=== PATIENT | male | born 1945 | race Caucasian/White ===

== ENCOUNTER 2021-05-30 10:17 | Inpatient (IN) ==
[2021-05-30] MEDS ORDERED: 0.9 % SODIUM CHLORIDE 1,000 ML IV ONE (10:20)
[2021-05-30] MEDS ORDERED: DEXAMETHASONE 4 MG TABLET PO ONE (10:20)
--- NOTE | 2021-05-30 10:33 | Emergency Department Note ---
SOB HPI General Chief Complaint: Shortness of Breath/Dyspnea Stated Complaint: Covid, sob Time Seen by Provider: 05/30/21 10:20 Source: EMS Mode of arrival: EMS Limitations: no limitations History of Present Illness HPI Narrative: Patient is a 75-year-old gentleman who arrives the emergency department by ambulance complaining of shortness of breath. History is provided by the patient and paramedics. Patient started having a cough and shortness of breath 2 days ago. He and his had recently been exposed to COVID-19. He has not been vaccinated against COVID-19. He presented to our emergency department on May 27 and tested positive for COVID-19. He was mildly hypoxemic but otherwise reassuring vital signs and was discharged home with a home oxygen concentrator. Today, his neighbor came to contact him to tell him that his who is being treated in the ICU for Covid may need to be transferred to a higher level of care. Upon arriving the patient's home. The neighbor noticed that he was significantly short of breath so they called 911 and the patient was transported to the hospital. He denies any chest pain or fever associated with his symptoms. Related Data Home Medications Medication Instructions Recorded Confirmed omeprazole 20 mg tablet,delayed 20 mg PO QAM 10/08/16 05/30/21 release Adult One Daily Multivitamin 1 tab PO DAILY 05/30/21 05/30/21 Previous Rx's Medication Instructions Recorded right wrist cock-up splint #1 each 02/25/16 Allergies Allergy/AdvReac Type Severity Reaction Status Date / Time latex Allergy Unknown Unknown Verified 05/30/21 10:18 Amoxicillin AdvReac Intermediate rash/hives Verified 05/30/21 10:18 Review of Systems ROS ROS Narrative: Narrative: All systems ED: reviewed and negative except as stated. Gastrointestinal: Denies abdominal pain, nausea, vomiting or diarrhea PFSH Narrative Patient History Narrative: Narrative: Medical/Surgical/Family History All Active Problems (Updated 06/01/21 @ 07:14 by Marek Dominguez DO) Malleolar fracture (Acute) Pneumonia due to 2019 novel coronavirus (Acute) COVID-19 (Acute) Acute hypoxemic respiratory failure (Acute) Carpal tunnel syndrome on both sides (Chronic) GERD (gastroesophageal reflux disease) (Chronic) Biceps tendinitis of right shoulder (Acute) Carpal tunnel syndrome of right wrist (Chronic) History of foot surgery (Chronic) History of colonoscopy (Chronic) History of back surgery (Chronic) History of arthroscopy (Chronic) Seborrheic keratosis (Chronic) Lumbar disc disease (Chronic) Hyperlipidemia (Chronic) Erectile dysfunction (Chronic) Derangement of knee (Chronic) Degenerative disc disease (Chronic) Chronic back pain (Chronic) Arthralgia (Chronic) Actinic keratosis (Chronic) Medical History (Updated 06/01/21 @ 07:14 by Marek Dominguez DO) Actinic keratosis Arthralgia Chronic back pain letter to [facility] - see comments Degenerative disc disease Derangement of knee Meniscus Erectile dysfunction Hyperlipidemia Lumbar disc disease Seborrheic keratosis Surgical History History of arthroscopy 1979 L knee History of back surgery History of colonoscopy 1996 benign polyps History of foot surgery left Family History Mother Type 2 diabetes mellitus Cerebrovascular accident (CVA) Father Disorder of liver Disease of lung Unknown Hyperlipidemia Social History Smoking Status: Former smoker Alcohol Intake Frequency: does not drink Substance Use: does not use Exam Narrative Narrative: I reviewed the vital signs. Gen -patient is awake and alert and appears uncomfortable but in no acute distress. The patient is well groomed. HEENT -head is atraumatic. There is no conjunctival pallor or scleral icterus. Mucous membranes are dry CV -S1-S2 regular rate and rhythm. Peripheral pulses are palpable. There is no JVD. Resp -breathing is somewhat labored with tachypnea and accessory muscle use. The patient is able to speak in short sentences while on supplemental oxygen via nasal cannula but gets significantly increased work of breathing after prolonged conversation. Lungs have mild rhonchi bilaterally. There is no cyanosis. GI - Abdomen is soft and nontender to palpation. There is no guarding or rebound tenderness. Derm -skin is warm and dry. There is no visible rash. MSK -present extremities are atraumatic. Psych -patient has appropriate affect. The patient does not appear internally stimulated. Neuro -patient answers questions appropriately with fluent speech. Patient moves all present extremities equally. General Limitations: no limitations Course Vital Signs Vital signs: Vital Signs Temperature 98.1 F 05/30/21 10:18 Pulse Rate 89 12/02/21 10:18 Respiratory Rate 20 05/30/21 10:18 Blood Pressure 111/68 05/30/21 10:18 Pulse Oximetry (%) 93 05/30/21 10:18 Temperature 98.2 F 05/31/21 22:59 Pulse Rate 61 06/01/21 06:01 Respiratory Rate 22 06/01/21 06:01 Blood Pressure 113/72 06/01/21 06:01 Pulse Oximetry (%) 90 06/01/21 06:01 [facility] MDM Narrative Medical decision making narrative: Patient with previously diagnosed COVID-19 presents with worsening shortness of breath. Labs are remarkable for mild anemia and thrombocytopenia without significant electrolyte derangements. He was given IV fluids supplemental oxygen and dexamethasone without much change in his symptoms. Given his worsening hypoxemia I recommend he be admitted to the hospital and he was agreeable to this. I did consider the possibility of secondary bacterial pneumonia or pulmonary embolus but given the insidious onset of his symptoms I do not think these are the cause of his decompensation. I discussed the patient's history examination and diagnostic findings with Dr. Cosby, who agrees with the plan of care and accepts admission. Critical care time I provided 32 minutes of critical care time. This was in addition to any separately billable procedures. The patient was given supplemental oxygen to treat his hypoxemic respiratory failure. He was given steroids to treat the causative COVID-19 pneumonia. He was given IV fluids to treat dehydration. the patient was closely monitored for response to treatment and stability of vital signs throughout their emergency department stay. Lab Data Lab results reviewed: Yes I reviewed the patient's lab results. Result diagrams: 05/31/21 05:57 05/31/21 05:57 Labs: Lab Results 05/30/21 05/30/21 05/30/21 Range/Units 11:14 11:14 11:48 WBC 8.4 (4.5-11.0) K/mcL RBC 4.45 L (4.63-6.08) M/mcL Hgb 13.7 (13.7-17.5) g/dL Hct 38.8 L (40.1-51.0) % POC Hct 40 L (41-55) % MCV 87.2 (80.0-100.0) fL MCH 30.8 (26.0-34.0) pg MCHC 35.3 (31.0-36.0) g/dL RDW 11.9 (11.5-14.5) % Plt Count 123 L (140-440) K/mcL MPV 10.4 (7.4-10.4) fL Neut % (Auto) 84.5 H (38.0-78.0) % Lymph % (Auto) 11.1 L (15.5-49.0) % [place] % (Auto) 3.2 (1.0-12.0) % Eos % (Auto) 0.8 (0.0-7.0) % Baso % (Auto) 0.4 (0.0-2.0) % Lymph # (Auto) 0.93 L (1.50-4.80) K/mcL [place] # (Auto) 0.27 (0.10-0.90) K/mcL Eos # (Auto) 0.07 (0.00-0.70) K/mcL Baso # (Auto) 0.03 (0.00-0.30) K/mcL Absolute Neutrophils 7.09 (1.80-8.00) K/mcL POC Sodium 140 (133-145) mEq/L POC Potassium 3.5 (3.3-5.1) mEql/L POC Chloride 102 (96-108) mEq/L POC Total CO2 23 (22-30) mmol/L POC BUN 24 H (6-20) mg/dL POC Creatinine 0.9 (0.6-1.2) mg/dL POC Glucose 111 H (70-105) mg/dL POC WB Ioniz Calcium 1.13 L (1.16-1.32) mmEq/L Mycoplasma pneumon IgM Negative (Negative) EKG Data EKG #1: EKG attestation: Yes I reviewed and interpreted this EKG. EKG results narrative: EKG performed at 10:31 AM: Sinus rhythm, rate 79. Normal P wave and T wave morphology. Left ventricular hypertrophy. No ST segment deviation. Normal IA QRS and QTc duration. No old EKG immediately available for comparison. EKG was interpreted by me. Discharge Plan Patient/Caregiver Discharge Instructions Pt seen by [facility]/PA only: No Clinical Impression: COVID-19, Acute hypoxemic respiratory failure Patient Disposition: Xfer As Inpt ([facility]) Condition: Fair Discharge Date/Time: 05/30/21 15:46
--- NOTE | 2021-05-30 11:04 | XRay Report ---
INDICATION: dyspnea TECHNIQUE: AP portable upright chest x-ray COMPARISON: Previous chest x-ray dated 05/27/2021. Previous chest CT scan dated 10/28/2018 FINDINGS: Lungs:There is interstitial abnormality bilaterally. Appearance is slightly worse than on 05/27/2021. Previous CT scans consistent with interstitial fibrosis. This has progressed since 10/28/2018. There may be superimposed infection including covid. Clinical correlation is necessary. Heart, vascular:No significant cardiomegaly. Pulmonary vascularity is normal. No pulmonary edema or pulmonary congestion Mediastinum, arash:No mediastinal widening. No hilar mass Pleura:No pleural fluid. No pleural-based mass or calcification Skeletal:Negative. IMPRESSION: 1. Bilateral interstitial abnormality, slightly worse than on 05/27/2021 2. Findings may represent interstitial fibrosis with superimposed infection. Interpreted and Authenticated by: Jakub Caceres 05/30/21
[2021-05-30 11:27] LABS: POC Blood Urea Nitrogen 24 mg/dL (6-20); POC CO2 23 mmol/L (22-30); POC Calcium, Ionized 1.13 mmEq/L (1.16-1.32); POC Chloride 102 mEq/L (96-108); POC Creatinine 0.9 mg/dL (0.6-1.2); POC Glucose, Random 111 mg/dL (70-105); POC Hematocrit 40 % (41-55); POC Potassium 3.5 mEql/L (3.3-5.1); POC Sodium 140 mEq/L (133-145)
[2021-05-30 12:38] LABS: Basophils # (Auto) 0.03 K/mcL (0.00-0.30); Basophils % (Auto) 0.4 % (0.0-2.0); Eosinophils # (Auto) 0.07 K/mcL (0.00-0.70); Eosinophils % (Auto) 0.8 % (0.0-7.0); Hematocrit 38.8 % (40.1-51.0); Hemoglobin 13.7 g/dL (13.7-17.5); Lymphocytes # (Auto) 0.93 K/mcL (1.50-4.80); Mean Cell Volume 87.2 fL (80.0-100.0); Mean Corpuscular HGB Conc 35.3 g/dL (31.0-36.0); Mean Platelet Volume 10.4 fL (7.4-10.4); Monocytes # (Auto) 0.27 K/mcL (0.10-0.90); Monocytes % (Auto) 3.2 % (1.0-12.0); Neutrophils % (Auto) 84.5 % (38.0-78.0); Platelet Count 123 K/mcL (140-440); RBC 4.45 M/mcL (4.63-6.08); Red Cell Distribution Width 11.9 % (11.5-14.5); WBC 8.4 K/mcL (4.5-11.0)
[2021-05-30 12:40] LABS: Lymphocytes % (Auto) 11.1 % (15.5-49.0)
[2021-05-30] MEDS ORDERED: ACETAMINOPHEN 650 MG/65 ML BAG IV PRN (12:54)
[2021-05-30] MEDS ORDERED: BISACODYL 10 MG SUPP.RECT PR PRN (12:54)
[2021-05-30] MEDS ORDERED: POTASSIUM CHLORIDE 40 MEQ in DEXTROSE 5% IN WATER 500 ML IV PRN (12:54)
[2021-05-30] MEDS ORDERED: POLYETHYLENE GLYCOL 3350 17 GM PACKET PO PRN (12:54)
[2021-05-30] MEDS ORDERED: MAGNESIUM SULFATE 2 GM/50 ML BAG IV PRN (12:54)
[2021-05-30] MEDS ORDERED: ONDANSETRON 4 MG ODT TABLET SL PRN (12:54)
[2021-05-30] MEDS ORDERED: NEUTRA PHOS 1 PACKET PO PRN (12:54)
[2021-05-30] MEDS ORDERED: ONDANSETRON 4 MG/2 ML VIAL IV PRN (12:54)
--- NOTE | 2021-05-30 13:06 | Internal Med History&Physical ---
HPI History of Present Illness Patient information: Note initiated : 05/30/21 at 1:00 pm Service Date, if different from initiated Date: [] Patient: Abiel Rae a 75 y/o M admitted on for Covid, sob. Chief Complaint: [] History of present illness: Mr. Rae is a 75 year old M with no prior significant medical history who presents to the ER with worsening shortness of breath over the last few weeks. Patient was diagnosed with Covid on the and was discharged home on oxygen however he was discovered by his neighbor very short of breath and subsequently EMS was summoned. Patient was found to be desaturating in mid 80s. He was brought into the ER. Initial work-up was consistent with bilateral Covid pneumonia. Patient was found dexamethasone and subsequently hospitalist service was consulted. At the time of my evaluation patient is alert and able to answer most the questions. He was able to endorse history as above. He denies hemoptysis, diarrhea, abdominal pain, headache lightheadedness but endorses to weakness fa tigue loss of appetite along with malaise. Review of systems 10 point review system was performed and is negative except for ones discussed above PFSH PFSH All Active Problems Malleolar fracture (Acute) Pneumonia due to 2019 novel coronavirus (Acute) Carpal tunnel syndrome on both sides (Chronic) GERD (gastroesophageal reflux disease) (Chronic) Biceps tendinitis of right shoulder (Acute) Carpal tunnel syndrome of right wrist (Chronic) History of foot surgery (Chronic) History of colonoscopy (Chronic) History of back surgery (Chronic) History of arthroscopy (Chronic) Seborrheic keratosis (Chronic) Lumbar disc disease (Chronic) Hyperlipidemia (Chronic) Erectile dysfunction (Chronic) Derangement of knee (Chronic) Degenerative disc disease (Chronic) Chronic back pain (Chronic) Arthralgia (Chronic) Actinic keratosis (Chronic) Medical History Actinic keratosis Arthralgia Chronic back pain letter to [facility] - see comments Degenerative disc disease Derangement of knee Meniscus Erectile dysfunction Hyperlipidemia Lumbar disc disease Seborrheic keratosis Surgical History History of arthroscopy 1980 L knee History of back surgery History of colonoscopy 1996 benign polyps History of foot surgery left Family History Mother Type 2 diabetes mellitus Cerebrovascular accident (CVA) Father Disorder of liver Disease of lung Unknown Hyperlipidemia Social History (Updated 06/24/18 @ 10:34 by Polo Luz MD) marital status: frequency: other details: Exercises regularly alcohol intake frequency: does not drink substance use type: does not use MEDS/ALLERGIES Home Medications and Allergies Home Medications Medication Instructions Recorded Confirmed Type right wrist cock-up splint #1 each 02/25/16 06/24/18 Rx omeprazole 20 mg tablet,delayed 20 mg PO QAM 10/08/16 05/30/21 History release Allergies Allergy/AdvReac Type Severity Reaction Status Date / Time latex Allergy Unknown Unknown Verified 05/30/21 10:18 Amoxicillin AdvReac Intermediate rash/hives Verified 05/30/21 10:18 EXAM Constitutional Vitals: Temp Pulse Resp BP Pulse Ox 98.1 F 77 30 H 111/68 85 L 05/30/21 10:18 05/30/21 12:30 05/30/21 12:30 05/30/21 10:18 05/30/21 12:30 Alert oriented but minimally anxious Head normocephalic Oral cavity moist No ear or nose discharge Eye no subconjunctival pallor, movement symmetrical S1-S2 regular Nonlabored breathing on 4 L oxygen Nondistended nontender abdomen Lower extremity no cyanosis clubbing or joint swelling Skin no suspicious lesion Psych anxious but no hallucination Neuro normal higher function on limited neuro exam DATA Data Completed and Pending Labs: Labs from last 24 hours 05/30/21 05/30/21 11:14 11:14 WBC 8.4 RBC 4.45 L Hgb 13.7 Hct 38.8 L POC Hct 40 L MCV 87.2 MCH 30.8 MCHC 35.3 RDW 11.9 Plt Count 123 L MPV 10.4 Neut % (Auto) 84.5 H Lymph % (Auto) 11.1 L [place] % (Auto) 3.2 Eos % (Auto) 0.8 Baso % (Auto) 0.4 Lymph # (Auto) 0.93 L [place] # (Auto) 0.27 Eos # (Auto) 0.07 Baso # (Auto) 0.03 Absolute Neutrophils 7.09 POC Sodium 140 POC Potassium 3.5 POC Chloride 102 POC Total CO2 23 POC BUN 24 H POC Creatinine 0.9 POC Glucose 111 H POC WB Ioniz Calcium 1.13 L A/P Narrative A/P Narrative: * COVID-19 pneumonia-PCU admission/initiate remdesivir/dexamethasone, thrombosis prophylaxis/coag and inflammatory markers, maintain COVID-19 precautions, consent for IL 6 Inhibitor. * Acute hypoxic respiratory failure secondary to Covid pneumonia. Continue with low flow oxygen/pulmonary toilet/ Prone ventilation and transition to noninvasive mechanical ventilation if deteriorating status/worsening oxygenation on ABG/interval chest imaging * History of GERD continue PPI * Prophylaxis on twice daily Lovenox Plan * Inpatient PCU admission * Prone ventilation and NIV if indicated and worsening Covid pneumonia * Serial imaging/ABG/coag inflammatory markers/ IL6 * Remdesivir/dexamethasone/empiric antibiotics/thrombosis prophylaxis * Pre-existing medical condition management home meds * Directed therapies/nutrition support/early mobilization * Discharge planning Time Spent With Patient Time: Total time spent is greater than 50% in coordination of care (as documented) at patient's floor/unit and/or counseling patient:
[2021-05-30] MEDS: AZITHROMYCIN 500 MG in DEXTROSE 5% IN WATER 250 ML IV SCH (16:51)
[2021-05-30] MEDS ORDERED: REMDESIVIR 200 MG in 0.9 % SODIUM CHLORIDE 250 ML IV ONE (17:00)
[2021-05-30] MEDS ORDERED: TOCILIZUMAB 600 MG in 0.9 % SODIUM CHLORIDE 70 ML IV ONE (17:00)
--- NOTE | 2021-05-30 17:26 | EKG ---
[facility] Test Date: 2021-05-30 Pat Name: Abiel Rae Department: ED Room: Gender: Male Heat Treat Worker: laurie : 1945 Requested By: Marek Dominguez Order Number: [id number] Reading MD: Jakub Monet M.D. Measurements Intervals [place] Rate: 79 P: 42 MD: 154 QRS: -3 QRSD: 100 T: 33 QT: 380 QTc: 436 Interpretive Statements Sinus rhythm Probable left atrial enlargement Left ventricular hypertrophy Baseline wander in lead(s) I Electronically Signed On 05-30-2021 17:25:55 PST by Jakub Monet M.D. /store/M0/[id number]/[id number]
[2021-05-30] MEDS: FUROSEMIDE 20 MG/2 ML VIAL IV SCH (17:39)
[2021-05-30] MEDS: 0.9 % SODIUM CHLORIDE 10 ML SYRINGE IV SCH ×2 (17:54→20:00)
[2021-05-30] MEDS: DOCUSATE SODIUM 100 MG CAPSULE PO SCH (19:59)
[2021-05-30] MEDS: SENNOSIDES/DOCUSATE SODIUM 1 TAB TABLET PO SCH (19:59)
[2021-05-30] MEDS: ENOXAPARIN 30 MG/0.3 ML SYRINGE SQ SCH (19:59)
[2021-05-30] MEDS: guaiFENesin/CODEINE 10 ML UDC PO PRN (20:46)
[2021-05-31] MEDS: 0.9 % SODIUM CHLORIDE 10 ML SYRINGE IV SCH ×3 (04:40→20:42)
[2021-05-31 07:08] LABS: Basophils # (Auto) 0.02 K/mcL (0.00-0.30); Basophils % (Auto) 0.3 % (0.0-2.0); Eosinophils # (Auto) 0 K/mcL (0.00-0.70); Eosinophils % (Auto) 0 % (0.0-7.0); Hematocrit 35.6 % (40.1-51.0); Hemoglobin 12.9 g/dL (13.7-17.5); Lymphocytes # (Auto) 0.86 K/mcL (1.50-4.80); Lymphocytes % (Auto) 12.2 % (15.5-49.0); Mean Corpuscular HGB Conc 36.2 g/dL (31.0-36.0); Mean Platelet Volume 10.3 fL (7.4-10.4); Monocytes # (Auto) 0.23 K/mcL (0.10-0.90); Monocytes % (Auto) 3.3 % (1.0-12.0); Neutrophils % (Auto) 84.2 % (38.0-78.0); Platelet Count 124 K/mcL (140-440); RBC 4.14 M/mcL (4.63-6.08); Red Cell Distribution Width 11.9 % (11.5-14.5); WBC 7.1 K/mcL (4.5-11.0)
[2021-05-31 07:20] LABS: ALT/SGPT 31 U/L (<40); AST/SGOT 53 U/L (<40); Albumin 3.1 gm/dL (3.2-5.2); Albumin/Globulin Ratio 0.8 (1.0-2.3); Alkaline Phosphatase 96 U/L (39-117); Bilirubin,Direct 0.3 mg/dL (<0.3); Bilirubin,Total 0.7 mg/dL (0.1-1.0); Blood Urea Nitrogen 18 mg/dL (8-23); Calcium 8.1 mg/dL (8.6-10.4); Carbon Dioxide 22 mmol/L (22-30); Chloride 103 mmol/L (96-108); Globulin 3.7 gm/dL (2.2-3.7); Glomerular Filtration Rate 88; Glucose 133 mg/dL (70-105); Lactate Dehydrogenase 756 U/L (135-225); Triglycerides 95 mg/dL (<150); Uric Acid 6.1 mg/dL (2.5-8.0)
[2021-05-31] MEDS: MULTIVIT,THER IRON,CA,FA & MIN 1 TABLET PO SCH (08:18)
[2021-05-31] MEDS: OMEPRAZOLE 20 MG CAPSULE PO SCH (08:18)
[2021-05-31] MEDS: FUROSEMIDE 20 MG/2 ML VIAL IV SCH ×2 (08:19→16:55)
[2021-05-31] MEDS: AZITHROMYCIN 500 MG in DEXTROSE 5% IN WATER 250 ML IV SCH (08:20)
[2021-05-31] MEDS: DOCUSATE SODIUM 100 MG CAPSULE PO SCH ×2 (08:20→20:51)
[2021-05-31] MEDS: ENOXAPARIN 30 MG/0.3 ML SYRINGE SQ SCH ×2 (08:20→20:42)
[2021-05-31] MEDS: DEXAMETHASONE 4 MG TABLET PO SCH (08:20)
[2021-05-31] MEDS ORDERED: FLEETS ADULT ENEMA PR ONE (09:09)
[2021-05-31] MEDS: VITAMIN D3 125 MCG TABLET PO SCH (09:47)
--- NOTE | 2021-05-31 11:00 | Internal Med Progress Note ---
SUBJECTIVE Subjective Patient information: Note initiated : 05/31/21 at 10:57 am Service Date, if different from initiated Date: [] Patient: Abiel Rae a 75 y/o M admitted on 05/30/21 for Covid, sob. Chief Complaint: [] Interval history: Mr. Rae is a 75 year old M with no prior significant medical history who presents to the ER with worsening shortness of breath over the last few weeks. Patient was diagnosed with Covid on the and was discharged home on oxygen however he was discovered by his neighbor very short of breath and subsequently EMS was summoned. Patient was found to be desaturating in mid 80s. He was brought into the ER. Initial work-up was consistent with bilateral Covid pneumonia. Patient was found dexamethasone and subsequently hospitalist service was consulted. At the time of my evaluation patient is alert and able to answer most the questions. He was able to endorse history as above. He denies hemoptysis, diarrhea, abdominal pain, headache lightheadedness but endorses to weakness fatigue loss of appetite along with malaise. 05/31-patient clinically deteriorating. Now requiring 65% FiO2 at 35 L high flow oxygen. Worsening Covid pneumonia with possible element of ARDS. Status post Actemra. Continuing remdesivir/dexamethasone day two. Remains very high risk mortality. No overnight fever chills. Continue diurese/thrombosis prophylaxis. Maintain COVID-19 precaution. Check x-ray/ABGs Constitutional Vitals: Vital Signs Temp Pulse Resp BP Pulse Ox 97.6 F 62 26 H 149/80 96 05/31/21 08:01 05/31/21 08:01 05/31/21 08:01 05/31/21 08:01 05/31/21 08:30 Period Temp Pulse Resp BP Sys/Guan Pulse Ox Last 24 Hr 97.6 F-99.1 F 52-85 14-41 96-149/57-119 60-99 Intake and Output 05/30/21 05/31/21 05/31/21 21:59 05:59 13:59 Intake Total 600 Output Total 1525 700 Balance -925 -700 Weight 81.511 kg anxious Labored breathing on 35 L 65% FiO2 No lymphedema Nondistended abdomen Intake & Output: Intake & Output 05/30/21 05/31/21 05/31/21 21:59 05:59 13:59 Intake Total 600 Output Total 1525 700 Balance -925 -700 Weight 81.511 kg Intake: IV 600 Zithromax 500 mg In Dextrose 5% 250 in Water 250 ml @ 250 mls/hr IV Q24H [facility] Rx#:[id number] Veklury 200 mg In Sodium 250 Chloride 0.9% 250 ml @ 500 mls/ hr IV ONCE ONE Rx#:[id number] Actemra 600 mg In Sodium 100 Chloride 0.9% 70 ml @ 100 mls/ hr IV ONCE ONE Rx#:[id number] Output: Void Amount 1520 700 Other: Urine Appearance Clear Clear Urine Color Bright Yellow Bright Yellow Urine Odor Normal OBJ DATA Labs CBC & Chem 7: 05/31/21 05:57 05/31/21 05:57 Labs: Abnormal Lab Results 05/31/21 05/31/21 05/31/21 05:57 05:57 05:57 RBC 4.14 L Hgb 12.9 L Hct 35.6 L POC Hct MCHC 36.2 H Plt Count 124 L Neut % (Auto) 84.2 H Lymph % (Auto) 12.2 L Lymph # (Auto) 0.86 L D-Dimer > 20.0 H POC BUN Glucose 133 H POC Glucose Calcium 8.1 L POC WB Ioniz Calcium Direct Bilirubin 0.3 H AST 53 H Lactate Dehydrogenase 756 H Albumin 3.1 L Albumin/Globulin Ratio 0.8 L 05/30/21 05/30/21 11:14 11:14 RBC 4.45 L Hgb Hct 38.8 L POC Hct 40 L MCHC Plt Count 123 L Neut % (Auto) 84.5 H Lymph % (Auto) 11.1 L Lymph # (Auto) 0.93 L D-Dimer POC BUN 24 H Glucose POC Glucose 111 H Calcium POC WB Ioniz Calcium 1.13 L Direct Bilirubin AST Lactate Dehydrogenase Albumin Albumin/Globulin Ratio Meds: Medications Acetaminophen (Acetaminophen 325 Mg Tablet) 650 mg PO Q4-6HP PRN; Protocol PRN Reason: Per Pain Protocol/Fever > 101 Bisacodyl (Bisacodyl 10 Mg Supp.Rect) 10 mg PA Q2-3DAYS PRN PRN Reason: Constipation Dexamethasone (Dexamethasone 4 Mg Tablet) 6 mg PO DAILY [facility] Last Admin: 05/31/21 08:20 Dose: 6 mg Documented by: Docusate Sodium (Docusate Sodium 100 Mg Capsule) 100 mg PO BID [facility] Last Admin: 05/31/21 08:20 Dose: Not Given Documented by: Enoxaparin Sodium (Enoxaparin 30 Mg/0.3 Ml Syringe) 30 mg SQ BID [facility] Last Admin: 05/31/21 08:20 Dose: 30 mg Documented by: Furosemide (Furosemide 20 Mg/2 Ml Vial) 20 mg IV BIDD [facility] Last Admin: 05/31/21 08:19 Dose: 20 mg Documented by: Guaifenesin/Codeine Phosphate (Guaifenesin/Codeine 10 Ml Udc) 10 ml PO Q4HP PRN PRN Reason: Cough Last Admin: 05/30/21 20:46 Dose: 10 ml Documented by: Azithromycin 500 mg/ Dextrose 250 mls @ 250 mls/hr IV Q24H [facility]; Protocol Stop: 06/01/21 16:59 Last Admin: 05/31/21 08:20 Dose: 250 mls/hr Documented by: REMDESIVIR 100 mg/ Sodium (Chloride) 250 mls @ 500 mls/hr IV Q24H [facility] Stop: 06/03/21 13:29 Potassium Chloride 40 meq/ (Dextrose) 520 mls @ 130 mls/hr IV UD PRN PRN Reason: K+ = or < 3.5 Acetaminophen (Ofirmev) 650 mg in 65 mls @ 130 mls/hr IV Q6HP PRN; Protocol PRN Reason: Per Pain Protocol/Fever > 101 Magnesium Sulfate (Magnesium Sulfate) 2 gm in 50 mls @ 50 mls/hr IV UD PRN PRN Reason: MG = or < 1.7 Iron Carb/Multivit/[place]/Folic Acid (Multivit,Ther Iron,Ca,Fa & Min 1 Tablet) 1 tab PO DAILY [facility] Last Admin: 05/31/21 08:18 Dose: 1 tab Documented by: Melatonin (Melatonin 3 Mg Tablet) 3 mg PO HSP PRN PRN Reason: Insomnia Omeprazole (Omeprazole 20 Mg Capsule) 20 mg PO ACB [facility] Last Admin: 05/31/21 08:18 Dose: 20 mg Documented by: Ondansetron HCl (Ondansetron 4 Mg Odt Tablet) 4 mg SL Q4-6HP PRN; Protocol PRN Reason: Nausea And Vomiting Ondansetron HCl (Ondansetron 4 Mg/2 Ml Vial) 4 mg IV Q4-6HP PRN; Protocol PRN Reason: Nausea And Vomiting Polyethylene Glycol (Polyethylene Glycol 3350 17 Gm Packet) 17 gm PO DAILYP PRN PRN Reason: Constipation Potassium/Phosphorus/Sodium (Neutra Phos 1 Packet) 2 packet PO ONCE PRN PRN Reason: For phosphorus less than 2.5 Senna/Docusate Sodium (Sennosides/Docusate Sodium 1 Tab Tablet) 1 tab PO HS [facility] Last Admin: 05/30/21 19:59 Dose: 1 tab Documented by: Sodium Chloride (0.9 % Sodium Chloride 10 Ml Syringe) 10 ml IV Q8 [facility] Last Admin: 05/31/21 04:40 Dose: 10 ml Documented by: Vitamin D (Vitamin D3 5,000 Unit Tablet) 5,000 unit PO DAILY [facility] Last Admin: 05/31/21 09:47 Dose: 5,000 unit Documented by: A/P Narrative A/P Narrative: * COVID-19 pneumonia-rapid clinical deterioration noted. Continue day two remdesivir/dexamethasone, thrombosis prophylaxis, maintain COVID-19 precautions, status post Actemra 05/30 * Acute hypoxic respiratory failure secondary to Covid pneumonia. Now on high flow 65% oxygen. Interval imaging/ABG/NIV if indicated * History of GERD continue PPI * Prophylaxis on twice daily Lovenox Plan * Continue ICU care * Prone ventilation and NIV if indicated * Serial imaging/ABG * Remdesivir/dexamethasone/empiric antibiotics/thrombosis prophylaxis * Pre-existing medical condition management home meds * Directed therapies/nutrition support/early mobilization Time Spent With Patient Time: Critical care time in excess of 35 minutes on management of Covid pneumonia/hypoxic respiratory failure QUALITY Stroke Symptom Onset Unknown: No
[2021-05-31] MEDS: REMDESIVIR 100 MG in 0.9 % SODIUM CHLORIDE 250 ML IV SCH (13:39)
[2021-05-31] MEDS: guaiFENesin/CODEINE 10 ML UDC PO PRN (20:41)
[2021-05-31] MEDS: SENNOSIDES/DOCUSATE SODIUM 1 TAB TABLET PO SCH (20:51)
[2021-06-01] MEDS: guaiFENesin/CODEINE 10 ML UDC PO PRN ×2 (03:11→20:13)
[2021-06-01] MEDS: 0.9 % SODIUM CHLORIDE 10 ML SYRINGE IV SCH ×3 (06:02→20:04)
[2021-06-01 07:17] LABS: Basophils # (Auto) 0.02 K/mcL (0.00-0.30); Basophils % (Auto) 0.2 % (0.0-2.0); Eosinophils # (Auto) 0.08 K/mcL (0.00-0.70); Eosinophils % (Auto) 0.9 % (0.0-7.0); Hematocrit 36.8 % (40.1-51.0); Hemoglobin 13.1 g/dL (13.7-17.5); Lymphocytes # (Auto) 1.14 K/mcL (1.50-4.80); Lymphocytes % (Auto) 13.3 % (15.5-49.0); Mean Corpuscular HGB Conc 35.6 g/dL (31.0-36.0); Mean Platelet Volume 10.6 fL (7.4-10.4); Monocytes # (Auto) 0.35 K/mcL (0.10-0.90); Monocytes % (Auto) 4.1 % (1.0-12.0); Neutrophils % (Auto) 81.5 % (38.0-78.0); Platelet Count 133 K/mcL (140-440); RBC 4.23 M/mcL (4.63-6.08); Red Cell Distribution Width 11.9 % (11.5-14.5); WBC 8.6 K/mcL (4.5-11.0)
[2021-06-01] MEDS: OMEPRAZOLE 20 MG CAPSULE PO SCH (07:20)
[2021-06-01] MEDS: FUROSEMIDE 20 MG/2 ML VIAL IV SCH ×2 (07:20→16:08)
[2021-06-01 07:36] LABS: ALT/SGPT 42 U/L (<40); AST/SGOT 61 U/L (<40); Albumin 3.2 gm/dL (3.2-5.2); Albumin/Globulin Ratio 0.9 (1.0-2.3); Alkaline Phosphatase 97 U/L (39-117); Bilirubin,Direct 0.2 mg/dL (<0.3); Bilirubin,Total 0.8 mg/dL (0.1-1.0); Blood Urea Nitrogen 28 mg/dL (8-23); Calcium 8.4 mg/dL (8.6-10.4); Carbon Dioxide 25 mmol/L (22-30); Chloride 100 mmol/L (96-108); Globulin 3.4 gm/dL (2.2-3.7); Glomerular Filtration Rate 84; Glucose 120 mg/dL (70-105); Lactate Dehydrogenase 827 U/L (135-225); Phosphorous 3.1 mg/dL (2.5-4.5); Triglycerides 71 mg/dL (<150); Uric Acid 7.4 mg/dL (2.5-8.0)
--- NOTE | 2021-06-01 08:40 | XRay Report ---
INDICATION: Covid 19 TECHNIQUE: AP portable semiupright chest x-ray COMPARISON: Previous examination dated 05/30/2021 FINDINGS: Lungs:Bilateral interstitial pulmonary parenchymal infiltrates consistent with covid pneumonia. Appearance is essentially unchanged since 05/30/2021 Heart, vascular:No significant cardiomegaly. Pulmonary vascularity is normal. No pulmonary edema or pulmonary congestion Mediastinum, arash:No mediastinal widening. No hilar mass Pleura:No pleural fluid. No pleural-based mass or calcification Skeletal:Negative. IMPRESSION: 1. Bilateral pulmonary parenchymal infiltrates consistent with pneumonia 2. No significant interval change since 05/30/2021 Interpreted and Authenticated by: Jakub Caceres 06/01/21
[2021-06-01] MEDS: DOCUSATE SODIUM 100 MG CAPSULE PO SCH ×2 (08:56→20:03)
[2021-06-01] MEDS: DEXAMETHASONE 4 MG TABLET PO SCH (08:56)
[2021-06-01] MEDS: VITAMIN D3 125 MCG TABLET PO SCH (08:57)
[2021-06-01] MEDS: AZITHROMYCIN 500 MG in DEXTROSE 5% IN WATER 250 ML IV SCH (08:57)
[2021-06-01] MEDS: MULTIVIT,THER IRON,CA,FA & MIN 1 TABLET PO SCH (08:57)
[2021-06-01] MEDS: ENOXAPARIN 30 MG/0.3 ML SYRINGE SQ SCH ×2 (08:57→20:03)
--- NOTE | 2021-06-01 11:03 | Internal Med Progress Note ---
SUBJECTIVE Subjective Patient information: Note initiated : 06/01/21 at 10:59 am Service Date, if different from initiated Date: [] Patient: Abiel Rae a 75 y/o M admitted on 05/30/21 for Covid, sob. Chief Complaint: [] Interval history: Mr. Rae is a 75 year old M with no prior significant medical history who presents to the ER with worsening shortness of breath over the last few weeks. Patient was diagnosed with Covid on the and was discharged home on oxygen however he was discovered by his neighbor very short of breath and subsequently EMS was summoned. Patient was found to be desaturating in mid 80s. He was brought into the ER. Initial work-up was consistent with bilateral Covid pneumonia. Patient was found dexamethasone and subsequently hospitalist service was consulted. At the time of my evaluation patient is alert and able to answer most the questions. He was able to endorse history as above. He denies hemoptysis, diarrhea, abdominal pain, headache lightheadedness but endorses to weakness fatigue loss of appetite along with malaise. 05/31-patient clinically deteriorating. Now requiring 65% FiO2 at 35 L high flow oxygen. Worsening Covid pneumonia with possible element of ARDS. Status post Actemra. Continuing remdesivir/dexamethasone day two. Remains very high risk mortality. No overnight fever chills. Continue diurese/thrombosis prophylaxis. Maintain COVID-19 precaution. Check x-ray/ABGs 06/01 worsening interval chest imaging, however clinically feels better. On high flow oxygen 30 L. White count 8.6, platelets 133, continuing remdesivir/dexamethasone/azithromycin. No overnight events including fever chills. Alert and respond to commands, no anxiety or concerns per staff Constitutional Vitals: Vital Signs Temp Pulse Resp BP Pulse Ox 98.6 F 74 31 H 130/92 90 06/01/21 08:00 06/01/21 08:00 06/01/21 08:00 06/01/21 08:00 06/01/21 08:00 Period Temp Pulse Resp BP Sys/Guan Pulse Ox Last 24 Hr 97.8 F-98.6 F 53-89 14-31 99-137/64-94 85-98 Intake and Output 05/31/21 06/01/21 06/01/21 21:59 05:59 13:59 Intake Total 660 640 Output Total 700 250 550 Balance -40 390 -550 Weight 78.109 kg 79.016 kg Alert oriented Nonlabored breathing on high flow nasal cannula oxygen No telemetry events No lymphedema Intake & Output: Intake & Output 05/31/21 06/01/21 06/01/21 21:59 05:59 13:59 Intake Total 660 640 Output Total 700 250 550 Balance -40 390 -550 Weight 78.109 kg 79.016 kg Intake: Nourishment/Supplement quantity 240 (ml) IV 250 Veklury 100 mg In Sodium 250 Chloride 0.9% 250 ml @ 500 mls/ hr IV Q24H [facility] Rx#:[id number] Oral 170 640 Output: Void Amount 700 250 550 Other: Meal Dinner Percent of Meal Consumed 25% Feeding Ability Independent Nourishment/Supplement name ensure Urine Appearance Clear Clear Clear Urine Color Straw Bright Yellow Bright Yellow Urine Odor Normal Stool Size Moderate Stool Color Brown Stool Consistency Formed Loose # Voids 1 OBJ DATA Labs CBC & Chem 7: 06/01/21 05:57 06/01/21 05:57 Labs: Abnormal Lab Results 06/01/21 06/01/21 06/01/21 05:57 05:57 05:57 RBC 4.23 L Hgb 13.1 L Hct 36.8 L POC Hct MCHC Plt Count 133 L MPV 10.6 H Neut % (Auto) 81.5 H Lymph % (Auto) 13.3 L Lymph # (Auto) 1.14 L D-Dimer > 20.0 H POC BUN BUN 28 H Glucose 120 H POC Glucose Calcium 8.4 L POC WB Ioniz Calcium Direct Bilirubin AST 61 H ALT 42 H Lactate Dehydrogenase 827 H Albumin Albumin/Globulin Ratio 0.9 L 05/31/21 05/31/21 05/31/21 05:57 05:57 05:57 RBC 4.14 L Hgb 12.9 L Hct 35.6 L POC Hct MCHC 36.2 H Plt Count 124 L MPV Neut % (Auto) 84.2 H Lymph % (Auto) 12.2 L Lymph # (Auto) 0.86 L D-Dimer > 20.0 H POC BUN BUN Glucose 133 H POC Glucose Calcium 8.1 L POC WB Ioniz Calcium Direct Bilirubin 0.3 H AST 53 H ALT Lactate Dehydrogenase 756 H Albumin 3.1 L Albumin/Globulin Ratio 0.8 L 05/30/21 05/30/21 11:14 11:14 RBC 4.45 L Hgb Hct 38.8 L POC Hct 40 L MCHC Plt Count 123 L MPV Neut % (Auto) 84.5 H Lymph % (Auto) 11.1 L Lymph # (Auto) 0.93 L D-Dimer POC BUN 24 H BUN Glucose POC Glucose 111 H Calcium POC WB Ioniz Calcium 1.13 L Direct Bilirubin AST ALT Lactate Dehydrogenase Albumin Albumin/Globulin Ratio Meds: Medications Acetaminophen (Acetaminophen 325 Mg Tablet) 650 mg PO Q4-6HP PRN; Protocol PRN Reason: Per Pain Protocol/Fever > 101 Bisacodyl (Bisacodyl 10 Mg Supp.Rect) 10 mg DE Q2-3DAYS PRN PRN Reason: Constipation Dexamethasone (Dexamethasone 4 Mg Tablet) 6 mg PO DAILY [facility] Last Admin: 06/01/21 08:56 Dose: 6 mg Documented by: Docusate Sodium (Docusate Sodium 100 Mg Capsule) 100 mg PO BID [facility] Last Admin: 06/01/21 08:56 Dose: Not Given Documented by: Enoxaparin Sodium (Enoxaparin 30 Mg/0.3 Ml Syringe) 30 mg SQ BID [facility] Last Admin: 06/01/21 08:57 Dose: 30 mg Documented by: Furosemide (Furosemide 20 Mg/2 Ml Vial) 20 mg IV BIDD [facility] Last Admin: 06/01/21 07:20 Dose: 20 mg Documented by: Guaifenesin/Codeine Phosphate (Guaifenesin/Codeine 10 Ml Udc) 10 ml PO Q4HP PRN PRN Reason: Cough Last Admin: 06/01/21 03:11 Dose: 10 ml Documented by: Azithromycin 500 mg/ Dextrose 250 mls @ 250 mls/hr IV Q24H [facility]; Protocol Stop: 06/01/21 16:59 Last Admin: 06/01/21 08:57 Dose: 250 mls/hr Documented by: REMDESIVIR 100 mg/ Sodium (Chloride) 250 mls @ 500 mls/hr IV Q24H [facility] Stop: 06/03/21 13:29 Last Infusion: 05/31/21 14:48 Dose: Infused Documented by: Potassium Chloride 40 meq/ (Dextrose) 520 mls @ 130 mls/hr IV UD PRN PRN Reason: K+ = or < 3.5 Acetaminophen (Ofirmev) 650 mg in 65 mls @ 130 mls/hr IV Q6HP PRN; Protocol PRN Reason: Per Pain Protocol/Fever > 101 Magnesium Sulfate (Magnesium Sulfate) 2 gm in 50 mls @ 50 mls/hr IV UD PRN PRN Reason: MG = or < 1.7 Iron Carb/Multivit/Fire Alarm Technician/Folic Acid (Multivit,Ther Iron,Ca,Fa & Min 1 Tablet) 1 tab PO DAILY [facility] Last Admin: 06/01/21 08:57 Dose: 1 tab Documented by: Melatonin (Melatonin 3 Mg Tablet) 3 mg PO HSP PRN PRN Reason: Insomnia Omeprazole (Omeprazole 20 Mg Capsule) 20 mg PO ACB [facility] Last Admin: 06/01/21 07:20 Dose: 20 mg Documented by: Ondansetron HCl (Ondansetron 4 Mg Odt Tablet) 4 mg SL Q4-6HP PRN; Protocol PRN Reason: Nausea And Vomiting Ondansetron HCl (Ondansetron 4 Mg/2 Ml Vial) 4 mg IV Q4-6HP PRN; Protocol PRN Reason: Nausea And Vomiting Polyethylene Glycol (Polyethylene Glycol 3350 17 Gm Packet) 17 gm PO DAILYP PRN PRN Reason: Constipation Potassium/Phosphorus/Sodium (Neutra Phos 1 Packet) 2 packet PO ONCE PRN PRN Reason: For phosphorus less than 2.5 Senna/Docusate Sodium (Sennosides/Docusate Sodium 1 Tab Tablet) 1 tab PO HS [facility] Last Admin: 05/31/21 20:51 Dose: Not Given Documented by: Sodium Chloride (0.9 % Sodium Chloride 10 Ml Syringe) 10 ml IV Q8 [facility] Last Admin: 06/01/21 06:02 Dose: 10 ml Documented by: Vitamin D (Vitamin D3 5,000 Unit Tablet) 5,000 unit PO DAILY [facility] Last Admin: 06/01/21 08:57 Dose: 5,000 unit Documented by: A/P Narrative A/P Narrative: * COVID-19 pneumonia-rapid clinical deterioration noted. Continue day two remdesivir/dexamethasone, thrombosis prophylaxis, maintain COVID-19 precautions, status post Actemra 05/30 * Acute hypoxic respiratory failure secondary to Covid pneumonia. On high flow oxygen, * ARDS secondary to COVID-19 pneumonia. Persistent bilateral infiltrates/PFless than 150. Continue gentle diuresis * History of GERD continue PPI * Prophylaxis on twice daily Lovenox Plan * Continue ICU care * Prone ventilation and NIV if indicated * Remdesivir/dexamethasone/empiric antibiotics/thrombosis prophylaxis * Pre-existing medical condition management home meds * Directed therapies/nutrition support/early mobilization Time Spent With Patient Time: Critical care time Total time spent with greater than 50% in coordination of care (as documented) at patient's floor/unit and/or counseling patient:: Greater than 35 minutes QUALITY Stroke Symptom Onset Unknown: No
[2021-06-01] MEDS: REMDESIVIR 100 MG in 0.9 % SODIUM CHLORIDE 250 ML IV SCH (13:30)
[2021-06-01] MEDS ORDERED: FLEETS ADULT ENEMA PR ONE ×2 (16:46→16:54)
[2021-06-01] MEDS: SENNOSIDES/DOCUSATE SODIUM 1 TAB TABLET PO SCH (20:03)
[2021-06-02] MEDS: 0.9 % SODIUM CHLORIDE 10 ML SYRINGE IV SCH ×3 (04:20→21:44)
[2021-06-02] MEDS: FUROSEMIDE 20 MG/2 ML VIAL IV SCH (06:57)
[2021-06-02] MEDS: OMEPRAZOLE 20 MG CAPSULE PO SCH (06:57)
[2021-06-02 07:46] LABS: Basophils # (Auto) 0.01 K/mcL (0.00-0.30); Basophils % (Auto) 0.2 % (0.0-2.0); Eosinophils # (Auto) 0.17 K/mcL (0.00-0.70); Eosinophils % (Auto) 3.1 % (0.0-7.0); Hematocrit 38.7 % (40.1-51.0); Hemoglobin 13.6 g/dL (13.7-17.5); Lymphocytes # (Auto) 1.01 K/mcL (1.50-4.80); Lymphocytes % (Auto) 18.2 % (15.5-49.0); Mean Cell Volume 86.8 fL (80.0-100.0); Mean Corpuscular HGB Conc 35.1 g/dL (31.0-36.0); Mean Platelet Volume 10.6 fL (7.4-10.4); Monocytes # (Auto) 0.26 K/mcL (0.10-0.90); Monocytes % (Auto) 4.7 % (1.0-12.0); Neutrophils % (Auto) 73.8 % (38.0-78.0); Platelet Count 114 K/mcL (140-440); RBC 4.46 M/mcL (4.63-6.08); Red Cell Distribution Width 11.9 % (11.5-14.5); WBC 5.6 K/mcL (4.5-11.0)
[2021-06-02 07:47] LABS: ALT/SGPT 48 U/L (<40); AST/SGOT 60 U/L (<40); Albumin 3.3 gm/dL (3.2-5.2); Albumin/Globulin Ratio 0.9 (1.0-2.3); Alkaline Phosphatase 93 U/L (39-117); Bilirubin,Direct 0.3 mg/dL (<0.3); Bilirubin,Total 0.8 mg/dL (0.1-1.0); Blood Urea Nitrogen 27 mg/dL (8-23); Carbon Dioxide 28 mmol/L (22-30); Chloride 97 mmol/L (96-108); Globulin 3.5 gm/dL (2.2-3.7); Glomerular Filtration Rate 84; Glucose 106 mg/dL (70-105); Lactate Dehydrogenase 758 U/L (135-225); Phosphorous 3.4 mg/dL (2.5-4.5); Triglycerides 71 mg/dL (<150); Uric Acid 7.4 mg/dL (2.5-8.0)
[2021-06-02] MEDS ORDERED: POTASSIUM CHLORIDE 20 MEQ TABLET PO ONE (08:07)
[2021-06-02] MEDS: ENOXAPARIN 30 MG/0.3 ML SYRINGE SQ SCH ×2 (09:22→21:44)
[2021-06-02] MEDS: VITAMIN D3 125 MCG TABLET PO SCH (09:22)
[2021-06-02] MEDS: DEXAMETHASONE 4 MG TABLET PO SCH (09:22)
[2021-06-02] MEDS: MULTIVIT,THER IRON,CA,FA & MIN 1 TABLET PO SCH (09:22)
[2021-06-02] MEDS: DOCUSATE SODIUM 100 MG CAPSULE PO SCH ×2 (09:22→21:44)
--- NOTE | 2021-06-02 10:52 | Internal Med Progress Note ---
SUBJECTIVE Subjective Patient information: Note initiated : 06/02/21 at 10:49 am Service Date, if different from initiated Date: [] Patient: Abiel Rae a 75 y/o M admitted on 05/30/21 for Covid, sob. Chief Complaint: [] Interval history: Mr. Rae is a 75 year old M with no prior significant medical history who presents to the ER with worsening shortness of breath over the last few weeks. Patient was diagnosed with Covid on the and was discharged home on oxygen however he was discovered by his neighbor very short of breath and subsequently EMS was summoned. Patient was found to be desaturating in mid 80s. He was brought into the ER. Initial work-up was consistent with bilateral Covid pneumonia. Patient was found dexamethasone and subsequently hospitalist service was consulted. At the time of my evaluation patient is alert and able to answer most the questions. He was able to endorse history as above. He denies hemoptysis, diarrhea, abdominal pain, headache lightheadedness but endorses to weakness fatigue loss of appetite along with malaise. 05/31-patient clinically deteriorating. Now requiring 65% FiO2 at 35 L high flow oxygen. Worsening Covid pneumonia with possible element of ARDS. Status post Actemra. Continuing remdesivir/dexamethasone day two. Remains very high risk mortality. No overnight fever chills. Continue diurese/thrombosis prophylaxis. Maintain COVID-19 precaution. Check x-ray/ABGs 06/01 worsening interval chest imaging, however clinically feels better. On high flow oxygen 30 L. White count 8.6, platelets 133, continuing remdesivir/dexamethasone/azithromycin. No overnight events including fever chills. Alert and respond to commands, no anxiety or concerns per staff 06/02-patient this morning experienced syncopal episode while sitting in a chair. Was found in a near unresponsive state with blood pressure in the 80s. Placed on bed. Continue examination unremarkable. Patient returned to normal sensorium shortly. Denies chest pain, shortness of breath. [place] back at baseline within minutes. Was incontinent of stool on chair. White count 5.6, potassium 3.2 on replacement, creatinine 0.9. Lower diuretic dose to 20 mg daily, continue remdesivir/dexamethasone. On 30 L high flow 65% FiO2. Remains critically ill Constitutional Vitals: Vital Signs Temp Pulse Resp BP Pulse Ox 98.9 F 74 22 100/71 94 06/02/21 08:02 06/02/21 10:20 06/02/21 10:20 06/02/21 10:20 06/02/21 10:20 Period Temp Pulse Resp BP Sys/Guan Pulse Ox Last 24 Hr 97.3 F-98.9 F 51-83 13-30 86-139/58-89 84-100 Intake and Output 06/01/21 06/02/21 06/02/21 21:59 05:59 13:59 Intake Total 730 Output Total 950 426 Balance -220 -426 Weight 79.605 kg On 30 L high flow 65% Minimal anxiety Nonlabored breathing Intake & Output: Intake & Output 06/01/21 06/02/21 06/02/21 21:59 05:59 13:59 Intake Total 730 Output Total 950 426 Balance -220 -426 Weight 79.605 kg Intake: IV 250 Veklury 100 mg In Sodium 250 Chloride 0.9% 250 ml @ 500 mls/ hr IV Q24H [facility] Rx#:[id number] Oral 480 Output: Void Amount 950 425 # of times incontinent of urine 1 Other: Urine Appearance Clear Clear Urine Color Pale Light Andressa Urine Odor Normal Stool Size Small Stool Color Brown Stool Consistency Yesica # Voids 1 # Bowel Movements 1 OBJ DATA Labs CBC & Chem 7: 06/02/21 05:53 06/02/21 05:53 Labs: Abnormal Lab Results 06/02/21 06/02/21 06/01/21 05:53 05:53 05:57 RBC 4.46 L Hgb 13.6 L Hct 38.7 L POC Hct MCHC Plt Count 114 L MPV 10.6 H Neut % (Auto) Lymph % (Auto) Lymph # (Auto) 1.01 L D-Dimer Potassium 3.2 L POC BUN BUN 27 H 28 H Glucose 106 H 120 H POC Glucose Calcium 8.4 L POC WB Ioniz Calcium Direct Bilirubin 0.3 H AST 60 H 61 H ALT 48 H 42 H Lactate Dehydrogenase 758 H 827 H Albumin Albumin/Globulin Ratio 0.9 L 0.9 L 06/01/21 06/01/21 05/31/21 05:57 05:57 05:57 RBC 4.23 L Hgb 13.1 L Hct 36.8 L POC Hct MCHC Plt Count 133 L MPV 10.6 H Neut % (Auto) 81.5 H Lymph % (Auto) 13.3 L Lymph # (Auto) 1.14 L D-Dimer > 20.0 H Potassium POC BUN BUN Glucose 133 H POC Glucose Calcium 8.1 L POC WB Ioniz Calcium Direct Bilirubin 0.3 H AST 53 H ALT Lactate Dehydrogenase 756 H Albumin 3.1 L Albumin/Globulin Ratio 0.8 L 05/31/21 05/31/21 05/30/21 05:57 05:57 11:14 RBC 4.14 L Hgb 12.9 L Hct 35.6 L POC Hct 40 L MCHC 36.2 H Plt Count 124 L MPV Neut % (Auto) 84.2 H Lymph % (Auto) 12.2 L Lymph # (Auto) 0.86 L D-Dimer > 20.0 H Potassium POC BUN 24 H BUN Glucose POC Glucose 111 H Calcium POC WB Ioniz Calcium 1.13 L Direct Bilirubin AST ALT Lactate Dehydrogenase Albumin Albumin/Globulin Ratio 05/30/21 11:14 RBC 4.45 L Hgb Hct 38.8 L POC Hct MCHC Plt Count 123 L MPV Neut % (Auto) 84.5 H Lymph % (Auto) 11.1 L Lymph # (Auto) 0.93 L D-Dimer Potassium POC BUN BUN Glucose POC Glucose Calcium POC WB Ioniz Calcium Direct Bilirubin AST ALT Lactate Dehydrogenase Albumin Albumin/Globulin Ratio Meds: Medications Acetaminophen (Acetaminophen 325 Mg Tablet) 650 mg PO Q4-6HP PRN; Protocol PRN Reason: Per Pain Protocol/Fever > 101 Bisacodyl (Bisacodyl 10 Mg Supp.Rect) 10 mg [place] Q2-3DAYS PRN PRN Reason: Constipation Dexamethasone (Dexamethasone 4 Mg Tablet) 6 mg PO DAILY [facility] Last Admin: 06/02/21 09:22 Dose: 6 mg Documented by: Docusate Sodium (Docusate Sodium 100 Mg Capsule) 100 mg PO BID [facility] Last Admin: 06/02/21 09:22 Dose: 100 mg Documented by: Enoxaparin Sodium (Enoxaparin 30 Mg/0.3 Ml Syringe) 30 mg SQ BID [facility] Last Admin: 06/02/21 09:22 Dose: 30 mg Documented by: Furosemide (Furosemide 20 Mg/2 Ml Vial) 20 mg IV DAILY [facility] Guaifenesin/Codeine Phosphate (Guaifenesin/Codeine 10 Ml Udc) 10 ml PO Q4HP PRN PRN Reason: Cough Last Admin: 06/01/21 20:13 Dose: 10 ml Documented by: REMDESIVIR 100 mg/ Sodium (Chloride) 250 mls @ 500 mls/hr IV Q24H [facility] Stop: 06/03/21 13:29 Last Infusion: 06/01/21 14:10 Dose: Infused Documented by: Potassium Chloride 40 meq/ (Dextrose) 520 mls @ 130 mls/hr IV UD PRN PRN Reason: K+ = or < 3.5 Acetaminophen (Ofirmev) 650 mg in 65 mls @ 130 mls/hr IV Q6HP PRN; Protocol PRN Reason: Per Pain Protocol/Fever > 101 Magnesium Sulfate (Magnesium Sulfate) 2 gm in 50 mls @ 50 mls/hr IV UD PRN PRN Reason: MG = or < 1.7 Iron Carb/Multivit/[place]/Folic Acid (Multivit,Ther Iron,Ca,Fa & Min 1 Tablet) 1 tab PO DAILY [facility] Last Admin: 06/02/21 09:22 Dose: 1 tab Documented by: Melatonin (Melatonin 3 Mg Tablet) 3 mg PO HSP PRN PRN Reason: Insomnia Omeprazole (Omeprazole 20 Mg Capsule) 20 mg PO ACB [facility] Last Admin: 06/02/21 06:57 Dose: 20 mg Documented by: Ondansetron HCl (Ondansetron 4 Mg Odt Tablet) 4 mg SL Q4-6HP PRN; Protocol PRN Reason: Nausea And Vomiting Ondansetron HCl (Ondansetron 4 Mg/2 Ml Vial) 4 mg IV Q4-6HP PRN; Protocol PRN Reason: Nausea And Vomiting Polyethylene Glycol (Polyethylene Glycol 3350 17 Gm Packet) 17 gm PO DAILYP PRN PRN Reason: Constipation Potassium/Phosphorus/Sodium (Neutra Phos 1 Packet) 2 packet PO ONCE PRN PRN Reason: For phosphorus less than 2.5 Senna/Docusate Sodium (Sennosides/Docusate Sodium 1 Tab Tablet) 1 tab PO HS [facility] Last Admin: 06/01/21 20:03 Dose: 1 tab Documented by: Sodium Chloride (0.9 % Sodium Chloride 10 Ml Syringe) 10 ml IV Q8 [facility] Last Admin: 06/02/21 04:20 Dose: 10 ml Documented by: Vitamin D (Vitamin D3 5,000 Unit Tablet) 5,000 unit PO DAILY [facility] Last Admin: 06/02/21 09:22 Dose: 5,000 unit Documented by: A/P Narrative A/P Narrative: * COVID-19 pneumonia-rapid clinical deterioration noted. Continue re mdesivir/dexamethasone, thrombosis prophylaxis, maintain COVID-19 precautions, status post Actemra 05/30 * Acute hypoxic respiratory failure secondary to Covid pneumonia. On 65% FiO2 high flow * ARDS secondary to COVID-19 pneumonia. Persistent bilateral infiltrates/PFless than 150. * Hypokalemia start replacement * Brief syncopal episode, likely vasovagal. Resolved * History of GERD continue PPI * Prophylaxis on twice daily Lovenox Plan * Continue ICU care * Prone ventilation and NIV if indicated * No diuretic dose * Replace potassium * Remdesivir/dexamethasone * Pre-existing medical condition management home meds * Directed therapies/nutrition support/early mobilization Time Spent With Patient Time: Critical care time Total time spent with greater than 50% in coordination of care (as documented) at patient's floor/unit and/or counseling patient:: Greater than 35 minutes QUALITY Stroke Symptom Onset Unknown: No
[2021-06-02] MEDS: REMDESIVIR 100 MG in 0.9 % SODIUM CHLORIDE 250 ML IV SCH (12:55)
[2021-06-02] MEDS: SENNOSIDES/DOCUSATE SODIUM 1 TAB TABLET PO SCH (21:44)
[2021-06-02] MEDS: guaiFENesin/CODEINE 10 ML UDC PO PRN (22:38)
[2021-06-03] MEDS: 0.9 % SODIUM CHLORIDE 10 ML SYRINGE IV SCH ×3 (05:46→21:25)
[2021-06-03 06:43] LABS: Basophils # (Auto) 0.01 K/mcL (0.00-0.30); Basophils % (Auto) 0.2 % (0.0-2.0); Eosinophils # (Auto) 0.25 K/mcL (0.00-0.70); Eosinophils % (Auto) 5.1 % (0.0-7.0); Hematocrit 38.8 % (40.1-51.0); Hemoglobin 13.6 g/dL (13.7-17.5); Lymphocytes # (Auto) 1.02 K/mcL (1.50-4.80); Lymphocytes % (Auto) 20.6 % (15.5-49.0); Mean Cell Volume 89.6 fL (80.0-100.0); Mean Corpuscular HGB Conc 35.1 g/dL (31.0-36.0); Mean Platelet Volume 10.8 fL (7.4-10.4); Monocytes # (Auto) 0.15 K/mcL (0.10-0.90); Neutrophils % (Auto) 71.1 % (38.0-78.0); Platelet Count 101 K/mcL (140-440); RBC 4.33 M/mcL (4.63-6.08); Red Cell Distribution Width 11.9 % (11.5-14.5); WBC 4.9 K/mcL (4.5-11.0)
[2021-06-03 07:03] LABS: ALT/SGPT 86 U/L (<40); AST/SGOT 112 U/L (<40); Albumin 3.2 gm/dL (3.2-5.2); Alkaline Phosphatase 86 U/L (39-117); Bilirubin,Direct 0.2 mg/dL (<0.3); Bilirubin,Total 0.8 mg/dL (0.1-1.0); Blood Urea Nitrogen 28 mg/dL (8-23); Calcium 9.1 mg/dL (8.6-10.4); Carbon Dioxide 30 mmol/L (22-30); Chloride 101 mmol/L (96-108); Globulin 3.3 gm/dL (2.2-3.7); Glomerular Filtration Rate 66; Glucose 94 mg/dL (70-105); Lactate Dehydrogenase 788 U/L (135-225); Phosphorous 3.4 mg/dL (2.5-4.5); Triglycerides 77 mg/dL (<150)
[2021-06-03] MEDS: OMEPRAZOLE 20 MG CAPSULE PO SCH (07:44)
[2021-06-03] MEDS ORDERED: FUROSEMIDE 20 MG/2 ML VIAL IV SCH (09:00)
[2021-06-03] MEDS: DEXAMETHASONE 4 MG TABLET PO SCH (09:19)
[2021-06-03] MEDS: DOCUSATE SODIUM 100 MG CAPSULE PO SCH ×2 (09:19→21:25)
[2021-06-03] MEDS: MULTIVIT,THER IRON,CA,FA & MIN 1 TABLET PO SCH (09:20)
[2021-06-03] MEDS: ENOXAPARIN 30 MG/0.3 ML SYRINGE SQ SCH ×2 (09:20→21:25)
[2021-06-03] MEDS: VITAMIN D3 125 MCG TABLET PO SCH (09:20)
--- NOTE | 2021-06-03 12:20 | Internal Med Progress Note ---
SUBJECTIVE Subjective Patient information: Note initiated : 06/03/21 at 12:19 pm Service Date, if different from initiated Date: [] Patient: Abiel Rae a 75 y/o M admitted on 05/30/21 for Covid, sob. Chief Complaint: [] Interval history: Mr. Rae is a 75 year old M with no prior significant medical history who presents to the ER with worsening shortness of breath over the last few weeks. Patient was diagnosed with Covid on the and was discharged home on oxygen however he was discovered by his neighbor very short of breath and subsequently EMS was summoned. Patient was found to be desaturating in mid 80s. He was brought into the ER. Initial work-up was consistent with bilateral Covid pneumonia. Patient was found dexamethasone and subsequently hospitalist service was consulted. At the time of my evaluation patient is alert and able to answer most the questions. He was able to endorse history as above. He denies hemoptysis, diarrhea, abdominal pain, headache lightheadedness but endorses to weakness fatigue loss of appetite along with malaise. 05/31-patient clinically deteriorating. Now requiring 65% FiO2 at 35 L high flow oxygen. Worsening Covid pneumonia with possible element of ARDS. Status post Actemra. Continuing remdesivir/dexamethasone day two. Remains very high risk mortality. No overnight fever chills. Continue diurese/thrombosis prophylaxis. Maintain COVID-19 precaution. Check x-ray/ABGs 06/01 worsening interval chest imaging, however clinically feels better. On high flow oxygen 30 L. White count 8.6, platelets 133, continuing remdesivir/dexamethasone/azithromycin. No overnight events including fever chills. Alert and respond to commands, no anxiety or concerns per staff 06/02-patient this morning experienced syncopal episode while sitting in a chair. Was found in a near unresponsive state with blood pressure in the 80s. Placed on bed. Continue examination unremarkable. Patient returned to normal sensorium shortly. Denies chest pain, shortness of breath. [place] back at baseline within minutes. Was incontinent of stool on chair. White count 5.6, potassium 3.2 on replacement, creatinine 0.9. Lower diuretic dose to 20 mg daily, continue remdesivir/dexamethasone. On 30 L high flow 65% FiO2. Remains critically ill 06/03-patient critically ill. Worsening hypoxia now on 70 L oxygen high flow. Patient seen in room. Grieving from loss of his . No telemetry events. No fever chills. Systolics mid 80s. Diuretics discontinued. On remdesivir/dexamethasone day 5. Constitutional Vitals: Vital Signs Temp Pulse Resp BP Pulse Ox 97.8 F 81 21 86/71 90 06/03/21 08:00 06/03/21 12:01 06/03/21 12:01 06/03/21 12:01 06/03/21 12:01 Period Temp Pulse Resp BP Sys/Guan Pulse Ox Last 24 Hr 97.8 F-99.3 F 56-93 15-37 86-121/53-85 81-99 Intake and Output 06/02/21 06/03/21 06/03/21 21:59 05:59 13:59 Intake Total 480 125 880 Output Total 225 250 Balance 255 -125 880 Weight 78.88 kg Critically ill On 70% FiO2 high flow Anxious No telemetry events Intake & Output: Intake & Output 06/02/21 06/03/21 06/03/21 21:59 05:59 13:59 Intake Total 480 125 880 Output Total 225 250 Balance 255 -125 880 Weight 78.88 kg Intake: Nourishment/Supplement quantity 120 (ml) Oral 480 125 760 Output: Void Amount 225 250 Other: Meal Dinner Breakfast Percent of Meal Consumed 50% 75% Feeding Ability Assist with Tray Set Up Nourishment/Supplement name Ensure Urine Appearance Clear Urine Color Light Andressa # Voids 225 OBJ DATA Labs CBC & Chem 7: 06/03/21 05:27 06/03/21 05:27 Labs: Abnormal Lab Results 06/03/21 06/03/21 06/02/21 05:27 05:27 05:53 RBC 4.33 L Hgb 13.6 L Hct 38.8 L Plt Count 101 L MPV 10.8 H Neut % (Auto) Lymph % (Auto) Lymph # (Auto) 1.02 L D-Dimer Potassium 3.2 L BUN 28 H 27 H Glucose 106 H Calcium Direct Bilirubin 0.3 H AST 112 H 60 H ALT 86 H 48 H Lactate Dehydrogenase 788 H 758 H Albumin/Globulin Ratio 0.9 L 06/02/21 06/01/21 06/01/21 05:53 05:57 05:57 RBC 4.46 L Hgb 13.6 L Hct 38.7 L Plt Count 114 L MPV 10.6 H Neut % (Auto) Lymph % (Auto) Lymph # (Auto) 1.01 L D-Dimer > 20.0 H Potassium BUN 28 H Glucose 120 H Calcium 8.4 L Direct Bilirubin AST 61 H ALT 42 H Lactate Dehydrogenase 827 H Albumin/Globulin Ratio 0.9 L 06/01/21 05:57 RBC 4.23 L Hgb 13.1 L Hct 36.8 L Plt Count 133 L MPV 10.6 H Neut % (Auto) 81.5 H Lymph % (Auto) 13.3 L Lymph # (Auto) 1.14 L D-Dimer Potassium BUN Glucose Calcium Direct Bilirubin AST ALT Lactate Dehydrogenase Albumin/Globulin Ratio Meds: Medications Acetaminophen (Acetaminophen 325 Mg Tablet) 650 mg PO Q4-6HP PRN; Protocol PRN Reason: Per Pain Protocol/Fever > 101 Bisacodyl (Bisacodyl 10 Mg Supp.Rect) 10 mg [place] Q2-3DAYS PRN PRN Reason: Constipation Dexamethasone (Dexamethasone 4 Mg Tablet) 6 mg PO DAILY [facility] Last Admin: 06/03/21 09:19 Dose: 6 mg Documented by: Docusate Sodium (Docusate Sodium 100 Mg Capsule) 100 mg PO BID [facility] Last Admin: 06/03/21 09:19 Dose: 100 mg Documented by: Enoxaparin Sodium (Enoxaparin 30 Mg/0.3 Ml Syringe) 30 mg SQ BID [facility] Last Admin: 06/03/21 09:20 Dose: 30 mg Documented by: Guaifenesin/Codeine Phosphate (Guaifenesin/Codeine 10 Ml Udc) 10 ml PO Q4HP PRN PRN Reason: Cough Last Admin: 06/02/21 22:38 Dose: 10 ml Documented by: REMDESIVIR 100 mg/ Sodium (Chloride) 250 mls @ 500 mls/hr IV Q24H [facility] Stop: 06/03/21 13:29 Last Infusion: 06/02/21 13:37 Dose: Infused Documented by: Potassium Chloride 40 meq/ (Dextrose) 520 mls @ 130 mls/hr IV UD PRN PRN Reason: K+ = or < 3.5 Acetaminophen (Ofirmev) 650 mg in 65 mls @ 130 mls/hr IV Q6HP PRN; Protocol PRN Reason: Per Pain Protocol/Fever > 101 Magnesium Sulfate (Magnesium Sulfate) 2 gm in 50 mls @ 50 mls/hr IV UD PRN PRN Reason: MG = or < 1.7 Iron Carb/Multivit/[place]/Folic Acid (Multivit,Ther Iron,Ca,Fa & Min 1 Tablet) 1 tab PO DAILY [facility] Last Admin: 06/03/21 09:20 Dose: 1 tab Documented by: Melatonin (Melatonin 3 Mg Tablet) 3 mg PO HSP PRN PRN Reason: Insomnia Omeprazole (Omeprazole 20 Mg Capsule) 20 mg PO ACB [facility] Last Admin: 06/03/21 07:44 Dose: 20 mg Documented by: Ondansetron HCl (Ondansetron 4 Mg Odt Tablet) 4 mg SL Q4-6HP PRN; Protocol PRN Reason: Nausea And Vomiting Ondansetron HCl (Ondansetron 4 Mg/2 Ml Vial) 4 mg IV Q4-6HP PRN; Protocol PRN Reason: Nausea And Vomiting Polyethylene Glycol (Polyethylene Glycol 3350 17 Gm Packet) 17 gm PO DAILYP PRN PRN Reason: Constipation Potassium/Phosphorus/Sodium (Neutra Phos 1 Packet) 2 packet PO ONCE PRN PRN Reason: For phosphorus less than 2.5 Senna/Docusate Sodium (Sennosides/Docusate Sodium 1 Tab Tablet) 1 tab PO HS [facility] Last Admin: 06/02/21 21:44 Dose: 1 tab Documented by: Sodium Chloride (0.9 % Sodium Chloride 10 Ml Syringe) 10 ml IV Q8 [facility] Last Admin: 06/03/21 05:46 Dose: 10 ml Documented by: Vitamin D (Vitamin D3 5,000 Unit Tablet) 5,000 unit PO DAILY [facility] Last Admin: 06/03/21 09:20 Dose: 5,000 unit Documented by: A/P Narrative A/P Narrative: * COVID-19 pneumonia-continues to degenerate. Continue D5 remdesivir/dexamethasone, thrombosis prophylaxis, maintain COVID-19 precautions, status post Actemra 05/30 * Acute hypoxic respiratory failure secondary to Covid pneumonia. On 70 % FiO2 high flow oxygen * ARDS secondary to COVID-19 pneumonia. Persistent bilateral infiltrates/PFless than 150. Interval ABG/chest imaging in 24 hours * Hypokalemia resolved with replacement * Brief syncopal episode, likely vasovagal. Resolved * History of GERD continue PPI * Prophylaxis on twice daily Lovenox Plan * Continue ICU care * Titrate oxygen to sats 94% * DC diuretics * Remdesivir/dexamethasone * Interval chest imaging/ABGs * Pre-existing medical condition management home meds * Directed therapies/nutrition support/early mobilization Time Spent With Patient Time: Critical care time Total time spent with greater than 50% in coordination of care (as documented) at patient's floor/unit and/or counseling patient:: Greater than 35 minutes QUALITY Stroke Symptom Onset Unknown: No
[2021-06-03] MEDS: REMDESIVIR 100 MG in 0.9 % SODIUM CHLORIDE 250 ML IV SCH (13:49)
[2021-06-03] MEDS: guaiFENesin/CODEINE 10 ML UDC PO PRN (21:25)
[2021-06-03] MEDS: SENNOSIDES/DOCUSATE SODIUM 1 TAB TABLET PO SCH (21:25)
[2021-06-04] MEDS: 0.9 % SODIUM CHLORIDE 10 ML SYRINGE IV SCH ×3 (05:47→20:48)
[2021-06-04] MEDS: OMEPRAZOLE 20 MG CAPSULE PO SCH (07:15)
[2021-06-04 07:24] LABS: Basophils # (Auto) 0.02 K/mcL (0.00-0.30); Basophils % (Auto) 0.5 % (0.0-2.0); Eosinophils # (Auto) 0.19 K/mcL (0.00-0.70); Eosinophils % (Auto) 4.5 % (0.0-7.0); Hematocrit 38.6 % (40.1-51.0); Hemoglobin 12.9 g/dL (13.7-17.5); Lymphocytes # (Auto) 0.81 K/mcL (1.50-4.80); Mean Cell Volume 88.5 fL (80.0-100.0); Mean Corpuscular HGB Conc 33.4 g/dL (31.0-36.0); Mean Platelet Volume 10.8 fL (7.4-10.4); Monocytes # (Auto) 0.16 K/mcL (0.10-0.90); Monocytes % (Auto) 3.8 % (1.0-12.0); Neutrophils % (Auto) 72.2 % (38.0-78.0); Platelet Count 102 K/mcL (140-440); RBC 4.36 M/mcL (4.63-6.08); Red Cell Distribution Width 11.8 % (11.5-14.5); WBC 4.3 K/mcL (4.5-11.0)
[2021-06-04 07:52] LABS: ALT/SGPT 99 U/L (<40); AST/SGOT 98 U/L (<40); Albumin 3.1 gm/dL (3.2-5.2); Alkaline Phosphatase 84 U/L (39-117); Bilirubin,Direct 0.3 mg/dL (<0.3); Bilirubin,Total 0.8 mg/dL (0.1-1.0); Blood Urea Nitrogen 28 mg/dL (8-23); Calcium 8.9 mg/dL (8.6-10.4); Carbon Dioxide 28 mmol/L (22-30); Chloride 99 mmol/L (96-108); Globulin 3.2 gm/dL (2.2-3.7); Glomerular Filtration Rate 84; Glucose 87 mg/dL (70-105); Lactate Dehydrogenase 796 U/L (135-225); Phosphorous 3.5 mg/dL (2.5-4.5); Triglycerides 97 mg/dL (<150); Uric Acid 5.2 mg/dL (2.5-8.0)
--- NOTE | 2021-06-04 09:10 | XRay Report ---
INDICATION: f/u covid pna TECHNIQUE: AP portable upright chest x-ray COMPARISON: Previous examination dated 06/01/2021 FINDINGS: Lungs:Bilateral pulmonary parenchymal infiltrates are essentially unchanged since previous examination. Appearance remains consistent with covid pneumonia. No new abnormality Heart, vascular:No significant cardiomegaly. Pulmonary vascularity is normal. No pulmonary edema or pulmonary congestion Mediastinum, arash:No detectable pneumomediastinum Pleura:Definite pneumothorax is not identified but there is subcutaneous emphysema which is a new finding. Follow-up radiographs are recommended to rule out pneumothorax. Skeletal:Negative. Dr. Light was called with these results, 06/04/2021, 0900 IMPRESSION: 1. Stable infiltrates consistent with covid pneumonia 2. Subcutaneous emphysema. No pneumothorax identified Interpreted and Authenticated by: Jakub Caceres 06/04/21
[2021-06-04] MEDS: VITAMIN D3 125 MCG TABLET PO SCH (09:30)
[2021-06-04] MEDS: MULTIVIT,THER IRON,CA,FA & MIN 1 TABLET PO SCH (09:30)
[2021-06-04] MEDS: ENOXAPARIN 30 MG/0.3 ML SYRINGE SQ SCH ×2 (09:30→20:48)
[2021-06-04] MEDS: DOCUSATE SODIUM 100 MG CAPSULE PO SCH ×2 (09:30→20:48)
[2021-06-04] MEDS: DEXAMETHASONE 4 MG TABLET PO SCH (09:31)
--- NOTE | 2021-06-04 10:36 | Internal Med Progress Note ---
SUBJECTIVE Subjective Patient information: Note initiated : 06/04/21 at 10:32 am Service Date, if different from initiated Date: [] Patient: Abiel Rae a 75 y/o M admitted on 05/30/21 for Covid, sob. Chief Complaint: [] Interval history: Mr. aRe is a 75 year old M with no prior significant medical history who presents to the ER with worsening shortness of breath over the last few weeks. Patient was diagnosed with Covid on the and was discharged home on oxygen however he was discovered by his neighbor very short of breath and subsequently EMS was summoned. Patient was found to be desaturating in mid 80s. He was brought into the ER. Initial work-up was consistent with bilateral Covid pneumonia. Patient was found dexamethasone and subsequently hospitalist service was consulted. At the time of my evaluation patient is alert and able to answer most the questions. He was able to endorse history as above. He denies hemoptysis, diarrhea, abdominal pain, headache lightheadedness but endorses to weakness fatigue loss of appetite along with malaise. 05/31-patient clinically deteriorating. Now requiring 65% FiO2 at 35 L high flow oxygen. Worsening Covid pneumonia with possible element of ARDS. Status post Actemra. Continuing remdesivir/dexamethasone day two. Remains very high risk mortality. No overnight fever chills. Continue diurese/thrombosis prophylaxis. Maintain COVID-19 precaution. Check x-ray/ABGs 06/01 worsening interval chest imaging, however clinically feels better. On high flow oxygen 30 L. White count 8.6, platelets 133, continuing remdesivir/dexamethasone/azithromycin. No overnight events including fever chills. Alert and respond to commands, no anxiety or concerns per staff 06/02-patient this morning experienced syncopal episode while sitting in a chair. Was found in a near unresponsive state with blood pressure in the 80s. Placed on bed. Continue examination unremarkable. Patient returned to normal sensorium shortly. Denies chest pain, shortness of breath. [place] back at baseline within minutes. Was incontinent of stool on chair. White count 5.6, potassium 3.2 on replacement, creatinine 0.9. Lower diuretic dose to 20 mg daily, continue remdesivir/dexamethasone. On 30 L high flow 65% FiO2. Remains critically ill 06/03-patient critically ill. Worsening hypoxia now on 70 L oxygen high flow. Patient seen in room. Grieving from loss of his . No telemetry events. No fever chills. Systolics mid 80s. Diuretics discontinued. On remdesivir/dexamethasone day 5. 06/04-patient clinically deteriorating. Seen in room. Desats on minimal activity. Now on 80% FiO2. High risk mortality. On day 6 remdesivir/dexamethasone. Potassium 4.1, LFTs downtrending, interval chest imaging evidence of subcutaneous emphysema. Repeat interval chest imaging at 1 PM rule out spontaneous pneumothorax Continue close monitoring in ICU. Avoid noninvasive ventilation due to risk of pneumothorax Constitutional Vitals: Vital Signs Temp Pulse Resp BP Pulse Ox 98.4 F 63 19 120/82 99 06/04/21 04:00 06/04/21 10:03 06/04/21 10:03 06/04/21 10:01 06/04/21 10:03 Period Temp Pulse Resp BP Sys/Guan Pulse Ox Last 24 Hr 97.6 F-98.7 F 56-87 14-32 86-128/56-93 89-99 Intake and Output 06/03/21 06/04/21 06/04/21 21:59 05:59 13:59 Intake Total 490 880 Output Total 215 225 200 Balance 275 -225 680 Weight 80.484 kg alert oriented Anxious Labored breathing On 80% FiO2 high flow oxygen Intake & Output: Intake & Output 06/03/21 06/04/21 06/04/21 21:59 05:59 13:59 Intake Total 490 880 Output Total 215 225 200 Balance 275 -225 680 Weight 80.484 kg Intake: IV 250 [place] 100 mg In Sodium 250 Chloride 0.9% 250 ml @ 500 mls/ hr IV Q24H [facility] Rx#:[id number] Oral 240 880 Output: Void Amount 215 225 200 Other: Meal Breakfast Percent of Meal Consumed 75% Feeding Ability Independent Urine Appearance Clear Clear Clear Urine Color Dark Andressa Dark Andressa Dark Yellow OBJ DATA Labs CBC & Chem 7: 06/04/21 05:22 06/04/21 05:22 Labs: Abnormal Lab Results 06/04/21 06/04/21 12 05:22 05:22 05:27 WBC 4.3 L RBC 4.36 L Hgb 12.9 L Hct 38.6 L Plt Count 102 L MPV 10.8 H Lymph # (Auto) 0.81 L Potassium BUN 28 H 28 H Glucose Direct Bilirubin 0.3 H AST 98 H 112 H ALT 99 H 86 H Lactate Dehydrogenase 796 H 788 H Albumin 3.1 L Albumin/Globulin Ratio 06/03/21 06/02/21 06/02/21 05:27 05:53 05:53 WBC RBC 4.33 L 4.46 L Hgb 13.6 L 13.6 L Hct 38.8 L 38.7 L Plt Count 101 L 114 L MPV 10.8 H 10.6 H Lymph # (Auto) 1.02 L 1.01 L Potassium 3.2 L BUN 27 H Glucose 106 H Direct Bilirubin 0.3 H AST 60 H ALT 48 H Lactate Dehydrogenase 758 H Albumin Albumin/Globulin Ratio 0.9 L Meds: Medications Acetaminophen (Acetaminophen 325 Mg Tablet) 650 mg PO Q4-6HP PRN; Protocol PRN Reason: Per Pain Protocol/Fever > 101 Bisacodyl (Bisacodyl 10 Mg Supp.Rect) 10 mg [place] Q2-3DAYS PRN PRN Reason: Constipation Dexamethasone (Dexamethasone 4 Mg Tablet) 6 mg PO DAILY [facility] Last Admin: 06/04/21 09:31 Dose: 6 mg Documented by: Docusate Sodium (Docusate Sodium 100 Mg Capsule) 100 mg PO BID [facility] Last Admin: 06/04/21 09:30 Dose: 100 mg Documented by: Enoxaparin Sodium (Enoxaparin 30 Mg/0.3 Ml Syringe) 30 mg SQ BID [facility] Last Admin: 06/04/21 09:30 Dose: 30 mg Documented by: Guaifenesin/Codeine Phosphate (Guaifenesin/Codeine 10 Ml Udc) 10 ml PO Q4HP PRN PRN Reason: Cough Last Admin: 06/03/21 21:25 Dose: 10 ml Documented by: Potassium Chloride 40 meq/ (Dextrose) 520 mls @ 130 mls/hr IV UD PRN PRN Reason: K+ = or < 3.5 Acetaminophen (Ofirmev) 650 mg in 65 mls @ 130 mls/hr IV Q6HP PRN; Protocol PRN Reason: Per Pain Protocol/Fever > 101 Magnesium Sulfate (Magnesium Sulfate) 2 gm in 50 mls @ 50 mls/hr IV UD PRN PRN Reason: MG = or < 1.7 Iron Carb/Multivit/[place]/Folic Acid (Multivit,Ther Iron,Ca,Fa & Min 1 Tablet) 1 tab PO DAILY [facility] Last Admin: 06/04/21 09:30 Dose: 1 tab Documented by: Melatonin (Melatonin 3 Mg Tablet) 3 mg PO HSP PRN PRN Reason: Insomnia Omeprazole (Omeprazole 20 Mg Capsule) 20 mg PO ACB [facility] Last Admin: 06/04/21 07:15 Dose: 20 mg Documented by: Ondansetron HCl (Ondansetron 4 Mg Odt Tablet) 4 mg SL Q4-6HP PRN; Protocol PRN Reason: Nausea And Vomiting Ondansetron HCl (Ondansetron 4 Mg/2 Ml Vial) 4 mg IV Q4-6HP PRN; Protocol PRN Reason: Nausea And Vomiting Polyethylene Glycol (Polyethylene Glycol 3350 17 Gm Packet) 17 gm PO DAILYP PRN PRN Reason: Constipation Potassium/Phosphorus/Sodium (Neutra Phos 1 Packet) 2 packet PO ONCE PRN PRN Reason: For phosphorus less than 2.5 Senna/Docusate Sodium (Sennosides/Docusate Sodium 1 Tab Tablet) 1 tab PO HS [facility] Last Admin: 06/03/21 21:25 Dose: 1 tab Documented by: Sodium Chloride (0.9 % Sodium Chloride 10 Ml Syringe) 10 ml IV Q8 [facility] Last Admin: 06/04/21 05:47 Dose: 10 ml Documented by: Vitamin D (Vitamin D3 5,000 Unit Tablet) 5,000 unit PO DAILY [facility] Last Admin: 06/04/21 09:30 Dose: 5,000 unit Documented by: A/P Narrative A/P Narrative: * COVID-19 pneumonia-clinically deteriorating. Continue D6 remdesivir/dexamethasone, continue thrombosis prophylaxis, maintain COVID-19 precautions, status post Actemra 05/30 * Acute hypoxic respiratory failure secondary to Covid pneumonia. On 80 % FiO2 high flow oxygen. Clinical deterioration noted * ARDS secondary to COVID-19 pneumonia. Persistent bilateral infiltrates on interval chest imagingPF less than 100. * Subcutaneous emphysema high probability pneumothorax. Interval chest imaging * Hypokalemia resolved with replacement * Brief syncopal episode, likely vasovagal. Resolved * History of GERD continue PPI * Prophylaxis on twice daily Lovenox Plan * Continue ICU care * Repeat interval chest imaging at 1 PM * Titrate oxygen to sats 94% * Remdesivir/dexamethasone * Pre-existing medical condition management home meds * Mobilization/prone ventilation/therapies as tolerated Time Spent With Patient Time: Critical care time Total time spent with greater than 50% in coordination of care (as documented) at patient's floor/unit and/or counseling patient:: Greater than 35 minutes QUALITY Stroke Symptom Onset Unknown: No
[2021-06-04] MEDS: guaiFENesin/CODEINE 10 ML UDC PO PRN ×2 (12:33→20:48)
--- NOTE | 2021-06-04 13:19 | XRay Report ---
INDICATION: Subcutaneous emphysema on last image TECHNIQUE: AP portable semiupright chest x-ray COMPARISON: Previous chest x-ray dated 06/04/2021 FINDINGS: Persistent bilateral pulmonary parenchymal infiltrates consistent with covid pneumonia. Again demonstrated is a right-sided subcutaneous and edema upper chest lower neck. This is essentially unchanged. No pneumothorax identified. No definite pneumomediastinum. Continued follow-up recommended. IMPRESSION: 1. Bilateral pulmonary parenchymal infiltrates consistent with covid pneumonia 2. Subcutaneous emphysema. No pneumothorax identified Interpreted and Authenticated by: Jakub Caceres 06/04/21
[2021-06-04] MEDS: SENNOSIDES/DOCUSATE SODIUM 1 TAB TABLET PO SCH (20:48)
[2021-06-05] MEDS: 0.9 % SODIUM CHLORIDE 10 ML SYRINGE IV SCH ×3 (06:02→23:42)
--- NOTE | 2021-06-05 06:49 | XRay Report ---
INDICATION: Pneumothorax eval. TECHNIQUE: AP portable semiupright chest x-ray COMPARISON: Previous chest x-rays dated 06/04/2021 and 06/01/2021 FINDINGS: Lungs:Minor parenchymal infiltrates, right worse than left. Findings remain consistent covid pneumonia. Infiltrates are essentially stable since 1207.1. Heart, vascular:No significant cardiomegaly. Pulmonary vascularity is normal. No pulmonary edema or pulmonary congestion Mediastinum, arash:No mediastinal widening. No hilar mass Pleura:No pneumothorax or pneumomediastinum identified Skeletal:Right subcutaneous emphysema is improved since previous examination. IMPRESSION: 1. Decreased subcutaneous emphysema 2. Bilateral pulmonary parenchymal infiltrates consistent with covid pneumonia 3. No pneumothorax Interpreted and Authenticated by: Jakub Caceres 06/05/21
[2021-06-05] MEDS: OMEPRAZOLE 20 MG CAPSULE PO SCH (07:38)
[2021-06-05] MEDS: VITAMIN D3 125 MCG TABLET PO SCH (09:19)
[2021-06-05] MEDS: DOCUSATE SODIUM 100 MG CAPSULE PO SCH ×2 (09:19→20:19)
[2021-06-05] MEDS: MULTIVIT,THER IRON,CA,FA & MIN 1 TABLET PO SCH (09:19)
[2021-06-05] MEDS: DEXAMETHASONE 4 MG TABLET PO SCH (09:20)
[2021-06-05] MEDS: ENOXAPARIN 30 MG/0.3 ML SYRINGE SQ SCH ×2 (09:20→20:20)
--- NOTE | 2021-06-05 10:40 | Internal Med Progress Note ---
SUBJECTIVE Subjective Patient information: Note initiated : 06/05/21 at 10:35 am Service Date, if different from initiated Date: [] Patient: Abiel Rae a 75 y/o M admitted on 05/30/21 for Covid, sob. Chief Complaint: [] Interval history: Mr. Rae is a 75 year old M with no prior significant medical history who presents to the ER with worsening shortness of breath over the last few weeks. Patient was diagnosed with Covid on the and was discharged home on oxygen however he was discovered by his neighbor very short of breath and subsequently EMS was summoned. Patient was found to be desaturating in mid 80s. He was brought into the ER. Initial work-up was consistent with bilateral Covid pneumonia. Patient was found dexamethasone and subsequently hospitalist service was consulted. At the time of my evaluation patient is alert and able to answer most the questions. He was able to endorse history as above. He denies hemoptysis, diarrhea, abdominal pain, headache lightheadedness but endorses to weakness fatigue loss of appetite along with malaise. 05/31-patient clinically deteriorating. Now requiring 65% FiO2 at 35 L high flow oxygen. Worsening Covid pneumonia with possible element of ARDS. Status post Actemra. Continuing remdesivir/dexamethasone day two. Remains very high risk mortality. No overnight fever chills. Continue diurese/thrombosis prophylaxis. Maintain COVID-19 precaution. Check x-ray/ABGs 06/01 worsening interval chest imaging, however clinically feels better. On high flow oxygen 30 L. White count 8.6, platelets 133, continuing remdesivir/dexamethasone/azithromycin. No overnight events including fever chills. Alert and respond to commands, no anxiety or concerns per staff 06/02-patient this morning experienced syncopal episode while sitting in a chair. Was found in a near unresponsive state with blood pressure in the 80s. Placed on bed. Continue examination unremarkable. Patient returned to normal sensorium shortly. Denies chest pain, shortness of breath. [place] back at baseline within minutes. Was incontinent of stool on chair. White count 5.6, potassium 3.2 on replacement, creatinine 0.9. Lower diuretic dose to 20 mg daily, continue remdesivir/dexamethasone. On 30 L high flow 65% FiO2. Remains critically ill 06/03-patient critically ill. Worsening hypoxia now on 70 L oxygen high flow. Patient seen in room. Grieving from loss of his . No telemetry events. No fever chills. Systolics mid 80s. Diuretics discontinued. On remdesivir/dexamethasone day 5. 06/04-patient clinically deteriorating. Seen in room. Desats on minimal activity. Now on 80% FiO2. High risk mortality. On day 6 remdesivir/dexamethasone. Potassium 4.1, LFTs downtrending, interval chest imaging evidence of subcutaneous emphysema. Repeat interval chest imaging at 1 PM rule out spontaneous pneumothorax Continue close monitoring in ICU. Avoid noninvasive ventilation due to risk of pneumothorax 06/05-patient seen in room, clinically deteriorating. Remarkably short of breath now on 35% FiO2. Desats to mid 80s on minimal exertion. Continuing dexamethasone/remdesivir. No telemetry events. Stable labs and hemodynamics. No overnight fever chills or concerns per staff. Remains a high risk mortality based on [place] 2 score. Interval chest imaging worsening bilateral infiltrates, No evidence of pneumothorax, decreased subcutaneous emphysema Constitutional Vitals: Vital Signs Temp Pulse Resp BP Pulse Ox 98.2 F 70 21 100/74 92 06/05/21 04:01 06/05/21 09:55 06/05/21 09:55 06/05/21 06:01 06/05/21 09:55 Period Temp Pulse Resp BP Sys/Guan Pulse Ox Last 24 Hr 97.6 F-98.8 F 57-91 15-29 92-127/63-80 90-100 Intake and Output 06/04/21 06/05/21 06/05/21 21:59 05:59 13:59 Intake Total 0 Output Total 300 750 200 Balance -300 -750 -200 Weight 79.152 kg Alert but anxious Labored breathing on 75% high flow FiO2 No lymphedema No telemetry events Intake & Output: Intake & Output 06/04/21 06/05/21 06/05/21 21:59 05:59 13:59 Intake Total 0 Output Total 300 750 200 Balance -300 -750 -200 Weight 79.152 kg Intake: Oral 0 Output: Void Amount 300 750 200 Other: Urine Appearance Clear Clear Clear Urine Color Dark Yellow Dark Andressa Dark Yellow OBJ DATA Labs CBC & Chem 7: 06/04/21 05:22 06/04/21 05:22 Labs: Abnormal Lab Results 1206/04/21 06/03/21 05:22 05:22 05:27 WBC 4.3 L RBC 4.36 L Hgb 12.9 L Hct 38.6 L Plt Count 102 L MPV 10.8 H Lymph # (Auto) 0.81 L BUN 28 H 28 H Direct Bilirubin 0.3 H AST 98 H 112 H ALT 99 H 86 H Lactate Dehydrogenase 796 H 788 H Albumin 3.1 L 06/03/21 05:27 WBC RBC 4.33 L Hgb 13.6 L Hct 38.8 L Plt Count 101 L MPV 10.8 H Lymph # (Auto) 1.02 L BUN Direct Bilirubin AST ALT Lactate Dehydrogenase Albumin Meds: Medications Acetaminophen (Acetaminophen 325 Mg Tablet) 650 mg PO Q4-6HP PRN; Protocol PRN Reason: Per Pain Protocol/Fever > 101 Bisacodyl (Bisacodyl 10 Mg Supp.Rect) 10 mg CO Q2-3DAYS PRN PRN Reason: Constipation Dexamethasone (Dexamethasone 4 Mg Tablet) 6 mg PO DAILY [facility] Last Admin: 06/05/21 09:20 Dose: 6 mg Documented by: Docusate Sodium (Docusate Sodium 100 Mg Capsule) 100 mg PO BID [facility] Last Admin: 06/05/21 09:19 Dose: 100 mg Documented by: Enoxaparin Sodium (Enoxaparin 30 Mg/0.3 Ml Syringe) 30 mg SQ BID [facility] Last Admin: 06/05/21 09:20 Dose: 30 mg Documented by: Guaifenesin/Codeine Phosphate (Guaifenesin/Codeine 10 Ml Udc) 10 ml PO Q4HP PRN PRN Reason: Cough Last Admin: 06/04/21 20:48 Dose: 10 ml Documented by: Potassium Chloride 40 meq/ (Dextrose) 520 mls @ 130 mls/hr IV UD PRN PRN Reason: K+ = or < 3.5 Acetaminophen (Ofirmev) 650 mg in 65 mls @ 130 mls/hr IV Q6HP PRN; Protocol PRN Reason: Per Pain Protocol/Fever > 101 Magnesium Sulfate (Magnesium Sulfate) 2 gm in 50 mls @ 50 mls/hr IV UD PRN PRN Reason: MG = or < 1.7 Iron Carb/Multivit/Gen[employer]/Folic Acid (Multivit,Ther Iron,Ca,Fa & Min 1 Tablet) 1 tab PO DAILY [facility] Last Admin: 06/05/21 09:19 Dose: 1 tab Documented by: Melatonin (Melatonin 3 Mg Tablet) 3 mg PO HSP PRN PRN Reason: Insomnia Omeprazole (Omeprazole 20 Mg Capsule) 20 mg PO ACB [facility] Last Admin: 06/05/21 07:38 Dose: 20 mg Documented by: Ondansetron HCl (Ondansetron 4 Mg Odt Tablet) 4 mg SL Q4-6HP PRN; Protocol PRN Reason: Nausea And Vomiting Ondansetron HCl (Ondansetron 4 Mg/2 Ml Vial) 4 mg IV Q4-6HP PRN; Protocol PRN Reason: Nausea And Vomiting Polyethylene Glycol (Polyethylene Glycol 3350 17 Gm Packet) 17 gm PO DAILYP PRN PRN Reason: Constipation Potassium/Phosphorus/Sodium (Neutra Phos 1 Packet) 2 packet PO ONCE PRN PRN Reason: For phosphorus less than 2.5 Senna/Docusate Sodium (Sennosides/Docusate Sodium 1 Tab Tablet) 1 tab PO HS [facility] Last Admin: 06/04/21 20:48 Dose: 1 tab Documented by: Sodium Chloride (0.9 % Sodium Chloride 10 Ml Syringe) 10 ml IV Q8 [facility] Last Admin: 06/05/21 06:02 Dose: 10 ml Documented by: Vitamin D (Vitamin D3 5,000 Unit Tablet) 5,000 unit PO DAILY [facility] Last Admin: 06/05/21 09:19 Dose: 5,000 unit Documented by: A/P Narrative A/P Narrative: * COVID-19 pneumonia- clinical and radiological deterioration noted . Continue day 7 remdesivir/dexamethasone, thrombosis prophylaxis, maintain COVID-19 precautions, status post Actemra 05/30 * Acute hypoxic respiratory failure secondary to Covid pneumonia. Prone ventilation, high flow oxygen at 75% FiO2. * ARDS secondary to COVID-19 pneumonia. PF less than 100, high risk progression to fibroproliferative phase and in my opinion will likely demonstrate a protracted course if at all he improves with residual pulmonary fibrosis. * Subcutaneous emphysema -no evidence of pneumothorax on interval chest imaging * Hypokalemia resolved with replacement * Brief syncopal episode, likely vasovagal. Resolved * History of GERD continue PPI * Prophylaxis on twice daily Lovenox Plan * Continue ICU care, remains high risk mortality, [place] 2 score 16 * Continue titrate to sats 94% * Remdesivir/dexamethasone day 7 * Pre-existing medical condition management home meds * Mobilization/prone ventilation/therapies as tolerated Time Spent With Patient Time: critical care time Total time spent with greater than 50% in coordination of care (as documented) at patient's floor/unit and/or counseling patient:: Greater than 35 minutes QUALITY Stroke Symptom Onset Unknown: No
[2021-06-05 12:11] LABS: Basophils # (Auto) 0.03 K/mcL (0.00-0.30); Basophils % (Auto) 0.4 % (0.0-2.0); Eosinophils # (Auto) 0.17 K/mcL (0.00-0.70); Eosinophils % (Auto) 2.5 % (0.0-7.0); Hematocrit 38.5 % (40.1-51.0); Hemoglobin 13.4 g/dL (13.7-17.5); Lymphocytes # (Auto) 0.56 K/mcL (1.50-4.80); Lymphocytes % (Auto) 8.2 % (15.5-49.0); Mean Cell Volume 87.3 fL (80.0-100.0); Mean Corpuscular HGB Conc 34.8 g/dL (31.0-36.0); Mean Platelet Volume 10.6 fL (7.4-10.4); Monocytes # (Auto) 0.22 K/mcL (0.10-0.90); Monocytes % (Auto) 3.2 % (1.0-12.0); Neutrophils % (Auto) 85.7 % (38.0-78.0); Platelet Count 120 K/mcL (140-440); RBC 4.41 M/mcL (4.63-6.08); Red Cell Distribution Width 11.9 % (11.5-14.5); WBC 6.9 K/mcL (4.5-11.0)
[2021-06-05 12:29] LABS: ALT/SGPT 81 U/L (<40); AST/SGOT 67 U/L (<40); Albumin 3.3 gm/dL (3.2-5.2); Albumin/Globulin Ratio 1.1 (1.0-2.3); Alkaline Phosphatase 84 U/L (39-117); Bilirubin,Direct 0.2 mg/dL (<0.3); Bilirubin,Total 0.6 mg/dL (0.1-1.0); Blood Urea Nitrogen 29 mg/dL (8-23); Calcium 9.4 mg/dL (8.6-10.4); Carbon Dioxide 26 mmol/L (22-30); Chloride 98 mmol/L (96-108); Globulin 2.9 gm/dL (2.2-3.7); Glomerular Filtration Rate 84; Glucose 136 mg/dL (70-105); Lactate Dehydrogenase 781 U/L (135-225); Phosphorous 2.9 mg/dL (2.5-4.5); Triglycerides 98 mg/dL (<150); Uric Acid 5.2 mg/dL (2.5-8.0)
--- NOTE | 2021-06-05 13:26 | Internal Med Progress Note ---
SUBJECTIVE Subjective Patient information: Note initiated : 06/05/21 at 1:20 pm Service Date, if different from initiated Date: [] Patient: Abiel Rae a 75 y/o M admitted on 05/30/21 for Covid, sob. Chief Complaint: [] Interval history: Mr. Rae is a 75 year old M with no prior significant medical history who presents to the ER with worsening shortness of breath over the last few weeks. Patient was diagnosed with Covid on the and was discharged home on oxygen however he was discovered by his neighbor very short of breath and subsequently EMS was summoned. Patient was found to be desaturating in mid 80s. He was brought into the ER. Initial work-up was consistent with bilateral Covid pneumonia. Patient was found dexamethasone and subsequently hospitalist service was consulted. At the time of my evaluation patient is alert and able to answer most the questions. He was able to endorse history as above. He denies hemoptysis, diarrhea, abdominal pain, headache lightheadedness but endorses to weakness fatigue loss of appetite along with malaise. 05/31-patient clinically deteriorating. Now requiring 65% FiO2 at 35 L high flow oxygen. Worsening Covid pneumonia with possible element of ARDS. Status post Actemra. Continuing remdesivir/dexamethasone day two. Remains very high risk mortality. No overnight fever chills. Continue diurese/thrombosis prophylaxis. Maintain COVID-19 precaution. Check x-ray/ABGs 06/01 worsening interval chest imaging, however clinically feels better. On high flow oxygen 30 L. White count 8.6, platelets 133, continuing remdesivir/dexamethasone/azithromycin. No overnight events including fever chills. Alert and respond to commands, no anxiety or concerns per staff 06/02-patient this morning experienced syncopal episode while sitting in a chair. Was found in a near unresponsive state with blood pressure in the 80s. Placed on bed. Continue examination unremarkable. Patient returned to normal sensorium shortly. Denies chest pain, shortness of breath. [place] back at baseline within minutes. Was incontinent of stool on chair. White count 5.6, potassium 3.2 on replacement, creatinine 0.9. Lower diuretic dose to 20 mg daily, continue remdesivir/dexamethasone. On 30 L high flow 65% FiO2. Remains critically ill 06/03-patient critically ill. Worsening hypoxia now on 70 L oxygen high flow. Patient seen in room. Grieving from loss of his . No telemetry events. No fever chills. Systolics mid 80s. Diuretics discontinued. On remdesivir/dexamethasone day 5. 06/04-patient clinically deteriorating. Seen in room. Desats on minimal activity. Now on 80% FiO2. High risk mortality. On day 6 remdesivir/dexamethasone. Potassium 4.1, LFTs downtrending, interval chest imaging evidence of subcutaneous emphysema. Repeat interval chest imaging at 1 PM rule out spontaneous pneumothorax Continue close monitoring in ICU. Avoid noninvasive ventilation due to risk of pneumothorax 06/05-patient seen in room, clinically deteriorating. Remarkably short of breath now on 35% FiO2. Desats to mid 80s on minimal exertion. Continuing dexamethasone/remdesivir. No telemetry events. Stable labs and hemodynamics. No overnight fever chills or concerns per staff. Remains a high risk mortality based on [place] 2 score. Interval chest imaging worsening bilateral infiltrates, No evidence of pneumothorax, decreased subcutaneous emphysema Constitutional Vitals: Vital Signs Temp Pulse Resp BP Pulse Ox 98.1 F 69 24 H 97/70 98 06/05/21 08:01 06/05/21 12:01 06/05/21 12:01 06/05/21 12:01 06/05/21 12:01 Period Temp Pulse Resp BP Sys/Guan Pulse Ox Last 24 Hr 97.6 F-98.8 F 57-91 15-25 92-127/63-80 90-100 Intake and Output 06/04/21 06/05/21 06/05/21 21:59 05:59 13:59 Intake Total 0 480 Output Total 300 750 200 Balance -300 -750 280 Weight 79.152 kg Intake & Output: Intake & Output 06/04/21 06/05/21 06/05/21 21:59 05:59 13:59 Intake Total 0 480 Output Total 300 750 200 Balance -300 -750 280 Weight 79.152 kg Intake: Oral 0 480 Output: Void Amount 300 750 200 Other: Meal Breakfast Percent of Meal Consumed 75% Urine Appearance Clear Clear Clear Urine Color Dark Yellow Dark Andressa Dark Yellow Stool Size Moderate Stool Color Brown Stool Consistency Formed # Bowel Movements 1 Exam: General: Alert, Awake, No acute Distress Eyes/N/T: EOMI, Head/Neck: neck supple, CV: RRR, No murmurs, Pulm: Clear b/l, no wheezing/rhonchi/rales Abd: soft, nontender, +BS x4 Ext: no clubbing/cyanosis/edema Neuro: Alert, no focal deficits, moves all extremities, Skin: warm/dry OBJ DATA Labs CBC & Chem 7: 06/05/21 11:20 06/05/21 11:20 Labs: Abnormal Lab Results 06/05/21 06/05/21 06/04/21 11:20 11:20 05:22 WBC RBC 4.41 L Hgb 13.4 L Hct 38.5 L Plt Count 120 L MPV 10.6 H Neut % (Auto) 85.7 H Lymph % (Auto) 8.2 L Lymph # (Auto) 0.56 L BUN 29 H 28 H Glucose 136 H Direct Bilirubin 0.3 H AST 67 H 98 H ALT 81 H 99 H Lactate Dehydrogenase 781 H 796 H Albumin 3.1 L 06/04/21 06/03/21 06/03/21 05:22 05:27 05:27 WBC 4.3 L RBC 4.36 L 4.33 L Hgb 12.9 L 13.6 L Hct 38.6 L 38.8 L Plt Count 102 L 101 L MPV 10.8 H 10.8 H Neut % (Auto) Lymph % (Auto) Lymph # (Auto) 0.81 L 1.02 L BUN 28 H Glucose Direct Bilirubin AST 112 H ALT 86 H Lactate Dehydrogenase 788 H Albumin Meds: Medications Acetaminophen (Acetaminophen 325 Mg Tablet) 650 mg PO Q4-6HP PRN; Protocol PRN Reason: Per Pain Protocol/Fever > 101 Bisacodyl (Bisacodyl 10 Mg Supp.Rect) 10 mg PA Q2-3DAYS PRN PRN Reason: Constipation Dexamethasone (Dexamethasone 4 Mg Tablet) 6 mg PO DAILY [facility] Last Admin: 06/05/21 09:20 Dose: 6 mg Documented by: Docusate Sodium (Docusate Sodium 100 Mg Capsule) 100 mg PO BID [facility] Last Admin: 06/05/21 09:19 Dose: 100 mg Documented by: Enoxaparin Sodium (Enoxaparin 30 Mg/0.3 Ml Syringe) 30 mg SQ BID [facility] Last Admin: 06/05/21 09:20 Dose: 30 mg Documented by: Guaifenesin/Codeine Phosphate (Guaifenesin/Codeine 10 Ml Udc) 10 ml PO Q4HP PRN PRN Reason: Cough Last Admin: 06/04/21 20:48 Dose: 10 ml Documented by: Potassium Chloride 40 meq/ (Dextrose) 520 mls @ 130 mls/hr IV UD PRN PRN Reason: K+ = or < 3.5 Acetaminophen (Ofirmev) 650 mg in 65 mls @ 130 mls/hr IV Q6HP PRN; Protocol PRN Reason: Per Pain Protocol/Fever > 101 Magnesium Sulfate (Magnesium Sulfate) 2 gm in 50 mls @ 50 mls/hr IV UD PRN PRN Reason: MG = or < 1.7 Iron Carb/Multivit/[place]/Folic Acid (Multivit,Ther Iron,Ca,Fa & Min 1 Tablet) 1 tab PO DAILY [facility] Last Admin: 06/05/21 09:19 Dose: 1 tab Documented by: Melatonin (Melatonin 3 Mg Tablet) 3 mg PO HSP PRN PRN Reason: Insomnia Omeprazole (Omeprazole 20 Mg Capsule) 20 mg PO ACB [facility] Last Admin: 06/05/21 07:38 Dose: 20 mg Documented by: Ondansetron HCl (Ondansetron 4 Mg Odt Tablet) 4 mg SL Q4-6HP PRN; Protocol PRN Reason: Nausea And Vomiting Ondansetron HCl (Ondansetron 4 Mg/2 Ml Vial) 4 mg IV Q4-6HP PRN; Protocol PRN Reason: Nausea And Vomiting Polyethylene Glycol (Polyethylene Glycol 3350 17 Gm Packet) 17 gm PO DAILYP PRN PRN Reason: Constipation Potassium/Phosphorus/Sodium (Neutra Phos 1 Packet) 2 packet PO ONCE PRN PRN Reason: For phosphorus less than 2.5 Senna/Docusate Sodium (Sennosides/Docusate Sodium 1 Tab Tablet) 1 tab PO HS [facility] Last Admin: 06/04/21 20:48 Dose: 1 tab Documented by: Sodium Chloride (0.9 % Sodium Chloride 10 Ml Syringe) 10 ml IV Q8 [facility] Last Admin: 06/05/21 06:02 Dose: 10 ml Documented by: Vitamin D (Vitamin D3 5,000 Unit Tablet) 5,000 unit PO DAILY [facility] Last Admin: 06/05/21 09:19 Dose: 5,000 unit Documented by: A/P Narrative A/P Narrative: A: *COVID-19 pneumonia w/ARDS: *Acute hypoxic respiratory failure: -on 80% fio2 *Subcutaneous emphysema: -no evidence of pneumothorax on interval chest imaging *Hypokalemia: resolved *Brief syncopal episode: likely vasovagal. Resolved *GERD Plan: -remains high risk mortality, [place] 2 score 16 -Remdesivir/dexamethasone day 7, s/p Actemra -wean vapotherm as able, avoid bipap given SQ emphysema -Mobilization/proning/oob to chair -IS/Acapella/RT, prn nebs -ppx: Lovenox / home ppi Code status: Time Spent With Patient Time: Total time spent is greater than 50% in coordination of care (as documented) at patient's floor/unit and/or counseling patient: QUALITY Stroke Symptom Onset Unknown: No
[2021-06-05] MEDS: SENNOSIDES/DOCUSATE SODIUM 1 TAB TABLET PO SCH (20:19)
[2021-06-05] MEDS: guaiFENesin/CODEINE 10 ML UDC PO PRN (20:20)
[2021-06-06] MEDS: guaiFENesin/CODEINE 10 ML UDC PO PRN ×3 (04:25→20:28)
--- NOTE | 2021-06-06 07:42 | Internal Med Progress Note ---
SUBJECTIVE Subjective Patient information: Note initiated : 06/06/21 at 7:38 am Service Date, if different from initiated Date: [] Patient: Abiel Rae a 75 y/o M admitted on 05/30/21 for Covid, sob. Chief Complaint: [] Interval history: Mr. Rae is a 75 year old M with no prior significant medical history who presents to the ER with worsening shortness of breath over the last few weeks. Patient was diagnosed with Covid on the and was discharged home on oxygen however he was discovered by his neighbor very short of breath and subsequently EMS was summoned. Patient was found to be desaturating in mid 80s. He was brought into the ER. Initial work-up was consistent with bilateral Covid pneumonia. Patient was found dexamethasone and subsequently hospitalist service was consulted. At the time of my evaluation patient is alert and able to answer most the questions. He was able to endorse history as above. He denies hemoptysis, diarrhea, abdominal pain, headache lightheadedness but endorses to weakness fatigue loss of appetite along with malaise. 05/31-patient clinically deteriorating. Now requiring 65% FiO2 at 35 L high flow oxygen. Worsening Covid pneumonia with possible element of ARDS. Status post Actemra. Continuing remdesivir/dexamethasone day two. Remains very high risk mortality. No overnight fever chills. Continue diurese/thrombosis prophylaxis. Maintain COVID-19 precaution. Check x-ray/ABGs 06/01 worsening interval chest imaging, however clinically feels better. On high flow oxygen 30 L. White count 8.6, platelets 133, continuing remdesivir/dexamethasone/azithromycin. No overnight events including fever chills. Alert and respond to commands, no anxiety or concerns per staff 06/02-patient this morning experienced syncopal episode while sitting in a chair. Was found in a near unresponsive state with blood pressure in the 80s. Placed on bed. Continue examination unremarkable. Patient returned to normal sensorium shortly. Denies chest pain, shortness of breath. [place] back at baseline within minutes. Was incontinent of stool on chair. White count 5.6, potassium 3.2 on replacement, creatinine 0.9. Lower diuretic dose to 20 mg daily, continue remdesivir/dexamethasone. On 30 L high flow 65% FiO2. Remains critically ill 06/03-patient critically ill. Worsening hypoxia now on 70 L oxygen high flow. Patient seen in room. Grieving from loss of his . No telemetry events. No fever chills. Systolics mid 80s. Diuretics discontinued. On remdesivir/dexamethasone day 5. 06/04-patient clinically deteriorating. Seen in room. Desats on minimal activity. Now on 80% FiO2. High risk mortality. On day 6 remdesivir/dexamethasone. Potassium 4.1, LFTs downtrending, interval chest imaging evidence of subcutaneous emphysema. Repeat interval chest imaging at 1 PM rule out spontaneous pneumothorax Continue close monitoring in ICU. Avoid noninvasive ventilation due to risk of pneumothorax 06/05-patient seen in room, clinically deteriorating. Remarkably short of breath now on 35% FiO2. Desats to mid 80s on minimal exertion. Continuing dexamethasone/remdesivir. No telemetry events. Stable labs and hemodynamics. No overnight fever chills or concerns per staff. Remains a high risk mortality based on [place] 2 score. Interval chest imaging worsening bilateral infiltrates, No evidence of pneumothorax, decreased subcutaneous emphysema. 06/06 Patient not vaccinated. Patient states he feels like he is breathing better. Has a dry cough. Oxygen at 35 L/min 75% FiO2. Review of Systems: denies headache/fever/chills/nausea/vomiting/chest or abdominal pain/diarrhea. Otherwise see above. Constitutional Vitals: Vital Signs Temp Pulse Resp BP Pulse Ox 98.6 F 67 16 97/70 90 06/05/21 20:00 06/06/21 04:49 06/06/21 04:49 06/06/21 04:17 06/06/21 04:49 Period Temp Pulse Resp BP Sys/Guan Pulse Ox Last 24 Hr 98.1 F-98.6 F 58-79 16-25 89-118/57-80 85-98 Intake and Output 06/05/21 06/06/21 06/06/21 21:59 05:59 13:59 Intake Total 960 120 Output Total 450 200 Balance 510 -80 Weight 79.469 kg Intake & Output: Intake & Output 06/05/21 06/06/21 06/06/21 21:59 05:59 13:59 Intake Total 960 120 Output Total 450 200 Balance 510 -80 Weight 79.469 kg Intake: Oral 960 120 Output: Void Amount 450 200 Other: Meal Lunch Dinner Percent of Meal Consumed 50% 100% Urine Appearance Clear Clear Urine Color Bright Yellow Dark Yellow Exam: General: Alert, Awake, No acute Distress Eyes/N/T: EOMI, Head/Neck: neck supple, CV: RRR, No murmurs, Pulm:mild fine rale b/l, no wheezing Abd: soft, nontender, +BS x4 Ext: no clubbing/cyanosis/edema Neuro: Alert, no focal deficits, moves all extremities, Skin: warm/dry OBJ DATA Labs CBC & Chem 7: 06/05/21 11:20 06/06/21 05:49 Labs: Abnormal Lab Results 06/05/21 06/05/21 06/04/21 11:20 11:20 05:22 WBC RBC 4.41 L Hgb 13.4 L Hct 38.5 L Plt Count 120 L MPV 10.6 H Neut % (Auto) 85.7 H Lymph % (Auto) 8.2 L Lymph # (Auto) 0.56 L BUN 29 H 28 H Glucose 136 H Direct Bilirubin 0.3 H AST 67 H 98 H ALT 81 H 99 H Lactate Dehydrogenase 781 H 796 H Albumin 3.1 L 06/04/21 05:22 WBC 4.3 L RBC 4.36 L Hgb 12.9 L Hct 38.6 L Plt Count 102 L MPV 10.8 H Neut % (Auto) Lymph % (Auto) Lymph # (Auto) 0.81 L BUN Glucose Direct Bilirubin AST ALT Lactate Dehydrogenase Albumin Meds: Medications Acetaminophen (Acetaminophen 325 Mg Tablet) 650 mg PO Q4-6HP PRN; Protocol PRN Reason: Per Pain Protocol/Fever > 101 Bisacodyl (Bisacodyl 10 Mg Supp.Rect) 10 mg AR Q2-3DAYS PRN PRN Reason: Constipation Dexamethasone (Dexamethasone 4 Mg Tablet) 6 mg PO DAILY [facility] Last Admin: 06/05/21 09:20 Dose: 6 mg Documented by: Docusate Sodium (Docusate Sodium 100 Mg Capsule) 100 mg PO BID [facility] Last Admin: 06/05/21 20:19 Dose: 100 mg Documented by: Enoxaparin Sodium (Enoxaparin 30 Mg/0.3 Ml Syringe) 30 mg SQ BID [facility] Last Admin: 06/05/21 20:20 Dose: 30 mg Documented by: Guaifenesin/Codeine Phosphate (Guaifenesin/Codeine 10 Ml Udc) 10 ml PO Q4HP PRN PRN Reason: Cough Last Admin: 06/06/21 04:25 Dose: 10 ml Documented by: Potassium Chloride 40 meq/ (Dextrose) 520 mls @ 130 mls/hr IV UD PRN PRN Reason: K+ = or < 3.5 Acetaminophen (Ofirmev) 650 mg in 65 mls @ 130 mls/hr IV Q6HP PRN; Protocol PRN Reason: Per Pain Protocol/Fever > 101 Magnesium Sulfate (Magnesium Sulfate) 2 gm in 50 mls @ 50 mls/hr IV UD PRN PRN Reason: MG = or < 1.7 Iron Carb/Multivit/[place]/Folic Acid (Multivit,Ther Iron,Ca,Fa & Min 1 Tablet) 1 tab PO DAILY [facility] Last Admin: 06/05/21 09:19 Dose: 1 tab Documented by: Melatonin (Melatonin 3 Mg Tablet) 3 mg PO HSP PRN PRN Reason: Insomnia Omeprazole (Omeprazole 20 Mg Capsule) 20 mg PO ACB [facility] Last Admin: 06/05/21 07:38 Dose: 20 mg Documented by: Ondansetron HCl (Ondansetron 4 Mg Odt Tablet) 4 mg SL Q4-6HP PRN; Protocol PRN Reason: Nausea And Vomiting Ondansetron HCl (Ondansetron 4 Mg/2 Ml Vial) 4 mg IV Q4-6HP PRN; Protocol PRN Reason: Nausea And Vomiting Polyethylene Glycol (Polyethylene Glycol 3350 17 Gm Packet) 17 gm PO DAILYP PRN PRN Reason: Constipation Potassium/Phosphorus/Sodium (Neutra Phos 1 Packet) 2 packet PO ONCE PRN PRN Reason: For phosphorus less than 2.5 Senna/Docusate Sodium (Sennosides/Docusate Sodium 1 Tab Tablet) 1 tab PO HS [facility] Last Admin: 06/05/21 20:19 Dose: 1 tab Documented by: Sodium Chloride (0.9 % Sodium Chloride 10 Ml Syringe) 10 ml IV Q8 [facility] Last Admin: 06/05/21 23:42 Dose: 10 ml Documented by: Vitamin D (Vitamin D3 5,000 Unit Tablet) 5,000 unit PO DAILY [facility] Last Admin: 06/05/21 09:19 Dose: 5,000 unit Documented by: A/P Narrative A/P Narrative: A: *COVID-19 pneumonia w/ARDS: *Acute hypoxic respiratory failure: -on 35lpm/75% *Subcutaneous emphysema: -no evidence of pneumothorax on interval chest imaging *Hypokalemia: resolved *Brief syncopal episode: likely vasovagal. Resolved *GERD Plan: -high risk mortality, [place] 2 score 16 -Remdesivir/dexamethasone day 7, s/p Actemra -wean vapotherm as able, avoid bipap given SQ emphysema -Mobilization/proning/oob to chair -IS/Acapella/RT, prn nebs -f/u cxr -ppx: Lovenox / home ppi Code status: Time Spent With Patient Time: Total time spent is greater than 50% in coordination of care (as documented) at patient's floor/unit and/or counseling patient: QUALITY Stroke Symptom Onset Unknown: No
[2021-06-06] MEDS: OMEPRAZOLE 20 MG CAPSULE PO SCH (09:02)
[2021-06-06] MEDS: MULTIVIT,THER IRON,CA,FA & MIN 1 TABLET PO SCH (09:02)
[2021-06-06] MEDS: ENOXAPARIN 30 MG/0.3 ML SYRINGE SQ SCH ×2 (09:02→20:28)
[2021-06-06] MEDS: DEXAMETHASONE 4 MG TABLET PO SCH (09:02)
[2021-06-06] MEDS: DOCUSATE SODIUM 100 MG CAPSULE PO SCH ×2 (09:02→20:27)
[2021-06-06] MEDS: VITAMIN D3 125 MCG TABLET PO SCH (09:05)
[2021-06-06] MEDS: 0.9 % SODIUM CHLORIDE 10 ML SYRINGE IV SCH ×3 (09:05→20:28)
[2021-06-06 09:07] LABS: ALT/SGPT 67 U/L (<40); AST/SGOT 57 U/L (<40); Albumin 3.3 gm/dL (3.2-5.2); Albumin/Globulin Ratio 1.1 (1.0-2.3); Alkaline Phosphatase 88 U/L (39-117); Bilirubin,Direct 0.2 mg/dL (<0.3); Bilirubin,Total 0.8 mg/dL (0.1-1.0); Blood Urea Nitrogen 22 mg/dL (8-23); Calcium 9.4 mg/dL (8.6-10.4); Carbon Dioxide 27 mmol/L (22-30); Chloride 98 mmol/L (96-108); Globulin 2.9 gm/dL (2.2-3.7); Glomerular Filtration Rate 88; Glucose 85 mg/dL (70-105); Lactate Dehydrogenase 792 U/L (135-225); Triglycerides 100 mg/dL (<150); Uric Acid 4.7 mg/dL (2.5-8.0)
[2021-06-06] MEDS: REMDESIVIR 100 MG in 0.9 % SODIUM CHLORIDE 250 ML IV SCH (11:02)
[2021-06-06] MEDS: SENNOSIDES/DOCUSATE SODIUM 1 TAB TABLET PO SCH (20:28)
[2021-06-07] MEDS: guaiFENesin/CODEINE 10 ML UDC PO PRN (02:35)
[2021-06-07] MEDS: 0.9 % SODIUM CHLORIDE 10 ML SYRINGE IV SCH ×3 (05:37→20:22)
--- NOTE | 2021-06-07 06:53 | XRay Report ---
INDICATION: f/u sq emphysema, r/o pneumothorax TECHNIQUE: AP portable semiupright chest x-ray COMPARISON: Previous examination dated 06/05/2021 FINDINGS: Lungs:Bilateral pulmonary parenchymal infiltrates with peripheral distribution. Appearance is consistent with covid pneumonia. No definite interval change Heart, vascular:No significant cardiomegaly. Pulmonary vascularity is normal. No pulmonary edema or pulmonary congestion Mediastinum, arash:No mediastinal widening. No hilar mass Pleura:No pleural fluid. No pleural-based mass or calcification Skeletal:Negative. IMPRESSION: 1. Parenchymal infiltrates consistent with covid pneumonia 2. No definite interval change since 06/05/2021 Interpreted and Authenticated by: Jakub Caceres 06/07/21
--- NOTE | 2021-06-07 07:56 | Internal Med Progress Note ---
SUBJECTIVE Subjective Patient information: Note initiated : 06/07/21 at 7:54 am Service Date, if different from initiated Date: [] Patient: Abiel Rae a 75 y/o M admitted on 05/30/21 for Covid, sob. Chief Complaint: [] Interval history: Interval history: Mr. Rae is a 75 year old M with no prior significant medical history who presents to the ER with worsening shortness of breath over the last few weeks. Patient was diagnosed with Covid on the and was discharged home on oxygen however he was discovered by his neighbor very short of breath and subsequently EMS was summoned. Patient was found to be desaturating in mid 80s. He was brought into the ER. Initial work-up was consistent with bilateral Covid pneumonia. Patient was found dexamethasone and subsequently hospitalist service was consulted. At the time of my evaluation patient is alert and able to answer most the questions. He was able to endorse history as above. He denies hemoptysis, diarrhea, abdominal pain, headache lightheadedness but endorses to weakness fatigue loss of appetite along with malaise. 05/31-patient clinically deteriorating. Now requiring 65% FiO2 at 35 L high flow oxygen. Worsening Covid pneumonia with possible element of ARDS. Status post Actemra. Continuing remdesivir/dexamethasone day two. Remains very high risk mortality. No overnight fever chills. Continue diurese/thrombosis prophylaxis. Maintain COVID-19 precaution. Check x-ray/ABGs 06/01 worsening interval chest imaging, however clinically feels better. On hig h flow oxygen 30 L. White count 8.6, platelets 133, continuing remdesivir/dexamethasone/azithromycin. No overnight events including fever chills. Alert and respond to commands, no anxiety or concerns per staff 06/02-patient this morning experienced syncopal episode while sitting in a chair. Was found in a near unresponsive state with blood pressure in the 80s. Placed on bed. Continue examination unremarkable. Patient returned to normal sensorium shortly. Denies chest pain, shortness of breath. Jack back at baseline within minutes. Was incontinent of stool on chair. White count 5.6, potassium 3.2 on replacement, creatinine 0.9. Lower diuretic dose to 20 mg daily, continue remdesivir/dexamethasone. On 30 L high flow 65% FiO2. Remains critically ill 06/03-patient critically ill. Worsening hypoxia now on 70 L oxygen high flow. Patient seen in room. Grieving from loss of his . No telemetry events. No fever chills. Systolics mid 80s. Diuretics discontinued. On remde sivir/dexamethasone day 5. 06/04-patient clinically deteriorating. Seen in room. Desats on minimal activity. Now on 80% FiO2. High risk mortality. On day 6 remdesivir/dexamethasone. Potassium 4.1, LFTs downtrending, interval chest imaging evidence of subcutaneous emphysema. Repeat interval chest imaging at 1 PM rule out spontaneous pneumothorax Continue close monitoring in ICU. Avoid noninvasive ventilation due to risk of pneumothorax 06/05-patient seen in room, clinically deteriorating. Remarkably short of breath now on 35% FiO2. Desats to mid 80s on minimal exertion. Continuing d examethasone/remdesivir. No telemetry events. Stable labs and hemodynamics. No overnight fever chills or concerns per staff. Remains a high risk mortality based on [place] 2 score. Interval chest imaging worsening bilateral infiltrates, No evidence of pneumothorax, decreased subcutaneous emphysema. 06/06 Patient not vaccinated. Patient states he feels like he is breathing better. Has a dry cough. Oxygen at 35 L/min 75% FiO2. 06/07 Patient is cough is improving. Shortness of breath seems amenable to him. He was taken to CT on a nonrebreather and he feels like he can breathe much easier on the nonrebreather than the Vapotherm and his oxygen saturations are quite good on the nonrebreather. We will also try Ventimask. Review of Systems: denies headache/fever/chills/nausea/vomiting/chest or abdominal pain/diarrhea. Otherwise see above. Constitutional Vitals: Vital Signs Temp Pulse Resp BP Pulse Ox 98.2 F 58 L 17 115/74 97 06/07/21 04:01 06/07/21 07:09 06/07/21 07:09 06/07/21 06:00 06/07/21 07:09 Period Temp Pulse Resp BP Sys/Guan Pulse Ox Last 24 Hr 97.2 F-98.8 F 57-95 12-36 100-129/69-84 66-99 Intake and Output 06/06/21 06/07/21 06/07/21 21:59 05:59 13:59 Intake Total 680 150 Output Total 825 475 250 Balance -145 -325 -250 Weight 78.517 kg Intake & Output: Intake & Output 06/06/21 06/07/21 06/07/21 21:59 05:59 13:59 Intake Total 680 150 Output Total 825 475 250 Balance -145 -325 -250 Weight 78.517 kg Intake: Nourishment/Supplement quantity 240 (ml) Oral 440 150 Output: Void Amount 825 613 250 Other: Meal Dinner Percent of Meal Consumed 100% Nourishment/Supplement name Ensure Enlive Urine Appearance Clear Clear Clear Urine Color Dark Yellow Dark Yellow Bright Yellow Urine Odor Normal # Bowel Movements 0 Exam: General: Alert, Awake, No acute Distress Eyes/N/T: EOMI, Head/Neck: neck supple, CV: RRR, No murmurs, Pulm:mild fine rale b/l clearing, no wheezing Abd: soft, nontender, +BS x4 Ext: no clubbing/cyanosis/edema Neuro: Alert, no focal deficits, moves all extremities, Skin: warm/dry OBJ DATA Labs CBC & Chem 7: 06/05/21 11:20 06/06/21 05:49 Labs: Abnormal Lab Results 06/06/21 06/06/21 06/05/21 05:49 05:21 11:20 RBC Hgb Hct Plt Count MPV Neut % (Auto) Lymph % (Auto) Lymph # (Auto) D-Dimer 19.01 H BUN 29 H Glucose 136 H AST 57 H 67 H ALT 67 H 81 H Lactate Dehydrogenase 792 H 781 H 06/05/21 11:20 RBC 4.41 L Hgb 13.4 L Hct 38.5 L Plt Count 120 L MPV 10.6 H Neut % (Auto) 85.7 H Lymph % (Auto) 8.2 L Lymph # (Auto) 0.56 L D-Dimer BUN Glucose AST ALT Lactate Dehydrogenase Meds: Medications Acetaminophen (Acetaminophen 325 Mg Tablet) 650 mg PO Q4-6HP PRN; Protocol PRN Reason: Per Pain Protocol/Fever > 101 Bisacodyl (Bisacodyl 10 Mg Supp.Rect) 10 mg [place] Q2-3DAYS PRN PRN Reason: Constipation Dexamethasone (Dexamethasone 4 Mg Tablet) 6 mg PO DAILY [facility] Last Admin: 06/06/21 09:02 Dose: 6 mg Documented by: Docusate Sodium (Docusate Sodium 100 Mg Capsule) 100 mg PO BID [facility] Last Admin: 06/06/21 20:27 Dose: 100 mg Documented by: Enoxaparin Sodium (Enoxaparin 30 Mg/0.3 Ml Syringe) 30 mg SQ BID [facility] Last Admin: 06/06/21 20:28 Dose: 30 mg Documented by: Guaifenesin/Codeine Phosphate (Guaifenesin/Codeine 10 Ml Udc) 10 ml PO Q4HP PRN PRN Reason: Cough Last Admin: 06/07/21 02:35 Dose: 10 ml Documented by: Potassium Chloride 40 meq/ (Dextrose) 520 mls @ 130 mls/hr IV UD PRN PRN Reason: K+ = or < 3.5 Acetaminophen (Ofirmev) 650 mg in 65 mls @ 130 mls/hr IV Q6HP PRN; Protocol PRN Reason: Per Pain Protocol/Fever > 101 Magnesium Sulfate (Magnesium Sulfate) 2 gm in 50 mls @ 50 mls/hr IV UD PRN PRN Reason: MG = or < 1.7 REMDESIVIR 100 mg/ Sodium (Chloride) 250 mls @ 500 mls/hr IV Q24H [facility] Stop: 06/08/21 11:29 Last Infusion: 06/06/21 11:32 Dose: Infused Documented by: Iron Carb/Multivit/Anita/Folic Acid (Multivit,Ther Iron,Ca,Fa & Min 1 Tablet) 1 tab PO DAILY [facility] Last Admin: 06/06/21 09:02 Dose: 1 tab Documented by: Melatonin (Melatonin 3 Mg Tablet) 3 mg PO HSP PRN PRN Reason: Insomnia Omeprazole (Omeprazole 20 Mg Capsule) 20 mg PO ACB [facility] Last Admin: 06/06/21 09:02 Dose: 20 mg Documented by: Ondansetron HCl (Ondansetron 4 Mg Odt Tablet) 4 mg SL Q4-6HP PRN; Protocol PRN Reason: Nausea And Vomiting Ondansetron HCl (Ondansetron 4 Mg/2 Ml Vial) 4 mg IV Q4-6HP PRN; Protocol PRN Reason: Nausea And Vomiting Polyethylene Glycol (Polyethylene Glycol 3350 17 Gm Packet) 17 gm PO DAILYP PRN PRN Reason: Constipation Potassium/Phosphorus/Sodium (Neutra Phos 1 Packet) 2 packet PO ONCE PRN PRN Reason: For phosphorus less than 2.5 Senna/Docusate Sodium (Sennosides/Docusate Sodium 1 Tab Tablet) 1 tab PO HS [facility] Last Admin: 06/06/21 20:28 Dose: 1 tab Documented by: Sodium Chloride (0.9 % Sodium Chloride 10 Ml Syringe) 10 ml IV Q8 [facility] Last Admin: 06/07/21 05:37 Dose: 10 ml Documented by: Vitamin D (Vitamin D3 125 Mcg Tablet) 125 mcg PO DAILY [facility] A/P Narrative A/P Narrative: A: *COVID-19 pneumonia w/ARDS: *Acute hypoxic respiratory failure: -on nonrebreather *Subcutaneous emphysema: -no evidence of pneumothorax on interval chest imaging *Hypokalemia: resolved *Brief syncopal episode: likely vasovagal. Resolved *GERD Plan: -high risk mortality, [place] 2 score 16 -Remdesivir/dexamethasone day 7, s/p Actemra -wean vapotherm as able, avoid bipap given SQ emphysema -difficult o2 weaning, check CTA given high ddimer -Mobilization/proning/oob to chair -IS/Acapella/RT, prn nebs -ppx: Lovenox / home ppi Code status: Time Spent With Patient Time: Total time spent is greater than 50% in coordination of care (as documented) at patient's floor/unit and/or counseling patient: QUALITY Stroke Symptom Onset Unknown: No
[2021-06-07] MEDS: OMEPRAZOLE 20 MG CAPSULE PO SCH (07:57)
[2021-06-07] MEDS: MULTIVIT,THER IRON,CA,FA & MIN 1 TABLET PO SCH (07:57)
[2021-06-07] MEDS: VITAMIN D3 125 MCG TABLET PO SCH (07:57)
[2021-06-07] MEDS: DEXAMETHASONE 4 MG TABLET PO SCH (07:57)
[2021-06-07] MEDS: DOCUSATE SODIUM 100 MG CAPSULE PO SCH ×2 (07:57→20:22)
[2021-06-07] MEDS: ENOXAPARIN 30 MG/0.3 ML SYRINGE SQ SCH (07:58)
[2021-06-07] MEDS ORDERED: IOPAMIDOL 100 ML BOTTLE IV ONE (09:13)
[2021-06-07 09:26] LABS: ALT/SGPT 59 U/L (<40); AST/SGOT 50 U/L (<40); Alkaline Phosphatase 83 U/L (39-117)
--- NOTE | 2021-06-07 09:29 | Cat Scan Report ---
INDICATION: hypoxia, elevated ddimer COMPARISON: Chest x-ray dated 06/07/2021 TECHNIQUE: Axial images obtained through the chest. 50ml Isovue 370 injected intravenously, and scanning was performed during pulmonary arterial phase. Sagittally and coronally reformatted images were obtained. MIP reformatted images. FINDINGS: Lungs:Extensive groundglass infiltrate within both lungs. Distribution is peripheral and appearance is consistent with covid pneumonia. There is no discrete pulmonary parenchymal mass. Mediastinum, vascular: Main pulmonary artery, right pulmonary artery, left pulmonary artery are negative. No lobar emboli. Segmental and subsegmental branches are suboptimally evaluated due to patient motion. No definite abnormality. Thoracic aorta is negative. No aneurysmal dilatation. Main pulmonary artery is not enlarged No pathologic mediastinal or hilar adenopathy Heart:No cardiomegaly. No pericardial effusion. There is prominent coronary artery calcification. Pleura:No significant pleural effusion. No pleural mass or calcification Axilla, supraclavicular regions, chest wall:No pathologic axillary or supraclavicular adenopathy. Musculoskeletal:Negative thoracic spine. No compression fracture. No lytic lesion. There is artifact within the sternum due to patient motion. Upper Abdomen:Negative IMPRESSION: 1. Extensive groundglass infiltrate consistent with covid pneumonia 2. Negative pulmonary CTA The exam was performed using radiation dose optimization techniques including, but not limited to, automated exposure control, adjustment of the mA and/or kV according to patient size and use of iterative reconstruction technique. Interpreted and Authenticated by: Jakub Caceres 06/07/21
[2021-06-07] MEDS: REMDESIVIR 100 MG in 0.9 % SODIUM CHLORIDE 250 ML IV SCH (11:34)
[2021-06-07 14:04] LABS: POC Creatinine 0.9 mg/dL (0.6-1.2)
[2021-06-07] MEDS: SENNOSIDES/DOCUSATE SODIUM 1 TAB TABLET PO SCH (20:22)
[2021-06-07] MEDS: ENOXAPARIN 40 MG/0.4 ML SYRINGE SQ SCH (20:22)
[2021-06-08] MEDS: 0.9 % SODIUM CHLORIDE 10 ML SYRINGE IV SCH ×3 (05:31→20:26)
[2021-06-08] MEDS: OMEPRAZOLE 20 MG CAPSULE PO SCH (07:38)
--- NOTE | 2021-06-08 08:47 | Internal Med Progress Note ---
SUBJECTIVE Subjective Patient information: Note initiated : 06/08/21 at 8:43 am Service Date, if different from initiated Date: [] Patient: Abiel Rae a 75 y/o M admitted on 05/30/21 for Covid, sob. Chief Complaint: [] Interval history: Interval history: Mr. Rae is a 75 year old M with no prior significant medical history who presents to the ER with worsening shortness of breath over the last few weeks. Patient was diagnosed with Covid on the and was discharged home on oxygen however he was discovered by his neighbor very short of breath and subsequently EMS was summoned. Patient was found to be desaturating in mid 80s. He was brought into the ER. Initial work-up was consistent with bilateral Covid pneumonia. Patient was found dexamethasone and subsequently hospitalist service was consulted. At the time of my evaluation patient is alert and able to answer most the questions. He was able to endorse history as above. He denies hemoptysis, diarrhea, abdominal pain, headache lightheadedness but endorses to weakness fatigue loss of appetite along with malaise. 05/31-patient clinically deteriorating. Now requiring 65% FiO2 at 35 L high flow oxygen. Worsening Covid pneumonia with possible element of ARDS. Status post Actemra. Continuing remdesivir/dexamethasone day two. Remains very high risk mortality. No overnight fever chills. Continue diurese/thrombosis prophylaxis. Maintain COVID-19 precaution. Check x-ray/ABGs 06/01 worsening interval chest imaging, however clinically feels better. On hig h flow oxygen 30 L. White count 8.6, platelets 133, continuing remdesivir/dexamethasone/azithromycin. No overnight events including fever chills. Alert and respond to commands, no anxiety or concerns per staff 06/02-patient this morning experienced syncopal episode while sitting in a chair. Was found in a near unresponsive state with blood pressure in the 80s. Placed on bed. Continue examination unremarkable. Patient returned to normal sensorium shortly. Denies chest pain, shortness of breath. [place] back at baseline within minutes. Was incontinent of stool on chair. White count 5.6, potassium 3.2 on replacement, creatinine 0.9. Lower diuretic dose to 20 mg daily, continue remdesivir/dexamethasone. On 30 L high flow 65% FiO2. Remains critically ill 06/03-patient critically ill. Worsening hypoxia now on 70 L oxygen high flow. Patient seen in room. Grieving from loss of his . No telemetry events. No fever chills. Systolics mid 80s. Diuretics discontinued. On remde sivir/dexamethasone day 5. 06/04-patient clinically deteriorating. Seen in room. Desats on minimal activity. Now on 80% FiO2. High risk mortality. On day 6 remdesivir/dexamethasone. Potassium 4.1, LFTs downtrending, interval chest imaging evidence of subcutaneous emphysema. Repeat interval chest imaging at 1 PM rule out spontaneous pneumothorax Continue close monitoring in ICU. Avoid noninvasive ventilation due to risk of pneumothorax 06/05-patient seen in room, clinically deteriorating. Remarkably short of breath now on 35% FiO2. Desats to mid 80s on minimal exertion. Continuing d examethasone/remdesivir. No telemetry events. Stable labs and hemodynamics. No overnight fever chills or concerns per staff. Remains a high risk mortality based on [place] 2 score. Interval chest imaging worsening bilateral infiltrates, No evidence of pneumothorax, decreased subcutaneous emphysema. 06/06 Patient not vaccinated. Patient states he feels like he is breathing better. Has a dry cough. Oxygen at 35 L/min 75% FiO2. 06/07 Patient is cough is improving. Shortness of breath seems amenable to him. He was taken to CT on a nonrebreather and he feels like he can breathe much easier on the nonrebreather than the Vapotherm and his oxygen saturations are quite good on the nonrebreather. We will also try Ventimask. 06/08 Patient states he is feeling better and breathing better but still requiring a lot of oxygen. We are able to get him down to 6 L oxygen mask yesterday for ascencion rt period but is essentially been on 06-12 through the afternoon and evening. Currently on 12 L. And sats well at rest but with any movement desats quickly. Review of Systems: denies headache/fever/chills/nausea/vomiting/chest or abdominal pain/diarrhea. Otherwise see above. Constitutional Vitals: Vital Signs Temp Pulse Resp BP Pulse Ox 98.9 F 58 L 20 112/75 97 06/08/21 08:01 06/08/21 08:01 06/08/21 08:01 06/08/21 08:01 06/08/21 08:01 Period Temp Pulse Resp BP Sys/Guan Pulse Ox Last 24 Hr 97.2 F-98.9 F 56-101 8-27 95-128/57-87 90-100 Intake and Output 06/07/21 06/08/21 06/08/21 21:59 05:59 13:59 Intake Total 337 Output Total 325 250 225 Balance Weight 77.383 kg Intake & Output: Intake & Output 06/07/21 06/08/21 06/08/21 21:59 05:59 13:59 Intake Total 337 Output Total 325 250 225 Balance 250 Weight 77.383 kg Intake: Nourishment/Supplement quantity 237 (ml) Oral 100 Output: Void Amount 325 250 225 Other: Meal Dinner Percent of Meal Consumed 100% Feeding Ability Independent Nourishment/Supplement name enusre enlive Urine Appearance Clear Clear Clear Urine Color Dark Yellow Dark Yellow Bright Yellow Stool Size Moderate Stool Color Brown Stool Consistency Soft Formed # Bowel Movements 1 Exam: General: Alert, Awake, No acute Distress Eyes/N/T: EOMI, Head/Neck: neck supple, CV: RRR, No murmurs, Pulm: mild fine rale b/l improving, no wheezing Abd: soft, nontender, +BS x4 Ext: no clubbing/cyanosis/edema Neuro: Alert, no focal deficits, moves all extremities, Skin: warm/dry OBJ DATA Labs CBC & Chem 7: 06/05/21 11:20 06/08/21 05:17 Labs: Abnormal Lab Results 06/08/21 06/08/21 06/07/21 05:17 05:17 07:50 RBC Hgb Hct Plt Count MPV Neut % (Auto) Lymph % (Auto) Lymph # (Auto) D-Dimer 14.36 H Sodium 131 L BUN Glucose 139 H GGT 92 H AST 42 H 50 H ALT 59 H Lactate Dehydrogenase 530 H Albumin 3.0 L Triglycerides 252 H 06/06/21 06/06/21 06/05/21 05:49 05:21 11:20 RBC Hgb Hct Plt Count MPV Neut % (Auto) Lymph % (Auto) Lymph # (Auto) D-Dimer 19.01 H Sodium BUN 29 H Glucose 136 H GGT AST 57 H 67 H ALT 67 H 81 H Lactate Dehydrogenase 792 H 781 H Albumin Triglycerides 06/05/21 11:20 RBC 4.41 L Hgb 13.4 L Hct 38.5 L Plt Count 120 L MPV 10.6 H Neut % (Auto) 85.7 H Lymph % (Auto) 8.2 L Lymph # (Auto) 0.56 L D-Dimer Sodium BUN Glucose GGT AST ALT Lactate Dehydrogenase Albumin Triglycerides Meds: Medications Acetaminophen (Acetaminophen 325 Mg Tablet) 650 mg PO Q4-6HP PRN; Protocol PRN Reason: Per Pain Protocol/Fever > 101 Bisacodyl (Bisacodyl 10 Mg Supp.Rect) 10 mg [place] Q2-3DAYS PRN PRN Reason: Constipation Dexamethasone (Dexamethasone 4 Mg Tablet) 6 mg PO DAILY [facility] Last Admin: 06/07/21 07:57 Dose: 6 mg Documented by: Docusate Sodium (Docusate Sodium 100 Mg Capsule) 100 mg PO BID [facility] Last Admin: 06/07/21 20:22 Dose: 100 mg Documented by: Enoxaparin Sodium (Enoxaparin 40 Mg/0.4 Ml Syringe) 40 mg SQ BID [facility] Last Admin: 06/07/21 20:22 Dose: 40 mg Documented by: Guaifenesin/Codeine Phosphate (Guaifenesin/Codeine 10 Ml Udc) 10 ml PO Q4HP PRN PRN Reason: Cough Last Admin: 06/07/21 02:35 Dose: 10 ml Documented by: Potassium Chloride 40 meq/ (Dextrose) 520 mls @ 130 mls/hr IV UD PRN PRN Reason: K+ = or < 3.5 Acetaminophen (Ofirmev) 650 mg in 65 mls @ 130 mls/hr IV Q6HP PRN; Protocol PRN Reason: Per Pain Protocol/Fever > 101 Magnesium Sulfate (Magnesium Sulfate) 2 gm in 50 mls @ 50 mls/hr IV UD PRN PRN Reason: MG = or < 1.7 REMDESIVIR 100 mg/ Sodium (Chloride) 250 mls @ 500 mls/hr IV Q24H [facility] Stop: 06/08/21 11:29 Last Infusion: 06/07/21 12:04 Dose: Infused Documented by: Iron Carb/Multivit/[place]/Folic Acid (Multivit,Ther Iron,Ca,Fa & Min 1 Tablet) 1 tab PO DAILY [facility] Last Admin: 06/07/21 07:57 Dose: 1 tab Documented by: Melatonin (Melatonin 3 Mg Tablet) 3 mg PO HSP PRN PRN Reason: Insomnia Omeprazole (Omeprazole 20 Mg Capsule) 20 mg PO ACB [facility] Last Admin: 06/08/21 07:38 Dose: 20 mg Documented by: Ondansetron HCl (Ondansetron 4 Mg Odt Tablet) 4 mg SL Q4-6HP PRN; Protocol PRN Reason: Nausea And Vomiting Ondansetron HCl (Ondansetron 4 Mg/2 Ml Vial) 4 mg IV Q4-6HP PRN; Protocol PRN Reason: Nausea And Vomiting Polyethylene Glycol (Polyethylene Glycol 3350 17 Gm Packet) 17 gm PO DAILYP PRN PRN Reason: Constipation Potassium/Phosphorus/Sodium (Neutra Phos 1 Packet) 2 packet PO ONCE PRN PRN Reason: For phosphorus less than 2.5 Senna/Docusate Sodium (Sennosides/Docusate Sodium 1 Tab Tablet) 1 tab PO HS [facility] Last Admin: 06/07/21 20:22 Dose: 1 tab Documented by: Sodium Chloride (0.9 % Sodium Chloride 10 Ml Syringe) 10 ml IV Q8 [facility] Last Admin: 06/08/21 05:31 Dose: 10 ml Documented by: Vitamin D (Vitamin D3 125 Mcg Tablet) 125 mcg PO DAILY [facility] Last Admin: 06/07/21 07:57 Dose: 125 mcg Documented by: A/P Narrative A/P Narrative: A: *COVID-19 pneumonia w/ARDS: *Acute hypoxic respiratory failure: -on oxymask @12Lon down to 6 liters, but 12 o/n -no PE on CTA *Subcutaneous emphysema: -no evidence of pneumothorax on interval chest imaging *Hypokalemia: resolved *Brief syncopal episode: likely vasovagal. Resolved *GERD Plan: -high risk mortality -Remdesivir/dexamethasone day 7, s/p Actemra -wean O2 -Mobilization/proning/oob to chair -IS/Acapella/RT, prn nebs -ppx: Lovenox / home ppi Code status: Time Spent With Patient Time: Total time spent is greater than 50% in coordination of care (as documented) at patient's floor/unit and/or counseling patient: QUALITY Stroke Symptom Onset Unknown: No
[2021-06-08] MEDS: VITAMIN D3 125 MCG TABLET PO SCH (09:02)
[2021-06-08] MEDS: DEXAMETHASONE 4 MG TABLET PO SCH (09:03)
[2021-06-08] MEDS: DOCUSATE SODIUM 100 MG CAPSULE PO SCH ×2 (09:03→20:26)
[2021-06-08] MEDS: MULTIVIT,THER IRON,CA,FA & MIN 1 TABLET PO SCH (09:03)
[2021-06-08] MEDS: ENOXAPARIN 40 MG/0.4 ML SYRINGE SQ SCH ×2 (09:04→20:26)
[2021-06-08 11:04] LABS: ALT/SGPT 48 U/L (<40); AST/SGOT 39 U/L (<40); Albumin 3.3 gm/dL (3.2-5.2); Albumin/Globulin Ratio 1.1 (1.0-2.3); Alkaline Phosphatase 81 U/L (39-117); Bilirubin,Direct < 0.2 mg/dL (0-0.3); Bilirubin,Total 0.6 mg/dL (0.1-1.0); Blood Urea Nitrogen 21 mg/dL (8-23); Calcium 9.7 mg/dL (8.6-10.4); Carbon Dioxide 29 mmol/L (22-30); Chloride 98 mmol/L (96-108); Globulin 3.1 gm/dL (2.2-3.7); Glomerular Filtration Rate 88; Glucose 68 mg/dL (70-105); Lactate Dehydrogenase 643 U/L (135-225); Triglycerides 74 mg/dL (<150); Uric Acid 5.7 mg/dL (2.5-8.0)
[2021-06-08] MEDS: REMDESIVIR 100 MG in 0.9 % SODIUM CHLORIDE 250 ML IV SCH (11:53)
[2021-06-08] MEDS: SENNOSIDES/DOCUSATE SODIUM 1 TAB TABLET PO SCH (20:26)
[2021-06-09] MEDS: OMEPRAZOLE 20 MG CAPSULE PO SCH (07:16)
[2021-06-09] MEDS: 0.9 % SODIUM CHLORIDE 10 ML SYRINGE IV SCH ×3 (07:16→21:10)
[2021-06-09] MEDS: DEXAMETHASONE 4 MG TABLET PO SCH (08:15)
[2021-06-09] MEDS: DOCUSATE SODIUM 100 MG CAPSULE PO SCH ×2 (08:16→20:04)
[2021-06-09] MEDS: VITAMIN D3 125 MCG TABLET PO SCH (08:16)
[2021-06-09] MEDS: ENOXAPARIN 40 MG/0.4 ML SYRINGE SQ SCH ×2 (08:16→20:03)
[2021-06-09] MEDS: MULTIVIT,THER IRON,CA,FA & MIN 1 TABLET PO SCH (08:16)
--- NOTE | 2021-06-09 08:45 | Internal Med Progress Note ---
SUBJECTIVE Subjective Patient information: Note initiated : 06/09/21 at 8:43 am Service Date, if different from initiated Date: [] Patient: Abiel Rae a 75 y/o M admitted on 05/30/21 for Covid, sob. Chief Complaint: [] Interval history: Interval history: Mr. Rae is a 75 year old M with no prior significant medical history who presents to the ER with worsening shortness of breath over the last few weeks. Patient was diagnosed with Covid on the and was discharged home on oxygen however he was discovered by his neighbor very short of breath and subsequently EMS was summoned. Patient was found to be desaturating in mid 80s. He was brought into the ER. Initial work-up was consistent with bilateral Covid pneumonia. Patient was found dexamethasone and subsequently hospitalist service was consulted. At the time of my evaluation patient is alert and able to answer most the questions. He was able to endorse history as above. He denies hemoptysis, diarrhea, abdominal pain, headache lightheadedness but endorses to weakness fatigue loss of appetite along with malaise. 05/31-patient clinically deteriorating. Now requiring 65% FiO2 at 35 L high flow oxygen. Worsening Covid pneumonia with possible element of ARDS. Status post Actemra. Continuing remdesivir/dexamethasone day two. Remains very high risk mortality. No overnight fever chills. Continue diurese/thrombosis prophylaxis. Maintain COVID-19 precaution. Check x-ray/ABGs 06/01 worsening interval chest imaging, however clinically feels better. On hig h flow oxygen 30 L. White count 8.6, platelets 133, continuing remdesivir/dexamethasone/azithromycin. No overnight events including fever chills. Alert and respond to commands, no anxiety or concerns per staff 06/02-patient this morning experienced syncopal episode while sitting in a chair. Was found in a near unresponsive state with blood pressure in the 80s. Placed on bed. Continue examination unremarkable. Patient returned to normal sensorium shortly. Denies chest pain, shortness of breath. [place] back at baseline within minutes. Was incontinent of stool on chair. White count 5.6, potassium 3.2 on replacement, creatinine 0.9. Lower diuretic dose to 20 mg daily, continue remdesivir/dexamethasone. On 30 L high flow 65% FiO2. Remains critically ill 06/03-patient critically ill. Worsening hypoxia now on 70 L oxygen high flow. Patient seen in room. Grieving from loss of his . No telemetry events. No fever chills. Systolics mid 80s. Diuretics discontinued. On remde sivir/dexamethasone day 5. 06/04-patient clinically deteriorating. Seen in room. Desats on minimal activity. Now on 80% FiO2. High risk mortality. On day 6 remdesivir/dexamethasone. Potassium 4.1, LFTs downtrending, interval chest imaging evidence of subcutaneous emphysema. Repeat interval chest imaging at 1 PM rule out spontaneous pneumothorax Continue close monitoring in ICU. Avoid noninvasive ventilation due to risk of pneumothorax 06/05-patient seen in room, clinically deteriorating. Remarkably short of breath now on 35% FiO2. Desats to mid 80s on minimal exertion. Continuing d examethasone/remdesivir. No telemetry events. Stable labs and hemodynamics. No overnight fever chills or concerns per staff. Remains a high risk mortality based on [place] 2 score. Interval chest imaging worsening bilateral infiltrates, No evidence of pneumothorax, decreased subcutaneous emphysema. 06/06 Patient not vaccinated. Patient states he feels like he is breathing better. Has a dry cough. Oxygen at 35 L/min 75% FiO2. 06/07 Patient is cough is improving. Shortness of breath seems amenable to him. He was taken to CT on a nonrebreather and he feels like he can breathe much easier on the nonrebreather than the Vapotherm and his oxygen saturations are quite good on the nonrebreather. We will also try Ventimask. 06/08 Patient states he is feeling better and breathing better but still requiring a lot of oxygen. We are able to get him down to 6 L oxygen mask yesterday for ascencion rt period but is essentially been on 06-12 through the afternoon and evening. Currently on 12 L. And sats well at rest but with any movement desats quickly. 06/09 Patient on oxygen mask at 12 L and not on high flow tubing. Patient replaced on high flow tubing and liters nasal cannula. Sound little bit wheezy will have a breathing treatment ordered. Patient has a mild cough, he does have some shortness of breath with exertion feels about the same. Review of Systems: denies headache/fever/chills/nausea/vomiting/chest or abdominal pain/diarrhea. Otherwise see above. Constitutional Vitals: Vital Signs Temp Pulse Resp BP Pulse Ox 98 F 64 24 H 105/77 93 06/09/21 08:01 06/09/21 08:01 06/09/21 08:01 06/09/21 08:01 06/09/21 08:01 Period Temp Pulse Resp BP Sys/Guan Pulse Ox Last 24 Hr 97.4 F-98.9 F 60-109 16-35 96-140/66-96 75-98 Intake and Output 06/08/21 06/09/21 06/09/21 21:59 05:59 13:59 Intake Total 1380 Output Total 850 450 Balance 530 -450 Weight 77.111 kg Intake & Output: Intake & Output 06/08/21 06/09/21 06/09/21 21:59 05:59 13:59 Intake Total 1380 Output Total 850 450 Balance 530 -450 Weight 77.111 kg Intake: IV 250 [place] 100 mg In Sodium 250 Chloride 0.9% 250 ml @ 500 mls/ hr IV Q24H [facility] Rx#:[id number] Oral 1130 Output: Void Amount 850 450 Other: Meal Dinner Percent of Meal Consumed 75% Urine Appearance Clear Clear Urine Color Dark Yellow Dark Yellow Urine Odor Normal Stool Size Large Stool Color Brown Stool Consistency Formed # Bowel Movements 1 Exam: General: Alert, Awake, No acute Distress Eyes/N/T: EOMI, Head/Neck: neck supple, CV: RRR, No murmurs, Pulm: Mild wheezing b/l, no rhonchi Abd: soft, nontender, +BS x4 Ext: no clubbing/cyanosis/edema Neuro: Alert, no focal deficits, moves all extremities, Skin: warm/dry OBJ DATA Labs CBC & Chem 7: 06/05/21 11:20 06/08/21 05:17 Labs: Abnormal Lab Results 06/08/21 06/08/21 06/07/21 05:17 05:17 07:50 D-Dimer 14.36 H Glucose 68 L AST 50 H ALT 48 H 59 H Lactate Dehydrogenase 643 H 06/06/21 06/06/21 05:49 05:21 D-Dimer 19.01 H Glucose AST 57 H ALT 67 H Lactate Dehydrogenase 792 H Meds: Medications Acetaminophen (Acetaminophen 325 Mg Tablet) 650 mg PO Q4-6HP PRN; Protocol PRN Reason: Per Pain Protocol/Fever > 101 Bisacodyl (Bisacodyl 10 Mg Supp.Rect) 10 mg [place] Q2-3DAYS PRN PRN Reason: Constipation Dexamethasone (Dexamethasone 4 Mg Tablet) 6 mg PO DAILY [facility] Last Admin: 06/09/21 08:15 Dose: 6 mg Documented by: Docusate Sodium (Docusate Sodium 100 Mg Capsule) 100 mg PO BID [facility] Last Admin: 06/09/21 08:16 Dose: 100 mg Documented by: Enoxaparin Sodium (Enoxaparin 40 Mg/0.4 Ml Syringe) 40 mg SQ BID [facility] Last Admin: 06/09/21 08:16 Dose: 40 mg Documented by: Guaifenesin/Codeine Phosphate (Guaifenesin/Codeine 10 Ml Udc) 10 ml PO Q4HP PRN PRN Reason: Cough Last Admin: 06/07/21 02:35 Dose: 10 ml Documented by: Potassium Chloride 40 meq/ (Dextrose) 520 mls @ 130 mls/hr IV UD PRN PRN Reason: K+ = or < 3.5 Acetaminophen (Ofirmev) 650 mg in 65 mls @ 130 mls/hr IV Q6HP PRN; Protocol PRN Reason: Per Pain Protocol/Fever > 101 Magnesium Sulfate (Magnesium Sulfate) 2 gm in 50 mls @ 50 mls/hr IV UD PRN PRN Reason: MG = or < 1.7 Iron Carb/Multivit/[place]/Folic Acid (Multivit,Ther Iron,Ca,Fa & Min 1 Tablet) 1 tab PO DAILY [facility] Last Admin: 06/09/21 08:16 Dose: 1 tab Documented by: Melatonin (Melatonin 3 Mg Tablet) 3 mg PO HSP PRN PRN Reason: Insomnia Omeprazole (Omeprazole 20 Mg Capsule) 20 mg PO ACB [facility] Last Admin: 06/09/21 07:16 Dose: 20 mg Documented by: Ondansetron HCl (Ondansetron 4 Mg Odt Tablet) 4 mg SL Q4-6HP PRN; Protocol PRN Reason: Nausea And Vomiting Ondansetron HCl (Ondansetron 4 Mg/2 Ml Vial) 4 mg IV Q4-6HP PRN; Protocol PRN Reason: Nausea And Vomiting Polyethylene Glycol (Polyethylene Glycol 3350 17 Gm Packet) 17 gm PO DAILYP PRN PRN Reason: Constipation Potassium/Phosphorus/Sodium (Neutra Phos 1 Packet) 2 packet PO ONCE PRN PRN Reason: For phosphorus less than 2.5 Senna/Docusate Sodium (Sennosides/Docusate Sodium 1 Tab Tablet) 1 tab PO HS [facility] Last Admin: 06/08/21 20:26 Dose: 1 tab Documented by: Sodium Chloride (0.9 % Sodium Chloride 10 Ml Syringe) 10 ml IV Q8 [facility] Last Admin: 06/09/21 07:16 Dose: 10 ml Documented by: Vitamin D (Vitamin D3 125 Mcg Tablet) 125 mcg PO DAILY [facility] Last Admin: 06/09/21 08:16 Dose: 125 mcg Documented by: A/P Narrative A/P Narrative: A: *COVID-19 pneumonia w/ARDS: *Acute hypoxic respiratory failure: Slow recovery -on oxymask 6L overnight but 12L this morning, -no PE on CTA *Subcutaneous emphysema: -no evidence of pneumothorax on interval chest imaging *Hypokalemia: resolved *Brief syncopal episode: likely vasovagal. Resolved *GERD Plan: -Remdesivir(finished)/dexamethasone, s/p Actemra -wean O2, poor reserve - desats easily with activity -Mobilization/proning/oob to chair -IS/Acapella/RT, prn nebs -ppx: Lovenox / home ppi Code status: Time Spent With Patient Time: Total time spent is greater than 50% in coordination of care (as documented) at patient's floor/unit and/or counseling patient: QUALITY Stroke Symptom Onset Unknown: No
[2021-06-09] MEDS: IPRATROPIUM/ALBUTEROL 3 ML AMPUL.NEB NEB PRN (11:21)
[2021-06-09] MEDS: SENNOSIDES/DOCUSATE SODIUM 1 TAB TABLET PO SCH (20:04)
[2021-06-09] MEDS: guaiFENesin/CODEINE 10 ML UDC PO PRN (20:04)
[2021-06-10] MEDS: 0.9 % SODIUM CHLORIDE 10 ML SYRINGE IV SCH ×3 (05:54→22:00)
[2021-06-10] MEDS: guaiFENesin/CODEINE 10 ML UDC PO PRN ×3 (07:03→17:23)
[2021-06-10] MEDS: OMEPRAZOLE 20 MG CAPSULE PO SCH (07:03)
--- NOTE | 2021-06-10 07:41 | Internal Med Progress Note ---
SUBJECTIVE Subjective Patient information: Note initiated : 06/10/21 at 7:40 am Service Date, if different from initiated Date: [] Patient: Abiel Rae a 75 y/o M admitted on 05/30/21 for Covid, sob. Chief Complaint: [] Interval history: Interval history: Mr. Rae is a 75 year old M with no prior significant medical history who presents to the ER with worsening shortness of breath over the last few weeks. Patient was diagnosed with Covid on the and was discharged home on oxygen however he was discovered by his neighbor very short of breath and subsequently EMS was summoned. Patient was found to be desaturating in mid 80s. He was brought into the ER. Initial work-up was consistent with bilateral Covid pneumonia. Patient was found dexamethasone and subsequently hospitalist service was consulted. At the time of my evaluation patient is alert and able to answer most the questions. He was able to endorse history as above. He denies hemoptysis, diarrhea, abdominal pain, headache lightheadedness but endorses to weakness fatigue loss of appetite along with malaise. 05/31-patient clinically deteriorating. Now requiring 65% FiO2 at 35 L high flow oxygen. Worsening Covid pneumonia with possible element of ARDS. Status post Actemra. Continuing remdesivir/dexamethasone day two. Remains very high risk mortality. No overnight fever chills. Continue diurese/thrombosis prophylaxis. Maintain COVID-19 precaution. Check x-ray/ABGs 06/01 worsening interval chest imaging, however clinically feels better. On hig h flow oxygen 30 L. White count 8.6, platelets 133, continuing remdesivir/dexamethasone/azithromycin. No overnight events including fever chills. Alert and respond to commands, no anxiety or concerns per staff 06/02-patient this morning experienced syncopal episode while sitting in a chair. Was found in a near unresponsive state with blood pressure in the 80s. Placed on bed. Continue examination unremarkable. Patient returned to normal sensorium shortly. Denies chest pain, shortness of breath. [place] back at baseline within minutes. Was incontinent of stool on chair. White count 5.6, potassium 3.2 on replacement, creatinine 0.9. Lower diuretic dose to 20 mg daily, continue remdesivir/dexamethasone. On 30 L high flow 65% FiO2. Remains critically ill 06/03-patient critically ill. Worsening hypoxia now on 70 L oxygen high flow. Patient seen in room. Grieving from loss of his . No telemetry events. No fever chills. Systolics mid 80s. Diuretics discontinued. On remde sivir/dexamethasone day 5. 06/04-patient clinically deteriorating. Seen in room. Desats on minimal activity. Now on 80% FiO2. High risk mortality. On day 6 remdesivir/dexamethasone. Potassium 4.1, LFTs downtrending, interval chest imaging evidence of subcutaneous emphysema. Repeat interval chest imaging at 1 PM rule out spontaneous pneumothorax Continue close monitoring in ICU. Avoid noninvasive ventilation due to risk of pneumothorax 06/05-patient seen in room, clinically deteriorating. Remarkably short of breath now on 35% FiO2. Desats to mid 80s on minimal exertion. Continuing d examethasone/remdesivir. No telemetry events. Stable labs and hemodynamics. No overnight fever chills or concerns per staff. Remains a high risk mortality based on [place] 2 score. Interval chest imaging worsening bilateral infiltrates, No evidence of pneumothorax, decreased subcutaneous emphysema. 06/06 Patient not vaccinated. Patient states he feels like he is breathing better. Has a dry cough. Oxygen at 35 L/min 75% FiO2. 06/07 Patient is cough is improving. Shortness of breath seems amenable to him. He was taken to CT on a nonrebreather and he feels like he can breathe much easier on the nonrebreather than the Vapotherm and his oxygen saturations are quite good on the nonrebreather. We will also try Ventimask. 06/08 Patient states he is feeling better and breathing better but still requiring a lot of oxygen. We are able to get him down to 6 L oxygen mask yesterday for ascencion rt period but is essentially been on 1215 through the afternoon and evening. Currently on 12 L. And sats well at rest but with any movement desats quickly. 06/09 Patient on oxygen mask at 12 L and not on high flow tubing. Patient replaced on high flow tubing and liters nasal cannula. Sound little bit wheezy will have a breathing treatment ordered. Patient has a mild cough, he does have some shortness of breath with exertion feels about the same. 06/10 Continues to feel well. He is on 6 L oxygen mask at rest but desats with activity and is on 9L at that point. He is making progress but slowly. Review of Systems: denies headache/fever/chills/nausea/vomiting/chest or abdominal pain/diarrhea. Otherwise see above. Constitutional Vitals: Vital Signs Temp Pulse Resp BP Pulse Ox 99.1 F H 59 L 18 92/67 94 06/10/21 00:09 06/10/21 06:01 06/10/21 06:01 06/10/21 06:01 06/10/21 07:17 Period Temp Pulse Resp BP Sys/Guan Pulse Ox Last 24 Hr 97.4 F-99.1 F 59-90 18-28 91-120/67-87 81-100 Intake and Output 06/09/21 06/10/21 06/10/21 21:59 05:59 13:59 Intake Total 1100 400 Output Total 675 450 Balance 425 -50 Weight 76.294 kg Intake & Output: Intake & Output 06/09/21 06/10/21 06/10/21 21:59 05:59 13:59 Intake Total 1100 400 Output Total 675 450 Balance 425 -50 Weight 76.294 kg Intake: Nourishment/Supplement quantity 480 (ml) Oral 620 400 Output: Void Amount 675 450 Other: Meal Dinner Percent of Meal Consumed 100% Feeding Ability Assist with Tray Set Up Nourishment/Supplement name tez Urine Appearance Clear Urine Color Bright Yellow Urine Odor Normal Stool Size Moderate Stool Color Brown Stool Consistency Formed # Bowel Movements 1 Exam: General: Alert, Awake, No acute Distress Eyes/N/T: EOMI, Head/Neck: neck supple, CV: RRR, No murmurs, Pulm: Mild fine rales, occ wheez, no rhonchi Abd: soft, nontender, +BS x4 Ext: no clubbing/cyanosis/edema Neuro: Alert, no focal deficits, moves all extremities, Skin: warm/dry OBJ DATA Labs CBC & Chem 7: 06/05/21 11:20 06/08/21 05:17 Labs: Abnormal Lab Results 06/08/21 06/08/21 12 05:17 05:17 07:50 D-Dimer 14.36 H Glucose 68 L AST 50 H ALT 48 H 59 H Lactate Dehydrogenase 643 H Meds: Medications Acetaminophen (Acetaminophen 325 Mg Tablet) 650 mg PO Q4-6HP PRN; Protocol PRN Reason: Per Pain Protocol/Fever > 101 Albuterol/Ipratropium (Ipratropium/Albuterol 3 Ml Ampul.Neb) 3 ml NEB Q4HP PRN PRN Reason: Shortness Of Breath Last Admin: 06/09/21 11:21 Dose: 3 ml Documented by: Bisacodyl (Bisacodyl 10 Mg Supp.Rect) 10 mg NM Q2-3DAYS PRN PRN Reason: Constipation Dexamethasone (Dexamethasone 4 Mg Tablet) 6 mg PO DAILY [facility] Last Admin: 06/09/21 08:15 Dose: 6 mg Documented by: Docusate Sodium (Docusate Sodium 100 Mg Capsule) 100 mg PO BID [facility] Last Admin: 06/09/21 20:04 Dose: 100 mg Documented by: Enoxaparin Sodium (Enoxaparin 40 Mg/0.4 Ml Syringe) 40 mg SQ BID [facility] Last Admin: 06/09/21 20:03 Dose: 40 mg Documented by: Guaifenesin/Codeine Phosphate (Guaifenesin/Codeine 10 Ml Udc) 10 ml PO Q4HP PRN PRN Reason: Cough Last Admin: 06/10/21 07:03 Dose: 10 ml Documented by: Potassium Chloride 40 meq/ (Dextrose) 520 mls @ 130 mls/hr IV UD PRN PRN Reason: K+ = or < 3.5 Acetaminophen (Ofirmev) 650 mg in 65 mls @ 130 mls/hr IV Q6HP PRN; Protocol PRN Reason: Per Pain Protocol/Fever > 101 Magnesium Sulfate (Magnesium Sulfate) 2 gm in 50 mls @ 50 mls/hr IV UD PRN PRN Reason: MG = or < 1.7 Iron Carb/Multivit/[place]/Folic Acid (Multivit,Ther Iron,Ca,Fa & Min 1 Tablet) 1 tab PO DAILY [facility] Last Admin: 06/09/21 08:16 Dose: 1 tab Documented by: Melatonin (Melatonin 3 Mg Tablet) 3 mg PO HSP PRN PRN Reason: Insomnia Omeprazole (Omeprazole 20 Mg Capsule) 20 mg PO ACB [facility] Last Admin: 06/10/21 07:03 Dose: 20 mg Documented by: Ondansetron HCl (Ondansetron 4 Mg Odt Tablet) 4 mg SL Q4-6HP PRN; Protocol PRN Reason: Nausea And Vomiting Ondansetron HCl (Ondansetron 4 Mg/2 Ml Vial) 4 mg IV Q4-6HP PRN; Protocol PRN Reason: Nausea And Vomiting Polyethylene Glycol (Polyethylene Glycol 3350 17 Gm Packet) 17 gm PO DAILYP PRN PRN Reason: Constipation Potassium/Phosphorus/Sodium (Neutra Phos 1 Packet) 2 packet PO ONCE PRN PRN Reason: For phosphorus less than 2.5 Senna/Docusate Sodium (Sennosides/Docusate Sodium 1 Tab Tablet) 1 tab PO HS [facility] Last Admin: 06/09/21 20:04 Dose: Not Given Documented by: Sodium Chloride (0.9 % Sodium Chloride 10 Ml Syringe) 10 ml IV Q8 [facility] Last Admin: 06/10/21 05:54 Dose: 10 ml Documented by: Vitamin D (Vitamin D3 125 Mcg Tablet) 125 mcg PO DAILY [facility] Last Admin: 06/09/21 08:16 Dose: 125 mcg Documented by: A/P Narrative A/P Narrative: A: *COVID-19 pneumonia w/ARDS: *Acute hypoxic respiratory failure: Slow recovery -on 6L HFNC at rest and 9 with activity -no PE on CTA *Subcutaneous emphysema: -no evidence of pneumothorax on interval chest imaging *Hypokalemia: resolved *Brief syncopal episode: likely vasovagal. Resolved *GERD Plan: -Remdesivir(finished)/dexamethasone, s/p Actemra -wean O2, poor reserve - desats easily with activity -Mobilization/proning/oob to chair -IS/Acapella/RT, prn nebs -ppx: Lovenox / home ppi Code status: Time Spent With Patient Time: Total time spent is greater than 50% in coordination of care (as documented) at patient's floor/unit and/or counseling patient: QUALITY Stroke Symptom Onset Unknown: No
[2021-06-10] MEDS: DEXAMETHASONE 4 MG TABLET PO SCH (09:11)
[2021-06-10] MEDS: ENOXAPARIN 40 MG/0.4 ML SYRINGE SQ SCH ×2 (09:11→21:20)
[2021-06-10] MEDS: DOCUSATE SODIUM 100 MG CAPSULE PO SCH ×2 (09:12→21:18)
[2021-06-10] MEDS: VITAMIN D3 125 MCG TABLET PO SCH (09:12)
[2021-06-10] MEDS: MULTIVIT,THER IRON,CA,FA & MIN 1 TABLET PO SCH (09:12)
[2021-06-10] MEDS: IPRATROPIUM/ALBUTEROL 3 ML AMPUL.NEB NEB PRN (10:45)
[2021-06-10] MEDS: SENNOSIDES/DOCUSATE SODIUM 1 TAB TABLET PO SCH (21:18)
[2021-06-11] MEDS: guaiFENesin/CODEINE 10 ML UDC PO PRN ×3 (00:13→20:25)
[2021-06-11] MEDS: 0.9 % SODIUM CHLORIDE 10 ML SYRINGE IV SCH ×3 (05:54→20:25)
[2021-06-11] MEDS: DOCUSATE SODIUM 100 MG CAPSULE PO SCH ×3 (07:37→20:25)
[2021-06-11] MEDS: OMEPRAZOLE 20 MG CAPSULE PO SCH (07:37)
[2021-06-11] MEDS: IPRATROPIUM/ALBUTEROL 3 ML AMPUL.NEB NEB PRN (07:47)
--- NOTE | 2021-06-11 08:10 | XRay Report ---
CLINICAL INFORMATION: Covid pneumonia COMPARISON: 06/07/2021 TECHNIQUE: PA and Lateral views FINDINGS: The heart size, mediastinum and pulmonary vessels are unremarkable. Moderate infiltrates in the periphery of both lungs show improved aeration when compared to the x-ray four days ago. There are no effusions. The bones and soft tissues are within normal limits. IMPRESSION: Improving infiltrates in the periphery of both lungs Interpreted and Authenticated by: Jakub Roberson 06/11/21
[2021-06-11 09:27] LABS: Basophils # (Auto) 0.05 K/mcL (0.00-0.30); Basophils % (Auto) 0.5 % (0.0-2.0); Eosinophils # (Auto) 0.25 K/mcL (0.00-0.70); Eosinophils % (Auto) 2.3 % (0.0-7.0); Hematocrit 42.3 % (40.1-51.0); Hemoglobin 14.3 g/dL (13.7-17.5); Lymphocytes # (Auto) 2.22 K/mcL (1.50-4.80); Lymphocytes % (Auto) 20.8 % (15.5-49.0); Mean Cell Volume 92.6 fL (80.0-100.0); Mean Corpuscular HGB Conc 33.8 g/dL (31.0-36.0); Mean Platelet Volume 10.8 fL (7.4-10.4); Monocytes # (Auto) 0.97 K/mcL (0.10-0.90); Monocytes % (Auto) 9.1 % (1.0-12.0); Neutrophils % (Auto) 67.3 % (38.0-78.0); Platelet Count 183 K/mcL (140-440); RBC 4.57 M/mcL (4.63-6.08); WBC 10.7 K/mcL (4.5-11.0)
[2021-06-11] MEDS: MULTIVIT,THER IRON,CA,FA & MIN 1 TABLET PO SCH (09:29)
[2021-06-11] MEDS: ENOXAPARIN 40 MG/0.4 ML SYRINGE SQ SCH ×2 (09:30→20:25)
[2021-06-11] MEDS: DEXAMETHASONE 4 MG TABLET PO SCH (09:30)
[2021-06-11] MEDS: VITAMIN D3 125 MCG TABLET PO SCH (09:30)
[2021-06-11 09:37] LABS: ALT/SGPT 44 U/L (<40); AST/SGOT 35 U/L (<40); Albumin 3.5 gm/dL (3.2-5.2); Albumin/Globulin Ratio 1.1 (1.0-2.3); Alkaline Phosphatase 73 U/L (39-117); Bilirubin,Total 0.6 mg/dL (0.1-1.0); Blood Urea Nitrogen 30 mg/dL (8-23); Calcium 10.2 mg/dL (8.6-10.4); Carbon Dioxide 30 mmol/L (22-30); Chloride 100 mmol/L (96-108); Globulin 3.1 gm/dL (2.2-3.7); Glomerular Filtration Rate 74; Glucose 91 mg/dL (70-105)
--- NOTE | 2021-06-11 12:25 | Internal Med Progress Note ---
SUBJECTIVE Subjective Patient information: Note initiated : 06/11/21 at 12:18 pm Service Date, if different from initiated Date: [] Patient: Abiel Rae a 75 y/o M admitted on 05/30/21 for Covid, sob. Chief Complaint: [Shortness of breath] Principal diagnosis: CoVID pneumonia Interval history: Mr. Rae is a 75 year old M with no prior significant medical history who presents to the ER with worsening shortness of breath over the last few weeks. Patient was diagnosed with Covid on the and was discharged home on oxygen however he was discovered by his neighbor very short of breath and subsequently EMS was summoned. Patient was found to be desaturating in mid 80s. He was brought into the ER. Initial work-up was consistent with bilateral Covid pneumonia. Patient was found dexamethasone and subsequently hospitalist service was consulted. At the time of my evaluation patient is alert and able to answer most the questions. He was able to endorse history as above. He denies hemoptysis, diarrhea, abdominal pain, headache lightheadedness but endorses to weakness fatigue loss of appetite along with malaise. 05/31-patient clinically deteriorating. Now requiring 65% FiO2 at 35 L high flow oxygen. Worsening Covid pneumonia with possible element of ARDS. Status post Actemra. Continuing remdesivir/dexamethasone day two. Remains very high risk mortality. No overnight fever chills. Continue diurese/thrombosis prophylaxis. Maintain COVID-19 precaution. Check x-ray/ABGs 06/01 worsening interval chest imaging, however clinically feels better. On high flow oxygen 30 L. White count 8.6, platelets 133, continuing remdesivir/dexamethasone/azithromycin. No overnight events including fever chills. Alert and respond to commands, no anxiety or concerns per staff 06/02-patient this morning experienced syncopal episode while sitting in a chair. Was found in a near unresponsive state with blood pressure in the 80s. Placed on bed. Continue examination unremarkable. Patient returned to normal sensorium shortly. Denies chest pain, shortness of breath. [place] back at baseline within minutes. Was incontinent of stool on chair. White count 5.6, potassium 3.2 on replacement, creatinine 0.9. Lower diuretic dose to 20 mg daily, continue remdesivir/dexamethasone. On 30 L high flow 65% FiO2. Remains critically ill 06/03-patient critically ill. Worsening hypoxia now on 70 L oxygen high flow. Patient seen in room. Grieving from loss of his . No telemetry events. No fever chills. Systolics mid 80s. Diuretics discontinued. On remdesivir/dexamethasone day 5. 06/04-patient clinically deteriorating. Seen in room. Desats on minimal activity. Now on 80% FiO2. High risk mortality. On day 6 remdesivir/dexamethasone. Potassium 4.1, LFTs downtrending, interval chest imaging evidence of subcutaneous emphysema. Repeat interval chest imaging at 1 PM rule out spontaneous pneumothorax Continue close monitoring in ICU. Avoid noninvasive ventilation due to risk of pneumothorax 06/05-patient seen in room, clinically deteriorating. Remarkably short of breath now on 35% FiO2. Desats to mid 80s on minimal exertion. Continuing dexamethasone/remdesivir. No telemetry events. Stable labs and hemodynamics. No overnight fever chills or concerns per staff. Remains a high risk mortality based on [place] 2 score. Interval chest imaging worsening bilateral infiltrat es, No evidence of pneumothorax, decreased subcutaneous emphysema. 06/06 Patient not vaccinated. Patient states he feels like he is breathing better. Has a dry cough. Oxygen at 35 L/min 75% FiO2. 06/07 Patient is cough is improving. Shortness of breath seems amenable to him. He was taken to CT on a nonrebreather and he feels like he can breathe much easier on the nonrebreather than the Vapotherm and his oxygen saturations are quite good on the nonrebreather. We will also try Ventimask. 06/08 Patient states he is feeling better and breathing better but still requiring a lot of oxygen. We are able to get him down to 6 L oxygen mask yesterday for short period but is essentially been on 12-15 through the afternoon and evening. Currently on 12 L. And sats well at rest but with any movement desats quickly. 06/09 Patient on oxygen mask at 12 L and not on high flow tubing. Patient replaced on high flow tubing and liters nasal cannula. Sound little bit wheezy will have a breathing treatment ordered. Patient has a mild cough, he does have some shortness of breath with exertion feels about the same. 06/10 Continues to feel well. He is on 6 L oxygen mask at rest but desats with a ctivity and is on 9L at that point. He is making progress but slowly. 06/11: Afebrile overnight. Still on 6L/min oxygen at rest and up to 9L/min when ambulate. c/o improving degree of SOB. c/o nonproductive cough. Denies wheezing or chest pain. Denies fever, chills, or sweating. Good energy level, good appetite. Constitutional Vitals: Vital Signs Temp Pulse Resp BP Pulse Ox 36.2 C 77 32 H 105/78 92 06/11/21 08:01 06/11/21 10:01 06/11/21 10:01 06/11/21 10:01 06/11/21 10:01 Period Temp Pulse Resp BP Sys/Guan Pulse Ox Last 24 Hr 36.2 C-36.8 C 52-91 17-32 91-135/65-88 86-98 Intake and Output 06/10/21 06/11/21 06/11/21 21:59 05:59 13:59 Intake Total 1155 100 100 Output Total 250 150 Balance 905 -50 100 Weight 76.884 kg Intake & Output: Intake & Output 06/10/21 06/11/21 06/11/21 21:59 05:59 13:59 Intake Total 1155 100 100 Output Total 250 150 Balance 905 -50 100 Weight 76.884 kg Intake: Nourishment/Supplement quantity 355 (ml) Oral 800 100 100 Output: Void Amount 250 150 Other: Meal Dinner Breakfast Percent of Meal Consumed 100% 100% Nourishment/Supplement name ensure Urine Appearance Clear Clear Urine Color Dark Yellow Dark Yellow General appearance: cooperative and no acute distress Head Head exam: Present atraumatic and normal inspection Eye Eye exam: Present normal appearance ENT ENT exam: Present mucous membranes moist, normal exam and normal external ear exam Additional comments: Nasal cannula in place Neck Neck exam: Present normal inspection Respiratory Respiratory exam: Present normal respiratory exam and rhonchi; Absent wheezes Cardiovascular Cardiovascular exam: Present normal rate and rhythm GI/Abdominal GI/Abdominal exam: Present normal bowel sounds Back Exam Back exam: Present normal inspection Neurological Exam Neurological exam: Present alert and oriented X3 Skin Skin exam: Present intact and warm OBJ DATA Labs CBC & Chem 7: 06/11/21 05:30 06/11/21 05:30 Labs: Abnormal Lab Results 06/11/21 06/11/21 05:30 05:30 RBC 4.57 L MPV 10.8 H [place] # (Auto) 0.97 H Potassium 5.3 H BUN 30 H ALT 44 H Meds: Medications Acetaminophen (Acetaminophen 325 Mg Tablet) 650 mg PO Q4-6HP PRN; Protocol PRN Reason: Per Pain Protocol/Fever > 101 Albuterol/Ipratropium (Ipratropium/Albuterol 3 Ml Ampul.Neb) 3 ml NEB Q4HP PRN PRN Reason: Shortness Of Breath Last Admin: 06/11/21 07:47 Dose: 3 ml Documented by: Bisacodyl (Bisacodyl 10 Mg Supp.Rect) 10 mg SD Q2-3DAYS PRN PRN Reason: Constipation Dexamethasone (Dexamethasone 4 Mg Tablet) 6 mg PO DAILY [facility] Last Admin: 06/11/21 09:30 Dose: 6 mg Documented by: Docusate Sodium (Docusate Sodium 100 Mg Capsule) 100 mg PO BID [facility] Last Admin: 06/11/21 07:37 Dose: Not Given Documented by: Enoxaparin Sodium (Enoxaparin 40 Mg/0.4 Ml Syringe) 40 mg SQ BID [facility] Last Admin: 06/11/21 09:30 Dose: 40 mg Documented by: Guaifenesin/Codeine Phosphate (Guaifenesin/Codeine 10 Ml Udc) 10 ml PO Q4HP PRN PRN Reason: Cough Last Admin: 06/11/21 00:13 Dose: 10 ml Documented by: Potassium Chloride 40 meq/ (Dextrose) 520 mls @ 130 mls/hr IV UD PRN PRN Reason: K+ = or < 3.5 Acetaminophen (Ofirmev) 650 mg in 65 mls @ 130 mls/hr IV Q6HP PRN; Protocol PRN Reason: Per Pain Protocol/Fever > 101 Magnesium Sulfate (Magnesium Sulfate) 2 gm in 50 mls @ 50 mls/hr IV UD PRN PRN Reason: MG = or < 1.7 Iron Carb/Multivit/[place]/Folic Acid (Multivit,Ther Iron,Ca,Fa & Min 1 Tablet) 1 tab PO DAILY [facility] Last Admin: 06/11/21 09:29 Dose: 1 tab Documented by: Melatonin (Melatonin 3 Mg Tablet) 3 mg PO HSP PRN PRN Reason: Insomnia Omeprazole (Omeprazole 20 Mg Capsule) 20 mg PO ACB [facility] Last Admin: 06/11/21 07:37 Dose: 20 mg Documented by: Ondansetron HCl (Ondansetron 4 Mg Odt Tablet) 4 mg SL Q4-6HP PRN; Protocol PRN Reason: Nausea And Vomiting Ondansetron HCl (Ondansetron 4 Mg/2 Ml Vial) 4 mg IV Q4-6HP PRN; Protocol PRN Reason: Nausea And Vomiting Polyethylene Glycol (Polyethylene Glycol 3350 17 Gm Packet) 17 gm PO DAILYP PRN PRN Reason: Constipation Potassium/Phosphorus/Sodium (Neutra Phos 1 Packet) 2 packet PO ONCE PRN PRN Reason: For phosphorus less than 2.5 Senna/Docusate Sodium (Sennosides/Docusate Sodium 1 Tab Tablet) 1 tab PO HS [facility] Last Admin: 06/10/21 21:18 Dose: Not Given Documented by: Sodium Chloride (0.9 % Sodium Chloride 10 Ml Syringe) 10 ml IV Q8 [facility] Last Admin: 06/11/21 05:54 Dose: 10 ml Documented by: Vitamin D (Vitamin D3 125 Mcg Tablet) 125 mcg PO DAILY [facility] Last Admin: 06/11/21 09:30 Dose: 125 mcg Documented by: A/P Assessment and plan (1) COVID-19: Status: Acute (2) Acute hypoxemic respiratory failure: Status: Acute (3) Hyperkalemia: Status: Acute (4) GERD (gastroesophageal reflux disease): Status: Chronic Qualifiers: Esophagitis presence: with esophagitis Qualified Code(s): K21.0 - Gastro-esophageal reflux disease with esophagitis Narrative A/P Narrative: Assessment and Plans: 1. CoVID pneumonia: Isolation: airborne and contract Inpatient PCU Supplemental oxygen therapy titrate to achieve spo2>=92%, currently on 6L/min at rest and 9L/min when ambulate s/p Actemra Finished Remdesivir On Dexamethasone Lovenox No pulmonary embolism by CTA on 06/07 2. Hyperkalemia: Mild, serum potassium 5.3 Will repeat CMP in the morning to trend serum potassium level 3. GERD: Prilosec GI ppx: Prilosec DVT ppx: Lovenox Code status: Full Prognosis: guarded Disposition: inpatient PCU Time Spent With Patient Time: Total time spent is greater than 50% in coordination of care (as documented) at patient's floor/unit and/or counseling patient: Total time spent with greater than 50% in coordination of care (as documented) at patient's floor/unit and/or counseling patient:: Greater than 35 minutes QUALITY Stroke Symptom Onset Unknown: No
[2021-06-11] MEDS: SENNOSIDES/DOCUSATE SODIUM 1 TAB TABLET PO SCH (20:25)
[2021-06-12] MEDS: guaiFENesin/CODEINE 10 ML UDC PO PRN ×2 (04:50→19:58)
[2021-06-12] MEDS: 0.9 % SODIUM CHLORIDE 10 ML SYRINGE IV SCH ×3 (05:16→19:59)
[2021-06-12] MEDS: OMEPRAZOLE 20 MG CAPSULE PO SCH (07:25)
[2021-06-12 07:57] LABS: Basophils # (Auto) 0.05 K/mcL (0.00-0.30); Basophils % (Auto) 0.5 % (0.0-2.0); Eosinophils # (Auto) 0.26 K/mcL (0.00-0.70); Eosinophils % (Auto) 2.9 % (0.0-7.0); Hematocrit 40.8 % (40.1-51.0); Hemoglobin 13.8 g/dL (13.7-17.5); Lymphocytes # (Auto) 2.23 K/mcL (1.50-4.80); Lymphocytes % (Auto) 24.5 % (15.5-49.0); Mean Cell Volume 91.3 fL (80.0-100.0); Mean Corpuscular HGB Conc 33.8 g/dL (31.0-36.0); Mean Platelet Volume 10.3 fL (7.4-10.4); Monocytes # (Auto) 0.95 K/mcL (0.10-0.90); Monocytes % (Auto) 10.4 % (1.0-12.0); Neutrophils % (Auto) 61.7 % (38.0-78.0); Platelet Count 203 K/mcL (140-440); RBC 4.47 M/mcL (4.63-6.08); WBC 9.1 K/mcL (4.5-11.0)
[2021-06-12] MEDS: ENOXAPARIN 40 MG/0.4 ML SYRINGE SQ SCH ×2 (08:38→19:58)
[2021-06-12] MEDS: DEXAMETHASONE 4 MG TABLET PO SCH (08:38)
[2021-06-12] MEDS: DOCUSATE SODIUM 100 MG CAPSULE PO SCH ×2 (08:38→19:58)
[2021-06-12] MEDS: MULTIVIT,THER IRON,CA,FA & MIN 1 TABLET PO SCH (08:38)
[2021-06-12] MEDS: VITAMIN D3 125 MCG TABLET PO SCH (08:42)
--- NOTE | 2021-06-12 09:32 | Internal Med Progress Note ---
SUBJECTIVE Subjective Patient information: Note initiated : 06/12/21 at 9:29 am Service Date, if different from initiated Date: [] Patient: Abiel Rae a 75 y/o M admitted on 05/30/21 for Covid, sob. Chief Complaint: [CoVID pneumonia] Principal diagnosis: CoVID pneumonia Interval history: Mr. Rae is a 75 year old M with no prior significant medical history who presents to the ER with worsening shortness of breath over the last few weeks. Patient was diagnosed with Covid on the and was discharged home on oxygen however he was discovered by his neighbor very short of breath and subsequently EMS was summoned. Patient was found to be desaturating in mid 80s. He was brought into the ER. Initial work-up was consistent with bilateral Covid pneumonia. Patient was found dexamethasone and subsequently hospitalist service was consulted. At the time of my evaluation patient is alert and able to answer most the questions. He was able to endorse history as above. He denies hemoptysis, diarrhea, abdominal pain, headache lightheadedness but endorses to weakness fatigue loss of appetite along with malaise. 05/31-patient clinically deteriorating. Now requiring 65% FiO2 at 35 L high flow oxygen. Worsening Covid pneumonia with possible element of ARDS. Status post Actemra. Continuing remdesivir/dexamethasone day two. Remains very high risk mortality. No overnight fever chills. Continue diurese/thrombosis prophylaxis. Maintain COVID-19 precaution. Check x-ray/ABGs 06/01 worsening interval chest imaging, however clinically feels better. On high flow oxygen 30 L. White count 8.6, platelets 133, continuing remdesivir/dexamethasone/azithromycin. No overnight events including fever ch ills. Alert and respond to commands, no anxiety or concerns per staff 06/02-patient this morning experienced syncopal episode while sitting in a chair. Was found in a near unresponsive state with blood pressure in the 80s. Placed on bed. Continue examination unremarkable. Patient returned to normal sensorium shortly. Denies chest pain, shortness of breath. [place] back at baseline within minutes. Was incontinent of stool on chair. White count 5.6, potassium 3.2 on replacement, creatinine 0.9. Lower diuretic dose to 20 mg daily, continue remdesivir/dexamethasone. On 30 L high flow 65% FiO2. Remains critically ill 06/03-patient critically ill. Worsening hypoxia now on 70 L oxygen high flow. Patient seen in room. Grieving from loss of his . No telemetry events. No fever chills. Systolics mid 80s. Diuretics discontinued. On remdesivir/dexamethasone day 5. 06/04-patient clinically deteriorating. Seen in room. Desats on minimal activity. Now on 80% FiO2. High risk mortality. On day 6 remdesivir/dexamethasone. Potassium 4.1, LFTs downtrending, interval chest imaging evidence of subcutaneous emphysema. Repeat interval chest imaging at 1 PM rule out spontaneous pneumothorax Continue close monitoring in ICU. Avoid noninvasive ventilation due to risk of pneumothorax 06/05-patient seen in room, clinically deteriorating. Remarkably short of breath now on 35% FiO2. Desats to mid 80s on minimal exertion. Continuing dexamethasone/remdesivir. No telemetry events. Stable labs and hemodynamics. No overnight fever chills or concerns per staff. Remains a high risk mortality based on [place] 2 score. Interval chest imaging worsening bilateral infiltrates, No evidence of pneumothorax, decreased subcutaneous emphysema. 06/06 Patient not vaccinated. Patient states he feels like he is breathing better. Has a dry cough. Oxygen at 35 L/min 75% FiO2. 06/07 Patient is cough is improving. Shortness of breath seems amenable to him. He was taken to CT on a nonrebreather and he feels like he can breathe much easier on the nonrebreather than the Vapotherm and his oxygen saturations are quite good on the nonrebreather. We will also try Ventimask. 06/08 Patient states he is feeling better and breathing better but still requiring a lot of oxygen. We are able to get him down to 6 L oxygen mask yesterday for short period but is essentially been on 12-15 through the afternoon and evening. Currently on 12 L. And sats well at rest but with any movement desats quickly. 06/09 Patient on oxygen mask at 12 L and not on high flow tubing. Patient replaced on high flow tubing and liters nasal cannula. Sound little bit wheezy will have a breathing treatment ordered. Patient has a mild cough, he does have some shortness of breath with exertion feels about the same. 06/10 Continues to feel well. He is on 6 L oxygen mask at rest but desats with activi ty and is on 9L at that point. He is making progress but slowly. 06/11: Afebrile overnight. Still on 6L/min oxygen at rest and up to 9L/min when ambulate. c/o improving degree of SOB. c/o nonproductive cough. Denies wheezing or chest pain. Denies fever, chills, or sweating. Good energy level, good appetite. 06/12: Afebrile overnight. Still on 9L/min oxygen at the moment. c/o improving degree of SOB. c/o nonproductive cough. Denies wheezing or chest pain. Denies fever, chills, or sweating. Good energy level, good appetite. Constitutional Vitals: Vital Signs Temp Pulse Resp BP Pulse Ox 36.8 C 61 18 113/71 96 06/12/21 08:01 06/12/21 08:18 06/12/21 08:18 06/12/21 08:01 06/12/21 08:18 Period Temp Pulse Resp BP Sys/Guan Pulse Ox Last 24 Hr 36.6 C-36.8 C 54-82 15-32 105-140/64-107 75-97 Intake and Output 06/11/21 06/12/21 06/12/21 21:59 05:59 13:59 Intake Total 400 Output Total 350 250 0 Balance -350 150 0 Weight 78.154 kg Intake & Output: Intake & Output 06/11/21 06/12/21 06/12/21 21:59 05:59 13:59 Intake Total 400 Output Total 350 250 0 Balance -350 150 0 Weight 78.154 kg Intake: Oral 400 Output: Void Amount 350 250 0 Other: Urine Appearance Clear Clear Urine Color Dark Yellow Straw Stool Size Large Stool Color Brown Stool Consistency Formed # Bowel Movements 1 General appearance: average body habitus, cooperative and no acute distress Head Head exam: Present atraumatic and normal inspection Eye Eye exam: Present normal appearance ENT ENT exam: Present mucous membranes moist, normal exam and normal external ear exam Additional comments: Nasal cannula in place Neck Neck exam: Present normal inspection Respiratory Respiratory exam: Present normal respiratory exam and CTAB Cardiovascular Cardiovascular exam: Present normal rate and rhythm GI/Abdominal GI/Abdominal exam: Present normal bowel sounds Back Exam Back exam: Present normal inspection Neurological Exam Neurological exam: Present alert and oriented X3 Skin Skin exam: Present intact and warm OBJ DATA Labs CBC & Chem 7: 06/12/21 05:40 06/11/21 05:30 Labs: Abnormal Lab Results 06/12/21 06/11/21 06/11/21 05:40 05:30 05:30 RBC 4.47 L 4.57 L MPV 10.8 H [place] # (Auto) 0.95 H 0.97 H Potassium 5.3 H BUN 30 H ALT 44 H Meds: Medications Acetaminophen (Acetaminophen 325 Mg Tablet) 650 mg PO Q4-6HP PRN; Protocol PRN Reason: Per Pain Protocol/Fever > 101 Albuterol/Ipratropium (Ipratropium/Albuterol 3 Ml Ampul.Neb) 3 ml NEB Q4HP PRN PRN Reason: Shortness Of Breath Last Admin: 06/11/21 07:47 Dose: 3 ml Documented by: Bisacodyl (Bisacodyl 10 Mg Supp.Rect) 10 mg NV Q2-3DAYS PRN PRN Reason: Constipation Dexamethasone (Dexamethasone 4 Mg Tablet) 6 mg PO DAILY [facility] Last Admin: 06/12/21 08:38 Dose: 6 mg Documented by: Docusate Sodium (Docusate Sodium 100 Mg Capsule) 100 mg PO BID [facility] Last Admin: 06/12/21 08:38 Dose: 100 mg Documented by: Enoxaparin Sodium (Enoxaparin 40 Mg/0.4 Ml Syringe) 40 mg SQ BID [facility] Last Admin: 06/12/21 08:38 Dose: 40 mg Documented by: Guaifenesin/Codeine Phosphate (Guaifenesin/Codeine 10 Ml Udc) 10 ml PO Q4HP PRN PRN Reason: Cough Last Admin: 06/12/21 04:50 Dose: 10 ml Documented by: Potassium Chloride 40 meq/ (Dextrose) 520 mls @ 130 mls/hr IV UD PRN PRN Reason: K+ = or < 3.5 Acetaminophen (Ofirmev) 650 mg in 65 mls @ 130 mls/hr IV Q6HP PRN; Protocol PRN Reason: Per Pain Protocol/Fever > 101 Magnesium Sulfate (Magnesium Sulfate) 2 gm in 50 mls @ 50 mls/hr IV UD PRN PRN Reason: MG = or < 1.7 Iron Carb/Multivit/[place]/Folic Acid (Multivit,Ther Iron,Ca,Fa & Min 1 Tablet) 1 tab PO DAILY [facility] Last Admin: 06/12/21 08:38 Dose: 1 tab Documented by: Melatonin (Melatonin 3 Mg Tablet) 3 mg PO HSP PRN PRN Reason: Insomnia Omeprazole (Omeprazole 20 Mg Capsule) 20 mg PO ACB [facility] Last Admin: 06/12/21 07:25 Dose: 20 mg Documented by: Ondansetron HCl (Ondansetron 4 Mg Odt Tablet) 4 mg SL Q4-6HP PRN; Protocol PRN Reason: Nausea And Vomiting Ondansetron HCl (Ondansetron 4 Mg/2 Ml Vial) 4 mg IV Q4-6HP PRN; Protocol PRN Reason: Nausea And Vomiting Polyethylene Glycol (Polyethylene Glycol 3350 17 Gm Packet) 17 gm PO DAILYP PRN PRN Reason: Constipation Potassium/Phosphorus/Sodium (Neutra Phos 1 Packet) 2 packet PO ONCE PRN PRN Reason: For phosphorus less than 2.5 Senna/Docusate Sodium (Sennosides/Docusate Sodium 1 Tab Tablet) 1 tab PO HS [facility] Last Admin: 06/11/21 20:25 Dose: 1 tab Documented by: Sodium Chloride (0.9 % Sodium Chloride 10 Ml Syringe) 10 ml IV Q8 [facility] Last Admin: 06/12/21 05:16 Dose: 10 ml Documented by: Vitamin D (Vitamin D3 125 Mcg Tablet) 125 mcg PO DAILY [facility] Last Admin: 06/12/21 08:42 Dose: 125 mcg Documented by: A/P Assessment and plan (1) COVID-19: Status: Acute (2) Acute hypoxemic respiratory failure: Status: Acute (3) Hyperkalemia: Status: Acute (4) GERD (gastroesophageal reflux disease): Status: Chronic Qualifiers: Esophagitis presence: with esophagitis Qualified Code(s): K21.0 - Gastro-esophageal reflux disease with esophagitis Narrative A/P Narrative: Assessment and Plans: 1. CoVID pneumonia: Isolation: airborne and contract Inpatient PCU Supplemental oxygen therapy titrate to achieve spo2>=92%, currently on 9L/min at rest s/p Actemra Finished Remdesivir On Dexamethasone Lovenox DuoNEB NEB q4hr PRN wheezing or SOB No pulmonary embolism by CTA on 06/07 2. Hyperkalemia: Mild, serum potassium 5.3 on 06/11; today value pending Will repeat CMP in the morning to trend serum potassium level 3. GERD: Prilosec GI ppx: Prilosec DVT ppx: Lovenox Code status: Full Prognosis: guarded Disposition: inpatient PCU Time Spent With Patient Time: Total time spent is greater than 50% in coordination of care (as documented) at patient's floor/unit and/or counseling patient: Total time spent with greater than 50% in coordination of care (as documented) at patient's floor/unit and/or counseling patient:: Greater than 35 minutes QUALITY Stroke Symptom Onset Unknown: No
[2021-06-12 09:34] LABS: ALT/SGPT 37 U/L (<40); AST/SGOT 30 U/L (<40); Albumin 3.6 gm/dL (3.2-5.2); Albumin/Globulin Ratio 1.3 (1.0-2.3); Alkaline Phosphatase 71 U/L (39-117); Bilirubin,Total 0.7 mg/dL (0.1-1.0); Blood Urea Nitrogen 26 mg/dL (8-23); Calcium 9.6 mg/dL (8.6-10.4); Carbon Dioxide 27 mmol/L (22-30); Chloride 97 mmol/L (96-108); Globulin 2.8 gm/dL (2.2-3.7); Glomerular Filtration Rate 74; Glucose 98 mg/dL (70-105)
[2021-06-12] MEDS: SENNOSIDES/DOCUSATE SODIUM 1 TAB TABLET PO SCH (19:58)
[2021-06-13] MEDS: guaiFENesin/CODEINE 10 ML UDC PO PRN ×3 (04:29→21:25)
[2021-06-13] MEDS: 0.9 % SODIUM CHLORIDE 10 ML SYRINGE IV SCH ×3 (05:32→21:25)
[2021-06-13 08:17] LABS: Basophils # (Auto) 0.05 K/mcL (0.00-0.30); Basophils % (Auto) 0.6 % (0.0-2.0); Eosinophils # (Auto) 0.29 K/mcL (0.00-0.70); Eosinophils % (Auto) 3.5 % (0.0-7.0); Hematocrit 41.7 % (40.1-51.0); Hemoglobin 13.8 g/dL (13.7-17.5); Lymphocytes # (Auto) 2.37 K/mcL (1.50-4.80); Lymphocytes % (Auto) 28.4 % (15.5-49.0); Mean Corpuscular HGB Conc 33.1 g/dL (31.0-36.0); Mean Platelet Volume 10.4 fL (7.4-10.4); Monocytes # (Auto) 0.79 K/mcL (0.10-0.90); Monocytes % (Auto) 9.5 % (1.0-12.0); Platelet Count 190 K/mcL (140-440); RBC 4.58 M/mcL (4.63-6.08); Red Cell Distribution Width 12.9 % (11.5-14.5); WBC 8.4 K/mcL (4.5-11.0)
[2021-06-13 08:43] LABS: ALT/SGPT 31 U/L (<40); AST/SGOT 27 U/L (<40); Albumin 3.6 gm/dL (3.2-5.2); Albumin/Globulin Ratio 1.3 (1.0-2.3); Alkaline Phosphatase 67 U/L (39-117); Bilirubin,Total 0.7 mg/dL (0.1-1.0); Blood Urea Nitrogen 30 mg/dL (8-23); Calcium 9.6 mg/dL (8.6-10.4); Carbon Dioxide 33 mmol/L (22-30); Chloride 100 mmol/L (96-108); Globulin 2.8 gm/dL (2.2-3.7); Glomerular Filtration Rate 74; Glucose 88 mg/dL (70-105)
[2021-06-13] MEDS: ENOXAPARIN 40 MG/0.4 ML SYRINGE SQ SCH ×2 (08:47→21:25)
[2021-06-13] MEDS: VITAMIN D3 125 MCG TABLET PO SCH (08:47)
[2021-06-13] MEDS: MULTIVIT,THER IRON,CA,FA & MIN 1 TABLET PO SCH (08:47)
[2021-06-13] MEDS: OMEPRAZOLE 20 MG CAPSULE PO SCH (08:47)
[2021-06-13] MEDS: DOCUSATE SODIUM 100 MG CAPSULE PO SCH ×2 (08:47→21:25)
[2021-06-13] MEDS: IPRATROPIUM/ALBUTEROL 3 ML AMPUL.NEB NEB PRN ×2 (10:10→14:49)
--- NOTE | 2021-06-13 11:27 | Internal Med Progress Note ---
SUBJECTIVE Subjective Patient information: Note initiated : 06/13/21 at 11:24 am Service Date, if different from initiated Date: [] Patient: Abiel Rae a 75 y/o M admitted on 05/30/21 for Covid, sob. Chief Complaint: [CoVID pneumonia] Principal diagnosis: CoVID pneumonia Interval history: Mr. Rae is a 75 year old M with no prior significant medical history who presents to the ER with worsening shortness of breath over the last few weeks. Patient was diagnosed with Covid on the and was discharged home on oxygen however he was discovered by his neighbor very short of breath and subsequently EMS was summoned. Patient was found to be desaturating in mid 80s. He was brought into the ER. Initial work-up was consistent with bilateral Covid pneumonia. Patient was found dexamethasone and subsequently hospitalist service was consulted. At the time of my evaluation patient is alert and able to answer most the questions. He was able to endorse history as above. He denies hemoptysis, diarrhea, abdominal pain, headache lightheadedness but endorses to weakness fatigue loss of appetite along with malaise. 05/31-patient clinically deteriorating. Now requiring 65% FiO2 at 35 L high flow oxygen. Worsening Covid pneumonia with possible element of ARDS. Status post Actemra. Continuing remdesivir/dexamethasone day two. Remains very high risk mortality. No overnight fever chills. Continue diurese/thrombosis prophylaxis. Maintain COVID-19 precaution. Check x-ray/ABGs 06/01 worsening interval chest imaging, however clinically feels better. On high flow oxygen 30 L. White count 8.6, platelets 133, continuing remdesivir/dexamethasone/azithromycin. No overnight events including fever [place]. Alert and respond to commands, no anxiety or concerns per staff 06/02-patient this morning experienced syncopal episode while sitting in a chair. Was found in a near unresponsive state with blood pressure in the 80s. Placed on bed. Continue examination unremarkable. Patient returned to normal sensorium shortly. Denies chest pain, shortness of breath. [place] back at baseline within minutes. Was incontinent of stool on chair. White count 5.6, potassium 3.2 on replacement, creatinine 0.9. Lower diuretic dose to 20 mg daily, continue remdesivir/dexamethasone. On 30 L high flow 65% FiO2. Remains critically ill 06/03-patient critically ill. Worsening hypoxia now on 70 L oxygen high flow. Patient seen in room. Grieving from loss of his . No telemetry events. No fever chills. Systolics mid 80s. Diuretics discontinued. On remdesivir/dexamethasone day 5. 06/04-patient clinically deteriorating. Seen in room. Desats on minimal activity. Now on 80% FiO2. High risk mortality. On day 6 remdesivir/dexamethasone. Potassium 4.1, LFTs downtrending, interval chest imag ing evidence of subcutaneous emphysema. Repeat interval chest imaging at 1 PM rule out spontaneous pneumothorax Continue close monitoring in ICU. Avoid noninvasive ventilation due to risk of pneumothorax 06/05-patient seen in room, clinically deteriorating. Remarkably short of breath now on 35% FiO2. Desats to mid 80s on minimal exertion. Continuing dexamethasone/remdesivir. No telemetry events. Stable labs and hemodynamics. No overnight fever chills or concerns per staff. Remains a high risk mortality based on [place] 2 score. Interval chest imaging worsening bilateral infiltrates, No evidence of pneumothorax, decreased subcutaneous emphysema. 06/06 Patient not vaccinated. Patient states he feels like he is breathing better. Has a dry cough. Oxygen at 35 L/min 75% FiO2. 06/07 Patient is cough is improving. Shortness of breath seems amenable to him. He was taken to CT on a nonrebreather and he feels like he can breathe much easier on the nonrebreather than the Vapotherm and his oxygen saturations are quite good on the nonrebreather. We will also try Ventimask. 06/08 Patient states he is feeling better and breathing better but still requiring a lot of oxygen. We are able to get him down to 6 L oxygen mask yesterday for short period but is essentially been on 12-15 through the afternoon and evening. Currently on 12 L. And sats well at rest but with any movement desats quickly. 06/09 Patient on oxygen mask at 12 L and not on high flow tubing. Patient replaced on high flow tubing and liters nasal cannula. Sound little bit wheezy will have a breathing treatment ordered. Patient has a mild cough, he does have some shortness of breath with exertion feels about the same. 06/10 Continues to feel well. He is on 6 L oxygen mask at rest but desats with activ ity and is on 9L at that point. He is making progress but slowly. 06/11: Afebrile overnight. Still on 6L/min oxygen at rest and up to 9L/min when ambulate. c/o improving degree of SOB. c/o nonproductive cough. Denies wheezing or chest pain. Denies fever, chills, or sweating. Good energy level, good appetite. 06/12: Afebrile overnight. Still on 9L/min oxygen at the moment. c/o improving degree of SOB. c/o nonproductive cough. Denies wheezing or chest pain. Denies fever, chills, or sweating. Good energy level, good appetite. 06/13: Afebrile overnight. Still on 9L/min oxygen at the moment. c/o improving degree of SOB. c/o nonproductive cough. Denies wheezing or chest pain. Denies fever, chills, or sweating. Good energy level, good appetite. Constitutional Vitals: Vital Signs Temp Pulse Resp BP Pulse Ox 36.4 C 63 22 99/63 96 06/13/21 08:09 06/13/21 10:10 06/13/21 10:10 06/13/21 10:01 06/13/21 10:10 Period Temp Pulse Resp BP Sys/Guan Pulse Ox Last 24 Hr 36.2 C-36.8 C 55-98 17-31 99-150/63-111 84-99 Intake and Output 06/12/21 06/13/21 06/13/21 21:59 05:59 13:59 Intake Total 300 480 Output Total 525 1000 250 Balance -225 -1000 230 Weight 78.834 kg Intake & Output: Intake & Output 06/12/21 06/13/21 06/13/21 21:59 05:59 13:59 Intake Total 300 480 Output Total 525 1000 250 Balance -225 -1000 230 Weight 78.834 kg Intake: Oral 300 480 Output: Void Amount 525 1000 250 Other: Urine Appearance Clear Clear Clear Urine Color Pale Dark Yellow Bright Yellow Stool Size Moderate Stool Color Brown Stool Consistency Normal for Patient # Bowel Movements 1 General appearance: average body habitus, cooperative and no acute distress Head Head exam: Present atraumatic and normal inspection Eye Eye exam: Present normal appearance ENT ENT exam: Present mucous membranes moist, normal exam and normal external ear exam Additional comments: High flow oxygen in place Neck Neck exam: Present normal inspection Respiratory Respiratory exam: Present normal respiratory exam and rhonchi; Absent wheezes Cardiovascular Cardiovascular exam: Present normal rate and rhythm GI/Abdominal GI/Abdominal exam: Present normal bowel sounds Back Exam Back exam: Present normal inspection Neurological Exam Neurological exam: Present alert and oriented X3 Skin Skin exam: Present intact and warm OBJ DATA Labs CBC & Chem 7: 06/13/21 06:06 06/13/21 06:06 Labs: Abnormal Lab Results 06/13/21 06/13/21 06/12/21 06:06 06:06 05:40 RBC 4.58 L MPV [place] # (Auto) Potassium Carbon Dioxide 33 H Anion Gap 6.0 L BUN 30 H 26 H ALT 06/12/21 06/11/21 06/11/21 05:40 05:30 05:30 RBC 4.47 L 4.57 L MPV 10.8 H [place] # (Auto) 0.95 H 0.97 H Potassium 5.3 H [place] Anion Gap BUN 30 H ALT 44 H Meds: Medications Acetaminophen (Acetaminophen 325 Mg Tablet) 650 mg PO Q4-6HP PRN; Protocol PRN Reason: Per Pain Protocol/Fever > 101 Albuterol/Ipratropium (Ipratropium/Albuterol 3 Ml Ampul.Neb) 3 ml NEB Q4HP PRN PRN Reason: Shortness Of Breath Last Admin: 06/13/21 10:10 Dose: 3 ml Documented by: Bisacodyl (Bisacodyl 10 Mg Supp.Rect) 10 mg [place] Q2-3DAYS PRN PRN Reason: Constipation Docusate Sodium (Docusate Sodium 100 Mg Capsule) 100 mg PO BID [facility] Last Admin: 06/13/21 08:47 Dose: 100 mg Documented by: Enoxaparin Sodium (Enoxaparin 40 Mg/0.4 Ml Syringe) 40 mg SQ BID [facility] Last Admin: 06/13/21 08:47 Dose: 40 mg Documented by: Guaifenesin/Codeine Phosphate (Guaifenesin/Codeine 10 Ml Udc) 10 ml PO Q4HP PRN PRN Reason: Cough Last Admin: 06/13/21 04:29 Dose: 10 ml Documented by: Potassium Chloride 40 meq/ (Dextrose) 520 mls @ 130 mls/hr IV UD PRN PRN Reason: K+ = or < 3.5 Acetaminophen (Ofirmev) 650 mg in 65 mls @ 130 mls/hr IV Q6HP PRN; Protocol PRN Reason: Per Pain Protocol/Fever > 101 Magnesium Sulfate (Magnesium Sulfate) 2 gm in 50 mls @ 50 mls/hr IV UD PRN PRN Reason: MG = or < 1.7 Iron Carb/Multivit/[place]/Folic Acid (Multivit,Ther Iron,Ca,Fa & Min 1 Tablet) 1 tab PO DAILY [facility] Last Admin: 06/13/21 08:47 Dose: 1 tab Documented by: Melatonin (Melatonin 3 Mg Tablet) 3 mg PO HSP PRN PRN Reason: Insomnia Omeprazole (Omeprazole 20 Mg Capsule) 20 mg PO ACB [facility] Last Admin: 06/13/21 08:47 Dose: 20 mg Documented by: Ondansetron HCl (Ondansetron 4 Mg Odt Tablet) 4 mg SL Q4-6HP PRN; Protocol PRN Reason: Nausea And Vomiting Ondansetron HCl (Ondansetron 4 Mg/2 Ml Vial) 4 mg IV Q4-6HP PRN; Protocol PRN Reason: Nausea And Vomiting Polyethylene Glycol (Polyethylene Glycol 3350 17 Gm Packet) 17 gm PO DAILYP PRN PRN Reason: Constipation Potassium/Phosphorus/Sodium (Neutra Phos 1 Packet) 2 packet PO ONCE PRN PRN Reason: For phosphorus less than 2.5 Senna/Docusate Sodium (Sennosides/Docusate Sodium 1 Tab Tablet) 1 tab PO HS [facility] Last Admin: 06/12/21 19:58 Dose: 1 tab Documented by: Sodium Chloride (0.9 % Sodium Chloride 10 Ml Syringe) 10 ml IV Q8 [facility] Last Admin: 06/13/21 05:32 Dose: 10 ml Documented by: Vitamin D (Vitamin D3 125 Mcg Tablet) 125 mcg PO DAILY [facility] Last Admin: 06/13/21 08:47 Dose: 125 mcg Documented by: A/P Assessment and plan (1) COVID-19: Status: Acute (2) Acute hypoxemic respiratory failure: Status: Acute (3) Hyperkalemia: Status: Acute (4) GERD (gastroesophageal reflux disease): Status: Chronic Qualifiers: Esophagitis presence: with esophagitis Qualified Code(s): K21.0 - Gastro-esophageal reflux disease with esophagitis Narrative A/P Narrative: Assessment and Plans: 1. CoVID pneumonia: Isolation: airborne and contract Inpatient PCU Supplemental oxygen therapy titrate to achieve spo2>=92%, currently on 96L/min at rest s/p Actemra Finished Remdesivir Finished Dexamethasone Lovenox DuoNEB NEB q4hr PRN wheezing or SOB No pulmonary embolism by CTA on 06/07 2. Hyperkalemia: RESOLVED Serum potassium level 4.5 on 06/13 Will repeat CMP in the morning to trend serum potassium level 3. GERD: Prilosec GI ppx: Prilosec DVT ppx: Lovenox Code status: Full Prognosis: guarded Disposition: inpatient PCU Time Spent With Patient Time: Total time spent is greater than 50% in coordination of care (as documented) at patient's floor/unit and/or counseling patient: Total time spent with greater than 50% in coordination of care (as documented) at patient's floor/unit and/or counseling patient:: Greater than 35 minutes QUALITY Stroke Symptom Onset Unknown: No
[2021-06-13] MEDS: SENNOSIDES/DOCUSATE SODIUM 1 TAB TABLET PO SCH (21:25)
[2021-06-14] MEDS: guaiFENesin/CODEINE 10 ML UDC PO PRN ×3 (04:28→20:12)
[2021-06-14] MEDS: 0.9 % SODIUM CHLORIDE 10 ML SYRINGE IV SCH ×3 (05:54→22:00)
[2021-06-14 07:16] LABS: Basophils # (Auto) 0.06 K/mcL (0.00-0.30); Eosinophils # (Auto) 0.24 K/mcL (0.00-0.70); Eosinophils % (Auto) 4.1 % (0.0-7.0); Hematocrit 41.5 % (40.1-51.0); Lymphocytes # (Auto) 1.75 K/mcL (1.50-4.80); Lymphocytes % (Auto) 29.8 % (15.5-49.0); Mean Cell Volume 91.6 fL (80.0-100.0); Mean Corpuscular HGB Conc 33.7 g/dL (31.0-36.0); Mean Platelet Volume 10.8 fL (7.4-10.4); Monocytes % (Auto) 10.2 % (1.0-12.0); Neutrophils % (Auto) 54.9 % (38.0-78.0); Platelet Count 161 K/mcL (140-440); RBC 4.53 M/mcL (4.63-6.08); Red Cell Distribution Width 13.2 % (11.5-14.5); WBC 5.9 K/mcL (4.5-11.0)
[2021-06-14] MEDS: DOCUSATE SODIUM 100 MG CAPSULE PO SCH ×2 (07:58→20:12)
[2021-06-14] MEDS: ENOXAPARIN 40 MG/0.4 ML SYRINGE SQ SCH ×2 (07:58→20:12)
[2021-06-14] MEDS: MULTIVIT,THER IRON,CA,FA & MIN 1 TABLET PO SCH (07:58)
[2021-06-14] MEDS: OMEPRAZOLE 20 MG CAPSULE PO SCH (07:58)
[2021-06-14] MEDS: VITAMIN D3 125 MCG TABLET PO SCH (07:58)
[2021-06-14 08:14] LABS: ALT/SGPT 26 U/L (<40); AST/SGOT 27 U/L (<40); Albumin 3.5 gm/dL (3.2-5.2); Albumin/Globulin Ratio 1.3 (1.0-2.3); Alkaline Phosphatase 67 U/L (39-117); Bilirubin,Total 0.5 mg/dL (0.1-1.0); Blood Urea Nitrogen 26 mg/dL (8-23); Calcium 9.2 mg/dL (8.6-10.4); Carbon Dioxide 26 mmol/L (22-30); Chloride 101 mmol/L (96-108); Globulin 2.7 gm/dL (2.2-3.7); Glomerular Filtration Rate 84; Glucose 93 mg/dL (70-105)
[2021-06-14] MEDS: IPRATROPIUM/ALBUTEROL 3 ML AMPUL.NEB NEB PRN (08:30)
--- NOTE | 2021-06-14 08:57 | Internal Med Progress Note ---
SUBJECTIVE Subjective Patient information: Note initiated : 06/14/21 at 8:55 am Service Date, if different from initiated Date: [] Patient: Abiel Rae a 75 y/o M admitted on 05/30/21 for Covid, sob. Chief Complaint: [] Principal diagnosis: CoVID pneumonia Interval history: Mr. Rae is a 75 year old M with no prior significant medical history who presents to the ER with worsening shortness of breath over the last few weeks. Patient was diagnosed with Covid on the and was discharged home on oxygen however he was discovered by his neighbor very short of breath and subsequently EMS was summoned. Patient was found to be desaturating in mid 80s. He was brought into the ER. Initial work-up was consistent with bilateral Covid pneumonia. Patient was found dexamethasone and subsequently hospitalist service was consulted. At the time of my evaluation patient is alert and able to answer most the ques tions. He was able to endorse history as above. He denies hemoptysis, diarrhea, abdominal pain, headache lightheadedness but endorses to weakness fatigue loss of appetite along with malaise. 05/31-patient clinically deteriorating. Now requiring 65% FiO2 at 35 L high flow oxygen. Worsening Covid pneumonia with possible element of ARDS. Status post Actemra. Continuing remdesivir/dexamethasone day two. Remains very high risk mortality. No overnight fever chills. Continue diurese/thrombosis prophylaxis. Maintain COVID-19 precaution. Check x-ray/ABGs 06/01 worsening interval chest imaging, however clinically feels better. On high flow oxygen 30 L. White count 8.6, platelets 133, continuing remdesivir/dexamethasone/azithromycin. No overnight events including fever chills. Alert and respond to commands, no anxiety or concerns per staff 06/02-patient this morning experienced syncopal episode while sitting in a chair. Was found in a near unresponsive state with blood pressure in the 80s. Placed on bed. Continue examination unremarkable. Patient returned to normal sensorium shortly. Denies chest pain, shortness of breath. [place] back at baseline within minutes. Was incontinent of stool on chair. White count 5.6, potassium 3.2 on replacement, creatinine 0.9. Lower diuretic dose to 20 mg daily, continue remdesivir/dexamethasone. On 30 L high flow 65% FiO2. Remains critically ill 06/03-patient critically ill. Worsening hypoxia now on 70 L oxygen high flow. Patient seen in room. Grieving from loss of his . No telemetry events. No fever chills. Systolics mid 80s. Diuretics discontinued. On remdesivir/dexamethasone day 5. 06/04-patient clinically deteriorating. Seen in room. Desats on minimal activity. Now on 80% FiO2. High risk mortality. On day 6 remdesivir/dexamethasone. Potassium 4.1, LFTs downtrending, interval chest imaging evidence of subcutaneous emphysema. Repeat interval chest imaging at 1 PM rule out spontaneous pneumothorax Continue close monitoring in ICU. Avoid noninvasive ventilation due to risk of pneumothorax 06/05-patient seen in room, clinically deteriorating. Remarkably short of breath now on 35% FiO2. Desats to mid 80s on minimal exertion. Continuing dexamethasone/remdesivir. No telemetry events. Stable labs and hemodynamics. No overnight fever chills or concerns per staff. Remains a high risk mortality based on Kenaitze 2 score. Interval chest imaging worsening bilateral infiltrates, No evidence of pneumothorax, decreased subcutaneous emphysema. 06/06 Patient not vaccinated. Patient states he feels like he is breathing better. Has a dry cough. Oxygen at 35 L/min 75% FiO2. 06/07 Patient is cough is improving. Shortness of breath seems amenable to him. He was taken to CT on a nonrebreather and he feels like he can breathe much easier on the nonrebreather than the Vapotherm and his oxygen saturations are quite good on the nonrebreather. We will also try Ventimask. 06/08 Patient states he is feeling better and breathing better but still requiring a lot of oxygen. We are able to get him down to 6 L oxygen mask yesterday for short period but is essentially been on 12-15 through the afternoon and evening. Currently on 12 L. And sats well at rest but with any movement desats quickly. 06/09 Patient on oxygen mask at 12 L and not on high flow tubing. Patient replaced on high flow tubing and liters nasal cannula. Sound little bit wheezy will have a breathing treatment ordered. Patient has a mild cough, he does have some shortness of breath with exertion feels about the same. 06/10 Continues to feel well. He is on 6 L oxygen mask at rest but desats with activity and is on 9L at that point. He is making progress but slowly. 06/11: Afebrile overnight. Still on 6L/min oxygen at rest and up to 9L/min when ambulate. c/o improving degree of SOB. c/o nonproductive cough. Denies wheezing or chest pain. Denies fever, chills, or sweating. Good energy level, good appetite. 06/12: Afebrile overnight. Still on 9L/min oxygen at the moment. c/o improving degree of SOB. c/o nonproductive cough. Denies wheezing or chest pain. Denies fever, chills, or sweating. Good energy level, good appetite. 06/13: Afebrile overnight. Still on 9L/min oxygen at the moment. c/o improving degree of SOB. c/o nonproductive cough. Denies wheezing or chest pain. Denies fever, chills, or sweating. Good energy level, good appetite. 06/14: Afebrile overnight. Was on 6L/min oxygen overnight, now on 10L/min. c/o improving degree of SOB. c/o nonproductive cough. Denies wheezing or chest pain. Denies fever, chills, or sweating. Good energy level, good appetite. Constitutional Vitals: Vital Signs Temp Pulse Resp BP Pulse Ox 36.9 C 57 L 33 H 108/85 92 06/14/21 04:01 06/14/21 07:08 06/14/21 08:10 06/14/21 07:08 06/14/21 08:10 Period Temp Pulse Resp BP Sys/Guan Pulse Ox Last 24 Hr 36.4 C-36.9 C 57-87 16-43 99-132/63-109 90-99 Intake and Output 06/13/21 06/14/21 06/14/21 21:59 05:59 13:59 Intake Total 1460 120 480 Output Total 250 975 Balance 1210 -855 480 Weight 78.562 kg Intake & Output: Intake & Output 06/13/21 06/14/21 06/14/21 21:59 05:59 13:59 Intake Total 1460 120 480 Output Total 250 975 Balance 1210 -855 480 Weight 78.562 kg Intake: Nourishment/Supplement quantity 240 (ml) Oral 1220 120 480 Output: Void Amount 250 975 Other: Meal Dinner Percent of Meal Consumed 100% Feeding Ability Independent Urine Appearance Clear Clear Urine Color Dark Yellow Light Andressa General appearance: cooperative, no acute distress and thin Head Head exam: Present atraumatic and normal inspection Eye Eye exam: Present normal appearance ENT ENT exam: Present mucous membranes moist, normal exam and normal external ear exam Additional comments: High flow oxygen in place Neck Neck exam: Present normal inspection Respiratory Respiratory exam: Present rhonchi and wheezes Cardiovascular Cardiovascular exam: Present normal rate and rhythm GI/Abdominal GI/Abdominal exam: Present normal bowel sounds Back Exam Back exam: Present normal inspection Neurological Exam Neurological exam: Present alert and oriented X3 Skin Skin exam: Present intact and warm OBJ DATA Labs CBC & Chem 7: 06/14/21 06:04 06/14/21 06:04 Labs: Abnormal Lab Results 06/14/21 06/14/21 06/13/21 06:04 06:04 06:06 RBC 4.53 L MPV 10.8 H [place] # (Auto) Potassium Carbon Dioxide 33 H Anion Gap 6.0 L BUN 26 H 30 H ALT 06/13/21 06/12/21 06/12/21 06:06 05:40 05:40 RBC 4.58 L 4.47 L MPV [place] # (Auto) 0.95 H Potassium Carbon Dioxide Anion Gap BUN 26 H ALT 06/11/21 06/11/21 05:30 05:30 RBC 4.57 L MPV 10.8 H [place] # (Auto) 0.97 H Potassium 5.3 H Carbon Dioxide Anion Gap BUN 30 H ALT 44 H Meds: Medications Acetaminophen (Acetaminophen 325 Mg Tablet) 650 mg PO Q4-6HP PRN; Protocol PRN Reason: Per Pain Protocol/Fever > 101 Albuterol/Ipratropium (Ipratropium/Albuterol 3 Ml Ampul.Neb) 3 ml NEB Q4HP PRN PRN Reason: Shortness Of Breath Last Admin: 06/13/21 14:49 Dose: 3 ml Documented by: Benzonatate (Benzonatate 100 Mg Capsule) 100 mg PO TIDP PRN PRN Reason: Cough Bisacodyl (Bisacodyl 10 Mg Supp.Rect) 10 mg TX Q2-3DAYS PRN PRN Reason: Constipation Docusate Sodium (Docusate Sodium 100 Mg Capsule) 100 mg PO BID CARL Last Admin: 06/14/21 07:58 Dose: 100 mg Documented by: Enoxaparin Sodium (Enoxaparin 40 Mg/0.4 Ml Syringe) 40 mg SQ BID [facility] Last Admin: 06/14/21 07:58 Dose: 40 mg Documented by: Guaifenesin/Codeine Phosphate (Guaifenesin/Codeine 10 Ml Udc) 10 ml PO Q4HP PRN PRN Reason: Cough Last Admin: 06/14/21 04:28 Dose: 10 ml Documented by: Potassium Chloride 40 meq/ (Dextrose) 520 mls @ 130 mls/hr IV UD PRN PRN Reason: K+ = or < 3.5 Acetaminophen (Ofirmev) 650 mg in 65 mls @ 130 mls/hr IV Q6HP PRN; Protocol PRN Reason: Per Pain Protocol/Fever > 101 Magnesium Sulfate (Magnesium Sulfate) 2 gm in 50 mls @ 50 mls/hr IV UD PRN PRN Reason: MG = or < 1.7 Iron Carb/Multivit/Mcculloch/Folic Acid (Multivit,Ther Iron,Ca,Fa & Min 1 Tablet) 1 tab PO DAILY [facility] Last Admin: 06/14/21 07:58 Dose: 1 tab Documented by: Melatonin (Melatonin 3 Mg Tablet) 3 mg PO HSP PRN PRN Reason: Insomnia Omeprazole (Omeprazole 20 Mg Capsule) 20 mg PO ACB [facility] Last Admin: 06/14/21 07:58 Dose: 20 mg Documented by: Ondansetron HCl (Ondansetron 4 Mg Odt Tablet) 4 mg SL Q4-6HP PRN; Protocol PRN Reason: Nausea And Vomiting Ondansetron HCl (Ondansetron 4 Mg/2 Ml Vial) 4 mg IV Q4-6HP PRN; Protocol PRN Reason: Nausea And Vomiting Polyethylene Glycol (Polyethylene Glycol 3350 17 Gm Packet) 17 gm PO DAILYP PRN PRN Reason: Constipation Potassium/Phosphorus/Sodium (Neutra Phos 1 Packet) 2 packet PO ONCE PRN PRN Reason: For phosphorus less than 2.5 Senna/Docusate Sodium (Sennosides/Docusate Sodium 1 Tab Tablet) 1 tab PO HS [facility] Last Admin: 06/13/21 21:25 Dose: 1 tab Documented by: Sodium Chloride (0.9 % Sodium Chloride 10 Ml Syringe) 10 ml IV Q8 [facility] Last Admin: 06/14/21 05:54 Dose: 10 ml Documented by: Vitamin D (Vitamin D3 125 Mcg Tablet) 125 mcg PO DAILY [facility] Last Admin: 06/14/21 07:58 Dose: 125 mcg Documented by: A/P Assessment and plan (1) COVID-19: Status: Acute (2) Acute hypoxemic respiratory failure: Status: Acute (3) Hyperkalemia: Status: Acute (4) GERD (gastroesophageal reflux disease): Status: Chronic Qualifiers: Esophagitis presence: with esophagitis Qualified Code(s): K21.0 - Gastro-esophageal reflux disease with esophagitis Narrative A/P Narrative: Assessment and Plans: 1. CoVID pneumonia: Isolation: airborne and contract Inpatient PCU Supplemental oxygen therapy titrate to achieve spo2>=92%, currently on 96L/min at rest s/p Actemra Finished Remdesivir Finished Dexamethasone Lovenox DuoNEB NEB q4hr PRN wheezing or SOB No pulmonary embolism by CTA on 06/07 Tessalon Perles PRN cough Robitussin AC PRN cough 2. Hyperkalemia: RESOLVED Serum potassium level 4.5 on 06/13 Will repeat CMP in the morning to trend serum potassium level 3. GERD: Prilosec GI ppx: Prilosec DVT ppx: Lovenox Code status: Full Prognosis: guarded Disposition: inpatient PCU Time Spent With Patient Time: Total time spent is greater than 50% in coordination of care (as documented) at patient's floor/unit and/or counseling patient: Total time spent with greater than 50% in coordination of care (as documented) at patient's floor/unit and/or counseling patient:: Greater than 35 minutes QUALITY Stroke Symptom Onset Unknown: No
[2021-06-14] MEDS ORDERED: NITROGLYCERIN 0.4 MG TAB.SUBL SL PRN (09:22)
[2021-06-14] MEDS ORDERED: ASPIRIN 81 MG TAB.CHEW CHEWED ONE (09:22)
[2021-06-14] MEDS ORDERED: 0.9 % SODIUM CHLORIDE 1,000 ML IV SCH (09:30)
[2021-06-14] MEDS: ACETAMINOPHEN 325 MG TABLET PO PRN ×2 (10:05→12:45)
[2021-06-14] MEDS: BENZONATATE 100 MG CAPSULE PO PRN (10:05)
[2021-06-14] MEDS ORDERED: IOPAMIDOL 100 ML BOTTLE IV ONE (10:46)
[2021-06-14 11:08] LABS: Creatine Kinase MB 1.3 ng/mL (<6.7)
[2021-06-14] MEDS ORDERED: LIDOCAINE 1% 20 ML VIAL SQ ONE (11:53)
--- NOTE | 2021-06-14 14:04 | XRay Report ---
CLINICAL INFORMATION: PNEUMOTHORAX TECHNIQUE: The procedure and risks including possibility of bleeding, and infection were explained to the patient. He understood and wished to proceed. With the patient supine on the fluoroscopy table, the left anterior third intercostal space at mid clavicular line was fluoroscopically marked, prepped and anesthetized and the pleural level with 1% lidocaine and a 25-gauge needle. A small bore chest tube, mounted over trocar, was then placed with fluoroscopic guidance into the pleural space. Approximately 2 L of air was aspirated manually. The tube was left to standard Heimlich valve and sutured to the skin. Fluoroscopic imaging following the procedure shows near complete reexpansion of lung with only a small (less than 10%) pneumothorax. IMPRESSION: Successful placement of small bore chest tube in the left pleural space with 2 L of air evacuation and left lung reexpansion. Tube was left to standard Heimlich valve. Suggest maintaining the tube with open valve for 48 hours. At that point, the valve should the test closed for one hour and a chest x-ray repeated. If the left lung remains reexpanded, the tube can be removed. Interpreted and Authenticated by: Jakub Roberson 06/14/21
--- NOTE | 2021-06-14 14:30 | EKG ---
[facility] Test Date: 2021-06-14 Pat Name: Abiel Rae Department: ICU Room: 119 Gender: Male [employer]agman: : 1945 Requested By: Pino Bagley Order Number: [id number] Reading MD: Jakub Monet M.D. Measurements Intervals Smoot Rate: 110 P: 67 TX: 152 QRS: 55 QRSD: 81 T: 32 QT: 302 QTc: 409 Interpretive Statements Sinus tachycardia Probable left atrial enlargement Borderline ST depression, diffuse leads Electronically Signed On 06-14-2021 14:30:01 PST by Jakub Monet M.D. /store/[email or web address]/[id number]/[id number]
--- NOTE | 2021-06-14 14:55 | Cat Scan Report ---
INDICATION: rule out PE COMPARISON: Chest x-ray 06/11/2021 FINDINGS: Intravenous contrast was administered and helical images were obtained through the chest with pulmonary embolism protocol with multiplanar reformatting including MIPS imaging. There is a very large left-sided tension pneumothorax noted. The lungs are markedly opacified with groundglass disease and pulmonary fibroses. There is shift of the mediastinum. Small mediastinal lymph nodes are noted. I do not see any evidence of pulmonary embolism. There is significant reflux into the IVC and hepatic veins indicating high right heart pressures. IMPRESSION: No pulmonary embolism. There is severe pulmonary fibrosis with a left-sided tension pneumothorax. Interpreted and Authenticated by: Matias Fritz M.D. 06/14/21
[2021-06-14] MEDS: SENNOSIDES/DOCUSATE SODIUM 1 TAB TABLET PO SCH (20:12)
[2021-06-15] MEDS: 0.9 % SODIUM CHLORIDE 10 ML SYRINGE IV SCH ×3 (05:46→21:40)
[2021-06-15 06:36] LABS: Basophils # (Auto) 0.06 K/mcL (0.00-0.30); Basophils % (Auto) 0.8 % (0.0-2.0); Eosinophils # (Auto) 0.31 K/mcL (0.00-0.70); Eosinophils % (Auto) 4.1 % (0.0-7.0); Hematocrit 46.9 % (40.1-51.0); Hemoglobin 14.6 g/dL (13.7-17.5); Lymphocytes # (Auto) 1.43 K/mcL (1.50-4.80); Lymphocytes % (Auto) 19.1 % (15.5-49.0); Mean Cell Volume 97.5 fL (80.0-100.0); Mean Corpuscular HGB Conc 31.1 g/dL (31.0-36.0); Mean Platelet Volume 10.5 fL (7.4-10.4); Monocytes % (Auto) 9.4 % (1.0-12.0); Neutrophils % (Auto) 66.6 % (38.0-78.0); Platelet Count 163 K/mcL (140-440); RBC 4.81 M/mcL (4.63-6.08); Red Cell Distribution Width 13.5 % (11.5-14.5); WBC 7.5 K/mcL (4.5-11.0)
[2021-06-15 06:59] LABS: ALT/SGPT 25 U/L (<40); AST/SGOT 31 U/L (<40); Albumin 3.3 gm/dL (3.2-5.2); Alkaline Phosphatase 74 U/L (39-117); Bilirubin,Total 0.6 mg/dL (0.1-1.0); Blood Urea Nitrogen 21 mg/dL (8-23); Carbon Dioxide 26 mmol/L (22-30); Chloride 102 mmol/L (96-108); Globulin 3.2 gm/dL (2.2-3.7); Glomerular Filtration Rate 88; Glucose 102 mg/dL (70-105)
[2021-06-15] MEDS: OMEPRAZOLE 20 MG CAPSULE PO SCH (07:42)
--- NOTE | 2021-06-15 08:11 | Internal Med Progress Note ---
SUBJECTIVE Subjective Patient information: Note initiated : 06/15/21 at 8:07 am Service Date, if different from initiated Date: [] Patient: Abiel Rae a 75 y/o M admitted on 05/30/21 for Covid, sob. Chief Complaint: [] Principal diagnosis: CoVID pneumonia Interval history: Mr. Rae is a 75 year old M with no prior significant medical history who presents to the ER with worsening shortness of breath over the last few weeks. Patient was diagnosed with Covid on the and was discharged home on oxygen however he was discovered by his neighbor very short of breath and subsequently EMS was summoned. Patient was found to be desaturating in mid 80s. He was brought into the ER. Initial work-up was consistent with bilateral Covid pneumonia. Patient was found dexamethasone and subsequently hospitalist service was consulted. At the time of my evaluation patient is alert and able to answer most the ques tions. He was able to endorse history as above. He denies hemoptysis, diarrhea, abdominal pain, headache lightheadedness but endorses to weakness fatigue loss of appetite along with malaise. 05/31-patient clinically deteriorating. Now requiring 65% FiO2 at 35 L high flow oxygen. Worsening Covid pneumonia with possible element of ARDS. Status post Actemra. Continuing remdesivir/dexamethasone day two. Remains very high risk mortality. No overnight fever chills. Continue diurese/thrombosis prophylaxis. Maintain COVID-19 precaution. Check x-ray/ABGs 06/01 worsening interval chest imaging, however clinically feels better. On high flow oxygen 30 L. White count 8.6, platelets 133, continuing remdesivir/dexamethasone/azithromycin. No overnight events including fever chills. Alert and respond to commands, no anxiety or concerns per staff 06/02-patient this morning experienced syncopal episode while sitting in a chair. Was found in a near unresponsive state with blood pressure in the 80s. Placed on bed. Continue examination unremarkable. Patient returned to normal sensorium shortly. Denies chest pain, shortness of breath. [place] back at baseline within minutes. Was incontinent of stool on chair. White count 5.6, potassium 3.2 on replacement, creatinine 0.9. Lower diuretic dose to 20 mg daily, continue remdesivir/dexamethasone. On 30 L high flow 65% FiO2. Remains critically ill 06/03-patient critically ill. Worsening hypoxia now on 70 L oxygen high flow. Patient seen in room. Grieving from loss of his . No telemetry events. No fever chills. Systolics mid 80s. Diuretics discontinued. On remdesivir/dexamethasone day 5. 06/04-patient clinically deteriorating. Seen in room. Desats on minimal activity. Now on 80% FiO2. High risk mortality. On day 6 remdesivir/dexamethasone. Potassium 4.1, LFTs downtrending, interval chest imaging evidence of subcutaneous emphysema. Repeat interval chest imaging at 1 PM rule out spontaneous pneumothorax Continue close monitoring in ICU. Avoid noninvasive ventilation due to risk of pneumothorax 06/05-patient seen in room, clinically deteriorating. Remarkably short of breath now on 35% FiO2. Desats to mid 80s on minimal exertion. Continuing dexamethasone/remdesivir. No telemetry events. Stable labs and hemodynamics. No overnight fever chills or concerns per staff. Remains a high risk mortality based on [place] 2 score. Interval chest imaging worsening bilateral infiltrates, No evidence of pneumothorax, decreased subcutaneous emphysema. 06/06 Patient not vaccinated. Patient states he feels like he is breathing better. Has a dry cough. Oxygen at 35 L/min 75% FiO2. 06/07 Patient is cough is improving. Shortness of breath seems amenable to him. He was taken to CT on a nonrebreather and he feels like he can breathe much easier on the nonrebreather than the Vapotherm and his oxygen saturations are quite good on the nonrebreather. We will also try Ventimask. 06/08 Patient states he is feeling better and breathing better but still requiring a lot of oxygen. We are able to get him down to 6 L oxygen mask yesterday for short period but is essentially been on 12-15 through the afternoon and evening. Currently on 12 L. And sats well at rest but with any movement desats quickly. 06/09 Patient on oxygen mask at 12 L and not on high flow tubing. Patient replaced on high flow tubing and liters nasal cannula. Sound little bit wheezy will have a breathing treatment ordered. Patient has a mild cough, he does have some shortness of breath with exertion feels about the same. 06/10 Continues to feel well. He is on 6 L oxygen mask at rest but desats with activity and is on 9L at that point. He is making progress but slowly. 06/11: Afebrile overnight. Still on 6L/min oxygen at rest and up to 9L/min when ambulate. c/o improving degree of SOB. c/o nonproductive cough. Denies wheezing or chest pain. Denies fever, chills, or sweating. Good energy level, good appetite. 06/12: Afebrile overnight. Still on 9L/min oxygen at the moment. c/o improving degree of SOB. c/o nonproductive cough. Denies wheezing or chest pain. Denies fever, chills, or sweating. Good energy level, good appetite. 06/13: Afebrile overnight. Still on 9L/min oxygen at the moment. c/o improving degree of SOB. c/o nonproductive cough. Denies wheezing or chest pain. Denies fever, chills, or sweating. Good energy level, good appetite. 06/14: Afebrile overnight. Was on 6L/min oxygen overnight, now on 10L/min. c/o improving degree of SOB. c/o nonproductive cough. Denies wheezing or chest pain. Denies fever, chills, or sweating. Good energy level, good appetite. 06/15: Developed left sided tension pneumothorax yesterday afternoon, s/p left sided chest tube placement by radiologist. On 4L/min overnight and currently. Have 5cc blood output from the chest tube overnight. Denies any SOB. Denies any cough or wheezing. Denies any chest pain. Denies any anxiety. Denies any fever, chills, or sweating. Constitutional Vitals: Vital Signs Temp Pulse Resp BP Pulse Ox 36.4 C 78 11 L 103/80 97 06/15/21 00:00 06/15/21 05:00 06/15/21 05:00 06/15/21 05:00 06/15/21 05:00 Period Temp Pulse Resp BP Sys/Guan Pulse Ox Last 24 Hr 36.4 C-36.7 C 70-119 11-39 95-139/72-112 87-100 Intake and Output 06/14/21 06/15/21 06/15/21 21:59 05:59 13:59 Intake Total 200 Output Total 435 175 Balance -435 25 Weight 77.649 kg Intake & Output: Intake & Output 06/14/21 06/15/21 06/15/21 21:59 05:59 13:59 Intake Total 200 Output Total 435 175 Balance -435 25 Weight 77.649 kg Intake: Oral 200 Output: Void Amount 435 175 Other: Meal Dinner Percent of Meal Consumed 100% Feeding Ability Independent Urine Appearance Clear Clear Urine Color Dark Yellow Dark Yellow General appearance: average body habitus, cooperative and no acute distress Head Head exam: Present atraumatic and normal inspection Eye Eye exam: Present normal appearance ENT ENT exam: Present mucous membranes moist, normal exam and normal external ear exam Additional comments: Nasal cannula in place Neck Neck exam: Present normal inspection Respiratory Respiratory exam: Present rhonchi Additional comments: Left sided chest tube in place Cardiovascular Cardiovascular exam: Present normal rate and rhythm GI/Abdominal GI/Abdominal exam: Present normal bowel sounds Back Exam Back exam: Present normal inspection Neurological Exam Neurological exam: Present alert and oriented X3 Skin Skin exam: Present intact and warm OBJ DATA Labs CBC & Chem 7: 06/15/21 05:32 06/15/21 05:32 Labs: Abnormal Lab Results 06/15/21 06/14/21 06/14/21 05:32 06:04 06:04 RBC 4.53 L MPV 10.5 H 10.8 H Lymph # (Auto) 1.43 L Carbon Dioxide Anion Gap BUN 26 H 06/13/21 06/13/21 06/12/21 06:06 06:06 05:40 RBC 4.58 L MPV Lymph # (Auto) Carbon Dioxide 33 H Anion Gap 6.0 L BUN 30 H 26 H Meds: Medications Acetaminophen (Acetaminophen 325 Mg Tablet) 650 mg PO Q4-6HP PRN; Protocol PRN Reason: Per Pain Protocol/Fever > 101 Last Admin: 06/14/21 12:45 Dose: 650 mg Documented by: Albuterol/Ipratropium (Ipratropium/Albuterol 3 Ml Ampul.Neb) 3 ml NEB Q4HP PRN PRN Reason: Shortness Of Breath Last Admin: 06/14/21 08:30 Dose: 3 ml Documented by: Benzonatate (Benzonatate 100 Mg Capsule) 100 mg PO TIDP PRN PRN Reason: Cough Bisacodyl (Bisacodyl 10 Mg Supp.Rect) 10 mg RI Q2-3DAYS PRN PRN Reason: Constipation Docusate Sodium (Docusate Sodium 100 Mg Capsule) 100 mg PO BID [facility] Last Admin: 06/14/21 20:12 Dose: 100 mg Documented by: Enoxaparin Sodium (Enoxaparin 40 Mg/0.4 Ml Syringe) 40 mg SQ BID [facility] Last Admin: 06/14/21 20:12 Dose: 40 mg Documented by: Guaifenesin/Codeine Phosphate (Guaifenesin/Codeine 10 Ml Udc) 10 ml PO Q4HP PRN PRN Reason: Cough Last Admin: 06/14/21 20:12 Dose: 10 ml Documented by: Potassium Chloride 40 meq/ (Dextrose) 520 mls @ 130 mls/hr IV UD PRN PRN Reason: K+ = or < 3.5 Acetaminophen (Ofirmev) 650 mg in 65 mls @ 130 mls/hr IV Q6HP PRN; Protocol PRN Reason: Per Pain Protocol/Fever > 101 Magnesium Sulfate (Magnesium Sulfate) 2 gm in 50 mls @ 50 mls/hr IV UD PRN PRN Reason: MG = or < 1.7 Sodium Chloride (Sodium Chloride 0.9%) 1,000 mls @ 0 mls/hr IV .Q0M [facility] Ibuprofen (Ibuprofen 600 Mg Tablet) 600 mg PO QIDP PRN; Protocol PRN Reason: PAIN/FEVER > 101 Iron Carb/Multivit/Smoking Pipe Repairer/Folic Acid (Multivit,Ther Iron,Ca,Fa & Min 1 Tablet) 1 tab PO DAILY [facility] Last Admin: 06/14/21 07:58 Dose: 1 tab Documented by: Melatonin (Melatonin 3 Mg Tablet) 3 mg PO HSP PRN PRN Reason: Insomnia Morphine Sulfate (Morphine 4 Mg/Ml Vial) 4 mg IV Q4HP PRN; Protocol PRN Reason: Per Pain Protocol Nitroglycerin (Nitroglycerin 0.4 Mg Tab.Subl) 0.4 mg SL Q5M PRN PRN Reason: Chest Pain Last Admin: 06/14/21 10:02 Dose: 0.4 mg Documented by: Omeprazole (Omeprazole 20 Mg Capsule) 20 mg PO ACB [facility] Last Admin: 06/15/21 07:42 Dose: 20 mg Documented by: Ondansetron HCl (Ondansetron 4 Mg Odt Tablet) 4 mg SL Q4-6HP PRN; Protocol PRN Reason: Nausea And Vomiting Ondansetron HCl (Ondansetron 4 Mg/2 Ml Vial) 4 mg IV Q4-6HP PRN; Protocol PRN Reason: Nausea And Vomiting Oxycodone/Acetaminophen (Oxycodone/Apap 5/325mg Tablet) 1 tab PO Q6HP PRN; Protocol PRN Reason: Per Pain Protocol Polyethylene Glycol (Polyethylene Glycol 3350 17 Gm Packet) 17 gm PO DAILYP PRN PRN Reason: Constipation Potassium/Phosphorus/Sodium (Neutra Phos 1 Packet) 2 packet PO ONCE PRN PRN Reason: For phosphorus less than 2.5 Senna/Docusate Sodium (Sennosides/Docusate Sodium 1 Tab Tablet) 1 tab PO HS [facility] Last Admin: 06/14/21 20:12 Dose: 1 tab Documented by: Sodium Chloride (0.9 % Sodium Chloride 10 Ml Syringe) 10 ml IV Q8 [facility] Last Admin: 06/15/21 05:46 Dose: 10 ml Documented by: Vitamin D (Vitamin D3 125 Mcg Tablet) 125 mcg PO DAILY [facility] Last Admin: 06/14/21 07:58 Dose: 125 mcg Documented by: A/P Assessment and plan (1) COVID-19: Status: Acute (2) Acute hypoxemic respiratory failure: Status: Acute (3) Hyperkalemia: Status: Acute (4) GERD (gastroesophageal reflux disease): Status: Chronic Qualifiers: Esophagitis presence: with esophagitis Qualified Code(s): K21.0 - Gastro-esophageal reflux disease with esophagitis (5) Spontaneous tension pneumothorax: Status: Acute Narrative A/P Narrative: Assessment and Plans: 1. CoVID pneumonia: Isolation: airborne and contract Inpatient PCU Supplemental oxygen therapy titrate to achieve spo2>=92%, currently on 4L/min at rest s/p Actemra Finished Remdesivir Finished Dexamethasone Lovenox DuoNEB NEB q4hr PRN wheezing or SOB No pulmonary embolism by CTA on 06/07 Tessalon Perles PRN cough Robitussin AC PRN cough 2. Hyperkalemia: RESOLVED Serum potassium level 4.5 on 06/15 Will repeat CMP in the morning to trend serum potassium level 3. GERD: Prilosec 4. Left sided tension pneumothorax: Developed left sided tension pneumothorax yesterday afternoon, s/p left sided chest tube placement by radiologist. On 4L/min overnight and currently. Have 5cc blood output from the chest tube overnight. Will keep titrating oxygen need over the weekend GI ppx: Prilosec DVT ppx: Lovenox Code status: Full Prognosis: guarded Disposition: inpatient PCU Time Spent With Patient Time: Total time spent is greater than 50% in coordination of care (as documented) at patient's floor/unit and/or counseling patient: Total time spent with greater than 50% in coordination of care (as documented) at patient's floor/unit and/or counseling patient:: Greater than 35 minutes QUALITY Stroke Symptom Onset Unknown: No
[2021-06-15] MEDS: DOCUSATE SODIUM 100 MG CAPSULE PO SCH ×2 (09:25→21:14)
[2021-06-15] MEDS: VITAMIN D3 125 MCG TABLET PO SCH (09:25)
[2021-06-15] MEDS: MULTIVIT,THER IRON,CA,FA & MIN 1 TABLET PO SCH (09:25)
--- NOTE | 2021-06-15 13:36 | Internal Med Progress Note ---
SUBJECTIVE Subjective Patient information: Note initiated : 06/15/21 at 1:30 pm Service Date, if different from initiated Date: [] Patient: Abiel Rae a 75 y/o M admitted on 05/30/21 for Covid, sob. Chief Complaint: [] Principal diagnosis: CoVID pneumonia Interval history: Interval history: Mr. Rea is a 75 year old M with no prior significant medical history who presents to the ER with worsening shortness of breath over the last few weeks. Patient was diagnosed with Covid on the and was discharged home on oxygen however he was discovered by his neighbor very short of breath and subsequently EMS was summoned. Patient was found to be desaturating in mid 80s. He was brought into the ER. Initial work-up was consistent with bilateral Covid pneumonia. Patient was found dexamethasone and subsequently hospitalist service was consulted. At the time of my evaluation patient is alert and able to answer most the questions. He was able to endorse history as above. He denies hemoptysis, diarrhea, abdominal pain, headache lightheadedness but endorses to weakness fatigue loss of appetite along with malaise. 05/31-patient clinically deteriorating. Now requiring 65% FiO2 at 35 L high flow oxygen. Worsening Covid pneumonia with possible element of ARDS. Status post Actemra. Continuing remdesivir/dexamethasone day two. Remains very high risk mortality. No overnight fever chills. Continue diurese/thrombosis prophylaxis. Maintain COVID-19 precaution. Check x-ray/ABGs 06/01 worsening interval chest imaging, however clinically feels better. On high flow oxygen 30 L. White count 8.6, platelets 133, continuing remdesivir/dexamethasone/azithromycin. No overnight events including fever chills. Alert and respond to commands, no anxiety or concerns per staff 06/02-patient this morning experienced syncopal episode while sitting in a chair. Was found in a near unresponsive state with blood pressure in the 80s. Placed on bed. Continue examination unremarkable. Patient returned to normal sensorium shortly. Denies chest pain, shortness of breath. Whitmer back at baseline within minutes. Was incontinent of stool on chair. White count 5.6, potassium 3.2 on replacement, creatinine 0.9. Lower diuretic dose to 20 mg daily, continue remdesivir/dexamethasone. On 30 L high flow 65% FiO2. Remains critically ill 06/03-patient critically ill. Worsening hypoxia now on 70 L oxygen high flow. Patient seen in room. Grieving from loss of his . No telemetry events. No fever chills. Systolics mid 80s. Diuretics discontinued. On remdesivir/dexamethasone day 5. 06/04-patient clinically deteriorating. Seen in room. Desats on minimal activity. Now on 80% FiO2. High risk mortality. On day 6 remdesivir/dexamethasone. Potassium 4.1, LFTs downtrending, interval chest im aging evidence of subcutaneous emphysema. Repeat interval chest imaging at 1 PM rule out spontaneous pneumothorax Continue close monitoring in ICU. Avoid noninvasive ventilation due to risk of pneumothorax 06/05-patient seen in room, clinically deteriorating. Remarkably short of breath now on 35% FiO2. Desats to mid 80s on minimal exertion. Continuing dexamethasone/remdesivir. No telemetry events. Stable labs and hemodynamics. No overnight fever chills or concerns per staff. Remains a high risk mortality based on Eldridge 2 score. Interval chest imaging worsening bilateral infiltrates , No evidence of pneumothorax, decreased subcutaneous emphysema. 06/06 Patient not vaccinated. Patient states he feels like he is breathing better. Has a dry cough. Oxygen at 35 L/min 75% FiO2. 06/07 Patient is cough is improving. Shortness of breath seems amenable to him. He was taken to CT on a nonrebreather and he feels like he can breathe much easier on the nonrebreather than the Vapotherm and his oxygen saturations are quite good on the nonrebreather. We will also try Ventimask. 06/08 Patient states he is feeling better and breathing better but still requiring a lot of oxygen. We are able to get him down to 6 L oxygen mask yesterday for short period but is essentially been on 12-15 through the afternoon and evening. Currently on 12 L. And sats well at rest but with any movement desats quickly. 06/09 Patient on oxygen mask at 12 L and not on high flow tubing. Patient replaced on high flow tubing and liters nasal cannula. Sound little bit wheezy will have a breathing treatment ordered. Patient has a mild cough, he does have some shortness of breath with exertion feels about the same. 06/10 Continues to feel well. He is on 6 L oxygen mask at rest but desats with act ivity and is on 9L at that point. He is making progress but slowly. 06/11: Afebrile overnight. Still on 6L/min oxygen at rest and up to 9L/min when ambulate. c/o improving degree of SOB. c/o nonproductive cough. Denies wheezing or chest pain. Denies fever, chills, or sweating. Good energy level, good appetite. 06/12: Afebrile overnight. Still on 9L/min oxygen at the moment. c/o improving degree of SOB. c/o nonproductive cough. Denies wheezing or chest pain. Denies fever, chills, or sweating. Good energy level, good appetite. 06/13: Afebrile overnight. Still on 9L/min oxygen at the moment. c/o improving degree of SOB. c/o nonproductive cough. Denies wheezing or chest pain. Denies fever, c hills, or sweating. Good energy level, good appetite. 06/14: Afebrile overnight. Was on 6L/min oxygen overnight, now on 10L/min. c/o improving degree of SOB. c/o nonproductive cough. Denies wheezing or chest pain. Denies fever, chills, or sweating. Good energy level, good appetite. 06/15: Developed left sided tension pneumothorax yesterday afternoon, s/p left sided chest tube placement by radiologist. On 4L/min overnight and currently. Have 5cc blood output from the chest tube overnight. Denies any SOB. Denies any cough or wheezing. Denies any chest pain. Denies any anxiety. Denies any fever, chills, or sweating. 06/16 Review of Systems: denies headache/fever/chills/nausea/vomiting/chest or abdominal pain/diarrhea. Otherwise see above. Constitutional Vitals: Vital Signs Temp Pulse Resp BP Pulse Ox 98.5 F 92 H 29 H 109/78 96 06/15/21 12:06/15/21 12:06/15/21 12:06/15/21 12:06/15/21 12:01 Period Temp Pulse Resp BP Sys/Guan Pulse Ox Last 24 Hr 97.5 F-98.5 F 70-94 11-34 95-138/74-106 91-99 Intake and Output 06/14/21 06/15/21 06/15/21 21:59 05:59 13:59 Intake Total 200 Output Total 435 175 160 Balance -435 25 -160 Weight 77.649 kg 77.649 kg Patient Weight 06/16/21 05:59 Weight 77.649 kg Intake & Output: Intake & Output 06/14/21 06/15/21 06/15/21 21:59 05:59 13:59 Intake Total 200 Output Total 435 175 160 Balance -435 25 -160 Weight 77.649 kg 77.649 kg Intake: Oral 200 Output: Chest Tube Drainage 10 Left Upper 10 Urine Catheter Amount 150 Void Amount 435 175 Other: Meal Dinner Lunch Percent of Meal Consumed 100% 100% Feeding Ability Independent Independent Urine Appearance Clear Clear Clear Urine Color Dark Yellow Dark Yellow Bright Yellow Urine Odor Normal Exam: General: Alert, Awake, No acute Distress Eyes/N/T: EOMI, Head/Neck: neck supple, CV: RRR, No murmurs. Left side chest tube Pulm: Mild fine rales, occ wheez, no rhonchi Abd: soft, nontender, +BS x4 Ext: no clubbing/cyanosis/edema Neuro: Alert, no focal deficits, moves all extremities, Skin: warm/dry OBJ DATA Labs CBC & Chem 7: 06/15/21 05:32 06/15/21 05:32 Labs: Abnormal Lab Results 06/15/21 06/14/21 06/14/21 05:32 06:04 06:04 RBC 4.53 L MPV 10.5 H 10.8 H Lymph # (Auto) 1.43 L Carbon Dioxide Anion Gap BUN 26 H 06/13/21 06/13/21 06:06 06:06 RBC 4.58 L MPV Lymph # (Auto) Carbon Dioxide 33 H Anion Gap 6.0 L BUN 30 H Meds: Medications Acetaminophen (Acetaminophen 325 Mg Tablet) 650 mg PO Q4-6HP PRN; Protocol PRN Reason: Per Pain Protocol/Fever > 101 Last Admin: 06/14/21 12:45 Dose: 650 mg Documented by: Albuterol/Ipratropium (Ipratropium/Albuterol 3 Ml Ampul.Neb) 3 ml NEB Q4HP PRN PRN Reason: Shortness Of Breath Last Admin: 06/14/21 08:30 Dose: 3 ml Documented by: Benzonatate (Benzonatate 100 Mg Capsule) 100 mg PO TIDP PRN PRN Reason: Cough Bisacodyl (Bisacodyl 10 Mg Supp.Rect) 10 mg TN Q2-3DAYS PRN PRN Reason: Constipation Docusate Sodium (Docusate Sodium 100 Mg Capsule) 100 mg PO BID [facility] Last Admin: 06/15/21 09:25 Dose: 100 mg Documented by: Guaifenesin/Codeine Phosphate (Guaifenesin/Codeine 10 Ml Udc) 10 ml PO Q4HP PRN PRN Reason: Cough Last Admin: 06/14/21 20:12 Dose: 10 ml Documented by: Potassium Chloride 40 meq/ (Dextrose) 520 mls @ 130 mls/hr IV UD PRN PRN Reason: K+ = or < 3.5 Acetaminophen (Ofirmev) 650 mg in 65 mls @ 130 mls/hr IV Q6HP PRN; Protocol PRN Reason: Per Pain Protocol/Fever > 101 Magnesium Sulfate (Magnesium Sulfate) 2 gm in 50 mls @ 50 mls/hr IV UD PRN PRN Reason: MG = or < 1.7 Sodium Chloride (Sodium Chloride 0.9%) 1,000 mls @ 0 mls/hr IV .Q0M [facility] Ibuprofen (Ibuprofen 600 Mg Tablet) 600 mg PO QIDP PRN; Protocol PRN Reason: PAIN/FEVER > 101 Iron Carb/Multivit/[place]/Folic Acid (Multivit,Ther Iron,Ca,Fa & Min 1 Tablet) 1 tab PO DAILY [facility] Last Admin: 06/15/21 09:25 Dose: 1 tab Documented by: Melatonin (Melatonin 3 Mg Tablet) 3 mg PO HSP PRN PRN Reason: Insomnia Morphine Sulfate (Morphine 4 Mg/Ml Vial) 4 mg IV Q4HP PRN; Protocol PRN Reason: Per Pain Protocol Nitroglycerin (Nitroglycerin 0.4 Mg Tab.Subl) 0.4 mg SL Q5M PRN PRN Reason: Chest Pain Last Admin: 06/14/21 10:02 Dose: 0.4 mg Documented by: Omeprazole (Omeprazole 20 Mg Capsule) 20 mg PO ACB [facility] Last Admin: 06/15/21 07:42 Dose: 20 mg Documented by: Ondansetron HCl (Ondansetron 4 Mg Odt Tablet) 4 mg SL Q4-6HP PRN; Protocol PRN Reason: Nausea And Vomiting Ondansetron HCl (Ondansetron 4 Mg/2 Ml Vial) 4 mg IV Q4-6HP PRN; Protocol PRN Reason: Nausea And Vomiting Oxycodone/Acetaminophen (Oxycodone/Apap 5/325mg Tablet) 1 tab PO Q6HP PRN; Protocol PRN Reason: Per Pain Protocol Polyethylene Glycol (Polyethylene Glycol 3350 17 Gm Packet) 17 gm PO DAILYP PRN PRN Reason: Constipation Potassium/Phosphorus/Sodium (Neutra Phos 1 Packet) 2 packet PO ONCE PRN PRN Reason: For phosphorus less than 2.5 Senna/Docusate Sodium (Sennosides/Docusate Sodium 1 Tab Tablet) 1 tab PO HS [facility] Last Admin: 06/14/21 20:12 Dose: 1 tab Documented by: Sodium Chloride (0.9 % Sodium Chloride 10 Ml Syringe) 10 ml IV Q8 [facility] Last Admin: 06/15/21 05:46 Dose: 10 ml Documented by: Vitamin D (Vitamin D3 125 Mcg Tablet) 125 mcg PO DAILY [facility] Last Admin: 06/15/21 09:25 Dose: 125 mcg Documented by: A/P Narrative A/P Narrative: A: *COVID-19 pneumonia w/ARDS: *Acute hypoxic respiratory failure: Slow recovery -down to 4L at rest -no PE on CTA *Left sided tension pneumothorax: s/p left sided chest tube placement by radiologist (06/14) -Have 5cc blood output from the chest tube overnight. *?Pulmonary Fibrosis: *Hypokalemia: resolved *Brief syncopal episode: likely vasovagal. Resolved *GERD: Plan: -Remdesivir(finished)/dexamethasone(finished), s/p Actemra -Chest tube, serial cxr -Discussed with surgeon who recommended leaving heimlich valve for 2 days then clamp for 1 hour and check CXR, if no ptx then remove. -wean O2, poor reserve -Mobilization/proning/oob to chair -IS/Acapella/RT, prn nebs -CM for placement -ppx: Lovenox switched to SCD, switch back if no bleeding / home ppi Code status: Time Spent With Patient Time: Total time spent is greater than 50% in coordination of care (as documented) at patient's floor/unit and/or counseling patient: QUALITY Stroke Symptom Onset Unknown: No
[2021-06-15] MEDS: FLEETS ADULT ENEMA PR ONE ×4 (16:38→20:00)
--- NOTE | 2021-06-15 16:38 | XRay Report ---
CLINICAL INFORMATION: Follow-up covid pneumonia. Also left pneumothorax COMPARISON: 06/11/[address] plain film and chest CT 06/14/2021. TECHNIQUE: PA and Lateral views FINDINGS: The heart size, mediastinum and pulmonary vessels are unremarkable. Moderate patchy alveolar infiltrates in the periphery of both lungs, slightly more prominent on the right, show improvement from the CT yesterday. Left chest tube remains in stable satisfactory position in the left lateral pleural space. The left lung is almost totally reexpanded with a 10% residual left apical pneumothorax. Minimal subcutaneous emphysema is seen in the deep left chest wall. There are no effusions. IMPRESSION: Moderate infiltrates in periphery of both lungs-slightly more prominent on the right. Improvement since the CT yesterday. Left lung is almost totally reexpanded following chest tube placement-10% residual left pneumothorax. Chest tube remains in stable satisfactory position Interpreted and Authenticated by: Jakub Roberson 06/15/21
[2021-06-15] MEDS: guaiFENesin/CODEINE 10 ML UDC PO PRN (21:14)
[2021-06-15] MEDS: SENNOSIDES/DOCUSATE SODIUM 1 TAB TABLET PO SCH (21:14)
[2021-06-15] MEDS: ACETAMINOPHEN 325 MG TABLET PO PRN (21:14)
[2021-06-16] MEDS: 0.9 % SODIUM CHLORIDE 10 ML SYRINGE IV SCH ×3 (05:14→21:22)
[2021-06-16] MEDS: BENZONATATE 100 MG CAPSULE PO PRN (07:34)
[2021-06-16] MEDS: OMEPRAZOLE 20 MG CAPSULE PO SCH (07:34)
--- NOTE | 2021-06-16 08:13 | Internal Med Progress Note ---
SUBJECTIVE Subjective Patient information: Note initiated : 06/16/21 at 8:09 am Service Date, if different from initiated Date: [] Patient: Abiel Rae a 75 y/o M admitted on 05/30/21 for Covid, sob. Chief Complaint: [] Principal diagnosis: CoVID pneumonia Interval history: Interval history: Mr. Rae is a 75 year old M with no prior significant medical history who presents to the ER with worsening shortness of breath over the last few weeks. Patient was diagnosed with Covid on the and was discharged home on oxygen however he was discovered by his neighbor very short of breath and subsequently EMS was summoned. Patient was found to be desaturating in mid 80s. He was brought into the ER. Initial work-up was consistent with bilateral Covid pneumonia. Patient was found dexamethasone and subsequently hospitalist service was consulted. At the time of my evaluation patient is alert and able to answer most the questions. He was able to endorse history as above. He denies hemoptysis, diarrhea, abdominal pain, headache lightheadedness but endorses to weakness fatigue loss of appetite along with malaise. 05/31-patient clinically deteriorating. Now requiring 65% FiO2 at 35 L high flow oxygen. Worsening Covid pneumonia with possible element of ARDS. Status post Actemra. Continuing remdesivir/dexamethasone day two. Remains very high risk mortality. No overnight fever chills. Continue diurese/thrombosis prophylaxis. Maintain COVID-19 precaution. Check x-ray/ABGs 06/01 worsening interval chest imaging, however clinically feels better. On high flow oxygen 30 L. White count 8.6, platelets 133, continuing remdesivir/dexamethasone/azithromycin. No overnight events including fever chills. Alert and respond to commands, no anxiety or concerns per staff 06/02-patient this morning experienced syncopal episode while sitting in a chair. Was found in a near unresponsive state with blood pressure in the 80s. Placed on bed. Continue examination unremarkable. Patient returned to normal sensorium shortly. Denies chest pain, shortness of breath. [place] back at baseline within minutes. Was incontinent of stool on chair. White count 5.6, potassium 3.2 on replacement, creatinine 0.9. Lower diuretic dose to 20 mg daily, continue remdesivir/dexamethasone. On 30 L high flow 65% FiO2. Remains critically ill 06/03-patient critically ill. Worsening hypoxia now on 70 L oxygen high flow. Patient seen in room. Grieving from loss of his . No telemetry events. No fever chills. Systolics mid 80s. Diuretics discontinued. On remdesivir/dexamethasone day 5. 06/04-patient clinically deteriorating. Seen in room. Desats on minimal activity. Now on 80% FiO2. High risk mortality. On day 6 remdesivir/dexamethasone. Potassium 4.1, LFTs downtrending, interval chest im aging evidence of subcutaneous emphysema. Repeat interval chest imaging at 1 PM rule out spontaneous pneumothorax Continue close monitoring in ICU. Avoid noninvasive ventilation due to risk of pneumothorax 06/05-patient seen in room, clinically deteriorating. Remarkably short of breath now on 35% FiO2. Desats to mid 80s on minimal exertion. Continuing dexamethasone/remdesivir. No telemetry events. Stable labs and hemodynamics. No overnight fever chills or concerns per staff. Remains a high risk mortality based on [place] 2 score. Interval chest imaging worsening bilateral infiltrates , No evidence of pneumothorax, decreased subcutaneous emphysema. 06/06 Patient not vaccinated. Patient states he feels like he is breathing better. Has a dry cough. Oxygen at 35 L/min 75% FiO2. 06/07 Patient is cough is improving. Shortness of breath seems amenable to him. He was taken to CT on a nonrebreather and he feels like he can breathe much easier on the nonrebreather than the Vapotherm and his oxygen saturations are quite good on the nonrebreather. We will also try Ventimask. 06/08 Patient states he is feeling better and breathing better but still requiring a lot of oxygen. We are able to get him down to 6 L oxygen mask yesterday for short period but is essentially been on 12-15 through the afternoon and evening. Currently on 12 L. And sats well at rest but with any movement desats quickly. 06/09 Patient on oxygen mask at 12 L and not on high flow tubing. Patient replaced on high flow tubing and liters nasal cannula. Sound little bit wheezy will have a breathing treatment ordered. Patient has a mild cough, he does have some shortness of breath with exertion feels about the same. 06/10 Continues to feel well. He is on 6 L oxygen mask at rest but desats with act ivity and is on 9L at that point. He is making progress but slowly. 06/11: Afebrile overnight. Still on 6L/min oxygen at rest and up to 9L/min when ambulate. c/o improving degree of SOB. c/o nonproductive cough. Denies wheezing or chest pain. Denies fever, chills, or sweating. Good energy level, good appetite. 06/12: Afebrile overnight. Still on 9L/min oxygen at the moment. c/o improving degree of SOB. c/o nonproductive cough. Denies wheezing or chest pain. Denies fever, chills, or sweating. Good energy level, good appetite. 06/13: Afebrile overnight. Still on 9L/min oxygen at the moment. c/o improving degree of SOB. c/o nonproductive cough. Denies wheezing or chest pain. Denies fever, c hills, or sweating. Good energy level, good appetite. 06/14: Afebrile overnight. Was on 6L/min oxygen overnight, now on 10L/min. c/o improving degree of SOB. c/o nonproductive cough. Denies wheezing or chest pain. Denies fever, chills, or sweating. Good energy level, good appetite. 06/15: Developed left sided tension pneumothorax yesterday afternoon, s/p left sided chest tube placement by radiologist. On 4L/min overnight and currently. Have 5cc blood output from the chest tube overnight. Denies any SOB. Denies any cough or wheezing. Denies any chest pain. Denies any anxiety. Denies any fever, chills, or sweating. 06/16 Patient states he is feeling better today. Mild cough and improving shortness of breath. Chest x-ray with moderate recurrent pneumothorax, will consult surgery, patient placed on Pleur-evac. About 10 cc of blood about the chest tube overnight. Review of Systems: denies headache/fever/chills/nausea/vomiting/chest or abdominal pain/diarrhea. Otherwise see above. Constitutional Vitals: Vital Signs Temp Pulse Resp BP Pulse Ox 97.4 F 67 20 117/77 100 06/16/21 08:00 06/16/21 08:00 06/16/21 08:00 06/16/21 08:00 06/16/21 08:00 Period Temp Pulse Resp BP Sys/Guan Pulse Ox Last 24 Hr 96.9 F-98.5 F 66-108 17-34 99-143/73-106 92-100 Intake and Output 06/15/21 06/16/21 06/16/21 21:59 05:59 13:59 Intake Total 200 Output Total 40 170 Balance 160 -170 Weight 78.562 kg Intake & Output: Intake & Output 06/15/21 06/16/21 06/16/21 21:59 05:59 13:59 Intake Total 200 Output Total 40 170 Balance 160 -170 Weight 78.562 kg Intake: Oral 200 Output: Chest Tube Drainage 40 20 Left Upper 40 20 Void Amount 150 Other: Urine Color Dark Yellow Stool Size Large Stool Color Brown Stool Consistency Normal for Patient # Bowel Movements 1 Exam: General: Alert, Awake, No acute Distress Eyes/N/T: EOMI, Head/Neck: neck supple, CV: RRR, No murmurs. Left side chest tube Pulm: Mild fine rales, no wheeze, no rhonchi Abd: soft, nontender, +BS x4 Ext: no clubbing/cyanosis/edema Neuro: Alert, no focal deficits, moves all extremities, Skin: warm/dry OBJ DATA Labs CBC & Chem 7: 06/15/21 05:32 06/15/21 05:32 Labs: Abnormal Lab Results 06/15/21 06/14/21 06/14/21 05:32 06:04 06:04 RBC 4.53 L MPV 10.5 H 10.8 H Lymph # (Auto) 1.43 L Carbon Dioxide Anion Gap BUN 26 H 06/13/21 06/13/21 06:06 06:06 RBC 4.58 L MPV Lymph # (Auto) Carbon Dioxide 33 H Anion Gap 6.0 L BUN 30 H Meds: Medications Acetaminophen (Acetaminophen 325 Mg Tablet) 650 mg PO Q4-6HP PRN; Protocol PRN Reason: Per Pain Protocol/Fever > 101 Last Admin: 06/15/21 21:14 Dose: 650 mg Documented by: Albuterol/Ipratropium (Ipratropium/Albuterol 3 Ml Ampul.Neb) 3 ml NEB Q4HP PRN PRN Reason: Shortness Of Breath Last Admin: 06/14/21 08:30 Dose: 3 ml Documented by: Benzonatate (Benzonatate 100 Mg Capsule) 100 mg PO TIDP PRN PRN Reason: Cough Last Admin: 06/16/21 07:34 Dose: 100 mg Documented by: Bisacodyl (Bisacodyl 10 Mg Supp.Rect) 10 mg NE Q2-3DAYS PRN PRN Reason: Constipation Docusate Sodium (Docusate Sodium 100 Mg Capsule) 100 mg PO BID [facility] Last Admin: 06/15/21 21:14 Dose: Not Given Documented by: Guaifenesin/Codeine Phosphate (Guaifenesin/Codeine 10 Ml Udc) 10 ml PO Q4HP PRN PRN Reason: Cough Last Admin: 06/15/21 21:14 Dose: 10 ml Documented by: Potassium Chloride 40 meq/ (Dextrose) 520 mls @ 130 mls/hr IV UD PRN PRN Reason: K+ = or < 3.5 Acetaminophen (Ofirmev) 650 mg in 65 mls @ 130 mls/hr IV Q6HP PRN; Protocol PRN Reason: Per Pain Protocol/Fever > 101 Magnesium Sulfate (Magnesium Sulfate) 2 gm in 50 mls @ 50 mls/hr IV UD PRN PRN Reason: MG = or < 1.7 Sodium Chloride (Sodium Chloride 0.9%) 1,000 mls @ 0 mls/hr IV .Q0M [facility] Ibuprofen (Ibuprofen 600 Mg Tablet) 600 mg PO QIDP PRN; Protocol PRN Reason: PAIN/FEVER > 101 Iron Carb/Multivit/[place]/Folic Acid (Multivit,Ther Iron,Ca,Fa & Min 1 Tablet) 1 tab PO DAILY [facility] Last Admin: 06/15/21 09:25 Dose: 1 tab Documented by: Melatonin (Melatonin 3 Mg Tablet) 3 mg PO HSP PRN PRN Reason: Insomnia Morphine Sulfate (Morphine 4 Mg/Ml Vial) 4 mg IV Q4HP PRN; Protocol PRN Reason: Per Pain Protocol Nitroglycerin (Nitroglycerin 0.4 Mg Tab.Subl) 0.4 mg SL Q5M PRN PRN Reason: Chest Pain Last Admin: 06/14/21 10:02 Dose: 0.4 mg Documented by: Omeprazole (Omeprazole 20 Mg Capsule) 20 mg PO ACB [facility] Last Admin: 06/16/21 07:34 Dose: 20 mg Documented by: Ondansetron HCl (Ondansetron 4 Mg Odt Tablet) 4 mg SL Q4-6HP PRN; Protocol PRN Reason: Nausea And Vomiting Ondansetron HCl (Ondansetron 4 Mg/2 Ml Vial) 4 mg IV Q4-6HP PRN; Protocol PRN Reason: Nausea And Vomiting Oxycodone/Acetaminophen (Oxycodone/Apap 5/325mg Tablet) 1 tab PO Q6HP PRN; Protocol PRN Reason: Per Pain Protocol Polyethylene Glycol (Polyethylene Glycol 3350 17 Gm Packet) 17 gm PO DAILYP PRN PRN Reason: Constipation Last Admin: 06/15/21 16:49 Dose: 17 gm Documented by: Polyethylene Glycol (Polyethylene Glycol 3350 17 Gm Packet) 17 gm PO DAILY [facility] Potassium/Phosphorus/Sodium (Neutra Phos 1 Packet) 2 packet PO ONCE PRN PRN Reason: For phosphorus less than 2.5 Senna/Docusate Sodium (Sennosides/Docusate Sodium 1 Tab Tablet) 1 tab PO HS [facility] Last Admin: 06/15/21 21:14 Dose: Not Given Documented by: Sodium Chloride (0.9 % Sodium Chloride 10 Ml Syringe) 10 ml IV Q8 [facility] Last Admin: 06/16/21 05:14 Dose: 10 ml Documented by: Vitamin D (Vitamin D3 125 Mcg Tablet) 125 mcg PO DAILY [facility] Last Admin: 06/15/21 09:25 Dose: 125 mcg Documented by: A/P Narrative A/P Narrative: A: *COVID-19 pneumonia w/ARDS: *Acute hypoxic respiratory failure: Slow recovery -down to 4L at rest -no PE on CTA *Left sided tension pneumothorax: s/p left sided chest tube placement by r adiologist (06/14) -small amount of blood output from the chest tube overnight *?Pulmonary Fibrosis: *Hypokalemia: resolved *Brief syncopal episode: likely vasovagal. Resolved *GERD: Plan: -Remdesivir(finished)/dexamethasone(finished), s/p Actemra -Chest tube, serial cxr, -Surgery Consult -wean O2, poor reserve but improved -Mobilization/proning/oob to chair -IS/Acapella/RT, prn nebs -CM for placement -ppx: Lovenox switched to SCD d/t small amount of blood from chest tube, switch back if/when no bleeding / home ppi Code status: Time Spent With Patient Time: Total time spent is greater than 50% in coordination of care (as documented) at patient's floor/unit and/or counseling patient: QUALITY Stroke Symptom Onset Unknown: No
[2021-06-16] MEDS: POLYETHYLENE GLYCOL 3350 17 GM PACKET PO SCH (10:00)
[2021-06-16] MEDS: MULTIVIT,THER IRON,CA,FA & MIN 1 TABLET PO SCH (10:00)
[2021-06-16] MEDS: VITAMIN D3 125 MCG TABLET PO SCH (10:00)
[2021-06-16] MEDS: DOCUSATE SODIUM 100 MG CAPSULE PO SCH ×2 (10:00→20:14)
--- NOTE | 2021-06-16 10:17 | General Surgery Consult Note ---
HPI Data of Consult Patient: new to practice Consult date: 06/16/21 Requesting physician: Eddie Zamora Primary Care Provider: Polo Luz Consult Narrative Patient Information: Note initiated : 06/16/21 at 10:11 am Service Date, if different from initiated Date: [] Patient: Abiel Rae 75 y/o M admitted on 05/30/21 for Covid, sob. Chief Complaint: [] This is a pleasant 75-year-old gentleman who presented approximately 2 to 3 week s ago with Covid type symptoms, he was initially sent home on oxygen and represented with extremely low saturations. Patient was admitted to the hospital and placed on Covid therapy including oxygen and monoclonal antibodies. Patient had some days of extreme respiratory difficulty, he was gradually getting better and about ready to go to rehab where 2 days ago he had an acute onset of increased shortness of breath, chest CT was significant for a left- sided tension pneumothorax. Pigtail tube was placed by radiology with good expansion of the chest. He was placed on a Heimlich valve and initially had full reexpansion of the lung, however on today's x-ray patient shows a recurrent pneumothorax. I was asked to see the patient to help with the chest tube management. Reason for consult: Pneumothorax. cc:: CC: Aravind Light Review of Systems Review of systems: All systems are reviewed, negative other than above PFSH PFSH All Active Problems Spontaneous tension pneumothorax (Acute) Hyperkalemia (Acute) Malleolar fracture (Acute) Pneumonia due to 2019 novel coronavirus (Acute) COVID-19 (Acute) Acute hypoxemic respiratory failure (Acute) Carpal tunnel syndrome on both sides (Chronic) GERD (gastroesophageal reflux disease) (Chronic) Biceps tendinitis of right shoulder (Acute) Carpal tunnel syndrome of right wrist (Chronic) History of foot surgery (Chronic) History of colonoscopy (Chronic) History of back surgery (Chronic) History of arthroscopy (Chronic) Seborrheic keratosis (Chronic) Lumbar disc disease (Chronic) Hyperlipidemia (Chronic) Erectile dysfunction (Chronic) Derangement of knee (Chronic) Degenerative disc disease (Chronic) Chronic back pain (Chronic) Arthralgia (Chronic) Actinic keratosis (Chronic) Medical History Actinic keratosis Arthralgia Chronic back pain letter to [facility] - see comments Degenerative disc disease Derangement of knee Meniscus Erectile dysfunction Hyperlipidemia Lumbar disc disease Seborrheic keratosis Surgical History History of arthroscopy 1979 L knee History of back surgery History of colonoscopy 1996 benign polyps History of foot surgery left Family History Mother Type 2 diabetes mellitus Cerebrovascular accident (CVA) Father Disorder of liver Disease of lung Unknown Hyperlipidemia Social History marital status: frequency: other details: Exercises regularly alcohol intake frequency: does not drink substance use type: does not use MEDS/ALLERGIES Home Medications and Allergies Home Medications Medication Instructions Recorded Confirmed Type right wrist cock-up splint #1 each 02/25/16 05/31/21 Rx omeprazole 20 mg tablet,delayed 20 mg PO QAM 10/08/16 05/30/21 History release Adult One Daily Multivitamin 1 tab PO DAILY 05/30/21 05/30/21 History Allergies Allergy/AdvReac Type Severity Reaction Status Date / Time latex Allergy Unknown Unknown Verified 05/30/21 10:18 Amoxicillin AdvReac Intermediate rash/hives Verified 05/30/21 10:18 Physical Examination Vital Signs Vital signs: Temp Pulse Resp BP Pulse Ox 97.4 F 73 32 H 131/104 90 06/16/21 08:00 06/16/21 09:00 06/16/21 10:00 06/16/21 10:00 06/16/21 10:00 General physical appearance General physical exam: well developed, well nourished and no distress Eyes Eye exam: PERRL and normal ocular movement ENT ENT exam: normal pinna, normal nares, normal mucosa, no hearing loss and no congestion Head Head exam IM: Present atraumatic and normocephalic Neck Neck exam: no masses, no bruits, trachea midline, no lymphadenopathy and no venous distension Cardiovascular Cardiovascular exam IM: Present normal rate and rhythm Respiratory Respiratory exam: normal expansion, normal respiratory effort and other (Left- sided pigtail catheter to Heimlich valve) Respiratory exam: dullness: right and wheezing: right Abdomen Abdomen: Present soft, non tender and bowel sounds Hernia: Present none Genitourinary Genitourinary (Male): Present normal penis with no external lesions Rectum Rectum: Present normal sphincter tone, no hemorrhoids, no tenderness, no masses and no bleeding Integumentary Integumentary: Present no rash, no growths and no abnormal pigmentation Neurologic Neurologic: Present normal coordination and normal sensation Musculoskeletal Musculoskeletal: Present normal gait and normal posture Psychiatric Psychiatric: Present oriented to time, oriented to person, oriented to place, speech is normal and memory intact Results Labs Result diagrams: 06/15/21 05:32 06/15/21 05:32 Labs: All other labs normal. Imaging Chest x-ray: image reviewed (Recurrent pneumothorax) CT scan - abdomen: image reviewed (CTA of the chest with tension pneumothorax) A/P Assessment and plan (1) Spontaneous tension pneumothorax: Assessment and plan: This is a pleasant 75-year-old gentleman with severe Covid pneumonia who developed a pneumothorax on the left side status post pigtail catheter by radiology and placed on Heimlich valve. Repeat x-ray this morning shows reaccumulation of a small pneumothorax. Recommendations: Pigtail catheter to pneumo vac, 20 mm of water suction. Recommend leaving for 48 hours and if no reaccumulation of pneumothorax on chest x-ray can try waterseal. Thank you very much for this consultation. Please call with any further questions. Dr. Frank to take over care of patient tomorrow. Status: Acute (2) Pneumonia due to 2019 novel coronavirus: Status: Acute (3) Acute hypoxemic respiratory failure: Status: Acute Time Spent With Patient Time: Total time spent is greater than 50% in coordination of care (as documented) at patient's floor/unit and/or counseling patient:
--- NOTE | 2021-06-16 13:53 | XRay Report ---
CLINICAL INFORMATION: Follow up Covid pneumonia COMPARISON: 06/15/2021. TECHNIQUE: PA and Lateral views FINDINGS: The heart size, mediastinum and pulmonary vessels are unremarkable. Moderate infiltrates in the periphery of both lungs are unchanged from yesterday. Left pneumothorax has increased in size now approximately 20%. Left chest tube remains in satisfactory position in the lateral left pleural space. No effusions. IMPRESSION: Moderate infiltrates in periphery of both lungs unchanged. Worsening left pneumothorax estimated to be 20%. Suggest the chest tube be taken off the Heimlich valve and placed to low suction. Interpreted and Authenticated by: Jakub Roberson 06/16/21
[2021-06-16] MEDS: guaiFENesin/CODEINE 10 ML UDC PO PRN (20:14)
[2021-06-16] MEDS: SENNOSIDES/DOCUSATE SODIUM 1 TAB TABLET PO SCH (20:14)
[2021-06-16] MEDS: ACETAMINOPHEN 325 MG TABLET PO PRN (20:14)
[2021-06-17] MEDS: OMEPRAZOLE 20 MG CAPSULE PO SCH (07:09)
[2021-06-17] MEDS: 0.9 % SODIUM CHLORIDE 10 ML SYRINGE IV SCH ×3 (07:10→20:47)
--- NOTE | 2021-06-17 07:46 | Internal Med Progress Note ---
SUBJECTIVE Subjective Patient information: Note initiated : 06/17/21 at 7:41 am Service Date, if different from initiated Date: [] Patient: Abiel Rae a 75 y/o M admitted on 05/30/21 for Covid, sob. Chief Complaint: [] Principal diagnosis: CoVID pneumonia Interval history: Interval history: Mr. Rae is a 75 year old M with no prior significant medical history who presents to the ER with worsening shortness of breath over the last few weeks. Patient was diagnosed with Covid on the and was discharged home on oxygen however he was discovered by his neighbor very short of breath and subsequently EMS was summoned. Patient was found to be desaturating in mid 80s. He was brought into the ER. Initial work-up was consistent with bilateral Covid pneumonia. Patient was found dexamethasone and subsequently hospitalist service was consulted. At the time of my evaluation patient is alert and able to answer most the questions. He was able to endorse history as above. He denies hemoptysis, diarrhea, abdominal pain, headache lightheadedness but endorses to weakness fatigue loss of appetite along with malaise. 05/31-patient clinically deteriorating. Now requiring 65% FiO2 at 35 L high flow oxygen. Worsening Covid pneumonia with possible element of ARDS. Status post Actemra. Continuing remdesivir/dexamethasone day two. Remains very high risk mortality. No overnight fever chills. Continue diurese/thrombosis prophylaxis. Maintain COVID-19 precaution. Check x-ray/ABGs 06/01 worsening interval chest imaging, however clinically feels better. On high flow oxygen 30 L. White count 8.6, platelets 133, continuing remdesivir/dexamethasone/azithromycin. No overnight events including fever chills. Alert and respond to commands, no anxiety or concerns per staff 06/02-patient this morning experienced syncopal episode while sitting in a chair. Was found in a near unresponsive state with blood pressure in the 80s. Placed on bed. Continue examination unremarkable. Patient returned to normal sensorium shortly. Denies chest pain, shortness of breath. [place] back at baseline within minutes. Was incontinent of stool on chair. White count 5.6, potassium 3.2 on replacement, creatinine 0.9. Lower diuretic dose to 20 mg daily, continue remdesivir/dexamethasone. On 30 L high flow 65% FiO2. Remains critically ill 06/03-patient critically ill. Worsening hypoxia now on 70 L oxygen high flow. Patient seen in room. Grieving from loss of his . No telemetry events. No fever chills. Systolics mid 80s. Diuretics discontinued. On remdesivir/dexamethasone day 5. 06/04-patient clinically deteriorating. Seen in room. Desats on minimal activity. Now on 80% FiO2. High risk mortality. On day 6 remdesivir/dexamethasone. Potassium 4.1, LFTs downtrending, interval chest im aging evidence of subcutaneous emphysema. Repeat interval chest imaging at 1 PM rule out spontaneous pneumothorax Continue close monitoring in ICU. Avoid noninvasive ventilation due to risk of pneumothorax 06/05-patient seen in room, clinically deteriorating. Remarkably short of breath now on 35% FiO2. Desats to mid 80s on minimal exertion. Continuing dexamethasone/remdesivir. No telemetry events. Stable labs and hemodynamics. No overnight fever chills or concerns per staff. Remains a high risk mortality based on [place] 2 score. Interval chest imaging worsening bilateral infiltrates , No evidence of pneumothorax, decreased subcutaneous emphysema. 06/06 Patient not vaccinated. Patient states he feels like he is breathing better. Has a dry cough. Oxygen at 35 L/min 75% FiO2. 06/07 Patient is cough is improving. Shortness of breath seems amenable to him. He was taken to CT on a nonrebreather and he feels like he can breathe much easier on the nonrebreather than the Vapotherm and his oxygen saturations are quite good on the nonrebreather. We will also try Ventimask. 06/08 Patient states he is feeling better and breathing better but still requiring a lot of oxygen. We are able to get him down to 6 L oxygen mask yesterday for short period but is essentially been on 12-15 through the afternoon and evening. Currently on 12 L. And sats well at rest but with any movement desats quickly. 06/09 Patient on oxygen mask at 12 L and not on high flow tubing. Patient replaced on high flow tubing and liters nasal cannula. Sound little bit wheezy will have a breathing treatment ordered. Patient has a mild cough, he does have some shortness of breath with exertion feels about the same. 06/10 Continues to feel well. He is on 6 L oxygen mask at rest but desats with act ivity and is on 9L at that point. He is making progress but slowly. 06/11: Afebrile overnight. Still on 6L/min oxygen at rest and up to 9L/min when ambulate. c/o improving degree of SOB. c/o nonproductive cough. Denies wheezing or chest pain. Denies fever, chills, or sweating. Good energy level, good appetite. 06/12: Afebrile overnight. Still on 9L/min oxygen at the moment. c/o improving degree of SOB. c/o nonproductive cough. Denies wheezing or chest pain. Denies fever, chills, or sweating. Good energy level, good appetite. 06/13: Afebrile overnight. Still on 9L/min oxygen at the moment. c/o improving degree of SOB. c/o nonproductive cough. Denies wheezing or chest pain. Denies fever, c hills, or sweating. Good energy level, good appetite. 06/14: Afebrile overnight. Was on 6L/min oxygen overnight, now on 10L/min. c/o improving degree of SOB. c/o nonproductive cough. Denies wheezing or chest pain. Denies fever, chills, or sweating. Good energy level, good appetite. 06/15: Developed left sided tension pneumothorax yesterday afternoon, s/p left sided chest tube placement by radiologist. On 4L/min overnight and currently. Have 5cc blood output from the chest tube overnight. Denies any SOB. Denies any cough or wheezing. Denies any chest pain. Denies any anxiety. Denies any fever, chills, or sweating. 06/16 Patient states he is feeling better today. Mild cough and improving shortness of breath. Chest x-ray with moderate recurrent pneumothorax, will consult surgery, patient placed on Pleur-evac. About 10 cc of blood about the chest tube overnight. 06/17 No change per patient today feeling same. Pneumothorax has not improved today in fact slightly worse, suspect blockage of the chest tube. Will defer further recommendations to surgery. Otherwise oxygen requirement still remains low 4-5L. Review of Systems: denies headache/fever/chills/nausea/vomiting/chest or abdominal pain/diarrhea. Otherwise see above. Constitutional Vitals: Vital Signs Temp Pulse Resp BP Pulse Ox 97.8 F 77 26 H 111/79 94 06/17/21 04:00 06/17/21 06:00 06/17/21 06:00 06/17/21 06:00 06/17/21 07:34 Period Temp Pulse Resp BP Sys/Guan Pulse Ox Last 24 Hr 97.3 F-97.8 F 67-99 19-41 98-131/66-104 90-100 Intake and Output 06/16/21 06/17/21 06/17/21 21:59 05:59 13:59 Intake Total 420 Output Total 30 Balance 420 -30 Weight 79.197 kg Intake & Output: Intake & Output 06/16/21 06/17/21 06/17/21 21:59 05:59 13:59 Intake Total 420 Output Total 30 Balance 420 -30 Weight 79.197 kg Intake: Oral 420 Output: Chest Tube Drainage 30 Left Upper 30 Other: Meal Dinner Percent of Meal Consumed 100% Feeding Ability Assist with Tray Set Up Exam: General: Alert, Awake, No acute Distress Eyes/N/T: EOMI, Head/Neck: neck supple, CV: RRR, No murmurs. Left side chest tube Pulm: Mild fine rales, no wheeze, no rhonchi Abd: soft, nontender, +BS x4 Ext: no clubbing/cyanosis/edema Neuro: Alert, no focal deficits, moves all extremities, Skin: warm/dry OBJ DATA Labs CBC & Chem 7: 06/15/21 05:32 06/15/21 05:32 Labs: Abnormal Lab Results 06/15/21 06/14/21 05:32 06:04 MPV 10.5 H Lymph # (Auto) 1.43 L BUN 26 H Meds: Medications Acetaminophen (Acetaminophen 325 Mg Tablet) 650 mg PO Q4-6HP PRN; Protocol PRN Reason: Per Pain Protocol/Fever > 101 Last Admin: 06/16/21 20:14 Dose: 650 mg Documented by: Albuterol/Ipratropium (Ipratropium/Albuterol 3 Ml Ampul.Neb) 3 ml NEB Q4HP PRN PRN Reason: Shortness Of Breath Last Admin: 06/14/21 08:30 Dose: 3 ml Documented by: Benzonatate (Benzonatate 100 Mg Capsule) 100 mg PO TIDP PRN PRN Reason: Cough Last Admin: 06/16/21 07:34 Dose: 100 mg Documented by: Bisacodyl (Bisacodyl 10 Mg Supp.Rect) 10 mg MT Q2-3DAYS PRN PRN Reason: Constipation Docusate Sodium (Docusate Sodium 100 Mg Capsule) 100 mg PO BID [facility] Last Admin: 06/16/21 20:14 Dose: 100 mg Documented by: Guaifenesin/Codeine Phosphate (Guaifenesin/Codeine 10 Ml Udc) 10 ml PO Q4HP PRN PRN Reason: Cough Last Admin: 06/16/21 20:14 Dose: 10 ml Documented by: Potassium Chloride 40 meq/ (Dextrose) 520 mls @ 130 mls/hr IV UD PRN PRN Reason: K+ = or < 3.5 Acetaminophen (Ofirmev) 650 mg in 65 mls @ 130 mls/hr IV Q6HP PRN; Protocol PRN Reason: Per Pain Protocol/Fever > 101 Magnesium Sulfate (Magnesium Sulfate) 2 gm in 50 mls @ 50 mls/hr IV UD PRN PRN Reason: MG = or < 1.7 Sodium Chloride (Sodium Chloride 0.9%) 1,000 mls @ 0 mls/hr IV .Q0M [facility] Ibuprofen (Ibuprofen 600 Mg Tablet) 600 mg PO QIDP PRN; Protocol PRN Reason: PAIN/FEVER > 101 Iron Carb/Multivit/Informix Developer/Folic Acid (Multivit,Ther Iron,Ca,Fa & Min 1 Tablet) 1 tab PO DAILY [facility] Last Admin: 06/16/21 10:00 Dose: 1 tab Documented by: Melatonin (Melatonin 3 Mg Tablet) 3 mg PO HSP PRN PRN Reason: Insomnia Morphine Sulfate (Morphine 4 Mg/Ml Vial) 4 mg IV Q4HP PRN; Protocol PRN Reason: Per Pain Protocol Nitroglycerin (Nitroglycerin 0.4 Mg Tab.Subl) 0.4 mg SL Q5M PRN PRN Reason: Chest Pain Last Admin: 06/14/21 10:02 Dose: 0.4 mg Documented by: Omeprazole (Omeprazole 20 Mg Capsule) 20 mg PO ACB [facility] Last Admin: 06/17/21 07:09 Dose: 20 mg Documented by: Ondansetron HCl (Ondansetron 4 Mg Odt Tablet) 4 mg SL Q4-6HP PRN; Protocol PRN Reason: Nausea And Vomiting Ondansetron HCl (Ondansetron 4 Mg/2 Ml Vial) 4 mg IV Q4-6HP PRN; Protocol PRN Reason: Nausea And Vomiting Oxycodone/Acetaminophen (Oxycodone/Apap 5/325mg Tablet) 1 tab PO Q6HP PRN; Protocol PRN Reason: Per Pain Protocol Polyethylene Glycol (Polyethylene Glycol 3350 17 Gm Packet) 17 gm PO DAILYP PRN PRN Reason: Constipation Last Admin: 06/15/21 16:49 Dose: 17 gm Documented by: Polyethylene Glycol (Polyethylene Glycol 3350 17 Gm Packet) 17 gm PO DAILY [facility] Last Admin: 06/16/21 10:00 Dose: 17 gm Documented by: Potassium/Phosphorus/Sodium (Neutra Phos 1 Packet) 2 packet PO ONCE PRN PRN Reason: For phosphorus less than 2.5 Senna/Docusate Sodium (Sennosides/Docusate Sodium 1 Tab Tablet) 1 tab PO HS [facility] Last Admin: 06/16/21 20:14 Dose: 1 tab Documented by: Sodium Chloride (0.9 % Sodium Chloride 10 Ml Syringe) 10 ml IV Q8 [facility] Last Admin: 06/17/21 07:10 Dose: 10 ml Documented by: Vitamin D (Vitamin D3 125 Mcg Tablet) 125 mcg PO DAILY [facility] Last Admin: 06/16/21 10:00 Dose: 125 mcg Documented by: A/P Narrative A/P Narrative: A: *COVID-19 pneumonia w/ARDS: *Acute hypoxic respiratory failure: Slow recovery -down to 4-5L -no PE on CTA *Left sided tension pneumothorax: s/p left sided chest tube placement by radiologist (06/14) -bloody chest tube outpt about 75cc per 24hr period *Pulmonary Fibrosis: *GERD: Plan: -Remdesivir(finished)/dexamethasone(finished), s/p Actemra -Chest tube, per surgery -Surgery following -wean O2, poor reserve but improved -Mobilization/proning/oob to chair -IS/Acapella/RT, prn nebs -CM for placement to [facility] when PTX improved -ppx: Lovenox switched to SCD d/t small amount of blood from chest tube, switch back if/when no bleeding. home ppi Code status: Time Spent With Patient Time: Total time spent is greater than 50% in coordination of care (as documented) at patient's floor/unit and/or counseling patient: QUALITY Stroke Symptom Onset Unknown: No
--- NOTE | 2021-06-17 08:21 | XRay Report ---
HISTORY: COVID pneumonia, follow-up left-sided pneumothorax FINDINGS: There is a moderate size left-sided pneumothorax. There is a Heimlich chest tube located laterally in the left upper thorax. The pneumothorax continues to increase in volume compared with the prior studies done on 06/16 and 06/15/2021. It is smaller than was seen on 06/14/21, before the chest tube insertion. There is no mediastinal shift. Patient has underlying severe infiltrates in both lungs. Heart size is normal. No pleural effusion is present. IMPRESSION: Slowly enlarging left-sided pneumothorax and stable pneumonia Interpreted and Authenticated by: Surinder Monet 06/17/21
[2021-06-17] MEDS: VITAMIN D3 125 MCG TABLET PO SCH (09:00)
[2021-06-17] MEDS: DOCUSATE SODIUM 100 MG CAPSULE PO SCH ×2 (09:00→20:47)
[2021-06-17] MEDS: MULTIVIT,THER IRON,CA,FA & MIN 1 TABLET PO SCH (09:00)
[2021-06-17] MEDS: POLYETHYLENE GLYCOL 3350 17 GM PACKET PO SCH (09:00)
[2021-06-17] MEDS: BENZONATATE 100 MG CAPSULE PO PRN ×3 (09:03→22:31)
--- NOTE | 2021-06-17 09:26 | Discharge Summary ---
Discharge Provider Provider Patient information: Note initiated : 06/17/21 at 9:24 am Service Date, if different from initiated Date: [] Patient: Abiel Rae a 75 y/o M admitted on 05/30/21 for Covid, sob. Chief Complaint: [] Date of admission: 05/30/21 15:46 Primary care physician: Polo Luz Consults: 05/30/21 Consult to Physician [CONS] Stat Comment: Consulting Provider: Aravind Light Reason For Exam: Physician to Consult 06/16/21 10:16 Consult to Physician [CONS] Routine Comment: recurrent PTX Consulting Provider: Malik Aguilar Reason For Exam: Physician to Consult Discharge Meds Discharge Medications Home Medications right wrist cock-up splint #1 each 02/25/16 [Rx Confirmed 05/31/21 Last Taken Unknown] omeprazole 20 mg tablet,delayed release 20 mg PO QAM 10/08/16 [History Confirmed 05/30/21 Last Taken 02/22/18] Adult One Daily Multivitamin 1 tab PO DAILY 05/30/21 [History Confirmed 05/30/21 Last Taken Unknown] COURSE Hospital Course Hospital course: Mr. Rae is a 75 year old M with no prior significant medical history who presents to the ER with worsening shortness of breath over the last few weeks. Patient was diagnosed with Covid on the and was discharged home on oxygen however he was discovered by his neighbor very short of breath and subsequently EMS was summoned. Patient was found to be desaturating in mid 80s. He was brought into the ER. Initial work-up was consistent with bilateral Covid pneumonia. Patient was found dexamethasone and subsequently hospitalist service was consulted. At the time of my evaluation patient is alert and able to answer most the questions. He was able to endorse history as above. He denies hemoptysis, diarrhea, abdominal pain, headache lightheadedness but endorses to weakness fatigue loss of appetite along with malaise. 05/31-patient clinically deteriorating. Now requiring 65% FiO2 at 35 L high flow oxygen. Worsening Covid pneumonia with possible element of ARDS. Status post Actemra. Continuing remdesivir/dexamethasone day two. Remains very high risk mortality. No overnight fever chills. Continue diurese/thrombosis prophylaxis. Maintain COVID-19 precaution. Check x-ray/ABGs 12/4 worsening interval chest imaging, however clinically feels better. On high flow oxygen 30 L. White count 8.6, platelets 133, continuing remdesivi r/dexamethasone/azithromycin. No overnight events including fever chills. Alert and respond to commands, no anxiety or concerns per staff 06/02-patient this morning experienced syncopal episode while sitting in a chair. Was found in a near unresponsive state with blood pressure in the 80s. Placed on bed. Continue examination unremarkable. Patient returned to normal sensorium shortly. Denies chest pain, shortness of breath. [place] back at baseline within minutes. Was incontinent of stool on chair. White count 5.6, potassium 3.2 on replacement, creatinine 0.9. Lower diuretic dose to 20 mg daily, continue remdesivir/dexamethasone. On 30 L high flow 65% FiO2. Remains critically ill 06/03-patient critically ill. Worsening hypoxia now on 70 L oxygen high flow. Patient seen in room. Grieving from loss of his . No telemetry events. No fever chills. Systolics mid 80s. Diuretics discontinued. On remdesivir/dexamethasone day 5. 06/04-patient clinically deteriorating. Seen in room. Desats on minimal activity. Now on 80% FiO2. High risk mortality. On day 6 remdesivir/dexamethasone. Potassium 4.1, LFTs downtrending, interval chest imaging evidence of subcutaneous emphysema. Repeat interval chest imaging at 1 PM rule out spontaneous pneumothorax Continue close monitoring in ICU. Avoid noninvasive ventilation due to risk of pneumothorax 06/05-patient seen in room, clinically deteriorating. Remarkably short of breath now on 35% FiO2. Desats to mid 80s on minimal exertion. Continuing dexamethasone/remdesivir. No telemetry events. Stable labs and hemodynamics. No overnight fever chills or concerns per staff. Remains a high risk mortality based on [place] 2 score. Interval chest imaging worsening bilateral infiltrates, No evidence of pneumothorax, decreased subcutaneous emphysema. 06/06 Patient not vaccinated. Patient states he feels like he is breathing better. Has a dry cough. Oxygen at 35 L/min 75% FiO2. 06/07 Patient is cough is improving. Shortness of breath seems amenable to him. He was taken to CT on a nonrebreather and he feels like he can breathe much easier on the nonrebreather than the Vapotherm and his oxygen saturations are quite good on the nonrebreather. We will also try Ventimask. 06/08 Patient states he is feeling better and breathing better but still requiring a lot of oxygen. We are able to get him down to 6 L oxygen mask yesterday for short period but is essentially been on -15 through the afternoon and evening. Currently on 12 L. And sats well at rest but with any movement desats quickly. 06/09 Patient on oxygen mask at 12 L and not on high flow tubing. Patient replaced on high flow tubing and liters nasal cannula. Sound little bit wheezy will have a breathing treatment ordered. Patient has a mild cough, he does have some shortness of breath with exertion feels about the same. 06/10 Continues to feel well. He is on 6 L oxygen mask at rest but desats with activity and is on 9L at that point. He is making progress but slowly. 06/11: Afebrile overnight. Still on 6L/min oxygen at rest and up to 9L/min when ambulate. c/o improving degree of SOB. c/o nonproductive cough. Denies wheezing or chest pain. Denies fever, chills, or sweating. Good energy level, good appetite. 06/12: Afebrile overnight. Still on 9L/min oxygen at the moment. c/o improving degree of SOB. c/o nonproductive cough. Denies wheezing or chest pain. Denies fever, chills, or sweating. Good energy level, good appetite. 06/13: Afebrile overnight. Still on 9L/min oxygen at the moment. c/o improving degree of SOB. c/o nonproductive cough. Denies wheezing or chest pain. Denies fever, chills, or sweating. Good energy level, good appetite. 06/14: Afebrile overnight. Was on 6L/min oxygen overnight, now on 10L/min. c/o improving degree of SOB. c/o nonproductive cough. Denies wheezing or chest pain. Denies fever, chills, or sweating. Good energy level, good appetite. 06/15: Developed left sided tension pneumothorax yesterday afternoon, s/p left sided chest tube placement by radiologist. On 4L/min overnight and currently. Have 5cc blood output from the chest tube overnight. Denies any SOB. Denies any cough or wheezing. Denies any chest pain. Denies any anxiety. Denies any fever, chills, or sweating. 06/16 Patient states he is feeling better today. Mild cough and improving shortness of breath. Chest x-ray with moderate recurrent pneumothorax, will consult surgery, patient placed on suction. About 10 cc of blood about the chest tube overnight. A: *COVID-19 pneumonia w/ARDS: *Acute hypoxic respiratory failure: Slow recovery -down to 4L NC @rest -no PE on CTA *Left sided tension pneumothorax: s/p left sided chest tube placement by radiologist (06/14) -small amount of blood output from the chest tube overnight first 48hrs -placed to suction on 06/16 by surgeon *Pulmonary Fibrosis: *GERD: Discharge diagnosis: Covid pneumonia ARDS acute hypoxic respite failure tension pneumothorax Secondary discharge diagnosis: GERD Time Spent with Patient Time attestation: Total time spent providing and/or coordinating discharge services: Time spent: Greater than 30 minutes EXAM Constitutional Vitals: Temp Pulse Resp BP Pulse Ox 97.2 F 84 30 H 109/82 95 06/17/21 08:00 06/17/21 08:00 06/17/21 08:00 06/17/21 08:00 06/17/21 08:00 Discharge Plan Patient/Caregiver Discharge Instructions Activity: increase activity as tolerated Diet: Regular Diet Prescriptions: Continued (DME) right wrist cock-up splint Qty: 1 0RF Rx Instructions: wear splint during any activities. omeprazole 20 MG tablet,delayed release (DR/EC) 20 mg PO QAM 0RF Adult One Daily Multivitamin 1 tab PO DAILY 0RF Follow Up Plan Follow up with: Polo Luz MD [Primary Care Provider] - Patient Disposition: [facility] Prognosis: Fair
[2021-06-17] MEDS: ACETAMINOPHEN 325 MG TABLET PO PRN ×2 (17:12→22:30)
--- NOTE | 2021-06-17 18:48 | General Surgery Progress Note ---
SUBJECTIVE Subjective Patient information: Note initiated : 06/17/21 at 6:43 pm Service Date, if different from initiated Date: [] Patient: Abiel Rae 75 y/o M admitted on 05/30/21 for Covid, sob. Chief Complaint: [Spontaneous Pneumothorax] Feels well today, denies substantial SOB. Resting sats are 96-97% on 2-3L/min Principal diagnosis: CoVID pneumonia Constitutional Vitals: Vital Signs Temp Pulse Resp BP Pulse Ox 98.2 F 94 H 31 H 109/79 90 06/17/21 16:04 06/17/21 18:03 06/17/21 18:03 06/17/21 18:03 06/17/21 18:03 Period Temp Pulse Resp BP Sys/Guan Pulse Ox Last 24 Hr 97.2 F-98.2 F 75-99 19-41 99-127/66-103 90-100 Intake and Output 06/17/21 06/17/21 06/17/21 05:59 13:59 21:59 Intake Total 730 720 Output Total 30 250 300 Balance -30 480 420 Intake & Output: Intake & Output 06/17/21 06/17/21 06/17/21 05:59 13:59 21:59 Intake Total 730 720 Output Total 30 250 300 Balance -30 480 420 Intake: Oral 730 720 Output: Chest Tube Drainage 30 75 Left Upper 30 75 Void Amount 250 225 Other: Meal Breakfast Percent of Meal Consumed 75% Feeding Ability Independent General appearance: cooperative and no acute distress Exam: awake and fully conversant Respiratory Additional comments: CT to suction with intermittent air leak and to provocative maneuvering. No evidence of respiratory distress A/P Narrative A/P Narrative: Spontaneous Pneumothorax CXR today showed a more substantial moderate Left Sided Pneumo. Re check CXR again in am - if substantial improvement, then will leave to suction for a lengthier period of time but if lung down further, then will likely need revision of his current Anterior Thoracostomy Tube Time Spent With Patient Time: Total time spent is greater than 50% in coordination of care (as documented) at patient's floor/unit and/or counseling patient:
[2021-06-17] MEDS: SENNOSIDES/DOCUSATE SODIUM 1 TAB TABLET PO SCH (20:47)
[2021-06-17] MEDS: guaiFENesin/CODEINE 10 ML UDC PO PRN (20:47)
[2021-06-18] MEDS: 0.9 % SODIUM CHLORIDE 10 ML SYRINGE IV SCH ×3 (05:05→21:53)
--- NOTE | 2021-06-18 07:50 | Internal Med Progress Note ---
SUBJECTIVE Subjective Patient information: Note initiated : 06/18/21 at 7:47 am Service Date, if different from initiated Date: [] Patient: Abiel Rae a 75 y/o M admitted on 05/30/21 for Covid, sob. Chief Complaint: [] Principal diagnosis: CoVID pneumonia Interval history: Interval history: Mr. Rae is a 75 year old M with no prior significant medical history who presents to the ER with worsening shortness of breath over the last few weeks. Patient was diagnosed with Covid on the and was discharged home on oxygen however he was discovered by his neighbor very short of breath and subsequently EMS was summoned. Patient was found to be desaturating in mid 80s. He was brought into the ER. Initial work-up was consistent with bilateral Covid pneumonia. Patient was found dexamethasone and subsequently hospitalist service was consulted. At the time of my evaluation patient is alert and able to answer most the questions. He was able to endorse history as above. He denies hemoptysis, diarrhea, abdominal pain, headache lightheadedness but endorses to weakness fatigue loss of appetite along with malaise. 05/31-patient clinically deteriorating. Now requiring 65% FiO2 at 35 L high flow oxygen. Worsening Covid pneumonia with possible element of ARDS. Status post Actemra. Continuing remdesivir/dexamethasone day two. Remains very high risk mortality. No overnight fever chills. Continue diurese/thrombosis prophylaxis. Maintain COVID-19 precaution. Check x-ray/ABGs 06/01 worsening interval chest imaging, however clinically feels better. On high flow oxygen 30 L. White count 8.6, platelets 133, continuing remdesivir/dexamethasone/azithromycin. No overnight events including fever chills. Alert and respond to commands, no anxiety or concerns per staff 06/02-patient this morning experienced syncopal episode while sitting in a chair. Was found in a near unresponsive state with blood pressure in the 80s. Placed on bed. Continue examination unremarkable. Patient returned to normal sensorium shortly. Denies chest pain, shortness of breath. Kendrick back at baseline within minutes. Was incontinent of stool on chair. White count 5.6, potassium 3.2 on replacement, creatinine 0.9. Lower diuretic dose to 20 mg daily, continue remdesivir/dexamethasone. On 30 L high flow 65% FiO2. Remains critically ill 06/03-patient critically ill. Worsening hypoxia now on 70 L oxygen high flow. Patient seen in room. Grieving from loss of his . No telemetry events. No fever chills. Systolics mid 80s. Diuretics discontinued. On remdesivir/dexamethasone day 5. 06/04-patient clinically deteriorating. Seen in room. Desats on minimal activity. Now on 80% FiO2. High risk mortality. On day 6 remdesivir/dexamethasone. Potassium 4.1, LFTs downtrending, interval chest im aging evidence of subcutaneous emphysema. Repeat interval chest imaging at 1 PM rule out spontaneous pneumothorax Continue close monitoring in ICU. Avoid noninvasive ventilation due to risk of pneumothorax 06/05-patient seen in room, clinically deteriorating. Remarkably short of breath now on 35% FiO2. Desats to mid 80s on minimal exertion. Continuing dexamethasone/remdesivir. No telemetry events. Stable labs and hemodynamics. No overnight fever chills or concerns per staff. Remains a high risk mortality based on [place] 2 score. Interval chest imaging worsening bilateral infiltrates , No evidence of pneumothorax, decreased subcutaneous emphysema. 06/06 Patient not vaccinated. Patient states he feels like he is breathing better. Has a dry cough. Oxygen at 35 L/min 75% FiO2. 06/07 Patient is cough is improving. Shortness of breath seems amenable to him. He was taken to CT on a nonrebreather and he feels like he can breathe much easier on the nonrebreather than the Vapotherm and his oxygen saturations are quite good on the nonrebreather. We will also try Ventimask. 06/08 Patient states he is feeling better and breathing better but still requiring a lot of oxygen. We are able to get him down to 6 L oxygen mask yesterday for short period but is essentially been on 12-15 through the afternoon and evening. Currently on 12 L. And sats well at rest but with any movement desats quickly. 06/09 Patient on oxygen mask at 12 L and not on high flow tubing. Patient replaced on high flow tubing and liters nasal cannula. Sound little bit wheezy will have a breathing treatment ordered. Patient has a mild cough, he does have some shortness of breath with exertion feels about the same. 06/10 Continues to feel well. He is on 6 L oxygen mask at rest but desats with act ivity and is on 9L at that point. He is making progress but slowly. 06/11: Afebrile overnight. Still on 6L/min oxygen at rest and up to 9L/min when ambulate. c/o improving degree of SOB. c/o nonproductive cough. Denies wheezing or chest pain. Denies fever, chills, or sweating. Good energy level, good appetite. 06/12: Afebrile overnight. Still on 9L/min oxygen at the moment. c/o improving degree of SOB. c/o nonproductive cough. Denies wheezing or chest pain. Denies fever, chills, or sweating. Good energy level, good appetite. 06/13: Afebrile overnight. Still on 9L/min oxygen at the moment. c/o improving degree of SOB. c/o nonproductive cough. Denies wheezing or chest pain. Denies fever, c hills, or sweating. Good energy level, good appetite. 06/14: Afebrile overnight. Was on 6L/min oxygen overnight, now on 10L/min. c/o improving degree of SOB. c/o nonproductive cough. Denies wheezing or chest pain. Denies fever, chills, or sweating. Good energy level, good appetite. 06/15: Developed left sided tension pneumothorax yesterday afternoon, s/p left sided chest tube placement by radiologist. On 4L/min overnight and currently. Have 5cc blood output from the chest tube overnight. Denies any SOB. Denies any cough or wheezing. Denies any chest pain. Denies any anxiety. Denies any fever, chills, or sweating. 06/16 Patient states he is feeling better today. Mild cough and improving shortness of breath. Chest x-ray with moderate recurrent pneumothorax, will consult surgery, patient placed on Pleur-evac. About 10 cc of blood about the chest tube overnight. 06/17 No change per patient today feeling same. Pneumothorax has not improved today in fact slightly worse, suspect blockage of the chest tube. Will defer further recommendations to surgery. Otherwise oxygen requirement still remains low 4-5L. 06/18 No changes. Pneumothorax continues to enlarge, defer to surgery for likely chest tube replacement. Once the pneumothorax is resolved patient will go to [facility]. Review of Systems: denies headache/fever/chills/nausea/vomiting/chest or abdominal pain/diarrhea. Otherwise see above. Constitutional Vitals: Vital Signs Temp Pulse Resp BP Pulse Ox 97.7 F 81 30 H 114/56 100 06/18/21 04:02 06/18/21 06:01 06/18/21 06:01 06/18/21 06:01 06/18/21 06:01 Period Temp Pulse Resp BP Sys/Guan Pulse Ox Last 24 Hr 97.1 F-98.2 F 44-94 19-43 91-127/56-103 87-100 Intake and Output 06/17/21 06/18/21 06/18/21 21:59 05:59 13:59 Intake Total 720 Output Total 800 180 Balance -80 -180 Weight 78.88 kg Intake & Output: Intake & Output 06/17/21 06/18/21 06/18/21 21:59 05:59 13:59 Intake Total 720 Output Total 800 180 Balance -80 -180 Weight 78.88 kg Intake: Oral 720 Output: Chest Tube Drainage 75 30 Left Upper 75 30 Void Amount 725 150 Other: Meal Breakfast Percent of Meal Consumed 75% Feeding Ability Independent Urine Appearance Clear Urine Color Dark Yellow Dark Yellow Exam: General: Alert, Awake, No acute Distress Eyes/N/T: EOMI, Head/Neck: neck supple, CV: RRR, No murmurs. Left side chest tube Pulm: Mild fine rales, no wheeze, no rhonchi Abd: soft, nontender, +BS x4 Ext: no clubbing/cyanosis/edema Neuro: Alert, no focal deficits, moves all extremities, Skin: warm/dry OBJ DATA Labs CBC & Chem 7: 06/15/21 05:32 06/15/21 05:32 Meds: Medications Acetaminophen (Acetaminophen 325 Mg Tablet) 650 mg PO Q4-6HP PRN; Protocol PRN Reason: Per Pain Protocol/Fever > 101 Last Admin: 06/17/21 22:30 Dose: 650 mg Documented by: Albuterol/Ipratropium (Ipratropium/Albuterol 3 Ml Ampul.Neb) 3 ml NEB Q4HP PRN PRN Reason: Shortness Of Breath Last Admin: 06/14/21 08:30 Dose: 3 ml Documented by: Benzonatate (Benzonatate 100 Mg Capsule) 100 mg PO TIDP PRN PRN Reason: Cough Last Admin: 06/17/21 22:31 Dose: 100 mg Documented by: Bisacodyl (Bisacodyl 10 Mg Supp.Rect) 10 mg DC Q2-3DAYS PRN PRN Reason: Constipation Docusate Sodium (Docusate Sodium 100 Mg Capsule) 100 mg PO BID [facility] Last Admin: 06/17/21 20:47 Dose: 100 mg Documented by: Guaifenesin/Codeine Phosphate (Guaifenesin/Codeine 10 Ml Udc) 10 ml PO Q4HP PRN PRN Reason: Cough Last Admin: 06/17/21 20:47 Dose: 10 ml Documented by: Potassium Chloride 40 meq/ (Dextrose) 520 mls @ 130 mls/hr IV UD PRN PRN Reason: K+ = or < 3.5 Acetaminophen (Ofirmev) 650 mg in 65 mls @ 130 mls/hr IV Q6HP PRN; Protocol PRN Reason: Per Pain Protocol/Fever > 101 Magnesium Sulfate (Magnesium Sulfate) 2 gm in 50 mls @ 50 mls/hr IV UD PRN PRN Reason: MG = or < 1.7 Sodium Chloride (Sodium Chloride 0.9%) 1,000 mls @ 0 mls/hr IV .Q0M [facility] Ibuprofen (Ibuprofen 600 Mg Tablet) 600 mg PO QIDP PRN; Protocol PRN Reason: PAIN/FEVER > 101 Iron Carb/Multivit/Fashion Merchandiser/Folic Acid (Multivit,Ther Iron,Ca,Fa & Min 1 Tablet) 1 tab PO DAILY [facility] Last Admin: 06/17/21 09:00 Dose: 1 tab Documented by: Melatonin (Melatonin 3 Mg Tablet) 3 mg PO HSP PRN PRN Reason: Insomnia Morphine Sulfate (Morphine 4 Mg/Ml Vial) 4 mg IV Q4HP PRN; Protocol PRN Reason: Per Pain Protocol Nitroglycerin (Nitroglycerin 0.4 Mg Tab.Subl) 0.4 mg SL Q5M PRN PRN Reason: Chest Pain Last Admin: 06/14/21 10:02 Dose: 0.4 mg Documented by: Omeprazole (Omeprazole 20 Mg Capsule) 20 mg PO ACB [facility] Last Admin: 06/17/21 07:09 Dose: 20 mg Documented by: Ondansetron HCl (Ondansetron 4 Mg Odt Tablet) 4 mg SL Q4-6HP PRN; Protocol PRN Reason: Nausea And Vomiting Ondansetron HCl (Ondansetron 4 Mg/2 Ml Vial) 4 mg IV Q4-6HP PRN; Protocol PRN Reason: Nausea And Vomiting Oxycodone/Acetaminophen (Oxycodone/Apap 5/325mg Tablet) 1 tab PO Q6HP PRN; Protocol PRN Reason: Per Pain Protocol Polyethylene Glycol (Polyethylene Glycol 3350 17 Gm Packet) 17 gm PO DAILYP PRN PRN Reason: Constipation Last Admin: 06/15/21 16:49 Dose: 17 gm Documented by: Polyethylene Glycol (Polyethylene Glycol 3350 17 Gm Packet) 17 gm PO DAILY [facility] Last Admin: 06/17/21 09:00 Dose: 17 gm Documented by: Potassium/Phosphorus/Sodium (Neutra Phos 1 Packet) 2 packet PO ONCE PRN PRN Reason: For phosphorus less than 2.5 Senna/Docusate Sodium (Sennosides/Docusate Sodium 1 Tab Tablet) 1 tab PO HS [facility] Last Admin: 06/17/21 20:47 Dose: Not Given Documented by: Sodium Chloride (0.9 % Sodium Chloride 10 Ml Syringe) 10 ml IV Q8 [facility] Last Admin: 06/18/21 05:05 Dose: 10 ml Documented by: Vitamin D (Vitamin D3 125 Mcg Tablet) 125 mcg PO DAILY [facility] Last Admin: 06/17/21 09:00 Dose: 125 mcg Documented by: A/P Narrative A/P Narrative: A: *Left sided tension pneumothorax: s/p left sided chest tube placement by radiologist (06/14) -bloody chest tube outpt about 75cc per 24hr period -growing, likely needs replacement of chest tube *Pulmonary Fibrosis: *COVID-19 pneumonia w/ARDS: improved *Acute hypoxic respiratory failure: Slow recovery but overall much improved -down to 2.5-4L -no PE on CTA *GERD: Plan: -Chest tube, per surgery -Surgery following -Remdesivir(finished)/dexamethasone(finished), s/p Actemra -wean O2, poor reserve but improved -Mobilization/proning/oob to chair -IS/Acapella/RT, prn nebs -CM for placement to [facility] when PTX improved -ppx: Lovenox switched to SCD d/t small amount of blood from chest tube, switch back if/when no bleeding. home ppi Code status: Time Spent With Patient Time: Total time spent is greater than 50% in coordination of care (as documented) at patient's floor/unit and/or counseling patient: QUALITY Stroke Symptom Onset Unknown: No
[2021-06-18] MEDS: OMEPRAZOLE 20 MG CAPSULE PO SCH (08:03)
--- NOTE | 2021-06-18 08:34 | XRay Report ---
HISTORY: Follow-up left side pneumothorax FINDINGS: There is a moderately large left-sided pneumothorax. There is approximately 50% collapse. Moderate to severe alveolar infiltrates are present in both lungs with greatest consolidation in the left lower lobe. Some of the consolidation of the left lung may be atelectasis superimposed upon the underlying pneumonia. There is no mediastinal shift or pleural effusion. The heart size is normal. The Heimlich chest tube remains positioned laterally in the left upper thorax. Small amount of subcutaneous emphysema is seen along the left lateral chest wall. IMPRESSION: Slowly enlarging left-sided pneumothorax with approximately 50% collapse. Stable widespread bilateral pneumonia Interpreted and Authenticated by: Surinder Monet 06/18/21
[2021-06-18] MEDS: POLYETHYLENE GLYCOL 3350 17 GM PACKET PO SCH (10:02)
[2021-06-18] MEDS: VITAMIN D3 125 MCG TABLET PO SCH (10:02)
[2021-06-18] MEDS: DOCUSATE SODIUM 100 MG CAPSULE PO SCH ×2 (10:02→21:41)
[2021-06-18] MEDS: ACETAMINOPHEN 325 MG TABLET PO PRN ×2 (10:02→15:57)
[2021-06-18] MEDS: MULTIVIT,THER IRON,CA,FA & MIN 1 TABLET PO SCH (10:02)
[2021-06-18] MEDS: BENZONATATE 100 MG CAPSULE PO PRN ×2 (10:03→15:57)
--- NOTE | 2021-06-18 12:47 | XRay Report ---
HISTORY: Follow-up left-sided pneumothorax following flushing the Heimlich chest tube with sterile saline FINDINGS: The left-sided pneumothorax has diminished in volume compared with the earlier study done at 6:00 AM on the same date. It is now approximately 30-40% in volume. No pleural effusion is present. The severe widespread alveolar infiltrates remain stable. The heart size is normal. The Heimlich chest tube remains positioned laterally in the left upper thorax. Subcutaneous emphysema is unchanged. IMPRESSION: Improving left-sided pneumothorax following flushing the chest tube Interpreted and Authenticated by: Surinder Monet 06/18/21
--- NOTE | 2021-06-18 18:19 | XRay Report ---
HISTORY: Follow-up left-sided pneumothorax FINDINGS: There is a stable left-sided pneumothorax which is roughly 30-40% in volume. The Heimlich chest tube remains positioned laterally in the left upper thorax. No mediastinal shift or pleural effusion are present. The alveolar infiltrates are unchanged. The heart size is normal. Comparison with the prior exam done at 12:20 PM shows mild improvement of the pneumothorax over the lung apex.. IMPRESSION: Slowly improving left-sided pneumothorax Interpreted and Authenticated by: Surinder Monet 06/18/21
[2021-06-18] MEDS ORDERED: IOPAMIDOL 100 ML BOTTLE IV ONE (19:09)
--- NOTE | 2021-06-18 19:21 | Cat Scan Report ---
History: Worsening shortness of breath, pneumothorax, Covid Pneumonia TECHNIQUE: Following injection of intravenous nonionic contrast pulmonary arterial phase images were acquired. Sagittal, coronal and axial MIPS images were created. The radiation exposure was limited using dose reduction technology. FINDINGS: The pulmonary arteries are normal without evidence of emboli. There is a large left-sided pneumothorax with approximately 60% collapse of the lung. The Heimlich chest tube remains well-positioned in the pleural space laterally in the left upper thorax. Small amount of subcutaneous emphysema is present in the left anterolateral chest wall. Anterior mediastinum and heart are mildly deviated to the right. This represents a change from the prior exams. Severe peripheral infiltrates are present in both lungs. This has a honeycomb distribution. This may be a combination of Covid pneumonia with underlying pulmonary fibrosis. The heart size is normal. Small hiatus hernia is noted. IMPRESSION: Enlarging left-sided pneumothorax with mild deviation of the anterior mediastinum to the right. No evidence pulmonary emboli Severe pneumonia which may be a evolving into pulmonary fibrosis or there may be underlying pulmonary fibrosis. Dr. Zamora was called with the report Interpreted and Authenticated by: Surinder Monet 06/18/21
[2021-06-18] MEDS ORDERED: HYDROmorphone 0.5 MG/0.5 ML SYRINGE IV ONE ×2 (19:26→19:55)
[2021-06-18] MEDS ORDERED: HYDROmorphone 0.5 MG/0.5 ML SYRINGE ONE ×2 (19:35→20:02)
--- NOTE | 2021-06-18 20:30 | Procedure Note ---
PROC Chest Tube Chest Tube 1: Chest tube location: Mid-Axillary Chest Date of Procedure: 06/18/21 Size of tube: 20 Chest tube procedure: betadine prep (chloraprep ), sterile drapes applied and other Tube sutured to skin: Yes Sterile dressing applied: Yes Anesthesia: 1% Lidocaine Volume anesthetic (mLs): 12 Incision made with: other (#15) Post procedure: sutured to skin and sterile dressing applied Dickinson of air heard: Yes Tube Drainage: fluid (scant serosang fluid ) Amount of initial drainage (cc's): 20 Post procedure CXR?: Yes Patient tolerated procedure: Yes Progress: Immediate post procedure AP chest confirms good positioning Left Pleural Space with decreasing pneumothorax - air leak present in pleuravac
--- NOTE | 2021-06-18 20:38 | General Surgery Progress Note ---
SUBJECTIVE Subjective Patient information: Note initiated : 06/18/21 at 1900 Service Date, if different from initiated Date: [] Patient: Abiel Rae 75 y/o M admitted on 05/30/21 for Covid, sob. Chief Complaint: [Spontaneous Pneumothorax] Deterioration in breathing status and follow up CXR throughout the day today have demonstrated what appears to be a non resolving and perhaps worsening Left Sided PTX despite the current tube in place. We were asked to see him to place Chest Tube acutely this evening. Issues discussed with him and risks, benefits, potential complications and alternative treatment options were all discussed and reviewed at length. Principal diagnosis: CoVID pneumonia Constitutional Vitals: Vital Signs Temp Pulse Resp BP Pulse Ox 98.1 F 96 H 33 H 128/84 94 06/18/21 15:01 06/18/21 19:19 06/18/21 19:19 06/18/21 19:19 06/18/21 19:19 Period Temp Pulse Resp BP Sys/Guan Pulse Ox Last 24 Hr 97.0 F-98.1 F 44-108 19-47 91-130/56-100 85-100 Intake and Output 06/18/21 06/18/21 06/18/21 05:59 13:59 21:59 Intake Total 480 Output Total 180 250 150 Balance -180 230 -150 Intake & Output: Intake & Output 06/18/21 06/18/21 06/18/21 05:59 13:59 21:59 Intake Total 480 Output Total 180 250 150 Balance -180 230 -150 Intake: Nourishment/Supplement quantity 240 (ml) Oral 240 Output: Chest Tube Drainage 30 Left Upper 30 Void Amount 150 250 150 Other: Meal Breakfast Percent of Meal Consumed 5% Feeding Ability Independent Nourishment/Supplement name Ensure Urine Appearance Clear Urine Color Dark Yellow Dark Yellow Dark Yellow General appearance: cooperative and mild distress Respiratory Additional comments: able to converse but does seem winded and appears to be in some mild respiratory distress Cardiovascular Cardiovascular exam: Present RRR A/P Narrative A/P Narrative: Ongoing issues with incomplete re expansion of Left Lung despite previously placed anterior thoracostomy tube Agree with proceeding with formal bedside Tube Thoracostomy placement Issues reviewed with patient at length and he would like to proceed Time Spent With Patient Time: Total time spent is greater than 50% in coordination of care (as documented) at patient's floor/unit and/or counseling patient:
[2021-06-18] MEDS: SENNOSIDES/DOCUSATE SODIUM 1 TAB TABLET PO SCH (21:41)
[2021-06-18] MEDS: morphine 4 MG/ML VIAL IV PRN (22:32)
[2021-06-19] MEDS: BENZONATATE 100 MG CAPSULE PO PRN (04:54)
[2021-06-19] MEDS: oxyCODONE/APAP 5/325MG TABLET PO PRN (04:54)
[2021-06-19] MEDS: 0.9 % SODIUM CHLORIDE 10 ML SYRINGE IV SCH ×3 (05:33→22:29)
[2021-06-19] MEDS: ACETAMINOPHEN 325 MG TABLET PO PRN ×4 (06:46→19:15)
[2021-06-19] MEDS: OMEPRAZOLE 20 MG CAPSULE PO SCH (06:46)
[2021-06-19] MEDS: IBUPROFEN 600 MG TABLET PO PRN ×2 (06:50→12:10)
--- NOTE | 2021-06-19 07:16 | Internal Med Progress Note ---
SUBJECTIVE Subjective Patient information: Note initiated : 06/19/21 at 7:13 am Service Date, if different from initiated Date: [] Patient: Abiel Rae a 75 y/o M admitted on 05/30/21 for Covid, sob. Chief Complaint: [] Principal diagnosis: CoVID pneumonia Interval history: Interval history: Mr. Rae is a 75 year old M with no prior significant medical history who presents to the ER with worsening shortness of breath over the last few weeks. Patient was diagnosed with Covid on the and was discharged home on oxygen however he was discovered by his neighbor very short of breath and subsequently EMS was summoned. Patient was found to be desaturating in mid 80s. He was brought into the ER. Initial work-up was consistent with bilateral Covid pneumonia. Patient was found dexamethasone and subsequently hospitalist service was consulted. At the time of my evaluation patient is alert and able to answer most the questions. He was able to endorse history as above. He denies hemoptysis, diarrhea, abdominal pain, headache lightheadedness but endorses to weakness fatigue loss of appetite along with malaise. 05/31-patient clinically deteriorating. Now requiring 65% FiO2 at 35 L high flow oxygen. Worsening Covid pneumonia with possible element of ARDS. Status post Actemra. Continuing remdesivir/dexamethasone day two. Remains very high risk mortality. No overnight fever chills. Continue diurese/thrombosis prophylaxis. Maintain COVID-19 precaution. Check x-ray/ABGs 06/01 worsening interval chest imaging, however clinically feels better. On high flow oxygen 30 L. White count 8.6, platelets 133, continuing remdesivir/dexamethasone/azithromycin. No overnight events including fever chills. Alert and respond to commands, no anxiety or concerns per staff 06/02-patient this morning experienced syncopal episode while sitting in a chair. Was found in a near unresponsive state with blood pressure in the 80s. Placed on bed. Continue examination unremarkable. Patient returned to normal sensorium shortly. Denies chest pain, shortness of breath. [place] back at baseline within minutes. Was incontinent of stool on chair. White count 5.6, potassium 3.2 on replacement, creatinine 0.9. Lower diuretic dose to 20 mg daily, continue remdesivir/dexamethasone. On 30 L high flow 65% FiO2. Remains critically ill 06/03-patient critically ill. Worsening hypoxia now on 70 L oxygen high flow. Patient seen in room. Grieving from loss of his . No telemetry events. No fever chills. Systolics mid 80s. Diuretics discontinued. On remdesivir/dexamethasone day 5. 06/04-patient clinically deteriorating. Seen in room. Desats on minimal activity. Now on 80% FiO2. High risk mortality. On day 6 remdesivir/dexamethasone. Potassium 4.1, LFTs downtrending, interval chest im aging evidence of subcutaneous emphysema. Repeat interval chest imaging at 1 PM rule out spontaneous pneumothorax Continue close monitoring in ICU. Avoid noninvasive ventilation due to risk of pneumothorax 06/05-patient seen in room, clinically deteriorating. Remarkably short of breath now on 35% FiO2. Desats to mid 80s on minimal exertion. Continuing dexamethasone/remdesivir. No telemetry events. Stable labs and hemodynamics. No overnight fever chills or concerns per staff. Remains a high risk mortality based on [place] 2 score. Interval chest imaging worsening bilateral infiltrates , No evidence of pneumothorax, decreased subcutaneous emphysema. 06/06 Patient not vaccinated. Patient states he feels like he is breathing better. Has a dry cough. Oxygen at 35 L/min 75% FiO2. 06/07 Patient is cough is improving. Shortness of breath seems amenable to him. He was taken to CT on a nonrebreather and he feels like he can breathe much easier on the nonrebreather than the Vapotherm and his oxygen saturations are quite good on the nonrebreather. We will also try Ventimask. 06/08 Patient states he is feeling better and breathing better but still requiring a lot of oxygen. We are able to get him down to 6 L oxygen mask yesterday for short period but is essentially been on 12-15 through the afternoon and evening. Currently on 12 L. And sats well at rest but with any movement desats quickly. 06/09 Patient on oxygen mask at 12 L and not on high flow tubing. Patient replaced on high flow tubing and liters nasal cannula. Sound little bit wheezy will have a breathing treatment ordered. Patient has a mild cough, he does have some shortness of breath with exertion feels about the same. 06/10 Continues to feel well. He is on 6 L oxygen mask at rest but desats with act ivity and is on 9L at that point. He is making progress but slowly. 06/11: Afebrile overnight. Still on 6L/min oxygen at rest and up to 9L/min when ambulate. c/o improving degree of SOB. c/o nonproductive cough. Denies wheezing or chest pain. Denies fever, chills, or sweating. Good energy level, good appetite. 06/12: Afebrile overnight. Still on 9L/min oxygen at the moment. c/o improving degree of SOB. c/o nonproductive cough. Denies wheezing or chest pain. Denies fever, chills, or sweating. Good energy level, good appetite. 06/13: Afebrile overnight. Still on 9L/min oxygen at the moment. c/o improving degree of SOB. c/o nonproductive cough. Denies wheezing or chest pain. Denies fever, c hills, or sweating. Good energy level, good appetite. 06/14: Afebrile overnight. Was on 6L/min oxygen overnight, now on 10L/min. c/o improving degree of SOB. c/o nonproductive cough. Denies wheezing or chest pain. Denies fever, chills, or sweating. Good energy level, good appetite. 06/15: Developed left sided tension pneumothorax yesterday afternoon, s/p left sided chest tube placement by radiologist. On 4L/min overnight and currently. Have 5cc blood output from the chest tube overnight. Denies any SOB. Denies any cough or wheezing. Denies any chest pain. Denies any anxiety. Denies any fever, chills, or sweating. 06/16 Patient states he is feeling better today. Mild cough and improving shortness of breath. Chest x-ray with moderate recurrent pneumothorax, will consult surgery, patient placed on Pleur-evac. About 10 cc of blood about the chest tube overnight. 06/17 No change per patient today feeling same. Pneumothorax has not improved today in fact slightly worse, suspect blockage of the chest tube. Will defer further recommendations to surgery. Otherwise oxygen requirement still remains low 4-5L. 06/18 No changes. Pneumothorax continues to enlarge, defer to surgery for likely chest tube replacement. Once the pneumothorax is resolved patient will go to [facility]. 06/19 Large bore chest tube placed yesterday for enlarging pneumothorax, bloody drainage about 180 overnight. Patient feels like he is breathing better since the chest tube was placed however he is on a nonrebreather although of note his sats are 100%. No new complaints. Review of Systems: denies headache/fever/chills/nausea/vomiting/chest or abdominal pain/diarrhea. Otherwise see above. Constitutional Vitals: Vital Signs Temp Pulse Resp BP Pulse Ox 97.3 F 96 H 22 111/82 100 06/19/21 07:01 06/19/21 07:01 06/19/21 07:01 06/19/21 07:01 06/19/21 07:01 Period Temp Pulse Resp BP Sys/Guan Pulse Ox Last 24 Hr 97.0 F-99.3 F 82-108 19-47 95-128/71-101 85-100 Intake and Output 06/18/21 06/19/21 06/19/21 21:59 05:59 13:59 Intake Total 410 Output Total 320 335 Balance -320 75 Weight 79.197 kg Intake & Output: Intake & Output 06/18/21 06/19/21 06/19/21 21:59 05:59 13:59 Intake Total 410 Output Total 320 335 Balance -320 75 Weight 79.197 kg Intake: Oral 410 Output: Chest Tube Drainage 20 185 Left Lateral Chest 185 Left Upper 20 Void Amount 300 150 Other: Urine Appearance Clear Urine Color Dark Yellow Dark Yellow Exam: General: Alert, Awake, No acute Distress Eyes/N/T: EOMI, Head/Neck: neck supple, CV: RRR, No murmurs. Left side chest tube Pulm: Mild fine rales, no wheeze, rub on the left side Abd: soft, nontender, +BS x4 Ext: no clubbing/cyanosis/edema Neuro: Alert, no focal deficits, moves all extremities, Skin: warm/dry OBJ DATA Labs CBC & Chem 7: 06/15/21 05:32 06/15/21 05:32 Meds: Medications Acetaminophen (Acetaminophen 325 Mg Tablet) 650 mg PO Q4-6HP PRN; Protocol PRN Reason: Per Pain Protocol/Fever > 101 Last Admin: 06/19/21 06:46 Dose: 650 mg Documented by: Albuterol/Ipratropium (Ipratropium/Albuterol 3 Ml Ampul.Neb) 3 ml NEB Q4HP PRN PRN Reason: Shortness Of Breath Last Admin: 06/14/21 08:30 Dose: 3 ml Documented by: Benzonatate (Benzonatate 100 Mg Capsule) 100 mg PO TIDP PRN PRN Reason: Cough Last Admin: 06/19/21 04:54 Dose: 100 mg Documented by: Bisacodyl (Bisacodyl 10 Mg Supp.Rect) 10 mg OK Q2-3DAYS PRN PRN Reason: Constipation Docusate Sodium (Docusate Sodium 100 Mg Capsule) 100 mg PO BID [facility] Last Admin: 06/18/21 21:41 Dose: Not Given Documented by: Guaifenesin/Codeine Phosphate (Guaifenesin/Codeine 10 Ml Udc) 10 ml PO Q4HP PRN PRN Reason: Cough Last Admin: 06/17/21 20:47 Dose: 10 ml Documented by: Potassium Chloride 40 meq/ (Dextrose) 520 mls @ 130 mls/hr IV UD PRN PRN Reason: K+ = or < 3.5 Acetaminophen (Ofirmev) 650 mg in 65 mls @ 130 mls/hr IV Q6HP PRN; Protocol PRN Reason: Per Pain Protocol/Fever > 101 Magnesium Sulfate (Magnesium Sulfate) 2 gm in 50 mls @ 50 mls/hr IV UD PRN PRN Reason: MG = or < 1.7 Sodium Chloride (Sodium Chloride 0.9%) 1,000 mls @ 0 mls/hr IV .Q0M [facility] Ibuprofen (Ibuprofen 600 Mg Tablet) 600 mg PO QIDP PRN; Protocol PRN Reason: PAIN/FEVER > 101 Iron Carb/Multivit/[place]/Folic Acid (Multivit,Ther Iron,Ca,Fa & Min 1 Tablet) 1 tab PO DAILY [facility] Last Admin: 06/18/21 10:02 Dose: 1 tab Documented by: Melatonin (Melatonin 3 Mg Tablet) 3 mg PO HSP PRN PRN Reason: Insomnia Morphine Sulfate (Morphine 4 Mg/Ml Vial) 4 mg IV Q4HP PRN; Protocol PRN Reason: Per Pain Protocol Last Admin: 06/18/21 22:32 Dose: 4 mg Documented by: Nitroglycerin (Nitroglycerin 0.4 Mg Tab.Subl) 0.4 mg SL Q5M PRN PRN Reason: Chest Pain Last Admin: 06/14/21 10:02 Dose: 0.4 mg Documented by: Omeprazole (Omeprazole 20 Mg Capsule) 20 mg PO ACB [facility] Last Admin: 06/19/21 06:46 Dose: 20 mg Documented by: Ondansetron HCl (Ondansetron 4 Mg Odt Tablet) 4 mg SL Q4-6HP PRN; Protocol PRN Reason: Nausea And Vomiting Ondansetron HCl (Ondansetron 4 Mg/2 Ml Vial) 4 mg IV Q4-6HP PRN; Protocol PRN Reason: Nausea And Vomiting Oxycodone/Acetaminophen (Oxycodone/Apap 5/325mg Tablet) 1 tab PO Q6HP PRN; Protocol PRN Reason: Per Pain Protocol Last Admin: 06/19/21 04:54 Dose: 1 tab Documented by: Polyethylene Glycol (Polyethylene Glycol 3350 17 Gm Packet) 17 gm PO DAILYP PRN PRN Reason: Constipation Last Admin: 06/15/21 16:49 Dose: 17 gm Documented by: Polyethylene Glycol (Polyethylene Glycol 3350 17 Gm Packet) 17 gm PO DAILY [facility] Last Admin: 06/18/21 10:02 Dose: 17 gm Documented by: Potassium/Phosphorus/Sodium (Neutra Phos 1 Packet) 2 packet PO ONCE PRN PRN Reason: For phosphorus less than 2.5 Senna/Docusate Sodium (Sennosides/Docusate Sodium 1 Tab Tablet) 1 tab PO HS [facility] Last Admin: 06/18/21 21:41 Dose: Not Given Documented by: Sodium Chloride (0.9 % Sodium Chloride 10 Ml Syringe) 10 ml IV Q8 [facility] Last Admin: 06/19/21 05:33 Dose: 10 ml Documented by: Vitamin D (Vitamin D3 125 Mcg Tablet) 125 mcg PO DAILY [facility] Last Admin: 06/18/21 10:02 Dose: 125 mcg Documented by: A/P Narrative A/P Narrative: A: *Left sided tension pneumothorax: s/p left side chest tube placed by radiologist (06/14), replaced by large bore (06/18) -bloody chest tube outpt -air leak delaying healing *Pulmonary Fibrosis: *COVID-19 pneumonia w/ARDS: improved *Acute hypoxic respiratory failure: Slow recovery but overall much improved -down to 2.5-4L prior to requiring larger chest tube, currently on NRB w/high sats -no PE on CTA *GERD: Plan: -Chest tube, per surgery -Surgery following -Remdesivir(finished)/dexamethasone(finished), s/p Actemra -wean O2, poor reserve but improved -Mobilization/proning/oob to chair -IS/Acapella/RT, prn nebs -CM for placement to [facility] when PTX improved -ppx: Lovenox switched to SCD d/t small amount of blood from chest tube, switch back if/when no bleeding. home ppi Code status: Time Spent With Patient Time: Total time spent is greater than 50% in coordination of care (as documented) at patient's floor/unit and/or counseling patient: QUALITY Stroke Symptom Onset Unknown: No
--- NOTE | 2021-06-19 07:48 | XRay Report ---
HISTORY: Insertion of a new left-sided chest tube FINDINGS: A large caliber chest tube has been inserted laterally in the left lower thorax. The tip of the catheter is located centrally in the left upper thorax. There is a small left-sided pneumothorax which is approximately 10% in volume. This has improved significantly since the preceding chest CT performed on the same date. There is no mediastinal shift. Severe widespread alveolar infiltrates are again seen throughout both lungs. Heart size is within upper limits of normal. No pleural effusion is present. IMPRESSION: Partial resolution of left-side pneumothorax following insertion of a new large caliber chest tube. Stable pneumonia Interpreted and Authenticated by: Surinder Monet 06/19/21
[2021-06-19 09:07] LABS: Basophils # (Auto) 0.03 K/mcL (0.00-0.30); Basophils % (Auto) 0.3 % (0.0-2.0); Eosinophils # (Auto) 0.51 K/mcL (0.00-0.70); Eosinophils % (Auto) 4.9 % (0.0-7.0); Hematocrit 39.2 % (40.1-51.0); Hemoglobin 13.6 g/dL (13.7-17.5); Lymphocytes # (Auto) 1.04 K/mcL (1.50-4.80); Mean Cell Volume 88.5 fL (80.0-100.0); Mean Corpuscular HGB Conc 34.7 g/dL (31.0-36.0); Mean Platelet Volume 10.9 fL (7.4-10.4); Monocytes # (Auto) 1.07 K/mcL (0.10-0.90); Monocytes % (Auto) 10.3 % (1.0-12.0); Neutrophils % (Auto) 74.5 % (38.0-78.0); Platelet Count 184 K/mcL (140-440); RBC 4.43 M/mcL (4.63-6.08); WBC 10.4 K/mcL (4.5-11.0)
[2021-06-19] MEDS: VITAMIN D3 125 MCG TABLET PO SCH (10:07)
[2021-06-19] MEDS: DOCUSATE SODIUM 100 MG CAPSULE PO SCH ×2 (10:07→20:10)
[2021-06-19] MEDS: POLYETHYLENE GLYCOL 3350 17 GM PACKET PO SCH (10:07)
[2021-06-19] MEDS: MULTIVIT,THER IRON,CA,FA & MIN 1 TABLET PO SCH (10:07)
[2021-06-19 10:45] LABS: ALT/SGPT 17 U/L (<40); AST/SGOT 26 U/L (<40); Albumin 3.2 gm/dL (3.2-5.2); Albumin/Globulin Ratio 0.9 (1.0-2.3); Alkaline Phosphatase 92 U/L (39-117); Bilirubin,Direct 0.3 mg/dL (<0.3); Bilirubin,Total 0.7 mg/dL (0.1-1.0); Blood Urea Nitrogen 22 mg/dL (8-23); Calcium 9.5 mg/dL (8.6-10.4); Carbon Dioxide 24 mmol/L (22-30); Chloride 100 mmol/L (96-108); Globulin 3.4 gm/dL (2.2-3.7); Glomerular Filtration Rate 88; Glucose 103 mg/dL (70-105); Lactate Dehydrogenase 470 U/L (135-225); Phosphorous 3.3 mg/dL (2.5-4.5); Triglycerides 63 mg/dL (<150); Uric Acid 5.1 mg/dL (2.5-8.0)
--- NOTE | 2021-06-19 12:30 | XRay Report ---
HISTORY: Follow-up left-sided pneumothorax, COVID pneumonia FINDINGS: There is a small but enlarging left-sided pneumothorax which is now approximately 20% volume. There is more air along the medial side of the lung now than there was on the earlier study done last night after chest tube insertion. No mediastinal shift is present and there is no pleural effusion. There are severe infiltrates throughout both lungs. These are becoming worse. The heart size is normal. IMPRESSION: Worsening bilateral pneumonia. Small but enlarging left-sided pneumothorax. Well-positioned left side chest tube Interpreted and Authenticated by: Surinder Monet 06/19/21
--- NOTE | 2021-06-19 15:12 | General Surgery Progress Note ---
SUBJECTIVE Subjective Patient information: Note initiated : 06/19/21 at 3:05 pm Service Date, if different from initiated Date: [] Patient: Abiel Rae 75 y/o M admitted on 05/30/21 for Covid, sob. Chief Complaint: [Left Side PTX] A 20FR left sided CT was placed at the bedside last night. He seemed to tolerate the procedure well and had substantial improvement of his pulmonary status at that time. Lung came up quite a bit but substantial air leak has persisted and CXR today reveals persistent 20% pneumo. Principal diagnosis: CoVID pneumonia Constitutional Vitals: Vital Signs Temp Pulse Resp BP Pulse Ox 97.3 F 90 32 H 124/80 97 06/19/21 12:01 06/19/21 14:00 06/19/21 14:00 06/19/21 14:00 06/19/21 14:00 Period Temp Pulse Resp BP Sys/Guan Pulse Ox Last 24 Hr 97.1 F-99.3 F 81-108 19-47 94-128/68-101 85-100 Intake and Output 06/19/21 06/19/21 06/19/21 05:59 13:59 21:59 Intake Total 410 Output Total 335 0 250 Balance 75 0 -250 Intake & Output: Intake & Output 06/19/21 06/19/21 06/19/21 05:59 13:59 21:59 Intake Total 410 Output Total 335 0 250 Balance 75 0 -250 Intake: Oral 410 Output: Chest Tube Drainage 185 Left Lateral Chest 185 Void Amount 150 0 250 Other: Urine Appearance Clear Urine Color Dark Yellow Light [place] Stool Size Moderate Stool Color Brown Stool Consistency Soft # Bowel Movements 1 Exam: Resting comfortably Respiratory Additional comments: air leak in Left Chest Tube pleuravac with modest amount of serosang pleural fluid A/P Narrative A/P Narrative: Post Left Chest Tube with persistent air leak and 20% pneumo Reinforce potential air sources and re check CXR tomorrow - if lung still not up will place a 28FR tube via same thoracostomy site and if lung still does not fully re expand at that point, will likely recommend transfer to [facility] with available thoracic surgical service as he may end up requiring operative intervention. For now, will increase suction to 30cm H20 and will reinforce all potential sites with repeat CXR in AM Time Spent With Patient Time: Total time spent is greater than 50% in coordination of care (as documented) at patient's floor/unit and/or counseling patient:
[2021-06-19] MEDS: SENNOSIDES/DOCUSATE SODIUM 1 TAB TABLET PO SCH (20:10)
[2021-06-19] MEDS ORDERED: FUROSEMIDE 40 MG/4 ML VIAL IV ONE ×2 (23:36→23:46)
[2021-06-19] MEDS ORDERED: VANCOMYCIN 1,000 MG in 0.9 % SODIUM CHLORIDE 250 ML IV ONE (23:42)
[2021-06-20] MEDS ORDERED: LIDOCAINE 2% URO-JET 10 ML JEL.PF.APP UR ONE (00:05)
[2021-06-20] MEDS: PIPERACILLIN SODIUM/TAZOBACTAM 3.375 GM in DEXTROSE 5% IN WATER 50 ML IV SCH ×4 (00:28→17:43)
[2021-06-20] MEDS: morphine 4 MG/ML VIAL IV PRN ×3 (00:35→23:01)
[2021-06-20] MEDS: 0.9 % SODIUM CHLORIDE 10 ML SYRINGE IV SCH ×3 (05:46→20:54)
[2021-06-20] MEDS: OMEPRAZOLE 20 MG CAPSULE PO SCH (07:26)
[2021-06-20] MEDS: IBUPROFEN 600 MG TABLET PO PRN (07:32)
--- NOTE | 2021-06-20 07:43 | Internal Med Progress Note ---
SUBJECTIVE Subjective Patient information: Note initiated : 06/20/21 at 7:36 am Service Date, if different from initiated Date: [] Patient: Abiel Rae a 75 y/o M admitted on 05/30/21 for Covid, sob. Chief Complaint: [] Principal diagnosis: CoVID pneumonia Interval history: Interval history: Mr. Rae is a 75 year old M with no prior significant medical history who presents to the ER with worsening shortness of breath over the last few weeks. Patient was diagnosed with Covid on the and was discharged home on oxygen however he was discovered by his neighbor very short of breath and subsequently EMS was summoned. Patient was found to be desaturating in mid 80s. He was brought into the ER. Initial work-up was consistent with bilateral Covid pneumonia. Patient was found dexamethasone and subsequently hospitalist service was consulted. At the time of my evaluation patient is alert and able to answer most the questions. He was able to endorse history as above. He denies hemoptysis, diarrhea, abdominal pain, headache lightheadedness but endorses to weakness fatigue loss of appetite along with malaise. 05/31-patient clinically deteriorating. Now requiring 65% FiO2 at 35 L high flow oxygen. Worsening Covid pneumonia with possible element of ARDS. Status post Actemra. Continuing remdesivir/dexamethasone day two. Remains very high risk mortality. No overnight fever chills. Continue diurese/thrombosis prophylaxis. Maintain COVID-19 precaution. Check x-ray/ABGs 06/01 worsening interval chest imaging, however clinically feels better. On high flow oxygen 30 L. White count 8.6, platelets 133, continuing remdesivir/dexamethasone/azithromycin. No overnight events including fever chills. Alert and respond to commands, no anxiety or concerns per staff 06/02-patient this morning experienced syncopal episode while sitting in a chair. Was found in a near unresponsive state with blood pressure in the 80s. Placed on bed. Continue examination unremarkable. Patient returned to normal sensorium shortly. Denies chest pain, shortness of breath. [place] back at baseline within minutes. Was incontinent of stool on chair. White count 5.6, potassium 3.2 on replacement, creatinine 0.9. Lower diuretic dose to 20 mg daily, continue remdesivir/dexamethasone. On 30 L high flow 65% FiO2. Remains critically ill 06/03-patient critically ill. Worsening hypoxia now on 70 L oxygen high flow. Patient seen in room. Grieving from loss of his . No telemetry events. No fever chills. Systolics mid 80s. Diuretics discontinued. On remdesivir/dexamethasone day 5. 06/04-patient clinically deteriorating. Seen in room. Desats on minimal activity. Now on 80% FiO2. High risk mortality. On day 6 remdesivir/dexamethasone. Potassium 4.1, LFTs downtrending, interval chest im aging evidence of subcutaneous emphysema. Repeat interval chest imaging at 1 PM rule out spontaneous pneumothorax Continue close monitoring in ICU. Avoid noninvasive ventilation due to risk of pneumothorax 06/05-patient seen in room, clinically deteriorating. Remarkably short of breath now on 35% FiO2. Desats to mid 80s on minimal exertion. Continuing dexamethasone/remdesivir. No telemetry events. Stable labs and hemodynamics. No overnight fever chills or concerns per staff. Remains a high risk mortality based on [place] 2 score. Interval chest imaging worsening bilateral infiltrates , No evidence of pneumothorax, decreased subcutaneous emphysema. 06/06 Patient not vaccinated. Patient states he feels like he is breathing better. Has a dry cough. Oxygen at 35 L/min 75% FiO2. 06/07 Patient is cough is improving. Shortness of breath seems amenable to him. He was taken to CT on a nonrebreather and he feels like he can breathe much easier on the nonrebreather than the Vapotherm and his oxygen saturations are quite good on the nonrebreather. We will also try Ventimask. 06/08 Patient states he is feeling better and breathing better but still requiring a lot of oxygen. We are able to get him down to 6 L oxygen mask yesterday for short period but is essentially been on 12-15 through the afternoon and evening. Currently on 12 L. And sats well at rest but with any movement desats quickly. 06/09 Patient on oxygen mask at 12 L and not on high flow tubing. Patient replaced on high flow tubing and liters nasal cannula. Sound little bit wheezy will have a breathing treatment ordered. Patient has a mild cough, he does have some shortness of breath with exertion feels about the same. 06/10 Continues to feel well. He is on 6 L oxygen mask at rest but desats with act ivity and is on 9L at that point. He is making progress but slowly. 06/11: Afebrile overnight. Still on 6L/min oxygen at rest and up to 9L/min when ambulate. c/o improving degree of SOB. c/o nonproductive cough. Denies wheezing or chest pain. Denies fever, chills, or sweating. Good energy level, good appetite. 06/12: Afebrile overnight. Still on 9L/min oxygen at the moment. c/o improving degree of SOB. c/o nonproductive cough. Denies wheezing or chest pain. Denies fever, chills, or sweating. Good energy level, good appetite. 06/13: Afebrile overnight. Still on 9L/min oxygen at the moment. c/o improving degree of SOB. c/o nonproductive cough. Denies wheezing or chest pain. Denies fever, c hills, or sweating. Good energy level, good appetite. 06/14: Afebrile overnight. Was on 6L/min oxygen overnight, now on 10L/min. c/o improving degree of SOB. c/o nonproductive cough. Denies wheezing or chest pain. Denies fever, chills, or sweating. Good energy level, good appetite. 06/15: Developed left sided tension pneumothorax yesterday afternoon, s/p left sided chest tube placement by radiologist. On 4L/min overnight and currently. Have 5cc blood output from the chest tube overnight. Denies any SOB. Denies any cough or wheezing. Denies any chest pain. Denies any anxiety. Denies any fever, chills, or sweating. 06/16 Patient states he is feeling better today. Mild cough and improving shortness of breath. Chest x-ray with moderate recurrent pneumothorax, will consult surgery, patient placed on Pleur-evac. About 10 cc of blood about the chest tube overnight. 06/17 No change per patient today feeling same. Pneumothorax has not improved today in fact slightly worse, suspect blockage of the chest tube. Will defer further recommendations to surgery. Otherwise oxygen requirement still remains low 4-5L. 06/18 No changes. Pneumothorax continues to enlarge, defer to surgery for likely chest tube replacement. Once the pneumothorax is resolved patient will go to [facility]. 06/19 Large bore chest tube placed yesterday for enlarging pneumothorax, bloody drainage about 180 overnight. Patient feels like he is breathing better since the chest tube was placed however he is on a nonrebreather although of note his sats are 100%. No new complaints. 06/20 Patient has significant desaturation last night when to when he was moving around. Placed on nonrebreather and supplemental high flow O2. Stat chest x-ray showed a left pneumothorax to be improving. There is severe bilateral alveolar infiltrates that are unchanged from previous chest x-ray.. Review of Systems: denies headache/fever/chills/nausea/vomiting/chest or abdominal pain/diarrhea. Otherwise see above. Constitutional Vitals: Vital Signs Temp Pulse Resp BP Pulse Ox 97.1 F 104 H 27 H 126/93 93 06/20/21 04:01 06/20/21 06:23 06/20/21 06:23 06/20/21 06:01 06/20/21 06:23 Period Temp Pulse Resp BP Sys/Guan Pulse Ox Last 24 Hr 97.1 F-97.9 F 81-113 19-33 94-127/68-102 67-100 Intake and Output 06/19/21 06/20/21 06/20/21 21:59 05:59 13:59 Intake Total 550 50 Output Total 420 855 Balance -420 -305 50 Weight 74.752 kg Intake & Output: Intake & Output 06/19/21 06/20/21 06/20/21 21:59 05:59 13:59 Intake Total 550 50 Output Total 420 855 Balance -420 -305 50 Weight 74.752 kg Intake: IV 300 50 Zosyn 3.375 gm In Dextrose 5% 50 50 in Water 50 ml @ 100 mls/hr IV Q6H [facility] Rx#:[id number] Vancomycin 1,000 mg In Sodium 250 Chloride 0.9% 250 ml @ 250 mls/ hr IV ONCE ONE Rx#:[id number] Oral 250 Output: Chest Tube Drainage 45 55 Left Lateral Chest 45 55 Urine Catheter Amount 400 Void Amount 375 400 Other: Urine Appearance Clear Clear Uretheral (Hunt) Clear Urine Color Dark Yellow Pale Uretheral (Hunt) Dark Yellow Stool Size Moderate Stool Color Brown Stool Consistency Soft # Bowel Movements 1 Exam: General: Alert, Awake, No acute Distress Eyes/N/T: EOMI, Head/Neck: neck supple, CV: RRR, No murmurs. Left side chest tube Pulm: Mild fine rales, occ wheeze, rub on the left side Abd: soft, nontender, +BS x4 Ext: no clubbing/cyanosis/edema Neuro: Alert, no focal deficits, moves all extremities, Skin: warm/dry OBJ DATA Labs CBC & Chem 7: 06/20/21 08:32 06/20/21 08:32 Labs: Abnormal Lab Results 06/19/21 06/19/21 09:45 08:14 RBC 4.43 L Hgb 13.6 L Hct 39.2 L MPV 10.9 H Lymph % (Auto) 10.0 L Lymph # (Auto) 1.04 L [place] # (Auto) 1.07 H Direct Bilirubin 0.3 H Lactate Dehydrogenase 470 H Albumin/Globulin Ratio 0.9 L Meds: Medications Acetaminophen (Acetaminophen 325 Mg Tablet) 650 mg PO Q4-6HP PRN; Protocol PRN Reason: Per Pain Protocol/Fever > 101 Last Admin: 06/19/21 19:15 Dose: 650 mg Documented by: Albuterol/Ipratropium (Ipratropium/Albuterol 3 Ml Ampul.Neb) 3 ml NEB Q4HP PRN PRN Reason: Shortness Of Breath Last Admin: 06/14/21 08:30 Dose: 3 ml Documented by: Benzonatate (Benzonatate 100 Mg Capsule) 100 mg PO TIDP PRN PRN Reason: Cough Last Admin: 06/19/21 04:54 Dose: 100 mg Documented by: Bisacodyl (Bisacodyl 10 Mg Supp.Rect) 10 mg CA Q2-3DAYS PRN PRN Reason: Constipation Docusate Sodium (Docusate Sodium 100 Mg Capsule) 100 mg PO BID [facility] Last Admin: 06/19/21 20:10 Dose: Not Given Documented by: Guaifenesin/Codeine Phosphate (Guaifenesin/Codeine 10 Ml Udc) 10 ml PO Q4HP PRN PRN Reason: Cough Last Admin: 06/17/21 20:47 Dose: 10 ml Documented by: Potassium Chloride 40 meq/ (Dextrose) 520 mls @ 130 mls/hr IV UD PRN PRN Reason: K+ = or < 3.5 Acetaminophen (Ofirmev) 650 mg in 65 mls @ 130 mls/hr IV Q6HP PRN; Protocol PRN Reason: Per Pain Protocol/Fever > 101 Magnesium Sulfate (Magnesium Sulfate) 2 gm in 50 mls @ 50 mls/hr IV UD PRN PRN Reason: MG = or < 1.7 Sodium Chloride (Sodium Chloride 0.9%) 1,000 mls @ 0 mls/hr IV .Q0M [facility] Piperacillin Sod/Tazobactam (Sod 3.375 gm/ Dextrose) 50 mls @ 100 mls/hr IV Q6H [facility]; Protocol Last Infusion: 06/20/21 06:05 Dose: Infused Documented by: Ibuprofen (Ibuprofen 600 Mg Tablet) 600 mg PO QIDP PRN; Protocol PRN Reason: PAIN/FEVER > 101 Last Admin: 06/20/21 07:32 Dose: 600 mg Documented by: Iron Carb/Multivit/[place]/Folic Acid (Multivit,Ther Iron,Ca,Fa & Min 1 Tablet) 1 tab PO DAILY [facility] Last Admin: 06/19/21 10:07 Dose: 1 tab Documented by: Melatonin (Melatonin 3 Mg Tablet) 3 mg PO HSP PRN PRN Reason: Insomnia Morphine Sulfate (Morphine 4 Mg/Ml Vial) 4 mg IV Q4HP PRN; Protocol PRN Reason: Per Pain Protocol Last Admin: 06/20/21 00:35 Dose: 4 mg Documented by: Nitroglycerin (Nitroglycerin 0.4 Mg Tab.Subl) 0.4 mg SL Q5M PRN PRN Reason: Chest Pain Last Admin: 06/14/21 10:02 Dose: 0.4 mg Documented by: Omeprazole (Omeprazole 20 Mg Capsule) 20 mg PO ACB [facility] Last Admin: 06/20/21 07:26 Dose: 20 mg Documented by: Ondansetron HCl (Ondansetron 4 Mg Odt Tablet) 4 mg SL Q4-6HP PRN; Protocol PRN Reason: Nausea And Vomiting Ondansetron HCl (Ondansetron 4 Mg/2 Ml Vial) 4 mg IV Q4-6HP PRN; Protocol PRN Reason: Nausea And Vomiting Oxycodone/Acetaminophen (Oxycodone/Apap 5/325mg Tablet) 1 tab PO Q6HP PRN; Protocol PRN Reason: Per Pain Protocol Last Admin: 06/19/21 04:54 Dose: 1 tab Documented by: Polyethylene Glycol (Polyethylene Glycol 3350 17 Gm Packet) 17 gm PO DAILYP PRN PRN Reason: Constipation Last Admin: 06/15/21 16:49 Dose: 17 gm Documented by: Polyethylene Glycol (Polyethylene Glycol 3350 17 Gm Packet) 17 gm PO DAILY [facility] Last Admin: 06/19/21 10:07 Dose: 17 gm Documented by: Potassium/Phosphorus/Sodium (Neutra Phos 1 Packet) 2 packet PO ONCE PRN PRN Reason: For phosphorus less than 2.5 Senna/Docusate Sodium (Sennosides/Docusate Sodium 1 Tab Tablet) 1 tab PO HS [facility] Last Admin: 06/19/21 20:10 Dose: Not Given Documented by: Sodium Chloride (0.9 % Sodium Chloride 10 Ml Syringe) 10 ml IV Q8 [facility] Last Admin: 06/20/21 05:46 Dose: 10 ml Documented by: Vitamin D (Vitamin D3 125 Mcg Tablet) 125 mcg PO DAILY [facility] Last Admin: 06/19/21 10:07 Dose: 125 mcg Documented by: A/P Narrative A/P Narrative: A: *Left sided tension pneumothorax: s/p left side chest tube placed by radiologist (06/14), replaced by large bore (06/18) -bloody chest tube outpt -air leak delaying healing but improving now *b/l infiltrates severe from covid PNA: ?worsened over past several days. CHF vs PNA *Pulmonary Fibrosis: *COVID-19 pneumonia w/ARDS: improved *Acute hypoxic respiratory failure: Slow recovery but overall much improved -down to 2.5-4L prior to requiring larger chest tube, currently on NRB w/high sats -no PE on CTA *GERD: Plan: -lasix trial, echo pending, empiric abx for now -Chest tube, per surgery -Surgery following -continue high FIO2 today to help resorb PTX, avoid positive pressure if able -Remdesivir(finished)/dexamethasone(finished), s/p Actemra -Mobilization/proning/oob to chair -IS/Acapella/RT, prn nebs -CM for placement to [facility] when PTX improved -ppx: Lovenox switched to SCD d/t bloody chest tube drainage, switch back if/when no bleeding. home ppi Code status: Time Spent With Patient Time: Total time spent is greater than 50% in coordination of care (as documented) at patient's floor/unit and/or counseling patient: QUALITY Stroke Symptom Onset Unknown: No
--- NOTE | 2021-06-20 08:05 | XRay Report ---
HISTORY: Pneumothorax, currently with pneumonia FINDINGS: There is a small left-sided pneumothorax which is approximately 10% in volume. This has diminished in size since 6:09 AM on the same date. The chest tube remains positioned centrally in the left upper thorax. There is no mediastinal shift. Severe alveolar infiltrates are present throughout both lungs. These are unchanged. No pleural effusion is present. There is subcutaneous emphysema along the left lateral chest wall which has increased a small amount. IMPRESSION: Improving left-sided pneumothorax Stable pneumonia Interpreted and Authenticated by: Surinder Monet 06/20/21
--- NOTE | 2021-06-20 08:42 | XRay Report ---
HISTORY: Follow-up left-sided pneumothorax FINDINGS: There is a left apical pneumothorax. Most of the air is located along the medial side of the left upper lobe. There has been little change from yesterday. Chest tube remains well-positioned. Subcutaneous emphysema along the left lateral chest wall is also stable. There are severe infiltrates in both lungs with no significant change. The heart size is normal. IMPRESSION: Stable left-side pneumothorax and stable severe bilateral pneumonia Interpreted and Authenticated by: Surinder Monet 06/20/21
[2021-06-20 09:18] LABS: Hematocrit 40.6 % (40.1-51.0); Hemoglobin 14.2 g/dL (13.7-17.5); Mean Cell Volume 88.3 fL (80.0-100.0); Platelet Count 206 K/mcL (140-440); Red Cell Distribution Width 13.1 % (11.5-14.5); WBC 11.6 K/mcL (4.5-11.0)
[2021-06-20 09:50] LABS: Band Neutrophils % 1 % (0-10); Eosinophils % (Manual) 5 % (0-7); Lymphocytes % 6 % (15-49); Monocytes % (Manual) 4 % (1-12); Platelet Estimate NORMAL (Normal); RBC Morphology NORMAL (Normal); Segmented Neutrophils % 84 % (38-78)
[2021-06-20 09:54] LABS: Blood Urea Nitrogen 21 mg/dL (8-23); Calcium 9.4 mg/dL (8.6-10.4); Carbon Dioxide 23 mmol/L (22-30); Chloride 95 mmol/L (96-108); Glomerular Filtration Rate 88; Glucose 113 mg/dL (70-105)
[2021-06-20] MEDS ORDERED: ALBUMIN HUMAN 12.5 GM/50 ML BAG IV ONE (09:56)
[2021-06-20] MEDS ORDERED: FUROSEMIDE 40 MG/4 ML VIAL IV ONE (09:56)
[2021-06-20] MEDS: POLYETHYLENE GLYCOL 3350 17 GM PACKET PO SCH (10:03)
[2021-06-20] MEDS: DOCUSATE SODIUM 100 MG CAPSULE PO SCH ×2 (10:03→20:54)
[2021-06-20] MEDS: VITAMIN D3 125 MCG TABLET PO SCH (10:03)
[2021-06-20] MEDS: MULTIVIT,THER IRON,CA,FA & MIN 1 TABLET PO SCH (10:03)
--- NOTE | 2021-06-20 10:14 | General Surgery Progress Note ---
SUBJECTIVE Subjective Patient information: Note initiated : 06/20/21 at 10:10 am Service Date, if different from initiated Date: [] Patient: Abiel Rae 75 y/o M admitted on 05/30/21 for Covid, sob. Chief Complaint: [Left Sided Pneumothorax] Issues with worsening pneumonia and subsequent oxygenation noted. CXR last night and again this am, demonstrate overall substantial improvement in the left sided PTX at this time with only a small residual pneumo. Principal diagnosis: CoVID pneumonia Constitutional Vitals: Vital Signs Temp Pulse Resp BP Pulse Ox 97.5 F 99 H 21 91/69 96 06/20/21 08:01 06/20/21 10:09 06/20/21 10:09 06/20/21 10:01 06/20/21 10:09 Period Temp Pulse Resp BP Sys/Guan Pulse Ox Last 24 Hr 97.1 F-97.9 F 84-113 19-44 91-127/69-102 67-100 Intake and Output 06/19/21 06/20/21 06/20/21 21:59 05:59 13:59 Intake Total 550 50 Output Total 420 855 440 Balance -420 -305 -390 Weight 164 lb 12.8 oz Intake & Output: Intake & Output 06/19/21 06/20/21 06/20/21 21:59 05:59 13:59 Intake Total 550 50 Output Total 420 855 440 Balance -420 -305 -390 Weight 164 lb 12.8 oz Intake: IV 300 50 Zosyn 3.375 gm In Dextrose 5% 50 50 in Water 50 ml @ 100 mls/hr IV Q6H [facility] Rx#:[id number] Vancomycin 1,000 mg In Sodium 250 Chloride 0.9% 250 ml @ 250 mls/ hr IV ONCE ONE Rx#:[id number] Oral 250 Output: Chest Tube Drainage 45 55 90 Left Lateral Chest 45 55 90 Urine Catheter Amount 400 350 Void Amount 375 400 Other: Urine Appearance Clear Clear Clear Uretheral (Hunt) Clear Urine Color Dark Yellow Pale Straw Uretheral ([place]unt) Pale Urine Odor Normal Stool Size Moderate Stool Color Brown Stool Consistency Soft # Bowel Movements 1 Exam: Resting comfortably Respiratory Additional comments: There is a persistent air leak in the chamber with scant drainage and the chest tube seems adequately secured and fully functional. A/P Assessment and plan (1) Spontaneous tension pneumothorax: Assessment and plan: Covid related spontaneous Left Sided PTX Adequately treated at this time nearing resolution with current left sided Chest Tube in place and increased H20 suction His current ventilatory challenges seem related entirely to his worsening bilateral pneumonia Re check CXR tomorrow. If there is some evidence over time that the lung will not come fully up would consider upsizing tube to a 28FR or larger. He may end up needing transfer to Thoracic Surgery availability, particularly if a large air leak persists. Status: Acute Time Spent With Patient Time: Total time spent is greater than 50% in coordination of care (as documented) at patient's floor/unit and/or counseling patient:
[2021-06-20] MEDS: LORazepam 2 MG/ML VIAL IV PRN (12:50)
[2021-06-20] MEDS: guaiFENesin/CODEINE 10 ML UDC PO PRN (13:24)
[2021-06-20] MEDS: IPRATROPIUM/ALBUTEROL 3 ML AMPUL.NEB NEB PRN (13:50)
[2021-06-20] MEDS ORDERED: morphine 2 MG/ML VIAL IV ONE (14:02)
--- NOTE | 2021-06-20 14:31 | XRay Report ---
HISTORY: Pneumothorax,: Pneumonia, increasing oxygen needs and respiratory distress FINDINGS: There is a small left-sided pneumothorax which may be 10-20% in volume. It has increased in volume a small amount since the earlier study done at 6:14 AM on the same date. Chest tube remains well-positioned. There is a small increase in volume of subcutaneous air along the left lower chest wall. The widespread pneumonia is unchanged. There is no mediastinal shift. Heart size remains normal. IMPRESSION: Small increase in volume of the left-sided pneumothorax and no change in the pneumonia Interpreted and Authenticated by: Surinder Monet 06/20/21
[2021-06-20] MEDS: SENNOSIDES/DOCUSATE SODIUM 1 TAB TABLET PO SCH (20:54)
[2021-06-21] MEDS: PIPERACILLIN SODIUM/TAZOBACTAM 3.375 GM in DEXTROSE 5% IN WATER 50 ML IV SCH ×4 (01:41→17:31)
[2021-06-21] MEDS: oxyCODONE/APAP 5/325MG TABLET PO PRN ×4 (02:35→22:09)
[2021-06-21] MEDS: BENZONATATE 100 MG CAPSULE PO PRN ×3 (02:35→20:27)
[2021-06-21] MEDS: morphine 4 MG/ML VIAL IV PRN ×3 (04:18→20:57)
[2021-06-21] MEDS: 0.9 % SODIUM CHLORIDE 10 ML SYRINGE IV SCH ×4 (05:37→21:57)
[2021-06-21 07:21] LABS: Basophils # (Auto) 0.05 K/mcL (0.00-0.30); Basophils % (Auto) 0.4 % (0.0-2.0); Eosinophils # (Auto) 0.79 K/mcL (0.00-0.70); Hematocrit 41.1 % (40.1-51.0); Hemoglobin 14.1 g/dL (13.7-17.5); Lymphocytes # (Auto) 1.32 K/mcL (1.50-4.80); Lymphocytes % (Auto) 11.8 % (15.5-49.0); Mean Cell Volume 89.5 fL (80.0-100.0); Mean Corpuscular HGB Conc 34.3 g/dL (31.0-36.0); Mean Platelet Volume 11.5 fL (7.4-10.4); Monocytes # (Auto) 1.01 K/mcL (0.10-0.90); Neutrophils % (Auto) 71.8 % (38.0-78.0); Platelet Count 224 K/mcL (140-440); RBC 4.59 M/mcL (4.63-6.08); Red Cell Distribution Width 13.1 % (11.5-14.5); WBC 11.2 K/mcL (4.5-11.0)
[2021-06-21] MEDS: OMEPRAZOLE 20 MG CAPSULE PO SCH (07:40)
[2021-06-21] MEDS: guaiFENesin/CODEINE 10 ML UDC PO PRN ×2 (07:40→22:09)
[2021-06-21 07:57] LABS: ALT/SGPT 23 U/L (<40); AST/SGOT 28 U/L (<40); Albumin 3.2 gm/dL (3.2-5.2); Albumin/Globulin Ratio 0.8 (1.0-2.3); Alkaline Phosphatase 109 U/L (39-117); Bilirubin,Direct 0.4 mg/dL (<0.3); Bilirubin,Total 0.9 mg/dL (0.1-1.0); Blood Urea Nitrogen 25 mg/dL (8-23); Carbon Dioxide 24 mmol/L (22-30); Chloride 95 mmol/L (96-108); Globulin 3.8 gm/dL (2.2-3.7); Glomerular Filtration Rate 88; Glucose 114 mg/dL (70-105); Lactate Dehydrogenase 458 U/L (135-225); Phosphorous 2.7 mg/dL (2.5-4.5); Triglycerides 115 mg/dL (<150); Uric Acid 5.2 mg/dL (2.5-8.0)
[2021-06-21 07:59] LABS: ALT/SGPT 23 U/L (<40); AST/SGOT 28 U/L (<40); Albumin 3.2 gm/dL (3.2-5.2); Albumin/Globulin Ratio 0.8 (1.0-2.3); Alkaline Phosphatase 109 U/L (39-117); Bilirubin,Total 0.8 mg/dL (0.1-1.0); Blood Urea Nitrogen 24 mg/dL (8-23); Calcium 9.8 mg/dL (8.6-10.4); Carbon Dioxide 24 mmol/L (22-30); Chloride 96 mmol/L (96-108); Globulin 3.8 gm/dL (2.2-3.7); Glomerular Filtration Rate 88; Glucose 112 mg/dL (70-105)
[2021-06-21] MEDS: VITAMIN D3 125 MCG TABLET PO SCH (08:25)
[2021-06-21] MEDS: POLYETHYLENE GLYCOL 3350 17 GM PACKET PO SCH (08:25)
[2021-06-21] MEDS: IBUPROFEN 600 MG TABLET PO PRN ×2 (08:25→16:02)
[2021-06-21] MEDS: MULTIVIT,THER IRON,CA,FA & MIN 1 TABLET PO SCH (08:25)
[2021-06-21] MEDS: DOCUSATE SODIUM 100 MG CAPSULE PO SCH ×2 (08:32→21:57)
--- NOTE | 2021-06-21 09:38 | XRay Report ---
HISTORY: Follow-up pneumothorax and COVID pneumonia FINDINGS: There is a stable left-side pneumothorax which is roughly 10-20% volume. Chest tube remains well-positioned. The subcutaneous emphysema in the left chest wall is also stable. Severe widespread alveolar infiltrates are again seen throughout both lungs. These are also unchanged. There is no mediastinal shift and no pleural effusion. IMPRESSION: no change with persistent left-side pneumothorax and severe bilateral pneumonia Interpreted and Authenticated by: Surinder Monet 06/21/21
--- NOTE | 2021-06-21 12:00 | Internal Med Progress Note ---
SUBJECTIVE Subjective Patient information: Note initiated : 06/21/21 at 11:50 am Service Date, if different from initiated Date: [] Patient: Abiel Rae a 75 y/o M admitted on 05/30/21 for Covid, sob. Chief Complaint: [] Principal diagnosis: CoVID pneumonia Interval history: Mr. Rae is a 75 year old M with no prior significant medical history who presents to the ER with worsening shortness of breath over the last few weeks. Patient was diagnosed with Covid on the and was discharged home on oxygen however he was discovered by his neighbor very short of breath and subsequently EMS was summoned. Patient was found to be desaturating in mid 80s. He was brought into the ER. Initial work-up was consistent with bilateral Covid pneumonia. Patient was found dexamethasone and subsequently hospitalist service was consulted. At the time of my evaluation patient is alert and able to answer most the que stions. He was able to endorse history as above. He denies hemoptysis, diarrhea, abdominal pain, headache lightheadedness but endorses to weakness fatigue loss of appetite along with malaise. 05/31-patient clinically deteriorating. Now requiring 65% FiO2 at 35 L high flow oxygen. Worsening Covid pneumonia with possible element of ARDS. Status post Actemra. Continuing remdesivir/dexamethasone day two. Remains very high risk mortality. No overnight fever chills. Continue diurese/thrombosis prophylaxis. Maintain COVID-19 precaution. Check x-ray/ABGs 06/01 worsening interval chest imaging, however clinically feels better. On high flow oxygen 30 L. White count 8.6, platelets 133, continuing remdesivir/dexamethasone/azithromycin. No overnight events including fever chills. Alert and respond to commands, no anxiety or concerns per staff 06/02-patient this morning experienced syncopal episode while sitting in a chair. Was found in a near unresponsive state with blood pressure in the 80s. Placed on bed. Continue examination unremarkable. Patient returned to normal sensorium shortly. Denies chest pain, shortness of breath. Mellott back at baseline within minutes. Was incontinent of stool on chair. White count 5.6, potassium 3.2 on replacement, creatinine 0.9. Lower diuretic dose to 20 mg daily, continue remdesivir/dexamethasone. On 30 L high flow 65% FiO2. Remains critically ill 06/03-patient critically ill. Worsening hypoxia now on 70 L oxygen high flow. Patient seen in room. Grieving from loss of his . No telemetry events. No fever chills. Systolics mid 80s. Diuretics discontinued. On remdesivir/dexamethasone day 5. 06/04-patient clinically deteriorating. Seen in room. Desats on minimal activity. Now on 80% FiO2. High risk mortality. On day 6 remdesivir/dexamethasone. Potassium 4.1, LFTs downtrending, interval chest imaging evidence of subcutaneous emphysema. Repeat interval chest imaging at 1 PM rule out spontaneous pneumothorax Continue close monitoring in ICU. Avoid noninvasive ventilation due to risk of pneumothorax 06/05-patient seen in room, clinically deteriorating. Remarkably short of breath now on 35% FiO2. Desats to mid 80s on minimal exertion. Continuing dexamethasone/remdesivir. No telemetry events. Stable labs and hemodynamics. No overnight fever chills or concerns per staff. Remains a high risk mortality based on [place] 2 score. Interval chest imaging worsening bilateral infiltrates, No evidence of pneumothorax, decreased subcutaneous emphysema. 06/06 Patient not vaccinated. Patient states he feels like he is breathing better. Has a dry cough. Oxygen at 35 L/min 75% FiO2. 06/07 Patient is cough is improving. Shortness of breath seems amenable to him. He was taken to CT on a nonrebreather and he feels like he can breathe much easier on the nonrebreather than the Vapotherm and his oxygen saturations are quite good on the nonrebreather. We will also try Ventimask. 06/08 Patient states he is feeling better and breathing better but still requiring a lot of oxygen. We are able to get him down to 6 L oxygen mask yesterday for short period but is essentially been on 12-15 through the afternoon and evening. Currently on 12 L. And sats well at rest but with any movement desats quickly. 06/09 Patient on oxygen mask at 12 L and not on high flow tubing. Patient replaced on high flow tubing and liters nasal cannula. Sound little bit wheezy will have a breathing treatment ordered. Patient has a mild cough, he does have some shortness of breath with exertion feels about the same. 06/10 Continues to feel well. He is on 6 L oxygen mask at rest but desats with activity and is on 9L at that point. He is making progress but slowly. 06/11: Afebrile overnight. Still on 6L/min oxygen at rest and up to 9L/min when ambulate. c/o improving degree of SOB. c/o nonproductive cough. Denies wheezing or chest pain. Denies fever, chills, or sweating. Good energy level, good appetite. 06/12: Afebrile overnight. Still on 9L/min oxygen at the moment. c/o improving degree of SOB. c/o nonproductive cough. Denies wheezing or chest pain. Denies fever, chills, or sweating. Good energy level, good appetite. 06/13: Afebrile overnight. Still on 9L/min oxygen at the moment. c/o improving degree of SOB. c/o nonproductive cough. Denies wheezing or chest pain. Denies fever, chills, or sweating. Good energy level, good appetite. 06/14: Afebrile overnight. Was on 6L/min oxygen overnight, now on 10L/min. c/o improving degree of SOB. c/o nonproductive cough. Denies wheezing or chest pain. Denies fever, chills, or sweating. Good energy level, good appetite. 06/15: Developed left sided tension pneumothorax yesterday afternoon, s/p left sided chest tube placement by radiologist. On 4L/min overnight and currently. Have 5cc blood output from the chest tube overnight. Denies any SOB. Denies any cough or wheezing. Denies any chest pain. Denies any anxiety. Denies any fever, chills, or sweating. 06/16 Patient states he is feeling better today. Mild cough and improving shortness of breath. Chest x-ray with moderate recurrent pneumothorax, will consult surgery, patient placed on Pleur-evac. About 10 cc of blood about the chest tube overnight. 06/17 No change per patient today feeling same. Pneumothorax has not improved today in fact slightly worse, suspect blockage of the chest tube. Will defer further recommendations to surgery. Otherwise oxygen requirement still remains low 4-5L. 06/18 No changes. Pneumothorax continues to enlarge, defer to surgery for likely c hest tube replacement. Once the pneumothorax is resolved patient will go to [facility]. 06/19 Large bore chest tube placed yesterday for enlarging pneumothorax, bloody drainage about 180 overnight. Patient feels like he is breathing better since the chest tube was placed however he is on a nonrebreather although of note his sats are 100%. No new complaints. 06/20 Patient has significant desaturation last night when to when he was moving around. Placed on nonrebreather and supplemental high flow O2. Stat chest x-ray showed a left pneumothorax to be improving. There is severe bilateral alveolar infiltrates that are unchanged from previous chest x-ray.. 06/21: Afebrile overnight. Still lying on his side. On high flow oxygen 30L/min FiO2 65% with nonrebreather 13L/min on top. All cultures no growth to date. CXR today showing stable pneumothorax with severe bilateral infiltrates, no change from previous study. c/o moderate SOB. c/o nonproductive cough and wheezing. Denies chest pain. Denies anxiety. Denies fever, chills, or sweating. Constitutional Vitals: Vital Signs Temp Pulse Resp BP Pulse Ox 36.1 C L 94 H 20 92/77 94 06/21/21 08:01 06/21/21 10:03 06/21/21 10:03 06/21/21 10:03 06/21/21 10:03 Period Temp Pulse Resp BP Sys/Guan Pulse Ox Last 24 Hr 36.1 C-36.8 C 91-114 16-46 91-119/71-90 68-99 Intake and Output 06/20/21 06/21/21 06/21/21 21:59 05:59 13:59 Intake Total 675 300 870 Output Total 470 315 160 Balance 205 -15 710 Weight 74.571 kg Intake & Output: Intake & Output 06/20/21 06/21/21 06/21/21 21:59 05:59 13:59 Intake Total 675 300 870 Output Total 470 315 160 Balance 205 -15 710 Weight 74.571 kg Intake: Nourishment/Supplement quantity 420 (ml) IV 50 50 50 Zosyn 3.375 gm In Dextrose 5% 50 50 50 in Water 50 ml @ 100 mls/hr IV Q6H [facility] Rx#:[id number] Oral 625 250 400 Output: Chest Tube Drainage 20 75 10 Left Lateral Chest 20 75 10 Urine Catheter Amount 450 240 150 Other: Meal Dinner Percent of Meal Consumed Refused 25% Feeding Ability Needs Supervision Nourishment/Supplement name refused to drink Ensure Enlive Ensure Urine Appearance Cloudy Cloudy Cloudy Sediment Uretheral (Hunt) Cloudy Cloudy Cloudy Urine Color Straw Straw Straw Uretheral (Hunt) Straw Straw Urine Odor Normal Normal # Bowel Movements 0 General appearance: average body habitus, cooperative and no acute distress Head Head exam: Present atraumatic and normal inspection Eye Eye exam: Present normal appearance ENT ENT exam: Present mucous membranes moist, normal exam and normal external ear exam Additional comments: High flow oxygen plus non-rebreather in place Neck Neck exam: Present normal inspection Respiratory Respiratory exam: Present decreased breath sounds and rhonchi Cardiovascular Cardiovascular exam: Present normal rate and rhythm GI/Abdominal GI/Abdominal exam: Present normal bowel sounds Back Exam Back exam: Present normal inspection Neurological Exam Neurological exam: Present alert and oriented X3 Skin Skin exam: Present intact and warm OBJ DATA Labs CBC & Chem 7: 06/21/21 05:19 06/21/21 05:20 Labs: Abnormal Lab Results 06/21/21 06/21/21 06/21/21 05:23 05:22 05:20 WBC RBC Hgb Hct MPV Lymph % (Auto) Lymph # (Auto) [place] # (Auto) Eos # (Auto) Seg Neutrophils % Lymphocytes % Absolute Neutrophils Chloride 95 L Anion Gap BUN 25 H Glucose 114 H Direct Bilirubin 0.4 H Lactate Dehydrogenase 458 H C-Reactive Protein 24.40 H NT-Pro-B Natriuret Pep 1605.0 H Globulin 3.8 H Albumin/Globulin Ratio 0.8 L Procalcitonin 0.16 H 06/21/21 06/21/21 06/20/21 05:19 05:18 08:32 WBC 11.2 H RBC 4.59 L Hgb Hct MPV 11.5 H Lymph % (Auto) 11.8 L Lymph # (Auto) 1.32 L Norton # (Auto) 1.01 H Eos # (Auto) 0.79 H Seg Neutrophils % Lymphocytes % Absolute Neutrophils 8.04 H Chloride Anion Gap BUN 24 H Glucose 112 H Direct Bilirubin Lactate Dehydrogenase C-Reactive Protein NT-Pro-B Natriuret Pep Globulin 3.8 H Albumin/Globulin Ratio 0.8 L Procalcitonin 0.18 H 06/20/21 06/20/21 06/19/21 08:32 08:32 09:45 WBC 11.6 H RBC 4.60 L Hgb Hct MPV 11.0 H Lymph % (Auto) Lymph # (Auto) Norton # (Auto) Eos # (Auto) Seg Neutrophils % 84 H Lymphocytes % 6 L Absolute Neutrophils Chloride 95 L Anion Gap 19.0 H BUN Glucose 113 H Direct Bilirubin 0.3 H Lactate Dehydrogenase 470 H C-Reactive Protein 33.10 H NT-Pro-B Natriuret Pep 1048.0 H Globulin Albumin/Globulin Ratio 0.9 L Procalcitonin 06/19/21 08:14 WBC RBC 4.43 L Hgb 13.6 L Hct 39.2 L MPV 10.9 H Lymph % (Auto) 10.0 L Lymph # (Auto) 1.04 L Norton # (Auto) 1.07 H Eos # (Auto) Seg Neutrophils % Lymphocytes % Absolute Neutrophils Chloride Anion Gap BUN Glucose Direct Bilirubin Lactate Dehydrogenase C-Reactive Protein NT-Pro-B Natriuret Pep Globulin Albumin/Globulin Ratio Procalcitonin Meds: Medications Acetaminophen (Acetaminophen 325 Mg Tablet) 650 mg PO Q4-6HP PRN; Protocol PRN Reason: Per Pain Protocol/Fever > 101 Last Admin: 06/19/21 19:15 Dose: 650 mg Documented by: Albuterol/Ipratropium (Ipratropium/Albuterol 3 Ml Ampul.Neb) 3 ml NEB Q4HP PRN PRN Reason: Shortness Of Breath Last Admin: 06/20/21 13:50 Dose: 3 ml Documented by: Benzonatate (Benzonatate 100 Mg Capsule) 100 mg PO TIDP PRN PRN Reason: Cough Last Admin: 06/21/21 02:35 Dose: 100 mg Documented by: Bisacodyl (Bisacodyl 10 Mg Supp.Rect) 10 mg OK Q2-3DAYS PRN PRN Reason: Constipation Docusate Sodium (Docusate Sodium 100 Mg Capsule) 100 mg PO BID CARL Last Admin: 06/21/21 08:32 Dose: Not Given Documented by: Furosemide (Furosemide 20 Mg Tablet) 20 mg PO BIDD CARL Guaifenesin/Codeine Phosphate (Guaifenesin/Codeine 10 Ml Udc) 10 ml PO Q4HP PRN PRN Reason: Cough Last Admin: 06/21/21 07:40 Dose: 10 ml Documented by: Potassium Chloride 40 meq/ (Dextrose) 520 mls @ 130 mls/hr IV UD PRN PRN Reason: K+ = or < 3.5 Acetaminophen (Ofirmev) 650 mg in 65 mls @ 130 mls/hr IV Q6HP PRN; Protocol PRN Reason: Per Pain Protocol/Fever > 101 Magnesium Sulfate (Magnesium Sulfate) 2 gm in 50 mls @ 50 mls/hr IV UD PRN PRN Reason: MG = or < 1.7 Sodium Chloride (Sodium Chloride 0.9%) 1,000 mls @ 0 mls/hr IV .Q0M CARL Piperacillin Sod/Tazobactam (Sod 3.375 gm/ Dextrose) 50 mls @ 100 mls/hr IV Q6H CARL; Protocol Last Infusion: 06/21/21 06:08 Dose: Infused Documented by: Ibuprofen (Ibuprofen 600 Mg Tablet) 600 mg PO QIDP PRN; Protocol PRN Reason: PAIN/FEVER > 101 Last Admin: 06/21/21 08:25 Dose: 600 mg Documented by: Iron Carb/Multivit/[place]/Folic Acid (Multivit,Ther Iron,Ca,Fa & Min 1 Tablet) 1 tab PO DAILY [facility] Last Admin: 06/21/21 08:25 Dose: 1 tab Documented by: Lorazepam (Lorazepam 2 Mg/Ml Vial) 0.5 mg IV Q4-6HP PRN PRN Reason: ANXIETY/SEDATION Last Admin: 06/20/21 12:50 Dose: 0.5 mg Documented by: Melatonin (Melatonin 3 Mg Tablet) 3 mg PO HSP PRN PRN Reason: Insomnia Morphine Sulfate (Morphine 4 Mg/Ml Vial) 4 mg IV Q4HP PRN; Protocol PRN Reason: Per Pain Protocol Last Admin: 06/21/21 04:18 Dose: 4 mg Documented by: Nitroglycerin (Nitroglycerin 0.4 Mg Tab.Subl) 0.4 mg SL Q5M PRN PRN Reason: Chest Pain Last Admin: 06/14/21 10:02 Dose: 0.4 mg Documented by: Omeprazole (Omeprazole 20 Mg Capsule) 20 mg PO ACB [facility] Last Admin: 06/21/21 07:40 Dose: 20 mg Documented by: Ondansetron HCl (Ondansetron 4 Mg Odt Tablet) 4 mg SL Q4-6HP PRN; Protocol PRN Reason: Nausea And Vomiting Ondansetron HCl (Ondansetron 4 Mg/2 Ml Vial) 4 mg IV Q4-6HP PRN; Protocol PRN Reason: Nausea And Vomiting Oxycodone/Acetaminophen (Oxycodone/Apap 5/325mg Tablet) 1 tab PO Q6HP PRN; Protocol PRN Reason: Per Pain Protocol Last Admin: 06/21/21 08:25 Dose: 1 tab Documented by: Polyethylene Glycol (Polyethylene Glycol 3350 17 Gm Packet) 17 gm PO DAILYP PRN PRN Reason: Constipation Last Admin: 06/15/21 16:49 Dose: 17 gm Documented by: Polyethylene Glycol (Polyethylene Glycol 3350 17 Gm Packet) 17 gm PO DAILY [facility] Last Admin: 06/21/21 08:25 Dose: 17 gm Documented by: Potassium/Phosphorus/Sodium (Neutra Phos 1 Packet) 2 packet PO ONCE PRN PRN Reason: For phosphorus less than 2.5 Senna/Docusate Sodium (Sennosides/Docusate Sodium 1 Tab Tablet) 1 tab PO HS [facility] Last Admin: 06/20/21 20:54 Dose: Not Given Documented by: Sodium Chloride (0.9 % Sodium Chloride 10 Ml Syringe) 10 ml IV Q8 [facility] Last Admin: 06/21/21 05:37 Dose: 10 ml Documented by: Vitamin D (Vitamin D3 125 Mcg Tablet) 125 mcg PO DAILY [facility] Last Admin: 06/21/21 08:25 Dose: 125 mcg Documented by: A/P Assessment and plan (1) COVID-19: Status: Acute (2) Acute hypoxemic respiratory failure: Status: Acute (3) Hyperkalemia: Status: Acute (4) GERD (gastroesophageal reflux disease): Status: Chronic Qualifiers: Esophagitis presence: with esophagitis Qualified Code(s): K21.0 - Gastro-esophageal reflux disease with esophagitis (5) Spontaneous tension pneumothorax: Status: Acute (6) HCAP (healthcare-associated pneumonia): Status: Acute (7) Elevated brain natriuretic peptide (BNP) level: Status: Acute Narrative A/P Narrative: Assessment and Plans: 1. CoVID pneumonia: Isolation: airborne and contract Inpatient PCU Supplemental oxygen therapy titrate to achieve spo2>=92%, currently on high flow oxygen 30L/min FiO2 65% with nonrebreather 13L/min on top s/p Actemra Finished Remdesivir Finished Dexamethasone Avoid Lovenox/Heparin due to chest tube in place and recent bleeding into the chest tube DuoNEB NEB q4hr PRN wheezing or SOB No pulmonary embolism by CTA on 06/07 Tessalon Perles PRN cough Robitussin AC PRN cough 2. Hyperkalemia: RESOLVED Serum potassium level 3.6 on 06/21 Will repeat CMP in the morning to trend serum potassium level 3. GERD: Prilosec 4. Left sided tension pneumothorax: Dr. Frank replaced a chest tube on 06/18 CXR today 06/21 showing stable left sided pneumothorax, will continue to touch base with him regarding the need to exchange to a bigger size chest tube and/or transfer to outside hospital with CT surgeon for pleurodesis and any other indicated procedures 5. HCAP: Supplemental oxygen therapy titrate to achieve spo2>=92%, currently on high flow oxygen 30L/min FiO2 65% with nonrebreather 13L/min on top MRSA screen negative Zosyn Tylenol PRN fever Robitussin AC PRN cough DuoNEB NEB PRN wheezing or SOB cbc w/ auto diff in the morning to trend WBC Repeat blood and sputum culture 6. Elevated BNP level: 2D echocardiogram to assess cardiac function Lasix 20mg PO BID Supplemental oxygen therapy, see above GI ppx: Prilosec DVT ppx: SCDs Code status: Full Prognosis: guarded Disposition: inpatient PCU Time Spent With Patient Time: Total time spent is greater than 50% in coordination of care (as documented) at patient's floor/unit and/or counseling patient: Total time spent with greater than 50% in coordination of care (as documented) at patient's floor/unit and/or counseling patient:: Greater than 35 minutes QUALITY Stroke Symptom Onset Unknown: No
[2021-06-21] MEDS: FUROSEMIDE 20 MG TABLET PO SCH (16:02)
--- NOTE | 2021-06-21 17:00 | General Surgery Progress Note ---
SUBJECTIVE Subjective Patient information: Note initiated : 06/21/21 at 4:55 pm Service Date, if different from initiated Date: [] Patient: Abiel Rae 75 y/o M admitted on 05/30/21 for Covid, sob. Chief Complaint: [Spontaneous Pneumothorax] Feels better overall. CXR shows near apical PTX on the Left that looks improved to my exam but estimated at 10-20% Principal diagnosis: CoVID pneumonia Constitutional Vitals: Vital Signs Temp Pulse Resp BP Pulse Ox 97 F 94 H 16 116/90 98 06/21/21 16:02 06/21/21 16:02 06/21/21 16:02 06/21/21 16:02 06/21/21 16:28 Period Temp Pulse Resp BP Sys/Guan Pulse Ox Last 24 Hr 96.9 F-98.2 F 91-104 16-30 91-119/71-90 68-98 Intake and Output 06/21/21 06/21/21 06/21/21 05:59 13:59 21:59 Intake Total 300 1700 360 Output Total 315 175 240 Balance -15 1525 120 Intake & Output: Intake & Output 06/21/21 06/21/21 06/21/21 05:59 13:59 21:59 Intake Total 300 1700 360 Output Total 315 175 240 Balance -15 1525 120 Intake: Nourishment/Supplement quantity 420 (ml) IV 50 100 Zosyn 3.375 gm In Dextrose 5% 50 100 in Water 50 ml @ 100 mls/hr IV Q6H [facility] Rx#:[id number] Oral 250 1180 360 Output: Chest Tube Drainage 75 25 15 Left Lateral Chest 75 25 15 Urine Catheter Amount 240 150 225 Other: Meal Lunch Percent of Meal Consumed 50% Feeding Ability Independent Nourishment/Supplement name Ensure Urine Appearance Cloudy Cloudy Sediment Uretheral (Hunt) Cloudy Cloudy Urine Color Straw Straw Bright Yellow Uretheral (Hunt) Straw Urine Odor Normal Normal # Bowel Movements 0 Exam: conversant, NAD Respiratory Additional comments: Ongoing intermittent air leak Left Chest in Pleuravac A/P Assessment and plan (1) Spontaneous tension pneumothorax: Assessment and plan: Spontaneous Left Pneumothorax Lung is still not entirely re expanded Evacuation pressure increased to 40mmHg Re check CXR in am - if no appreciable improvement, then will offer a larger tube if patient is willing. Strange that his lung hasn't come all the way up with a well positioned large bore tube and what appears to be an intermittent air leak. Re eval in AM but he may benefit from transfer to Thoracic availability now that overall pulmonary status seems to be improving Status: Acute Time Spent With Patient Time: Total time spent is greater than 50% in coordination of care (as documented) at patient's floor/unit and/or counseling patient:
[2021-06-21] MEDS: SENNOSIDES/DOCUSATE SODIUM 1 TAB TABLET PO SCH (21:57)
[2021-06-22] MEDS: PIPERACILLIN SODIUM/TAZOBACTAM 3.375 GM in DEXTROSE 5% IN WATER 50 ML IV SCH ×4 (00:03→17:30)
[2021-06-22] MEDS: BENZONATATE 100 MG CAPSULE PO PRN ×2 (00:22→22:17)
[2021-06-22] MEDS: IBUPROFEN 600 MG TABLET PO PRN (00:22)
[2021-06-22] MEDS: morphine 4 MG/ML VIAL IV PRN ×2 (04:07→12:01)
[2021-06-22] MEDS: guaiFENesin/CODEINE 10 ML UDC PO PRN ×2 (04:08→21:02)
[2021-06-22] MEDS: 0.9 % SODIUM CHLORIDE 10 ML SYRINGE IV SCH ×4 (05:40→21:11)
[2021-06-22] MEDS: oxyCODONE/APAP 5/325MG TABLET PO PRN (06:50)
[2021-06-22 07:04] LABS: ALT/SGPT 27 U/L (<40); AST/SGOT 42 U/L (<40); Albumin 2.8 gm/dL (3.2-5.2); Albumin/Globulin Ratio 0.7 (1.0-2.3); Alkaline Phosphatase 119 U/L (39-117); Bilirubin,Total 0.8 mg/dL (0.1-1.0); Blood Urea Nitrogen 32 mg/dL (8-23); Carbon Dioxide 25 mmol/L (22-30); Chloride 93 mmol/L (96-108); Globulin 3.9 gm/dL (2.2-3.7); Glomerular Filtration Rate 74; Glucose 105 mg/dL (70-105)
[2021-06-22 07:57] LABS: Basophils # (Auto) 0.09 K/mcL (0.00-0.30); Basophils % (Auto) 0.8 % (0.0-2.0); Eosinophils # (Auto) 1.46 K/mcL (0.00-0.70); Eosinophils % (Auto) 12.3 % (0.0-7.0); Hematocrit 40.8 % (40.1-51.0); Hemoglobin 13.8 g/dL (13.7-17.5); Lymphocytes # (Auto) 1.43 K/mcL (1.50-4.80); Mean Cell Volume 91.1 fL (80.0-100.0); Mean Corpuscular HGB Conc 33.8 g/dL (31.0-36.0); Monocytes # (Auto) 0.74 K/mcL (0.10-0.90); Monocytes % (Auto) 6.2 % (1.0-12.0); Neutrophils % (Auto) 68.7 % (38.0-78.0); Platelet Count 190 K/mcL (140-440); RBC 4.48 M/mcL (4.63-6.08); WBC 11.9 K/mcL (4.5-11.0)
[2021-06-22] MEDS: OMEPRAZOLE 20 MG CAPSULE PO SCH (08:06)
--- NOTE | 2021-06-22 08:35 | XRay Report ---
HISTORY: Follow-up pneumothorax and COVID pneumonia FINDINGS: There is a stable left-sided pneumothorax which is roughly 10-20% volume. Chest tube remains well-positioned. There is an increased volume of the subcutaneous emphysema laterally in the left lower chest wall. Severe alveolar infiltrates are present throughout both lungs. The consolidation has become worse since yesterday. There is no mediastinal shift. The heart size is normal. IMPRESSION: Worsening pneumonia Stable left-sided pneumothorax Interpreted and Authenticated by: Surinder Monet 06/22/21
[2021-06-22] MEDS: MULTIVIT,THER IRON,CA,FA & MIN 1 TABLET PO SCH (08:49)
[2021-06-22] MEDS: DOCUSATE SODIUM 100 MG CAPSULE PO SCH ×2 (08:49→21:02)
[2021-06-22] MEDS: VITAMIN D3 125 MCG TABLET PO SCH (08:49)
[2021-06-22] MEDS: POLYETHYLENE GLYCOL 3350 17 GM PACKET PO SCH (08:49)
[2021-06-22] MEDS: FUROSEMIDE 20 MG TABLET PO SCH ×2 (08:50→16:32)
--- NOTE | 2021-06-22 09:47 | General Surgery Progress Note ---
SUBJECTIVE Subjective Patient information: Note initiated : 06/22/21 at 9:42 am Service Date, if different from initiated Date: [] Patient: Abiel Rae 75 y/o M admitted on 05/30/21 for Covid, sob. Chief Complaint: [Spontaneous Left Sided Pneumothorax] Continues to have oxygenation issues. Pneumo looks smaller to my review on CXR with report pending. Principal diagnosis: CoVID pneumonia Constitutional Vitals: Vital Signs Temp Pulse Resp BP Pulse Ox 97.8 F 101 H 20 103/77 93 06/22/21 04:01 06/22/21 08:01 06/22/21 08:01 06/22/21 08:01 06/22/21 09:00 Period Temp Pulse Resp BP Sys/Guan Pulse Ox Last 24 Hr 96.9 F-98.5 F 88-117 16-32 89-116/63-90 84-98 Intake and Output 06/21/21 06/22/21 06/22/21 21:59 05:59 13:59 Intake Total 650 450 50 Output Total 470 320 Balance 180 130 50 Weight 170 lb 14.4 oz Intake & Output: Intake & Output 06/21/21 06/22/21 06/22/21 21:59 05:59 13:59 Intake Total 650 450 50 Output Total 470 320 Balance 180 130 50 Weight 170 lb 14.4 oz Intake: Nourishment/Supplement quantity 120 (ml) IV 50 50 50 Zosyn 3.375 gm In Dextrose 5% 50 50 50 in Water 50 ml @ 100 mls/hr IV Q6H [facility] Rx#:[id number] Oral 480 400 Output: Chest Tube Drainage 45 60 Left Lateral Chest 45 60 Urine Catheter Amount 425 260 Other: Meal Dinner Percent of Meal Consumed 100% Nourishment/Supplement name Ensure Enlive 1/2 and 1/2 milk Urine Appearance Clear Clear Uretheral (Hunt) Cloudy Clear Urine Color Dark Yellow Dark Yellow Uretheral (Hunt) Straw Dark Yellow Urine Odor Normal Stool Size Small Small Stool Color Brown Brown Stool Consistency Loose Loose # Bowel Movements 1 Exam: awake and conversant Respiratory Additional comments: Air leak continues in Left CT Pleuravac A/P Narrative A/P Narrative: Spontaneous Left Sided Pneumothorax in setting of COVID Suction increased yesterday but still some residual pneumo remains but doubt that is significantly contributing to his pulmonary fragility Continue present Chest Tube mgmt - consider placement of larger tube tomorrow if pneumo not yet fully resolved Time Spent With Patient Time: Total time spent is greater than 50% in coordination of care (as documented) at patient's floor/unit and/or counseling patient:
--- NOTE | 2021-06-22 10:44 | Internal Med Progress Note ---
SUBJECTIVE Subjective Patient information: Note initiated : 06/22/21 at 10:40 am Service Date, if different from initiated Date: [] Patient: Abiel Rae a 75 y/o M admitted on 05/30/21 for Covid, sob. Chief Complaint: [] Principal diagnosis: CoVID pneumonia Interval history: Mr. Rae is a 75 year old M with no prior significant medical history who presents to the ER with worsening shortness of breath over the last few weeks. Patient was diagnosed with Covid on the and was discharged home on oxygen however he was discovered by his neighbor very short of breath and subsequently EMS was summoned. Patient was found to be desaturating in mid 80s. He was brought into the ER. Initial work-up was consistent with bilateral Covid pneumonia. Patient was found dexamethasone and subsequently hospitalist service was consulted. At the time of my evaluation patient is alert and able to answer most the que stions. He was able to endorse history as above. He denies hemoptysis, diarrhea, abdominal pain, headache lightheadedness but endorses to weakness fatigue loss of appetite along with malaise. 05/31-patient clinically deteriorating. Now requiring 65% FiO2 at 35 L high flow oxygen. Worsening Covid pneumonia with possible element of ARDS. Status post Actemra. Continuing remdesivir/dexamethasone day two. Remains very high risk mortality. No overnight fever chills. Continue diurese/thrombosis prophylaxis. Maintain COVID-19 precaution. Check x-ray/ABGs 06/01 worsening interval chest imaging, however clinically feels better. On high flow oxygen 30 L. White count 8.6, platelets 133, continuing remdesivir/dexamethasone/azithromycin. No overnight events including fever chills. Alert and respond to commands, no anxiety or concerns per staff 06/02-patient this morning experienced syncopal episode while sitting in a chair. Was found in a near unresponsive state with blood pressure in the 80s. Placed on bed. Continue examination unremarkable. Patient returned to normal sensorium shortly. Denies chest pain, shortness of breath. [place] back at baseline within minutes. Was incontinent of stool on chair. White count 5.6, potassium 3.2 on replacement, creatinine 0.9. Lower diuretic dose to 20 mg daily, continue remdesivir/dexamethasone. On 30 L high flow 65% FiO2. Remains critically ill 06/03-patient critically ill. Worsening hypoxia now on 70 L oxygen high flow. Patient seen in room. Grieving from loss of his . No telemetry events. No fever chills. Systolics mid 80s. Diuretics discontinued. On remdesivir/dexamethasone day 5. 06/04-patient clinically deteriorating. Seen in room. Desats on minimal activity. Now on 80% FiO2. High risk mortality. On day 6 remdesivir/dexamethasone. Potassium 4.1, LFTs downtrending, interval chest imaging evidence of subcutaneous emphysema. Repeat interval chest imaging at 1 PM rule out spontaneous pneumothorax Continue close monitoring in ICU. Avoid noninvasive ventilation due to risk of pneumothorax 06/05-patient seen in room, clinically deteriorating. Remarkably short of breath now on 35% FiO2. Desats to mid 80s on minimal exertion. Continuing dexamethasone/remdesivir. No telemetry events. Stable labs and hemodynamics. No overnight fever chills or concerns per staff. Remains a high risk mortality based on [place] 2 score. Interval chest imaging worsening bilateral infiltrates, No evidence of pneumothorax, decreased subcutaneous emphysema. 06/06 Patient not vaccinated. Patient states he feels like he is breathing better. Has a dry cough. Oxygen at 35 L/min 75% FiO2. 06/07 Patient is cough is improving. Shortness of breath seems amenable to him. He was taken to CT on a nonrebreather and he feels like he can breathe much easier on the nonrebreather than the Vapotherm and his oxygen saturations are quite good on the nonrebreather. We will also try Ventimask. 06/08 Patient states he is feeling better and breathing better but still requiring a lot of oxygen. We are able to get him down to 6 L oxygen mask yesterday for short period but is essentially been on 12-15 through the afternoon and evening. Currently on 12 L. And sats well at rest but with any movement desats quickly. 06/09 Patient on oxygen mask at 12 L and not on high flow tubing. Patient replaced on high flow tubing and liters nasal cannula. Sound little bit wheezy will have a breathing treatment ordered. Patient has a mild cough, he does have some shortness of breath with exertion feels about the same. 06/10 Continues to feel well. He is on 6 L oxygen mask at rest but desats with activity and is on 9L at that point. He is making progress but slowly. 06/11: Afebrile overnight. Still on 6L/min oxygen at rest and up to 9L/min when ambulate. c/o improving degree of SOB. c/o nonproductive cough. Denies wheezing or chest pain. Denies fever, chills, or sweating. Good energy level, good appetite. 06/12: Afebrile overnight. Still on 9L/min oxygen at the moment. c/o improving degree of SOB. c/o nonproductive cough. Denies wheezing or chest pain. Denies fever, chills, or sweating. Good energy level, good appetite. 06/13: Afebrile overnight. Still on 9L/min oxygen at the moment. c/o improving degree of SOB. c/o nonproductive cough. Denies wheezing or chest pain. Denies fever, chills, or sweating. Good energy level, good appetite. 06/14: Afebrile overnight. Was on 6L/min oxygen overnight, now on 10L/min. c/o improving degree of SOB. c/o nonproductive cough. Denies wheezing or chest pain. Denies fever, chills, or sweating. Good energy level, good appetite. 06/15: Developed left sided tension pneumothorax yesterday afternoon, s/p left sided chest tube placement by radiologist. On 4L/min overnight and currently. Have 5cc blood output from the chest tube overnight. Denies any SOB. Denies any cough or wheezing. Denies any chest pain. Denies any anxiety. Denies any fever, chills, or sweating. 06/16 Patient states he is feeling better today. Mild cough and improving shortness of breath. Chest x-ray with moderate recurrent pneumothorax, will consult surgery, patient placed on Pleur-evac. About 10 cc of blood about the chest tube overnight. 06/17 No change per patient today feeling same. Pneumothorax has not improved today in fact slightly worse, suspect blockage of the chest tube. Will defer further recommendations to surgery. Otherwise oxygen requirement still remains low 4-5L. 06/18 No changes. Pneumothorax continues to enlarge, defer to surgery for likely c hest tube replacement. Once the pneumothorax is resolved patient will go to [facility] 06/19 Large bore chest tube placed yesterday for enlarging pneumothorax, bloody drainage about 180 overnight. Patient feels like he is breathing better since the chest tube was placed however he is on a nonrebreather although of note his sats are 100%. No new complaints. 06/20 Patient has significant desaturation last night when to when he was moving around. Placed on nonrebreather and supplemental high flow O2. Stat chest x-ray showed a left pneumothorax to be improving. There is severe bilateral alveolar infiltrates that are unchanged from previous chest x-ray.. 06/21: Afebrile overnight. Still lying on his side. On high flow oxygen 30L/min FiO2 65% with nonrebreather 13L/min on top. All cultures no growth to date. CXR today showing stable pneumothorax with severe bilateral infiltrates, no change from previous study. c/o moderate SOB. c/o nonproductive cough and wheezing. Denies chest pain. Denies anxiety. Denies fever, chills, or sweating. 06/22: Afebrile overnight. On high flow oxygen 30L/min FiO2 100% with nonrebreather 15L/min on top. Repeat CXR this morning showing stable left sided pneumothorax, and worsening pneumonia. All cultures no growth to date. Denies SOB. Denies cough or wheezing. Denies anxiety. Spoke with Dr. Frank, no need to replace with a larger bore chest tube at this point. If air leaks or pneumothorax worsening, will transfer to bigger center with CT surgeon for consultation for procedures such as pleurodesis. Constitutional Vitals: Vital Signs Temp Pulse Resp BP Pulse Ox 36.6 C 107 H 32 H 102/89 95 06/22/21 04:01 06/22/21 10:01 06/22/21 10:01 06/22/21 10:01 06/22/21 10:01 Period Temp Pulse Resp BP Sys/Guan Pulse Ox Last 24 Hr 36.1 C-36.9 C 88-117 16-32 89-116/63-90 84-98 Intake and Output 06/21/21 06/22/21 06/22/21 21:59 05:59 13:59 Intake Total 650 450 50 Output Total 470 320 Balance 180 130 50 Weight 77.519 kg Intake & Output: Intake & Output 06/21/21 06/22/21 06/22/21 21:59 05:59 13:59 Intake Total 650 450 50 Output Total 470 320 Balance 180 130 50 Weight 77.519 kg Intake: Nourishment/Supplement quantity 120 (ml) IV 50 50 50 Zosyn 3.375 gm In Dextrose 5% 50 50 50 in Water 50 ml @ 100 mls/hr IV Q6H [facility] Rx#:[id number] Oral 480 400 Output: Chest Tube Drainage 45 60 Left Lateral Chest 45 60 Urine Catheter Amount 425 260 Other: Meal Dinner Percent of Meal Consumed 100% Nourishment/Supplement name Ensure Enlive 06/30 and 06/30 milk Urine Appearance Clear Clear Uretheral (Hunt) Cloudy Clear Urine Color Dark Yellow Dark Yellow Uretheral (Hunt) Straw Dark Yellow Urine Odor Normal Stool Size Small Small Stool Color Brown Brown Stool Consistency Loose Loose # Bowel Movements 1 General appearance: average body habitus, cooperative and no acute distress Head Head exam: Present atraumatic and normal inspection Eye Eye exam: Present normal appearance ENT ENT exam: Present mucous membranes moist, normal exam and normal external ear exam Additional comments: High flow oxygen with nonrebreather in place Neck Neck exam: Present normal inspection Respiratory Respiratory exam: Present normal respiratory exam Additional comments: Left sided chest tube in place Decreased breath sound in the left lung nava Cardiovascular Cardiovascular exam: Present normal rate and rhythm GI/Abdominal GI/Abdominal exam: Present normal bowel sounds Back Exam Back exam: Present normal inspection Neurological Exam Neurological exam: Present alert and oriented X3 Skin Skin exam: Present intact and warm OBJ DATA Labs CBC & Chem 7: 06/22/21 04:45 06/22/21 04:45 Labs: Abnormal Lab Results 06/22/21 06/22/21 06/21/21 04:45 04:45 05:23 WBC 11.9 H RBC 4.48 L MPV 11.0 H Lymph % (Auto) 12.0 L Eos % (Auto) 12.3 H Lymph # (Auto) 1.43 L Dukes # (Auto) Eos # (Auto) 1.46 H Seg Neutrophils % Lymphocytes % Absolute Neutrophils 8.17 H Sodium 132 L Chloride 93 L Anion Gap BUN 32 H Glucose Direct Bilirubin AST 42 H Alkaline Phosphatase 119 H Lactate Dehydrogenase C-Reactive Protein NT-Pro-B Natriuret Pep Albumin 2.8 L Globulin 3.9 H Albumin/Globulin Ratio 0.7 L Procalcitonin 0.16 H 06/21/21 06/21/21 06/21/21 05:22 05:20 05:19 WBC 11.2 H RBC 4.59 L MPV 11.5 H Lymph % (Auto) 11.8 L Eos % (Auto) Lymph # (Auto) 1.32 L Dukes # (Auto) 1.01 H Eos # (Auto) 0.79 H Seg Neutrophils % Lymphocytes % Absolute Neutrophils 8.04 H Sodium Chloride 95 L Anion Gap BUN 25 H Glucose 114 H Direct Bilirubin 0.4 H AST Alkaline Phosphatase Lactate Dehydrogenase 458 H C-Reactive Protein 24.40 H NT-Pro-B Natriuret Pep 1605.0 H Albumin Globulin 3.8 H Albumin/Globulin Ratio 0.8 L Procalcitonin 06/21/21 06/20/21 06/20/21 05:18 08:32 08:32 WBC 11.6 H RBC 4.60 L MPV 11.0 H Lymph % (Auto) Eos % (Auto) Lymph # (Auto) Dukes # (Auto) Eos # (Auto) Seg Neutrophils % 84 H Lymphocytes % 6 L Absolute Neutrophils Sodium Chloride Anion Gap BUN 24 H Glucose 112 H Direct Bilirubin AST Alkaline Phosphatase Lactate Dehydrogenase C-Reactive Protein NT-Pro-B Natriuret Pep Albumin Globulin 3.8 H Albumin/Globulin Ratio 0.8 L Procalcitonin 0.18 H 06/20/21 06/19/21 08:32 09:45 WBC RBC MPV Lymph % (Auto) Eos % (Auto) Lymph # (Auto) Dukes # (Auto) Eos # (Auto) Seg Neutrophils % Lymphocytes % Absolute Neutrophils Sodium Chloride 95 L Anion Gap 19.0 H BUN Glucose 113 H Direct Bilirubin 0.3 H AST Alkaline Phosphatase Lactate Dehydrogenase 470 H C-Reactive Protein 33.10 H NT-Pro-B Natriuret Pep 1048.0 H Albumin Globulin Albumin/Globulin Ratio 0.9 L Procalcitonin Meds: Medications Acetaminophen (Acetaminophen 325 Mg Tablet) 650 mg PO Q4-6HP PRN; Protocol PRN Reason: Per Pain Protocol/Fever > 101 Last Admin: 06/19/21 19:15 Dose: 650 mg Documented by: Albuterol/Ipratropium (Ipratropium/Albuterol 3 Ml Ampul.Neb) 3 ml NEB Q4HP PRN PRN Reason: Shortness Of Breath Last Admin: 06/20/21 13:50 Dose: 3 ml Documented by: Benzonatate (Benzonatate 100 Mg Capsule) 100 mg PO TIDP PRN PRN Reason: Cough Last Admin: 06/22/21 00:22 Dose: 100 mg Documented by: Bisacodyl (Bisacodyl 10 Mg Supp.Rect) 10 mg WV Q2-3DAYS PRN PRN Reason: Constipation Docusate Sodium (Docusate Sodium 100 Mg Capsule) 100 mg PO BID [facility] Last Admin: 06/22/21 08:49 Dose: 100 mg Documented by: Furosemide (Furosemide 20 Mg Tablet) 20 mg PO BIDD [facility] Last Admin: 06/22/21 08:50 Dose: 20 mg Documented by: Guaifenesin/Codeine Phosphate (Guaifenesin/Codeine 10 Ml Udc) 10 ml PO Q4HP PRN PRN Reason: Cough Last Admin: 06/22/21 04:08 Dose: 10 ml Documented by: Potassium Chloride 40 meq/ (Dextrose) 520 mls @ 130 mls/hr IV UD PRN PRN Reason: K+ = or < 3.5 Acetaminophen (Ofirmev) 650 mg in 65 mls @ 130 mls/hr IV Q6HP PRN; Protocol PRN Reason: Per Pain Protocol/Fever > 101 Magnesium Sulfate (Magnesium Sulfate) 2 gm in 50 mls @ 50 mls/hr IV UD PRN PRN Reason: MG = or < 1.7 Sodium Chloride (Sodium Chloride 0.9%) 1,000 mls @ 0 mls/hr IV .Q0M CARL Piperacillin Sod/Tazobactam (Sod 3.375 gm/ Dextrose) 50 mls @ 100 mls/hr IV Q6H [facility]; Protocol Last Infusion: 06/22/21 07:27 Dose: Infused Documented by: Ibuprofen (Ibuprofen 600 Mg Tablet) 600 mg PO QIDP PRN; Protocol PRN Reason: PAIN/FEVER > 101 Last Admin: 06/22/21 00:22 Dose: 600 mg Documented by: Iron Carb/Multivit/Herricks/Folic Acid (Multivit,Ther Iron,Ca,Fa & Min 1 Tablet) 1 tab PO DAILY [facility] Last Admin: 06/22/21 08:49 Dose: 1 tab Documented by: Lorazepam (Lorazepam 2 Mg/Ml Vial) 0.5 mg IV Q4-6HP PRN PRN Reason: ANXIETY/SEDATION Last Admin: 06/20/21 12:50 Dose: 0.5 mg Documented by: Melatonin (Melatonin 3 Mg Tablet) 3 mg PO HSP PRN PRN Reason: Insomnia Morphine Sulfate (Morphine 4 Mg/Ml Vial) 4 mg IV Q4HP PRN; Protocol PRN Reason: Per Pain Protocol Last Admin: 06/22/21 04:07 Dose: 4 mg Documented by: Nitroglycerin (Nitroglycerin 0.4 Mg Tab.Subl) 0.4 mg SL Q5M PRN PRN Reason: Chest Pain Last Admin: 06/14/21 10:02 Dose: 0.4 mg Documented by: Omeprazole (Omeprazole 20 Mg Capsule) 20 mg PO ACB [facility] Last Admin: 06/22/21 08:06 Dose: 20 mg Documented by: Ondansetron HCl (Ondansetron 4 Mg Odt Tablet) 4 mg SL Q4-6HP PRN; Protocol PRN Reason: Nausea And Vomiting Ondansetron HCl (Ondansetron 4 Mg/2 Ml Vial) 4 mg IV Q4-6HP PRN; Protocol PRN Reason: Nausea And Vomiting Oxycodone/Acetaminophen (Oxycodone/Apap 5/325mg Tablet) 1 tab PO Q6HP PRN; Protocol PRN Reason: Per Pain Protocol Last Admin: 06/22/21 06:50 Dose: 1 tab Documented by: Polyethylene Glycol (Polyethylene Glycol 3350 17 Gm Packet) 17 gm PO DAILYP PRN PRN Reason: Constipation Last Admin: 06/15/21 16:49 Dose: 17 gm Documented by: Polyethylene Glycol (Polyethylene Glycol 3350 17 Gm Packet) 17 gm PO DAILY [facility] Last Admin: 06/22/21 08:49 Dose: 17 gm Documented by: Potassium/Phosphorus/Sodium (Neutra Phos 1 Packet) 2 packet PO ONCE PRN PRN Reason: For phosphorus less than 2.5 Senna/Docusate Sodium (Sennosides/Docusate Sodium 1 Tab Tablet) 1 tab PO HS [facility] Last Admin: 06/21/21 21:57 Dose: Not Given Documented by: Sodium Chloride (0.9 % Sodium Chloride 10 Ml Syringe) 10 ml IV Q8 [facility] Last Admin: 06/22/21 05:40 Dose: 10 ml Documented by: Vitamin D (Vitamin D3 125 Mcg Tablet) 125 mcg PO DAILY [facility] Last Admin: 06/22/21 08:49 Dose: 125 mcg Documented by: A/P Assessment and plan (1) COVID-19: Status: Acute (2) Acute hypoxemic respiratory failure: Status: Acute (3) Hyperkalemia: Status: Acute (4) GERD (gastroesophageal reflux disease): Status: Chronic Qualifiers: Esophagitis presence: with esophagitis Qualified Code(s): K21.0 - Gastro-esophageal reflux disease with esophagitis (5) Spontaneous tension pneumothorax: Status: Acute (6) HCAP (healthcare-associated pneumonia): Status: Acute (7) Elevated brain natriuretic peptide (BNP) level: Status: Acute Narrative A/P Narrative: Assessment and Plans: 1. CoVID pneumonia: Isolation: airborne and contract Inpatient PCU Supplemental oxygen therapy titrate to achieve spo2>=92%, currently on high flow oxygen 30L/min FiO2 100% with nonrebreather 15L/min on top s/p Actemra Finished Remdesivir Finished Dexamethasone Avoid Lovenox/Heparin due to chest tube in place and recent bleeding into the chest tube DuoNEB NEB q4hr PRN wheezing or SOB No pulmonary embolism by CTA on 06/07 Tessalon Perles PRN cough Robitussin AC PRN cough 2. Hyperkalemia: RESOLVED Serum potassium level 3.6 on 06/21 Will repeat CMP in the morning to trend serum potassium level 3. GERD: Prilosec 4. Left sided tension pneumothorax: Dr. Frank replaced a chest tube on 06/18 Repeat CXR this morning showing stable left sided pneumothorax, and worsening pneumonia. Spoke with Dr. Frank, no need to replace with a larger bore chest tube at this point. If air leaks or pneumothorax worsening, will transfer to [facility] with CT surgeon for consultation for procedures such as pleurodesis. 5. HCAP: Supplemental oxygen therapy titrate to achieve spo2>=92%, currently on high flow oxygen 30L/min FiO2 100% with nonrebreather 15L/min on top MRSA screen negative Zosyn Tylenol PRN fever Robitussin AC PRN cough DuoNEB NEB PRN wheezing or SOB cbc w/ auto diff in the morning to trend WBC Repeat blood and sputum culture, no growth to date CXR on 06/22 showing worsening pneumonia 6. Elevated BNP level: 2D echocardiogram to assess cardiac function Lasix 20mg PO BID Supplemental oxygen therapy, see above GI ppx: Prilosec DVT ppx: SCDs Code status: Full Prognosis: extremely guarded Disposition: inpatient PCU Time Spent With Patient Time: Total time spent is greater than 50% in coordination of care (as documented) at patient's floor/unit and/or counseling patient: Total time spent with greater than 50% in coordination of care (as documented) at patient's floor/unit and/or counseling patient:: Greater than 35 minutes QUALITY Stroke Symptom Onset Unknown: No
[2021-06-22] MEDS ORDERED: METOPROLOL TARTRATE 5 MG/5 ML VIAL IV PRN (12:20)
[2021-06-22] MEDS: METOPROLOL TARTRATE 25 MG TABLET PO SCH ×2 (13:19→21:02)
[2021-06-22] MEDS ORDERED: METOPROLOL TARTRATE 25 MG TABLET PO SCH (21:00)
[2021-06-22] MEDS: ACETAMINOPHEN 325 MG TABLET PO PRN (21:01)
[2021-06-22] MEDS: SENNOSIDES/DOCUSATE SODIUM 1 TAB TABLET PO SCH (21:03)
[2021-06-22] MEDS: MELATONIN 3 MG TABLET PO PRN (22:16)
[2021-06-23] MEDS: PIPERACILLIN SODIUM/TAZOBACTAM 3.375 GM in DEXTROSE 5% IN WATER 50 ML IV SCH ×5 (00:01→23:45)
[2021-06-23] MEDS: 0.9 % SODIUM CHLORIDE 10 ML SYRINGE IV SCH ×6 (00:53→23:45)
[2021-06-23] MEDS: guaiFENesin/CODEINE 10 ML UDC PO PRN (02:31)
[2021-06-23 07:08] LABS: ALT/SGPT 29 U/L (<40); AST/SGOT 47 U/L (<40); Albumin/Globulin Ratio 0.8 (1.0-2.3); Alkaline Phosphatase 163 U/L (39-117); Blood Urea Nitrogen 33 mg/dL (8-23); Calcium 9.8 mg/dL (8.6-10.4); Carbon Dioxide 25 mmol/L (22-30); Chloride 93 mmol/L (96-108); Glomerular Filtration Rate 66; Glucose 116 mg/dL (70-105)
[2021-06-23 07:10] LABS: Basophils # (Auto) 0.07 K/mcL (0.00-0.30); Basophils % (Auto) 0.5 % (0.0-2.0); Eosinophils # (Auto) 0.45 K/mcL (0.00-0.70); Eosinophils % (Auto) 3.4 % (0.0-7.0); Hematocrit 39.6 % (40.1-51.0); Lymphocytes # (Auto) 1.32 K/mcL (1.50-4.80); Lymphocytes % (Auto) 9.9 % (15.5-49.0); Mean Cell Volume 89.6 fL (80.0-100.0); Mean Corpuscular HGB Conc 35.4 g/dL (31.0-36.0); Mean Platelet Volume 11.3 fL (7.4-10.4); Monocytes # (Auto) 0.85 K/mcL (0.10-0.90); Monocytes % (Auto) 6.4 % (1.0-12.0); Neutrophils % (Auto) 79.8 % (38.0-78.0); Platelet Count 197 K/mcL (140-440); RBC 4.42 M/mcL (4.63-6.08); WBC 13.4 K/mcL (4.5-11.0)
--- NOTE | 2021-06-23 09:00 | Internal Med Progress Note ---
SUBJECTIVE Subjective Patient information: Note initiated : 06/23/21 at 8:56 am Service Date, if different from initiated Date: [] Patient: Abiel Rae a 75 y/o M admitted on 05/30/21 for Covid, sob. Chief Complaint: [] Principal diagnosis: CoVID pneumonia Interval history: Mr. Rae is a 75 year old M with no prior significant medical history who presents to the ER with worsening shortness of breath over the last few weeks. Patient was diagnosed with Covid on the and was discharged home on oxygen however he was discovered by his neighbor very short of breath and subsequently EMS was summoned. Patient was found to be desaturating in mid 80s. He was brought into the ER. Initial work-up was consistent with bilateral Covid pneumonia. Patient was found dexamethasone and subsequently hospitalist service was consulted. At the time of my evaluation patient is alert and able to answer most the ques tions. He was able to endorse history as above. He denies hemoptysis, diarrhea, abdominal pain, headache lightheadedness but endorses to weakness fatigue loss of appetite along with malaise. 05/31-patient clinically deteriorating. Now requiring 65% FiO2 at 35 L high flow oxygen. Worsening Covid pneumonia with possible element of ARDS. Status post Actemra. Continuing remdesivir/dexamethasone day two. Remains very high risk mortality. No overnight fever chills. Continue diurese/thrombosis prophylaxis. Maintain COVID-19 precaution. Check x-ray/ABGs 06/01 worsening interval chest imaging, however clinically feels better. On high flow oxygen 30 L. White count 8.6, platelets 133, continuing remdesivir/dexamethasone/azithromycin. No overnight events including fever chills. Alert and respond to commands, no anxiety or concerns per staff 06/02-patient this morning experienced syncopal episode while sitting in a chair. Was found in a near unresponsive state with blood pressure in the 80s. Placed on bed. Continue examination unremarkable. Patient returned to normal sensorium shortly. Denies chest pain, shortness of breath. [place] back at baseline within minutes. Was incontinent of stool on chair. White count 5.6, potassium 3.2 on replacement, creatinine 0.9. Lower diuretic dose to 20 mg daily, continue remdesivir/dexamethasone. On 30 L high flow 65% FiO2. Remains critically ill 06/03-patient critically ill. Worsening hypoxia now on 70 L oxygen high flow. Patient seen in room. Grieving from loss of his . No telemetry events. No fever chills. Systolics mid 80s. Diuretics discontinued. On remdesivir/dexamethasone day 5. 06/04-patient clinically deteriorating. Seen in room. Desats on minimal activity. Now on 80% FiO2. High risk mortality. On day 6 remdesivir/dexamethasone. Potassium 4.1, LFTs downtrending, interval chest imaging evidence of subcutaneous emphysema. Repeat interval chest imaging at 1 PM rule out spontaneous pneumothorax Continue close monitoring in ICU. Avoid noninvasive ventilation due to risk of pneumothorax 06/05-patient seen in room, clinically deteriorating. Remarkably short of breath now on 35% FiO2. Desats to mid 80s on minimal exertion. Continuing dexamethasone/remdesivir. No telemetry events. Stable labs and hemodynamics. No overnight fever chills or concerns per staff. Remains a high risk mortality based on [place] 2 score. Interval chest imaging worsening bilateral infiltrates, No evidence of pneumothorax, decreased subcutaneous emphysema. 06/06 Patient not vaccinated. Patient states he feels like he is breathing better. Has a dry cough. Oxygen at 35 L/min 75% FiO2. 06/07 Patient is cough is improving. Shortness of breath seems amenable to him. He was taken to CT on a nonrebreather and he feels like he can breathe much easier on the nonrebreather than the Vapotherm and his oxygen saturations are quite good on the nonrebreather. We will also try Ventimask. 06/08 Patient states he is feeling better and breathing better but still requiring a lot of oxygen. We are able to get him down to 6 L oxygen mask yesterday for short period but is essentially been on 12-15 through the afternoon and evening. Currently on 12 L. And sats well at rest but with any movement desats quickly. 06/09 Patient on oxygen mask at 12 L and not on high flow tubing. Patient replaced on high flow tubing and liters nasal cannula. Sound little bit wheezy will have a breathing treatment ordered. Patient has a mild cough, he does have some shortness of breath with exertion feels about the same. 06/10 Continues to feel well. He is on 6 L oxygen mask at rest but desats with activity and is on 9L at that point. He is making progress but slowly. 06/11: Afebrile overnight. Still on 6L/min oxygen at rest and up to 9L/min when ambulate. c/o improving degree of SOB. c/o nonproductive cough. Denies wheezing or chest pain. Denies fever, chills, or sweating. Good energy level, good appetite. 06/12: Afebrile overnight. Still on 9L/min oxygen at the moment. c/o improving degree of SOB. c/o nonproductive cough. Denies wheezing or chest pain. Denies fever, chills, or sweating. Good energy level, good appetite. 06/13: Afebrile overnight. Still on 9L/min oxygen at the moment. c/o improving degree of SOB. c/o nonproductive cough. Denies wheezing or chest pain. Denies fever, chills, or sweating. Good energy level, good appetite. 06/14: Afebrile overnight. Was on 6L/min oxygen overnight, now on 10L/min. c/o improving degree of SOB. c/o nonproductive cough. Denies wheezing or chest pain. Denies fever, chills, or sweating. Good energy level, good appetite. 06/15: Developed left sided tension pneumothorax yesterday afternoon, s/p left sided chest tube placement by radiologist. On 4L/min overnight and currently. Have 5cc blood output from the chest tube overnight. Denies any SOB. Denies any cough or wheezing. Denies any chest pain. Denies any anxiety. Denies any fever, chills, or sweating. 06/16 Patient states he is feeling better today. Mild cough and improving shortness of breath. Chest x-ray with moderate recurrent pneumothorax, will consult surgery, patient placed on Pleur-evac. About 10 cc of blood about the chest tube overnight. 06/17 No change per patient today feeling same. Pneumothorax has not improved today in fact slightly worse, suspect blockage of the chest tube. Will defer further recommendations to surgery. Otherwise oxygen requirement still remains low 4-5L. 06/18 No changes. Pneumothorax continues to enlarge, defer to surgery for likely ch est tube replacement. Once the pneumothorax is resolved patient will go to [facility]. 06/19 Large bore chest tube placed yesterday for enlarging pneumothorax, bloody drainage about 180 overnight. Patient feels like he is breathing better since the chest tube was placed however he is on a nonrebreather although of note his sats are 100%. No new complaints. 06/20 Patient has significant desaturation last night when to when he was moving around. Placed on nonrebreather and supplemental high flow O2. Stat chest x-ray showed a left pneumothorax to be improving. There is severe bilateral alveolar infiltrates that are unchanged from previous chest x-ray.. 06/21: Afebrile overnight. Still lying on his side. On high flow oxygen 30L/min FiO2 65% with nonrebreather 13L/min on top. All cultures no growth to date. CXR today showing stable pneumothorax with severe bilateral infiltrates, no change from previous study. c/o moderate SOB. c/o nonproductive cough and wheezing. Denies chest pain. Denies anxiety. Denies fever, chills, or sweating. 06/22: Afebrile overnight. On high flow oxygen 30L/min FiO2 100% with nonrebreather 15L/min on top. Repeat CXR this morning showing stable left sided pneumothorax, and worsening pneumonia. All cultures no growth to date. Denies SOB. Denies cough or wheezing. Denies anxiety. Spoke with Dr. Frank, no need to replace with a larger bore chest tube at this point. If air leaks or pneumothorax worsening, will transfer to bigger center with CT surgeon for consultation for procedures such as pleurodesis. 06/23: Afebrile overnight. On high flow oxygen 30L/min FiO2 100% with nonrebreather 15L/min on top. CXR pending. Patient is c/o mild to moderate SOB. c/o nonproductive cough. Denies wheezing. Denies chest pain. Denies fever, chills, or sweating. Denies anxiety. Continue to touch base with Dr. Frank regarding surgical management. Continue Zosyn. Constitutional Vitals: Vital Signs Temp Pulse Resp BP Pulse Ox 36.4 C 89 26 H 102/79 98 06/23/21 08:02 06/23/21 08:02 06/23/21 08:02 06/23/21 08:02 06/23/21 08:02 Period Temp Pulse Resp BP Sys/Guan Pulse Ox Last 24 Hr 36.2 C-36.6 C 48-141 19-39 72-161/56-131 87-98 Intake and Output 06/22/21 06/23/21 06/23/21 21:59 05:59 13:59 Intake Total 920 200 530 Output Total 600 280 125 Balance 320 -80 405 Weight 75.387 kg Intake & Output: Intake & Output 06/22/21 06/23/21 06/23/21 21:59 05:59 13:59 Intake Total 920 200 530 Output Total 600 280 125 Balance 320 -80 405 Weight 75.387 kg Intake: Nourishment/Supplement quantity 30 (ml) IV 50 50 50 Zosyn 3.375 gm In Dextrose 5% 50 50 50 in Water 50 ml @ 100 mls/hr IV Q6H [facility] Rx#:[id number] Oral 870 120 480 Output: Chest Tube Drainage 50 30 Left Lateral Chest 50 30 Urine Catheter Amount 550 250 125 Other: Meal Nourishment/Supplement Nourishment/Supplement name Ensure Urine Appearance Clear Clear Uretheral (Hunt) Clear Urine Color Bright Yellow Dark Yellow Light Andressa Uretheral (Hunt) Bright Yellow Urine Odor Normal Normal Normal Stool Size Moderate Moderate Stool Color Brown Brown Stool Consistency Liquid Liquid # Bowel Movements 1 General appearance: average body habitus, cooperative and moderate distress Head Head exam: Present atraumatic and normal inspection Eye Eye exam: Present normal appearance ENT ENT exam: Present mucous membranes moist, normal exam and normal external ear exam Additional comments: High flow oxygen plus nonrebreather mask in place Neck Neck exam: Present normal inspection Respiratory Respiratory exam: Present normal respiratory exam, decreased breath sounds and rhonchi Additional comments: Left sided chest tube in place Decreased breath sound with crackles in all lung nava. Cardiovascular Cardiovascular exam: Present normal rate and rhythm GI/Abdominal GI/Abdominal exam: Present normal bowel sounds Back Exam Back exam: Present normal inspection Neurological Exam Neurological exam: Present alert and oriented X3 Skin Skin exam: Present intact and warm OBJ DATA Labs CBC & Chem 7: 06/23/21 05:44 06/23/21 05:44 Labs: Abnormal Lab Results 06/23/21 06/23/21 06/22/21 05:44 05:44 04:45 WBC 13.4 H RBC 4.42 L Hct 39.6 L MPV 11.3 H Neut % (Auto) 79.8 H Lymph % (Auto) 9.9 L Eos % (Auto) Lymph # (Auto) 1.32 L [place] # (Auto) Eos # (Auto) Seg Neutrophils % Lymphocytes % Absolute Neutrophils 10.69 H Sodium 132 L Chloride 93 L 93 L Anion Gap 17.0 H BUN 33 H 32 H Glucose 116 H Direct Bilirubin AST 47 H 42 H Alkaline Phosphatase 163 H 119 H Lactate Dehydrogenase C-Reactive Protein NT-Pro-B Natriuret Pep Albumin 3.0 L 2.8 L Globulin 4.0 H 3.9 H Albumin/Globulin Ratio 0.8 L 0.7 L Procalcitonin 06/22/21 06/21/21 06/21/21 04:45 05:23 05:22 WBC 11.9 H RBC 4.48 L Hct MPV 11.0 H Neut % (Auto) Lymph % (Auto) 12.0 L Eos % (Auto) 12.3 H Lymph # (Auto) 1.43 L [place] # (Auto) Eos # (Auto) 1.46 H Seg Neutrophils % Lymphocytes % Absolute Neutrophils 8.17 H Sodium Chloride Anion Gap BUN Glucose Direct Bilirubin AST Alkaline Phosphatase Lactate Dehydrogenase C-Reactive Protein NT-Pro-B Natriuret Pep 1605.0 H Albumin Globulin Albumin/Globulin Ratio Procalcitonin 0.16 H 06/21/21 06/21/21 06/21/21 05:20 05:19 05:18 WBC 11.2 H RBC 4.59 L Hct MPV 11.5 H Neut % (Auto) Lymph % (Auto) 11.8 L Eos % (Auto) Lymph # (Auto) 1.32 L [place] # (Auto) 1.01 H Eos # (Auto) 0.79 H Seg Neutrophils % Lymphocytes % Absolute Neutrophils 8.04 H Sodium Chloride 95 L Anion Gap BUN 25 H 24 H Glucose 114 H 112 H Direct Bilirubin 0.4 H AST Alkaline Phosphatase Lactate Dehydrogenase 458 H C-Reactive Protein 24.40 H NT-Pro-B Natriuret Pep Albumin Globulin 3.8 H 3.8 H Albumin/Globulin Ratio 0.8 L 0.8 L Procalcitonin 06/20/21 06/20/21 06/20/21 08:32 08:32 08:32 WBC 11.6 H RBC 4.60 L Hct MPV 11.0 H Neut % (Auto) Lymph % (Auto) Eos % (Auto) Lymph # (Auto) [place] # (Auto) Eos # (Auto) Seg Neutrophils % 84 H Lymphocytes % 6 L Absolute Neutrophils Sodium Chloride 95 L Anion Gap 19.0 H BUN Glucose 113 H Direct Bilirubin AST Alkaline Phosphatase Lactate Dehydrogenase C-Reactive Protein 33.10 H NT-Pro-B Natriuret Pep 1048.0 H Albumin Globulin Albumin/Globulin Ratio Procalcitonin 0.18 H Meds: Medications Acetaminophen (Acetaminophen 325 Mg Tablet) 650 mg PO Q4-6HP PRN; Protocol PRN Reason: Per Pain Protocol/Fever > 101 Last Admin: 06/22/21 21:01 Dose: 650 mg Documented by: Albuterol/Ipratropium (Ipratropium/Albuterol 3 Ml Ampul.Neb) 3 ml NEB Q4HP PRN PRN Reason: Shortness Of Breath Last Admin: 06/20/21 13:50 Dose: 3 ml Documented by: Benzonatate (Benzonatate 100 Mg Capsule) 100 mg PO TIDP PRN PRN Reason: Cough Last Admin: 06/22/21 22:17 Dose: 100 mg Documented by: Bisacodyl (Bisacodyl 10 Mg Supp.Rect) 10 mg GA Q2-3DAYS PRN PRN Reason: Constipation Docusate Sodium (Docusate Sodium 100 Mg Capsule) 100 mg PO BID CARL Last Admin: 06/22/21 21:02 Dose: Not Given Documented by: Guaifenesin/Codeine Phosphate (Guaifenesin/Codeine 10 Ml Udc) 10 ml PO Q4HP PRN PRN Reason: Cough Last Admin: 06/23/21 02:31 Dose: 10 ml Documented by: Potassium Chloride 40 meq/ (Dextrose) 520 mls @ 130 mls/hr IV UD PRN PRN Reason: K+ = or < 3.5 Acetaminophen (Ofirmev) 650 mg in 65 mls @ 130 mls/hr IV Q6HP PRN; Protocol PRN Reason: Per Pain Protocol/Fever > 101 Magnesium Sulfate (Magnesium Sulfate) 2 gm in 50 mls @ 50 mls/hr IV UD PRN PRN Reason: MG = or < 1.7 Sodium Chloride (Sodium Chloride 0.9%) 1,000 mls @ 0 mls/hr IV .Q0M CARL Piperacillin Sod/Tazobactam (Sod 3.375 gm/ Dextrose) 50 mls @ 100 mls/hr IV Q6H [facility]; Protocol Last Infusion: 06/23/21 08:07 Dose: Infused Documented by: Ibuprofen (Ibuprofen 600 Mg Tablet) 600 mg PO QIDP PRN; Protocol PRN Reason: PAIN/FEVER > 101 Last Admin: 06/22/21 00:22 Dose: 600 mg Documented by: Iron Carb/Multivit/[place]/Folic Acid (Multivit,Ther Iron,Ca,Fa & Min 1 Tablet) 1 tab PO DAILY CARL Last Admin: 06/22/21 08:49 Dose: 1 tab Documented by: Lorazepam (Lorazepam 2 Mg/Ml Vial) 0.5 mg IV Q4-6HP PRN PRN Reason: ANXIETY/SEDATION Last Admin: 06/20/21 12:50 Dose: 0.5 mg Documented by: Melatonin (Melatonin 3 Mg Tablet) 3 mg PO HSP PRN PRN Reason: Insomnia Last Admin: 06/22/21 22:16 Dose: 3 mg Documented by: Metoprolol Tartrate (Metoprolol Tartrate 25 Mg Tablet) 25 mg PO BID [facility] Last Admin: 06/22/21 21:02 Dose: 25 mg Documented by: Morphine Sulfate (Morphine 4 Mg/Ml Vial) 4 mg IV Q4HP PRN; Protocol PRN Reason: Per Pain Protocol Last Admin: 06/22/21 12:01 Dose: 4 mg Documented by: Nitroglycerin (Nitroglycerin 0.4 Mg Tab.Subl) 0.4 mg SL Q5M PRN PRN Reason: Chest Pain Last Admin: 06/14/21 10:02 Dose: 0.4 mg Documented by: Omeprazole (Omeprazole 20 Mg Capsule) 20 mg PO ACB [facility] Last Admin: 06/22/21 08:06 Dose: 20 mg Documented by: Ondansetron HCl (Ondansetron 4 Mg Odt Tablet) 4 mg SL Q4-6HP PRN; Protocol PRN Reason: Nausea And Vomiting Ondansetron HCl (Ondansetron 4 Mg/2 Ml Vial) 4 mg IV Q4-6HP PRN; Protocol PRN Reason: Nausea And Vomiting Oxycodone/Acetaminophen (Oxycodone/Apap 5/325mg Tablet) 1 tab PO Q6HP PRN; Protocol PRN Reason: Per Pain Protocol Last Admin: 06/22/21 06:50 Dose: 1 tab Documented by: Polyethylene Glycol (Polyethylene Glycol 3350 17 Gm Packet) 17 gm PO DAILYP PRN PRN Reason: Constipation Last Admin: 06/15/21 16:49 Dose: 17 gm Documented by: Polyethylene Glycol (Polyethylene Glycol 3350 17 Gm Packet) 17 gm PO DAILY [facility] Last Admin: 06/22/21 08:49 Dose: 17 gm Documented by: Potassium/Phosphorus/Sodium (Neutra Phos 1 Packet) 2 packet PO ONCE PRN PRN Reason: For phosphorus less than 2.5 Senna/Docusate Sodium (Sennosides/Docusate Sodium 1 Tab Tablet) 1 tab PO HS [facility] Last Admin: 06/22/21 21:03 Dose: Not Given Documented by: Sodium Chloride (0.9 % Sodium Chloride 10 Ml Syringe) 10 ml IV Q8 [facility] Last Admin: 06/23/21 05:55 Dose: 10 ml Documented by: Vitamin D (Vitamin D3 125 Mcg Tablet) 125 mcg PO DAILY [facility] Last Admin: 06/22/21 08:49 Dose: 125 mcg Documented by: A/P Assessment and plan (1) COVID-19: Status: Acute (2) Acute hypoxemic respiratory failure: Status: Acute (3) Hyperkalemia: Status: Acute (4) GERD (gastroesophageal reflux disease): Status: Chronic Qualifiers: Esophagitis presence: with esophagitis Qualified Code(s): K21.0 - Gastro-esophageal reflux disease with esophagitis (5) Spontaneous tension pneumothorax: Status: Acute (6) HCAP (healthcare-associated pneumonia): Status: Acute (7) Elevated brain natriuretic peptide (BNP) level: Status: Acute Narrative A/P Narrative: Assessment and Plans: 1. CoVID pneumonia: Isolation: airborne and contract Inpatient PCU Supplemental oxygen therapy titrate to achieve spo2>=92%, currently on high flow oxygen 30L/min FiO2 100% with nonrebreather 15L/min on top s/p Actemra Finished Remdesivir Finished Dexamethasone Avoid Lovenox/Heparin due to chest tube in place and recent bleeding into the chest tube DuoNEB NEB q4hr PRN wheezing or SOB No pulmonary embolism by CTA on 06/07 Tessalon Perles PRN cough Robitussin AC PRN cough 2. Hyperkalemia: RESOLVED Serum potassium level 3.8 on 06/23 Will repeat CMP in the morning to trend serum potassium level 3. GERD: Prilosec 4. Left sided tension pneumothorax: Dr. Frank replaced a chest tube on 06/18 Repeat CXR this morning 06/23, results pending. Spoke with Dr. Frank, no need to replace with a larger bore chest tube at this point. If air leaks or pneumothorax worsening, will transfer to bigger center with CT surgeon for consultation for procedures such as pleurodesis. 5. HCAP: Supplemental oxygen therapy titrate to achieve spo2>=92%, currently on high flow oxygen 30L/min FiO2 100% with nonrebreather 15L/min on top MRSA screen negative Zosyn Tylenol PRN fever Robitussin AC PRN cough DuoNEB NEB PRN wheezing or SOB cbc w/ auto diff in the morning to trend WBC Repeat blood and sputum culture, no growth to date Repeat CXR this morning 06/23, results pending 6. Elevated BNP level: 2D echocardiogram to assess cardiac function Lasix 20mg PO BID Supplemental oxygen therapy, see above GI ppx: Prilosec DVT ppx: SCDs Code status: Full Prognosis: extremely guarded Disposition: inpatient PCU Time Spent With Patient Time: Total time spent is greater than 50% in coordination of care (as documented) at patient's floor/unit and/or counseling patient: Total time spent with greater than 50% in coordination of care (as documented) at patient's floor/unit and/or counseling patient:: Greater than 35 minutes QUALITY Stroke Symptom Onset Unknown: No
--- NOTE | 2021-06-23 09:21 | XRay Report ---
HISTORY: Follow-up pneumothorax and pneumonia FINDINGS: There is a left-sided pneumothorax which is roughly 20% volume. It has enlarged a small amount since yesterday. The subcutaneous emphysema in the left chest wall is stable and placement of the chest tube is unchanged. There are severe alveolar infiltrates throughout both lungs. There has been mild improvement in the left upper lobe and no change on the right side. No mediastinal shift is present and there is no pleural effusion. IMPRESSION: Small but enlarging left-sided pneumothorax Mild improvement of the pneumonia in the left upper lobe with no change of the pneumonia throughout the remainder of both lungs Interpreted and Authenticated by: Surinder Monet 06/23/21
[2021-06-23] MEDS: DOCUSATE SODIUM 100 MG CAPSULE PO SCH ×2 (09:33→21:41)
[2021-06-23] MEDS: POLYETHYLENE GLYCOL 3350 17 GM PACKET PO SCH (09:33)
[2021-06-23] MEDS: OMEPRAZOLE 20 MG CAPSULE PO SCH (10:03)
[2021-06-23] MEDS: METOPROLOL TARTRATE 25 MG TABLET PO SCH ×2 (10:07→21:41)
[2021-06-23] MEDS: MULTIVIT,THER IRON,CA,FA & MIN 1 TABLET PO SCH (10:07)
[2021-06-23] MEDS: VITAMIN D3 125 MCG TABLET PO SCH (10:07)
--- NOTE | 2021-06-23 10:37 | General Surgery Progress Note ---
SUBJECTIVE Subjective Patient information: Note initiated : 06/23/21 at 10:34 am Service Date, if different from initiated Date: [] Patient: Abiel Rae 75 y/o M admitted on 05/30/21 for Covid, sob. Chief Complaint: [Left Sided Spontaneous Covid Related Pneumothorax] CXR suggest further drop of lung today with a persistent 20% pneumo in the setting of an active air leak. Principal diagnosis: CoVID pneumonia Constitutional Vitals: Vital Signs Temp Pulse Resp BP Pulse Ox 97.6 F 88 34 H 125/91 100 06/23/21 08:02 06/23/21 10:01 06/23/21 10:01 06/23/21 10:01 06/23/21 10:01 Period Temp Pulse Resp BP Sys/Guan Pulse Ox Last 24 Hr 97.2 F-97.9 F 48-141 19-39 72-161/56-131 87-100 Intake and Output 06/22/21 06/23/21 06/23/21 21:59 05:59 13:59 Intake Total 920 200 530 Output Total 600 280 125 Balance 320 -80 405 Weight 166 lb 3.2 oz Intake & Output: Intake & Output 06/22/21 06/23/21 06/23/21 21:59 05:59 13:59 Intake Total 920 200 530 Output Total 600 280 125 Balance 320 -80 405 Weight 166 lb 3.2 oz Intake: Nourishment/Supplement quantity 30 (ml) IV 50 50 50 Zosyn 3.375 gm In Dextrose 5% 50 50 50 in Water 50 ml @ 100 mls/hr IV Q6H [facility] Rx#:[id number] Oral 870 120 480 Output: Chest Tube Drainage 50 30 Left Lateral Chest 50 30 Urine Catheter Amount 550 250 125 Other: Meal Nourishment/Supplement Nourishment/Supplement name Ensure Urine Appearance Clear Clear Uretheral (Hunt) Clear Urine Color Bright Yellow Dark Yellow Light Andressa Uretheral (Hunt) Bright Yellow Urine Odor Normal Normal Normal Stool Size Moderate Moderate Stool Color Brown Brown Stool Consistency Liquid Liquid # Bowel Movements 1 Respiratory Additional comments: Chest Tube appears to be functional with ongoing air leak in chamber A/P Narrative A/P Narrative: Persistent and now slightly worsening Left Sided Pneumo despite appropriately positioned Thoracostomy Tube. Will place larger (28FR) tube today and if lung not fully re expanded or at least substantially improved tomorrow then will recommend transfer to a Thoracic Surgery accessible facility Risks, benefits, potential complications and alternative treatment options were all discussed with him and he would like to proceed Time Spent With Patient Time: Total time spent is greater than 50% in coordination of care (as documented) at patient's floor/unit and/or counseling patient:
[2021-06-23] MEDS: morphine 4 MG/ML VIAL IV PRN ×2 (12:30→23:47)
--- NOTE | 2021-06-23 14:26 | XRay Report ---
HISTORY: New chest tube insertion FINDINGS: A new large caliber chest tube has been inserted. The tip is located medially in the left apex. The pneumothorax has nearly completely resolved. The subcutaneous emphysema in the chest wall is stable. There is no mediastinal shift. Severe infiltrates are again seen throughout both lungs, unchanged from the earlier exam. IMPRESSION: near complete resolution of left-side pneumothorax following insertion of a new chest tube Interpreted and Authenticated by: Surinder Monet 06/23/21
[2021-06-23] MEDS ORDERED: morphine 2 MG/ML VIAL ONE (19:49)
[2021-06-23] MEDS: BENZONATATE 100 MG CAPSULE PO PRN (19:55)
--- NOTE | 2021-06-23 20:15 | Procedure Note ---
PROC Chest Tube Chest Tube 1: Chest tube location: Mid-Axillary Chest Date of Procedure: 06/23/21 Size of tube: 28 Chest tube procedure: betadine prep Tube sutured to skin: Yes Sterile dressing applied: Yes Anesthesia: 1% Lidocaine Volume anesthetic (mLs): 10 Incision made with: other (used prior chest tube incision site ) Post procedure: sutured to skin and sterile dressing applied Dickinson of air heard: Yes Tube Drainage: none Post procedure CXR?: Yes Patient tolerated procedure: Yes Progress: Area prepped and draped and after adequate induction of local anesthesia, the recently placed 20 FR thoracostomy tube was removed and replaced with a 28 FR tube that was positioned near the apex of the lung at roughly 22 cm and then sutured in placed with two O Silk Sutures
[2021-06-23] MEDS: MELATONIN 3 MG TABLET PO PRN (21:41)
[2021-06-23] MEDS: SENNOSIDES/DOCUSATE SODIUM 1 TAB TABLET PO SCH (21:42)
--- NOTE | 2021-06-24 05:56 | XRay Report ---
CLINICAL INFORMATION: Follow-up infiltrates and pneumothorax COMPARISON: 06/23/2021 TECHNIQUE: Portable FINDINGS: Mild cardiomegaly is unchanged. Mediastinum and pulmonary vessels are normal. Moderate, predominantly interstitial, infiltrates in periphery of both lungs show modest improved aeration from yesterday. Left chest tube remains in stable position. Tiny residual left pneumothorax is unchanged. IMPRESSION: Moderate infiltrates in the periphery of both lungs-slight improvement Small residual left pneumothorax-stable Interpreted and Authenticated by: Jakub Roberson 06/24/21
[2021-06-24] MEDS ORDERED: LORazepam 2 MG/ML VIAL IV PRN (06:23)
[2021-06-24] MEDS ORDERED: morphine 4 MG/ML VIAL IV PRN (06:23)
--- NOTE | 2021-06-24 06:34 | Internal Med Progress Note ---
SUBJECTIVE Subjective Patient information: Note initiated : 06/24/21 at 6:25 am Service Date, if different from initiated Date: [] Patient: Abiel Rae a 75 y/o M admitted on 05/30/21 for Covid, sob. Chief Complaint: [] Principal diagnosis: CoVID pneumonia Interval history: Mr. Rae is a 75 year old M with no prior significant medical history who presents to the ER with worsening shortness of breath over the last few weeks. Patient was diagnosed with Covid on the and was discharged home on oxygen however he was discovered by his neighbor very short of breath and subsequently EMS was summoned. Patient was found to be desaturating in mid 80s. He was brought into the ER. Initial work-up was consistent with bilateral Covid pneumonia. Patient was found dexamethasone and subsequently hospitalist service was consulted. At the time of my evaluation patient is alert and able to answer most the ques tions. He was able to endorse history as above. He denies hemoptysis, diarrhea, abdominal pain, headache lightheadedness but endorses to weakness fatigue loss of appetite along with malaise. 05/31-patient clinically deteriorating. Now requiring 65% FiO2 at 35 L high flow oxygen. Worsening Covid pneumonia with possible element of ARDS. Status post Actemra. Continuing remdesivir/dexamethasone day two. Remains very high risk mortality. No overnight fever chills. Continue diurese/thrombosis prophylaxis. Maintain COVID-19 precaution. Check x-ray/ABGs 06/01 worsening interval chest imaging, however clinically feels better. On high flow oxygen 30 L. White count 8.6, platelets 133, continuing remdesivir/dexamethasone/azithromycin. No overnight events including fever chills. Alert and respond to commands, no anxiety or concerns per staff 06/02-patient this morning experienced syncopal episode while sitting in a chair. Was found in a near unresponsive state with blood pressure in the 80s. Placed on bed. Continue examination unremarkable. Patient returned to normal sensorium shortly. Denies chest pain, shortness of breath. [place] back at baseline within minutes. Was incontinent of stool on chair. White count 5.6, potassium 3.2 on replacement, creatinine 0.9. Lower diuretic dose to 20 mg daily, continue remdesivir/dexamethasone. On 30 L high flow 65% FiO2. Remains critically ill 06/03-patient critically ill. Worsening hypoxia now on 70 L oxygen high flow. Patient seen in room. Grieving from loss of his . No telemetry events. No fever chills. Systolics mid 80s. Diuretics discontinued. On remdesivir/dexamethasone day 5. 06/04-patient clinically deteriorating. Seen in room. Desats on minimal activity. Now on 80% FiO2. High risk mortality. On day 6 remdesivir/dexamethasone. Potassium 4.1, LFTs downtrending, interval chest imaging evidence of subcutaneous emphysema. Repeat interval chest imaging at 1 PM rule out spontaneous pneumothorax Continue close monitoring in ICU. Avoid noninvasive ventilation due to risk of pneumothorax 06/05-patient seen in room, clinically deteriorating. Remarkably short of breath now on 35% FiO2. Desats to mid 80s on minimal exertion. Continuing dexamethasone/remdesivir. No telemetry events. Stable labs and hemodynamics. No overnight fever chills or concerns per staff. Remains a high risk mortality based on Ewiiaapaayp 2 score. Interval chest imaging worsening bilateral infiltrates, No evidence of pneumothorax, decreased subcutaneous emphysema. 06/06 Patient not vaccinated. Patient states he feels like he is breathing better. Has a dry cough. Oxygen at 35 L/min 75% FiO2. 06/07 Patient is cough is improving. Shortness of breath seems amenable to him. He was taken to CT on a nonrebreather and he feels like he can breathe much easier on the nonrebreather than the Vapotherm and his oxygen saturations are quite good on the nonrebreather. We will also try Ventimask. 06/08 Patient states he is feeling better and breathing better but still requiring a lot of oxygen. We are able to get him down to 6 L oxygen mask yesterday for short period but is essentially been on 12-15 through the afternoon and evening. Currently on 12 L. And sats well at rest but with any movement desats quickly. 06/09 Patient on oxygen mask at 12 L and not on high flow tubing. Patient replaced on high flow tubing and liters nasal cannula. Sound little bit wheezy will have a breathing treatment ordered. Patient has a mild cough, he does have some shortness of breath with exertion feels about the same. 06/10 Continues to feel well. He is on 6 L oxygen mask at rest but desats with activity and is on 9L at that point. He is making progress but slowly. 06/11: Afebrile overnight. Still on 6L/min oxygen at rest and up to 9L/min when ambulate. c/o improving degree of SOB. c/o nonproductive cough. Denies wheezing or chest pain. Denies fever, chills, or sweating. Good energy level, good appetite. 06/12: Afebrile overnight. Still on 9L/min oxygen at the moment. c/o improving degree of SOB. c/o nonproductive cough. Denies wheezing or chest pain. Denies fever, chills, or sweating. Good energy level, good appetite. 06/13: Afebrile overnight. Still on 9L/min oxygen at the moment. c/o improving degree of SOB. c/o nonproductive cough. Denies wheezing or chest pain. Denies fever, chills, or sweating. Good energy level, good appetite. 06/14: Afebrile overnight. Was on 6L/min oxygen overnight, now on 10L/min. c/o improving degree of SOB. c/o nonproductive cough. Denies wheezing or chest pain. Denies fever, chills, or sweating. Good energy level, good appetite. 06/15: Developed left sided tension pneumothorax yesterday afternoon, s/p left sided chest tube placement by radiologist. On 4L/min overnight and currently. Have 5cc blood output from the chest tube overnight. Denies any SOB. Denies any cough or wheezing. Denies any chest pain. Denies any anxiety. Denies any fever, chills, or sweating. 06/16 Patient states he is feeling better today. Mild cough and improving shortness of breath. Chest x-ray with moderate recurrent pneumothorax, will consult surgery, patient placed on Pleur-evac. About 10 cc of blood about the chest tube overnight. 06/17 No change per patient today feeling same. Pneumothorax has not improved today in fact slightly worse, suspect blockage of the chest tube. Will defer further recommendations to surgery. Otherwise oxygen requirement still remains low 4-5L. 06/18 No changes. Pneumothorax continues to enlarge, defer to surgery for likely ch est tube replacement. Once the pneumothorax is resolved patient will go to [facility]. 06/19 Large bore chest tube placed yesterday for enlarging pneumothorax, bloody drainage about 180 overnight. Patient feels like he is breathing better since the chest tube was placed however he is on a nonrebreather although of note his sats are 100%. No new complaints. 06/20 Patient has significant desaturation last night when to when he was moving around. Placed on nonrebreather and supplemental high flow O2. Stat chest x-ray showed a left pneumothorax to be improving. There is severe bilateral alveolar infiltrates that are unchanged from previous chest x-ray.. 06/21: Afebrile overnight. Still lying on his side. On high flow oxygen 30L/min FiO2 65% with nonrebreather 13L/min on top. All cultures no growth to date. CXR today showing stable pneumothorax with severe bilateral infiltrates, no change from previous study. c/o moderate SOB. c/o nonproductive cough and wheezing. Denies chest pain. Denies anxiety. Denies fever, chills, or sweating. 06/22: Afebrile overnight. On high flow oxygen 30L/min FiO2 100% with nonrebreather 15L/min on top. Repeat CXR this morning showing stable left sided pneumothorax, and worsening pneumonia. All cultures no growth to date. Denies SOB. Denies cough or wheezing. Denies anxiety. Spoke with Dr. Frank, no need to replace with a larger bore chest tube at this point. If air leaks or pneumothorax worsening, will transfer to bigger center with CT surgeon for consultation for procedures such as pleurodesis. 06/23: Afebrile overnight. On high flow oxygen 30L/min FiO2 100% with nonrebreather 15L/min on top. CXR pending. Patient is c/o mild to moderate SOB. c/o nonproductive cough. Denies wheezing. Denies chest pain. Denies fever, chills, or sweating. Denies anxiety. Continue to touch base with Dr. Frank regarding surgical management. Continue Zosyn. 06/24: At 0530 patient expressed his wishes to nurse at the bedside regarding wanting to be on comfort care only, and refusing any treatment including antibiotics. I assessed patient at the bedside at 0600, and patient became mentally confused. I then spoked with daughter Radha [phone] regarding the situations and telling her the fact that patient would like to be switched to comfort care only. She stated that she would be on her way to come see her father. CXR this morning showing stable left sided pneumothorax, and improving bilateral pulmonary infiltrates. Constitutional Vitals: Vital Signs Temp Pulse Resp BP Pulse Ox 36.6 C 86 21 110/79 98 06/24/21 04:01 06/24/21 04:01 06/24/21 04:01 06/24/21 04:01 06/24/21 04:01 Period Temp Pulse Resp BP Sys/Guan Pulse Ox Last 24 Hr 36.4 C-36.8 C 79-95 17-36 94-138/63-114 91-100 Intake and Output 06/23/21 06/24/21 06/24/21 21:59 05:59 13:59 Intake Total 770 270 Output Total 325 325 Balance 445 -55 Weight 74.389 kg Intake & Output: Intake & Output 06/23/21 06/24/21 06/24/21 21:59 05:59 13:59 Intake Total 770 270 Output Total 325 325 Balance 445 -55 Weight 74.389 kg Intake: IV 50 50 Zosyn 3.375 gm In Dextrose 5% 50 50 in Water 50 ml @ 100 mls/hr IV Q6H [facility] Rx#:[id number] Oral 720 220 Output: Chest Tube Drainage 100 Left Lateral Chest 100 Urine Catheter Amount 325 225 Other: Meal Lunch Percent of Meal Consumed Refused Urine Appearance Clear Clear Uretheral (Hunt) Clear Urine Color Tea Colored Dark Yellow Uretheral (Hunt) Dark Yellow Urine Odor Normal Normal Stool Size Smear Moderate Stool Color Brown Brown Stool Consistency Loose Liquid # of times incontinent of 1 Bowels General appearance: average body habitus and mild distress Exam: confused Head Head exam: Present atraumatic and normal inspection Eye Eye exam: Present normal appearance ENT ENT exam: Present mucous membranes moist, normal exam and normal external ear exam Neck Neck exam: Present normal inspection Additional comments: High flow oxygen in place Respiratory Respiratory exam: Present decreased breath sounds and rhonchi Additional comments: left sided chest tube in place Cardiovascular Cardiovascular exam: Present irregular rhythm GI/Abdominal GI/Abdominal exam: Present normal bowel sounds Back Exam Back exam: Present normal inspection Neurological Exam Neurological exam: Present alert and oriented X3 Skin Skin exam: Present intact and warm OBJ DATA Labs CBC & Chem 7: 06/23/21 05:44 06/23/21 05:44 Labs: Abnormal Lab Results 06/23/21 06/23/21 06/22/21 05:44 05:44 04:45 WBC 13.4 H RBC 4.42 L Hct 39.6 L MPV 11.3 H Neut % (Auto) 79.8 H Lymph % (Auto) 9.9 L Eos % (Auto) Lymph # (Auto) 1.32 L [place] # (Auto) Eos # (Auto) Absolute Neutrophils 10.69 H Sodium 132 L Chloride 93 L 93 L Anion Gap 17.0 H BUN 33 H 32 H Glucose 116 H Direct Bilirubin AST 47 H 42 H Alkaline Phosphatase 163 H 119 H Lactate Dehydrogenase C-Reactive Protein NT-Pro-B Natriuret Pep Albumin 3.0 L 2.8 L Globulin 4.0 H 3.9 H Albumin/Globulin Ratio 0.8 L 0.7 L Procalcitonin 06/22/21 06/21/21 06/21/21 04:45 05:23 05:22 WBC 11.9 H RBC 4.48 L Hct MPV 11.0 H Neut % (Auto) Lymph % (Auto) 12.0 L Eos % (Auto) 12.3 H Lymph # (Auto) 1.43 L [place] # (Auto) Eos # (Auto) 1.46 H Absolute Neutrophils 8.17 H Sodium Chloride Anion Gap BUN Glucose Direct Bilirubin AST Alkaline Phosphatase Lactate Dehydrogenase C-Reactive Protein NT-Pro-B Natriuret Pep 1605.0 H Albumin Globulin Albumin/Globulin Ratio Procalcitonin 0.16 H 06/21/21 06/21/21 06/21/21 05:20 05:19 05:18 WBC 11.2 H RBC 4.59 L Hct MPV 11.5 H Neut % (Auto) Lymph % (Auto) 11.8 L Eos % (Auto) Lymph # (Auto) 1.32 L [place] # (Auto) 1.01 H Eos # (Auto) 0.79 H Absolute Neutrophils 8.04 H Sodium Chloride 95 L Anion Gap BUN 25 H 24 H Glucose 114 H 112 H Direct Bilirubin 0.4 H AST Alkaline Phosphatase Lactate Dehydrogenase 458 H C-Reactive Protein 24.40 H NT-Pro-B Natriuret Pep Albumin Globulin 3.8 H 3.8 H Albumin/Globulin Ratio 0.8 L 0.8 L Procalcitonin Meds: Medications Acetaminophen (Acetaminophen 325 Mg Tablet) 650 mg PO Q4-6HP PRN; Protocol PRN Reason: Per Pain Protocol/Fever > 101 Last Admin: 06/22/21 21:01 Dose: 650 mg Documented by: Albuterol/Ipratropium (Ipratropium/Albuterol 3 Ml Ampul.Neb) 3 ml NEB Q4HP PRN PRN Reason: Shortness Of Breath Last Admin: 06/20/21 13:50 Dose: 3 ml Documented by: Benzonatate (Benzonatate 100 Mg Capsule) 100 mg PO TIDP PRN PRN Reason: Cough Last Admin: 06/23/21 19:55 Dose: 100 mg Documented by: Bisacodyl (Bisacodyl 10 Mg Supp.Rect) 10 mg CO Q2-3DAYS PRN PRN Reason: Constipation Docusate Sodium (Docusate Sodium 100 Mg Capsule) 100 mg PO BID CARL Last Admin: 06/23/21 21:41 Dose: Not Given Documented by: Guaifenesin/Codeine Phosphate (Guaifenesin/Codeine 10 Ml Udc) 10 ml PO Q4HP PRN PRN Reason: Cough Last Admin: 06/23/21 02:31 Dose: 10 ml Documented by: Potassium Chloride 40 meq/ (Dextrose) 520 mls @ 130 mls/hr IV UD PRN PRN Reason: K+ = or < 3.5 Acetaminophen (Ofirmev) 650 mg in 65 mls @ 130 mls/hr IV Q6HP PRN; Protocol PRN Reason: Per Pain Protocol/Fever > 101 Magnesium Sulfate (Magnesium Sulfate) 2 gm in 50 mls @ 50 mls/hr IV UD PRN PRN Reason: MG = or < 1.7 Sodium Chloride (Sodium Chloride 0.9%) 1,000 mls @ 0 mls/hr IV .Q0M CARL Piperacillin Sod/Tazobactam (Sod 3.375 gm/ Dextrose) 50 mls @ 100 mls/hr IV Q6H CARL; Protocol Last Infusion: 06/24/21 00:15 Dose: Infused Documented by: Ibuprofen (Ibuprofen 600 Mg Tablet) 600 mg PO QIDP PRN; Protocol PRN Reason: PAIN/FEVER > 101 Last Admin: 06/22/21 00:22 Dose: 600 mg Documented by: Iron Carb/Multivit/Industrial Sociologist/Folic Acid (Multivit,Ther Iron,Ca,Fa & Min 1 Tablet) 1 tab PO DAILY [facility] Last Admin: 06/23/21 10:07 Dose: 1 tab Documented by: Lorazepam (Lorazepam 2 Mg/Ml Vial) 0.5 mg IV Q4-6HP PRN PRN Reason: ANXIETY/SEDATION Last Admin: 06/20/21 12:50 Dose: 0.5 mg Documented by: Lorazepam (Lorazepam 2 Mg/Ml Vial) 0 mg IV Q1HP PRN; Protocol PRN Reason: ANXIETY/SEDATION Melatonin (Melatonin 3 Mg Tablet) 3 mg PO HSP PRN PRN Reason: Insomnia Last Admin: 06/23/21 21:41 Dose: 3 mg Documented by: Metoprolol Tartrate (Metoprolol Tartrate 25 Mg Tablet) 25 mg PO BID [facility] Last Admin: 06/23/21 21:41 Dose: 25 mg Documented by: Morphine Sulfate (Morphine 4 Mg/Ml Vial) 2 mg IV Q4HP PRN; Protocol PRN Reason: Anxiety Last Admin: 06/23/21 23:47 Dose: 2 mg Documented by: Morphine Sulfate (Morphine 4 Mg/Ml Vial) 2 - 6 mg IV Q1HP PRN; Protocol PRN Reason: Per Pain Protocol Nitroglycerin (Nitroglycerin 0.4 Mg Tab.Subl) 0.4 mg SL Q5M PRN PRN Reason: Chest Pain Last Admin: 06/14/21 10:02 Dose: 0.4 mg Documented by: Omeprazole (Omeprazole 20 Mg Capsule) 20 mg PO ACB [facility] Last Admin: 06/23/21 10:03 Dose: Not Given Documented by: Ondansetron HCl (Ondansetron 4 Mg Odt Tablet) 4 mg SL Q4-6HP PRN; Protocol PRN Reason: Nausea And Vomiting Ondansetron HCl (Ondansetron 4 Mg/2 Ml Vial) 4 mg IV Q4-6HP PRN; Protocol PRN Reason: Nausea And Vomiting Oxycodone/Acetaminophen (Oxycodone/Apap 5/325mg Tablet) 1 tab PO Q6HP PRN; Protocol PRN Reason: Per Pain Protocol Last Admin: 06/22/21 06:50 Dose: 1 tab Documented by: Polyethylene Glycol (Polyethylene Glycol 3350 17 Gm Packet) 17 gm PO DAILYP PRN PRN Reason: Constipation Last Admin: 06/15/21 16:49 Dose: 17 gm Documented by: Polyethylene Glycol (Polyethylene Glycol 3350 17 Gm Packet) 17 gm PO DAILY [facility] Last Admin: 06/23/21 09:33 Dose: Not Given Documented by: Potassium/Phosphorus/Sodium (Neutra Phos 1 Packet) 2 packet PO ONCE PRN PRN Reason: For phosphorus less than 2.5 Senna/Docusate Sodium (Sennosides/Docusate Sodium 1 Tab Tablet) 1 tab PO HS [facility] Last Admin: 06/23/21 21:42 Dose: Not Given Documented by: Sodium Chloride (0.9 % Sodium Chloride 10 Ml Syringe) 10 ml IV Q8 [facility] Last Admin: 06/23/21 23:45 Dose: 10 ml Documented by: Sodium Chloride (0.9 % Sodium Chloride 10 Ml Syringe) 10 ml IV Q8 [facility] A/P Assessment and plan (1) COVID-19: Status: Acute (2) Acute hypoxemic respiratory failure: Status: Acute (3) Hyperkalemia: Status: Acute (4) GERD (gastroesophageal reflux disease): Status: Chronic Qualifiers: Esophagitis presence: with esophagitis Qualified Code(s): K21.0 - Gastro-esophageal reflux disease with esophagitis (5) Spontaneous tension pneumothorax: Status: Acute (6) HCAP (healthcare-associated pneumonia): Status: Acute (7) Elevated brain natriuretic peptide (BNP) level: Status: Acute Narrative A/P Narrative: Assessment and Plans: 1. CoVID pneumonia: Isolation: airborne and contract Inpatient PCU Supplemental oxygen therapy titrate to achieve spo2>=92%, currently on high flow oxygen s/p Actemra Finished Remdesivir Finished Dexamethasone Avoid Lovenox/Heparin due to chest tube in place and recent bleeding into the chest tube DuoNEB NEB q4hr PRN wheezing or SOB No pulmonary embolism by CTA on 06/07 Tessalon Perles PRN cough Robitussin AC PRN cough 2. Hyperkalemia: RESOLVED Serum potassium level 3.8 on 06/24 Will repeat CMP in the morning to trend serum potassium level 3. GERD: Prilosec 4. Left sided tension pneumothorax: Dr. Frank replaced a chest tube on 06/18 Repeat CXR this morning, showing stable left sided pneumothorax, and improving bilateral pulmonary infiltrates. Spoke with Dr. Frank, no need to replace with a larger bore chest tube at this point. If air leaks or pneumothorax worsening, will transfer to [facility] center with CT surgeon for consultation for procedures such as pleurodesis. 5. HCAP: Supplemental oxygen therapy titrate to achieve spo2>=92%, currently on high flow oxygen MRSA screen negative Zosyn Tylenol PRN fever Robitussin AC PRN cough DuoNEB NEB PRN wheezing or SOB cbc w/ auto diff in the morning to trend WBC Repeat blood and sputum culture, no growth to date Repeat CXR this morning, showing stable left sided pneumothorax, and improving bilateral pulmonary infiltrates. 6. Elevated BNP level: 2D echocardiogram to assess cardiac function Lasix 20mg PO BID Supplemental oxygen therapy, see above *At 0530 patient expressed his wishes to nurse at the bedside regarding wanting to be on comfort care only, and refusing any treatment including antibiotics. I assessed patient at the bedside at 0600, and patient became mentally confused. I then spoked with daughter Radha [phone] regarding the situations and telling her the fact that patient would like to be switched to comfort care only. She stated that she would be on her way to come see her father. At 0630, patient is even more confused, and now he stated that he wants to received all the treatments possible. Will continue to provide treatments until daughter arrives to discuss further actions. GI ppx: Prilosec DVT ppx: SCDs Code status: DNI DNR Prognosis: Poor Disposition: inpatient PCU Time Spent With Patient Time: Total time spent is greater than 50% in coordination of care (as documented) at patient's floor/unit and/or counseling patient: Total time spent with greater than 50% in coordination of care (as documented) at patient's floor/unit and/or counseling patient:: Greater than 35 minutes QUALITY Stroke Symptom Onset Unknown: No
[2021-06-24] MEDS: 0.9 % SODIUM CHLORIDE 10 ML SYRINGE IV SCH ×5 (06:50→21:56)
[2021-06-24] MEDS: PIPERACILLIN SODIUM/TAZOBACTAM 3.375 GM in DEXTROSE 5% IN WATER 50 ML IV SCH ×3 (06:50→17:53)
[2021-06-24] MEDS: DOCUSATE SODIUM 100 MG CAPSULE PO SCH ×2 (07:12→21:51)
[2021-06-24] MEDS: OMEPRAZOLE 20 MG CAPSULE PO SCH (07:12)
[2021-06-24 08:18] LABS: Basophils # (Auto) 0.07 K/mcL (0.00-0.30); Basophils % (Auto) 0.5 % (0.0-2.0); Eosinophils # (Auto) 0.43 K/mcL (0.00-0.70); Hematocrit 39.3 % (40.1-51.0); Hemoglobin 13.5 g/dL (13.7-17.5); Lymphocytes % (Auto) 7.8 % (15.5-49.0); Mean Cell Volume 88.9 fL (80.0-100.0); Mean Corpuscular HGB Conc 34.4 g/dL (31.0-36.0); Mean Platelet Volume 10.7 fL (7.4-10.4); Monocytes # (Auto) 0.96 K/mcL (0.10-0.90); Monocytes % (Auto) 6.8 % (1.0-12.0); Neutrophils % (Auto) 81.9 % (38.0-78.0); Platelet Count 150 K/mcL (140-440); RBC 4.42 M/mcL (4.63-6.08); Red Cell Distribution Width 13.1 % (11.5-14.5); WBC 14.2 K/mcL (4.5-11.0)
[2021-06-24] MEDS: POLYETHYLENE GLYCOL 3350 17 GM PACKET PO SCH (09:22)
[2021-06-24] MEDS: MULTIVIT,THER IRON,CA,FA & MIN 1 TABLET PO SCH (09:24)
[2021-06-24] MEDS: METOPROLOL TARTRATE 25 MG TABLET PO SCH ×2 (09:24→21:52)
--- NOTE | 2021-06-24 09:26 | General Surgery Progress Note ---
SUBJECTIVE Subjective Patient information: Note initiated : 06/24/21 at 9:17 am Service Date, if different from initiated Date: [] Patient: Abiel Rae 75 y/o M admitted on 05/30/21 for Covid, sob. Chief Complaint: [Refractory Spontaneous Pneumothorax COVID related] Doing better per nursing on PPV Principal diagnosis: CoVID pneumonia Constitutional Vitals: Vital Signs Temp Pulse Resp BP Pulse Ox 97.8 F 88 20 101/70 98 06/24/21 04:01 06/24/21 07:01 06/24/21 07:01 06/24/21 07:01 06/24/21 07:01 Period Temp Pulse Resp BP Sys/Guan Pulse Ox Last 24 Hr 97.8 F-98.3 F 79-99 17-36 94-138/63-114 85-100 Intake and Output 06/23/21 06/24/21 06/24/21 21:59 05:59 13:59 Intake Total 770 270 Output Total 325 325 Balance 445 -55 Weight 164 lb 164 lb Patient Weight 06/25/21 05:59 Weight 164 lb Intake & Output: Intake & Output 06/23/21 06/24/21 06/24/21 21:59 05:59 13:59 Intake Total 770 270 Output Total 325 325 Balance 445 -55 Weight 164 lb 164 lb Intake: IV 50 50 Zosyn 3.375 gm In Dextrose 5% 50 50 in Water 50 ml @ 100 mls/hr IV Q6H [facility] Rx#:[id number] Oral 720 220 Output: Chest Tube Drainage 100 Left Lateral Chest 100 Urine Catheter Amount 325 225 Other: Meal Lunch Breakfast Percent of Meal Consumed Refused Refused Feeding Ability Needs Supervision Urine Appearance Clear Clear Clear Uretheral (Hunt) Clear Urine Color Tea Colored Dark Yellow Dark Yellow Light [place] Uretheral (Hunt) Dark Yellow Urine Odor Normal Normal Stool Size Smear Moderate Large Stool Color Brown Brown Brown Stool Consistency Loose Liquid Liquid Loose # of times incontinent of 1 Bowels Exam: awake, alert and conversant Respiratory Additional comments: The CT Pleuravac continues to have a substantial air leak in the chamber CXR shows very small residual apical pneumo with CT well positioned A/P Narrative A/P Narrative: The lung has come up substantially with the larger tube but the air leak persists Although its possible once he comes off of PPV that the air leak may seal, for now I see little chance that the chest tube will be able to come out in the near future Transfer to a larger tertiary referral center for Thoracic Surgery consultation should be considered in the coming days particularly if the air leak does not resolve. For now, continue CT to suction with daily CXR Time Spent With Patient Time: Total time spent is greater than 50% in coordination of care (as documented) at patient's floor/unit and/or counseling patient:
--- NOTE | 2021-06-24 11:05 | EKG ---
[facility] Test Date: 2021-06-22 Pat Name: Abiel Rae Department: ICU Room: 119 Gender: Male [employer]: : 1945 Requested By: Pino Bagley Order Number: [id number] Reading MD: Jakub Monet M.D. Measurements Intervals [place] Rate: 133 P: MD: QRS: -8 QRSD: 89 T: 134 QT: 292 QTc: 435 Interpretive Statements Atrial fibrillation Ventricular premature complex LVH with secondary repolarization abnormality Inferior infarct, old ST ELEVATION, CONSIDER ANTEROLATERAL INJURY Electronically Signed On 06-24-2021 11:05:31 PST by Jakub Monet M.D. /store/[email or web address]/[id number]
[2021-06-24] MEDS: morphine 4 MG/ML VIAL IV PRN ×3 (13:59→23:13)
[2021-06-24 14:33] LABS: ALT/SGPT 29 U/L (<40); AST/SGOT 44 U/L (<40); Albumin/Globulin Ratio 0.8 (1.0-2.3); Alkaline Phosphatase 156 U/L (39-117); Bilirubin,Total 0.9 mg/dL (0.1-1.0); Blood Urea Nitrogen 28 mg/dL (8-23); Calcium 9.6 mg/dL (8.6-10.4); Carbon Dioxide 26 mmol/L (22-30); Chloride 90 mmol/L (96-108); Globulin 3.8 gm/dL (2.2-3.7); Glomerular Filtration Rate 88; Glucose 122 mg/dL (70-105)
[2021-06-24] MEDS: oxyCODONE/APAP 5/325MG TABLET PO PRN (18:53)
[2021-06-24] MEDS ORDERED: diphenhydrAMINE 25 MG CAPSULE PO PRN (21:00)
[2021-06-24] MEDS ORDERED: ACETAMINOPHEN 500 MG TABLET PO PRN (21:00)
[2021-06-24] MEDS: SENNOSIDES/DOCUSATE SODIUM 1 TAB TABLET PO SCH (21:51)
[2021-06-24] MEDS ORDERED: morphine 2 MG/ML VIAL ONE (23:17)
[2021-06-24] MEDS: LORazepam 2 MG/ML VIAL IV PRN (23:38)
[2021-06-25] MEDS: PIPERACILLIN SODIUM/TAZOBACTAM 3.375 GM in DEXTROSE 5% IN WATER 50 ML IV SCH ×5 (00:27→23:25)
[2021-06-25] MEDS: morphine 4 MG/ML VIAL IV PRN ×6 (01:21→22:07)
[2021-06-25] MEDS ORDERED: morphine 2 MG/ML VIAL ONE ×3 (01:23→05:39)
[2021-06-25] MEDS: IPRATROPIUM/ALBUTEROL 3 ML AMPUL.NEB NEB PRN (02:23)
[2021-06-25] MEDS: oxyCODONE/APAP 5/325MG TABLET PO PRN (02:39)
[2021-06-25] MEDS: 0.9 % SODIUM CHLORIDE 10 ML SYRINGE IV SCH ×6 (05:35→23:25)
[2021-06-25] MEDS: LORazepam 2 MG/ML VIAL IV PRN ×4 (07:08→23:50)
[2021-06-25 07:30] LABS: Basophils % (Auto) 0.7 % (0.0-2.0); Eosinophils # (Auto) 0.57 K/mcL (0.00-0.70); Eosinophils % (Auto) 3.7 % (0.0-7.0); Hematocrit 39.4 % (40.1-51.0); Hemoglobin 13.1 g/dL (13.7-17.5); Lymphocytes # (Auto) 1.19 K/mcL (1.50-4.80); Lymphocytes % (Auto) 7.8 % (15.5-49.0); Mean Cell Volume 92.1 fL (80.0-100.0); Mean Corpuscular HGB Conc 33.2 g/dL (31.0-36.0); Mean Platelet Volume 10.9 fL (7.4-10.4); Monocytes # (Auto) 1.05 K/mcL (0.10-0.90); Monocytes % (Auto) 6.9 % (1.0-12.0); Neutrophils % (Auto) 80.9 % (38.0-78.0); Platelet Count 146 K/mcL (140-440); RBC 4.28 M/mcL (4.63-6.08); Red Cell Distribution Width 13.4 % (11.5-14.5); WBC 15.2 K/mcL (4.5-11.0)
[2021-06-25 08:28] LABS: ALT/SGPT 30 U/L (<40); AST/SGOT 48 U/L (<40); Albumin 2.8 gm/dL (3.2-5.2); Albumin/Globulin Ratio 0.8 (1.0-2.3); Alkaline Phosphatase 159 U/L (39-117); Bilirubin,Total 0.8 mg/dL (0.1-1.0); Blood Urea Nitrogen 28 mg/dL (8-23); Calcium 9.3 mg/dL (8.6-10.4); Carbon Dioxide 29 mmol/L (22-30); Chloride 92 mmol/L (96-108); Globulin 3.7 gm/dL (2.2-3.7); Glomerular Filtration Rate 84; Glucose 97 mg/dL (70-105)
[2021-06-25] MEDS ORDERED: ALPRAZolam 0.25 MG TABLET PO PRN (08:39)
--- NOTE | 2021-06-25 08:39 | Internal Med Progress Note ---
SUBJECTIVE Subjective Patient information: Note initiated : 06/25/21 at 8:39 am Service Date, if different from initiated Date: [] Patient: bAiel Rae a 75 y/o M admitted on 05/30/21 for Covid, sob. Chief Complaint: [] Principal diagnosis: CoVID pneumonia Interval history: Mr. Rae is a 75 year old M with no prior significant medical history who presents to the ER with worsening shortness of breath over the last few weeks. Patient was diagnosed with Covid on the and was discharged home on oxygen however he was discovered by his neighbor very short of breath and subsequently EMS was summoned. Patient was found to be desaturating in mid 80s. He was brought into the ER. Initial work-up was consistent with bilateral Covid pneumonia. Patient was found dexamethasone and subsequently hospitalist service was consulted. At the time of my evaluation patient is alert and able to answer most the ques tions. He was able to endorse history as above. He denies hemoptysis, diarrhea, abdominal pain, headache lightheadedness but endorses to weakness fatigue loss of appetite along with malaise. 05/31-patient clinically deteriorating. Now requiring 65% FiO2 at 35 L high flow oxygen. Worsening Covid pneumonia with possible element of ARDS. Status post Actemra. Continuing remdesivir/dexamethasone day two. Remains very high risk mortality. No overnight fever chills. Continue diurese/thrombosis prophylaxis. Maintain COVID-19 precaution. Check x-ray/ABGs 06/01 worsening interval chest imaging, however clinically feels better. On high flow oxygen 30 L. White count 8.6, platelets 133, continuing remdesivir/dexamethasone/azithromycin. No overnight events including fever chills. Alert and respond to commands, no anxiety or concerns per staff 06/02-patient this morning experienced syncopal episode while sitting in a chair. Was found in a near unresponsive state with blood pressure in the 80s. Placed on bed. Continue examination unremarkable. Patient returned to normal sensorium shortly. Denies chest pain, shortness of breath. [place] back at baseline within minutes. Was incontinent of stool on chair. White count 5.6, potassium 3.2 on replacement, creatinine 0.9. Lower diuretic dose to 20 mg daily, continue remdesivir/dexamethasone. On 30 L high flow 65% FiO2. Remains critically ill 06/03-patient critically ill. Worsening hypoxia now on 70 L oxygen high flow. Patient seen in room. Grieving from loss of his . No telemetry events. No fever chills. Systolics mid 80s. Diuretics discontinued. On remdesivir/dexamethasone day 5. 06/04-patient clinically deteriorating. Seen in room. Desats on minimal activity. Now on 80% FiO2. High risk mortality. On day 6 remdesivir/dexamethasone. Potassium 4.1, LFTs downtrending, interval chest imaging evidence of subcutaneous emphysema. Repeat interval chest imaging at 1 PM rule out spontaneous pneumothorax Continue close monitoring in ICU. Avoid noninvasive ventilation due to risk of pneumothorax 06/05-patient seen in room, clinically deteriorating. Remarkably short of breath now on 35% FiO2. Desats to mid 80s on minimal exertion. Continuing dexamethasone/remdesivir. No telemetry events. Stable labs and hemodynamics. No overnight fever chills or concerns per staff. Remains a high risk mortality based on [place] 2 score. Interval chest imaging worsening bilateral infiltrates, No evidence of pneumothorax, decreased subcutaneous emphysema. 06/06 Patient not vaccinated. Patient states he feels like he is breathing better. Has a dry cough. Oxygen at 35 L/min 75% FiO2. 06/07 Patient is cough is improving. Shortness of breath seems amenable to him. He was taken to CT on a nonrebreather and he feels like he can breathe much easier on the nonrebreather than the Vapotherm and his oxygen saturations are quite good on the nonrebreather. We will also try Ventimask. 06/08 Patient states he is feeling better and breathing better but still requiring a lot of oxygen. We are able to get him down to 6 L oxygen mask yesterday for short period but is essentially been on 12-15 through the afternoon and evening. Currently on 12 L. And sats well at rest but with any movement desats quickly. 06/09 Patient on oxygen mask at 12 L and not on high flow tubing. Patient replaced on high flow tubing and liters nasal cannula. Sound little bit wheezy will have a breathing treatment ordered. Patient has a mild cough, he does have some shortness of breath with exertion feels about the same. 06/10 Continues to feel well. He is on 6 L oxygen mask at rest but desats with activity and is on 9L at that point. He is making progress but slowly. 06/11: Afebrile overnight. Still on 6L/min oxygen at rest and up to 9L/min when ambulate. c/o improving degree of SOB. c/o nonproductive cough. Denies wheezing or chest pain. Denies fever, chills, or sweating. Good energy level, good appetite. 06/12: Afebrile overnight. Still on 9L/min oxygen at the moment. c/o improving degree of SOB. c/o nonproductive cough. Denies wheezing or chest pain. Denies fever, chills, or sweating. Good energy level, good appetite. 06/13: Afebrile overnight. Still on 9L/min oxygen at the moment. c/o improving degree of SOB. c/o nonproductive cough. Denies wheezing or chest pain. Denies fever, chills, or sweating. Good energy level, good appetite. 06/14: Afebrile overnight. Was on 6L/min oxygen overnight, now on 10L/min. c/o improving degree of SOB. c/o nonproductive cough. Denies wheezing or chest pain. Denies fever, chills, or sweating. Good energy level, good appetite. 06/15: Developed left sided tension pneumothorax yesterday afternoon, s/p left sided chest tube placement by radiologist. On 4L/min overnight and currently. Have 5cc blood output from the chest tube overnight. Denies any SOB. Denies any cough or wheezing. Denies any chest pain. Denies any anxiety. Denies any fever, chills, or sweating. 06/16 Patient states he is feeling better today. Mild cough and improving shortness of breath. Chest x-ray with moderate recurrent pneumothorax, will consult surgery, patient placed on Pleur-evac. About 10 cc of blood about the chest tube overnight. 06/17 No change per patient today feeling same. Pneumothorax has not improved today in fact slightly worse, suspect blockage of the chest tube. Will defer further recommendations to surgery. Otherwise oxygen requirement still remains low 4-5L. 06/18 No changes. Pneumothorax continues to enlarge, defer to surgery for likely ch est tube replacement. Once the pneumothorax is resolved patient will go to [facility]. 06/19 Large bore chest tube placed yesterday for enlarging pneumothorax, bloody drainage about 180 overnight. Patient feels like he is breathing better since the chest tube was placed however he is on a nonrebreather although of note his sats are 100%. No new complaints. 06/20 Patient has significant desaturation last night when to when he was moving around. Placed on nonrebreather and supplemental high flow O2. Stat chest x-ray showed a left pneumothorax to be improving. There is severe bilateral alveolar infiltrates that are unchanged from previous chest x-ray.. 06/21: Afebrile overnight. Still lying on his side. On high flow oxygen 30L/min FiO2 65% with nonrebreather 13L/min on top. All cultures no growth to date. CXR today showing stable pneumothorax with severe bilateral infiltrates, no change from previous study. c/o moderate SOB. c/o nonproductive cough and wheezing. Denies chest pain. Denies anxiety. Denies fever, chills, or sweating. 06/22: Afebrile overnight. On high flow oxygen 30L/min FiO2 100% with nonrebreather 15L/min on top. Repeat CXR this morning showing stable left sided pneumothorax, and worsening pneumonia. All cultures no growth to date. Denies SOB. Denies cough or wheezing. Denies anxiety. Spoke with Dr. Frank, no need to replace with a larger bore chest tube at this point. If air leaks or pneumothorax worsening, will transfer to bigger center with CT surgeon for consultation for procedures such as pleurodesis. 06/23: Afebrile overnight. On high flow oxygen 30L/min FiO2 100% with nonrebreather 15L/min on top. CXR pending. Patient is c/o mild to moderate SOB. c/o nonproductive cough. Denies wheezing. Denies chest pain. Denies fever, chills, or sweating. Denies anxiety. Continue to touch base with Dr. Frank regarding surgical management. Continue Zosyn. 06/24: At 0530 patient expressed his wishes to nurse at the bedside regarding wanting to be on comfort care only, and refusing any treatment including antibiotics. I assessed patient at the bedside at 0600, and patient became mentally confused. I then spoked with daughter Radha [phone] regarding the situations and telling her the fact that patient would like to be switched to comfort care only. She stated that she would be on her way to come see her father. CXR this morning showing stable left sided pneumothorax, and improving bilateral pulmonary infiltrates. 06/25: Afebrile overnight. Was on CPAP overnight, now back to high flow oxygen plus non-rebreather oxygen. Sputum culture no growth; blood cultures no growth to date. Chest tube still in. Need to touch base with Dr. Aguilar regarding surgical options and potential to transfer to higher level of care with CT surgeon consultation. Still on Zosyn. Constitutional Vitals: Vital Signs Temp Pulse Resp BP Pulse Ox 36.2 C 81 15 119/90 97 06/25/21 08:01 06/25/21 08:31 06/25/21 08:31 06/25/21 08:01 06/25/21 08:31 Period Temp Pulse Resp BP Sys/Guan Pulse Ox Last 24 Hr 35.9 C-36.6 C 76-100 15-37 92-139/74-112 62-100 Intake and Output 06/24/21 06/25/21 06/25/21 21:59 05:59 13:59 Intake Total 410 50 Output Total 390 10 Balance 20 50 -10 Intake & Output: Intake & Output 06/24/21 06/25/21 06/25/21 21:59 05:59 13:59 Intake Total 410 50 Output Total 390 10 Balance 20 50 -10 Intake: IV 50 50 Zosyn 3.375 gm In Dextrose 5% 50 50 in Water 50 ml @ 100 mls/hr IV Q6H [facility] Rx#:[id number] Oral 360 Output: Chest Tube Drainage 40 10 Left Lateral Chest 40 10 Urine Catheter Amount 350 Other: Meal Lunch Mildly sedated Percent of Meal Consumed 25% 0% Feeding Ability Total Assistance Urine Appearance Sediment Sediment Urine Color Dark Andressa Dark Yellow General appearance: average body habitus and no acute distress Exam: confused Head Head exam: Present atraumatic and normal inspection Eye Eye exam: Present normal appearance ENT ENT exam: Present mucous membranes moist, normal exam and normal external ear exam Additional comments: High flow oxygen plus non-rebreather oxygen in place Neck Neck exam: Present normal inspection Respiratory Respiratory exam: Present normal respiratory exam Additional comments: left sided chest tube in place Reduced breath sound in left lung nava; crackles in remaining lung nava. Cardiovascular Cardiovascular exam: Present irregular rhythm GI/Abdominal GI/Abdominal exam: Present normal bowel sounds Back Exam Back exam: Present normal inspection Neurological Exam Neurological exam: Present alert and oriented X3 Skin Skin exam: Present intact and warm OBJ DATA Labs CBC & Chem 7: 06/25/21 05:33 06/25/21 05:33 Labs: Abnormal Lab Results 06/25/21 06/25/21 06/24/21 05:33 05:33 13:42 WBC 15.2 H RBC 4.28 L Hgb 13.1 L Hct 39.4 L MPV 10.9 H Neut % (Auto) 80.9 H Lymph % (Auto) 7.8 L Lymph # (Auto) 1.19 L Braxton # (Auto) 1.05 H Absolute Neutrophils 12.33 H Sodium 131 L Potassium 5.2 H Chloride 92 L 90 L Anion Gap BUN 28 H 28 H Glucose 122 H AST 48 H 44 H Alkaline Phosphatase 159 H 156 H Albumin 2.8 L 3.0 L Globulin 3.8 H Albumin/Globulin Ratio 0.8 L 0.8 L 06/24/21 06/23/21 06/23/21 07:09 05:44 05:44 WBC 14.2 H 13.4 H RBC 4.42 L 4.42 L Hgb 13.5 L Hct 39.3 L 39.6 L MPV 10.7 H 11.3 H Neut % (Auto) 81.9 H 79.8 H Lymph % (Auto) 7.8 L 9.9 L Lymph # (Auto) 1.10 L 1.32 L Braxton # (Auto) 0.96 H Absolute Neutrophils 11.63 H 10.69 H Sodium Potassium Chloride 93 L Anion Gap 17.0 H BUN 33 H Glucose 116 H AST 47 H Alkaline Phosphatase 163 H Albumin 3.0 L Globulin 4.0 H Albumin/Globulin Ratio 0.8 L Meds: Medications Acetaminophen (Acetaminophen 325 Mg Tablet) 650 mg PO Q4-6HP PRN; Protocol PRN Reason: Per Pain Protocol/Fever > 101 Last Admin: 06/22/21 21:01 Dose: 650 mg Documented by: Acetaminophen (Acetaminophen 500 Mg Tablet) 500 mg PO HSP PRN PRN Reason: Insomnia Albuterol/Ipratropium (Ipratropium/Albuterol 3 Ml Ampul.Neb) 3 ml NEB Q4HP PRN PRN Reason: Shortness Of Breath Last Admin: 06/25/21 02:23 Dose: 3 ml Documented by: Benzonatate (Benzonatate 100 Mg Capsule) 100 mg PO TIDP PRN PRN Reason: Cough Last Admin: 06/23/21 19:55 Dose: 100 mg Documented by: Bisacodyl (Bisacodyl 10 Mg Supp.Rect) 10 mg MT Q2-3DAYS PRN PRN Reason: Constipation Diphenhydramine HCl (Diphenhydramine 25 Mg Capsule) 25 mg PO HSP PRN PRN Reason: Insomnia Docusate Sodium (Docusate Sodium 100 Mg Capsule) 100 mg PO BID [facility] Last Admin: 06/24/21 21:51 Dose: Not Given Documented by: Guaifenesin/Codeine Phosphate (Guaifenesin/Codeine 10 Ml Udc) 10 ml PO Q4HP PRN PRN Reason: Cough Last Admin: 06/23/21 02:31 Dose: 10 ml Documented by: Potassium Chloride 40 meq/ (Dextrose) 520 mls @ 130 mls/hr IV UD PRN PRN Reason: K+ = or < 3.5 Acetaminophen (Ofirmev) 650 mg in 65 mls @ 130 mls/hr IV Q6HP PRN; Protocol PRN Reason: Per Pain Protocol/Fever > 101 Magnesium Sulfate (Magnesium Sulfate) 2 gm in 50 mls @ 50 mls/hr IV UD PRN PRN Reason: MG = or < 1.7 Sodium Chloride (Sodium Chloride 0.9%) 1,000 mls @ 0 mls/hr IV .Q0M [facility] Piperacillin Sod/Tazobactam (Sod 3.375 gm/ Dextrose) 50 mls @ 100 mls/hr IV Q6H [facility]; Protocol Last Admin: 06/25/21 05:43 Dose: 100 mls/hr Documented by: Ibuprofen (Ibuprofen 600 Mg Tablet) 600 mg PO QIDP PRN; Protocol PRN Reason: PAIN/FEVER > 101 Last Admin: 06/22/21 00:22 Dose: 600 mg Documented by: Iron Carb/Multivit/[place]/Folic Acid (Multivit,Ther Iron,Ca,Fa & Min 1 Tablet) 1 tab PO DAILY [facility] Last Admin: 06/24/21 09:24 Dose: 1 tab Documented by: Lorazepam (Lorazepam 2 Mg/Ml Vial) 0.5 mg IV Q4-6HP PRN PRN Reason: ANXIETY/SEDATION Last Admin: 06/25/21 07:08 Dose: 0.5 mg Documented by: Metoprolol Tartrate (Metoprolol Tartrate 25 Mg Tablet) 25 mg PO BID [facility] Last Admin: 06/24/21 21:52 Dose: 25 mg Documented by: Morphine Sulfate (Morphine 4 Mg/Ml Vial) 2 mg IV Q2HP PRN; Protocol PRN Reason: Anxiety Last Admin: 06/25/21 05:35 Dose: 2 mg Documented by: Nitroglycerin (Nitroglycerin 0.4 Mg Tab.Subl) 0.4 mg SL Q5M PRN PRN Reason: Chest Pain Last Admin: 06/14/21 10:02 Dose: 0.4 mg Documented by: Omeprazole (Omeprazole 20 Mg Capsule) 20 mg PO ACB [facility] Last Admin: 06/24/21 07:12 Dose: 20 mg Documented by: Ondansetron HCl (Ondansetron 4 Mg Odt Tablet) 4 mg SL Q4-6HP PRN; Protocol PRN Reason: Nausea And Vomiting Ondansetron HCl (Ondansetron 4 Mg/2 Ml Vial) 4 mg IV Q4-6HP PRN; Protocol PRN Reason: Nausea And Vomiting Oxycodone/Acetaminophen (Oxycodone/Apap 5/325mg Tablet) 1 tab PO Q6HP PRN; Protocol PRN Reason: Per Pain Protocol Last Admin: 06/25/21 02:39 Dose: 1 tab Documented by: Polyethylene Glycol (Polyethylene Glycol 3350 17 Gm Packet) 17 gm PO DAILYP PRN PRN Reason: Constipation Last Admin: 06/15/21 16:49 Dose: 17 gm Documented by: Polyethylene Glycol (Polyethylene Glycol 3350 17 Gm Packet) 17 gm PO DAILY [facility] Last Admin: 06/24/21 09:22 Dose: Not Given Documented by: Potassium/Phosphorus/Sodium (Neutra Phos 1 Packet) 2 packet PO ONCE PRN PRN Reason: For phosphorus less than 2.5 Senna/Docusate Sodium (Sennosides/Docusate Sodium 1 Tab Tablet) 1 tab PO HS [facility] Last Admin: 06/24/21 21:51 Dose: Not Given Documented by: Sodium Chloride (0.9 % Sodium Chloride 10 Ml Syringe) 10 ml IV Q8 [facility] Last Admin: 06/25/21 05:35 Dose: 10 ml Documented by: Sodium Chloride (0.9 % Sodium Chloride 10 Ml Syringe) 10 ml IV Q8 [facility] Last Admin: 06/25/21 06:00 Dose: Not Given Documented by: A/P Assessment and plan (1) COVID-19: Status: Acute (2) Acute hypoxemic respiratory failure: Status: Acute (3) Hyperkalemia: Status: Acute (4) GERD (gastroesophageal reflux disease): Status: Chronic Qualifiers: Esophagitis presence: with esophagitis Qualified Code(s): K21.0 - Gastro-esophageal reflux disease with esophagitis (5) Spontaneous tension pneumothorax: Status: Acute (6) HCAP (healthcare-associated pneumonia): Status: Acute (7) Elevated brain natriuretic peptide (BNP) level: Status: Acute Narrative A/P Narrative: Assessment and Plans: 1. CoVID pneumonia: Isolation: airborne and contract Inpatient PCU Supplemental oxygen therapy titrate to achieve spo2>=92%, currently on high flow oxygen plus nonrebreather s/p Actemra Finished Remdesivir Finished Dexamethasone Avoid Lovenox/Heparin due to chest tube in place and recent bleeding into the chest tube DuoNEB NEB q4hr PRN wheezing or SOB No pulmonary embolism by CTA on 06/07 Tessalon Perles PRN cough Robitussin AC PRN cough 2. Hyperkalemia: RESOLVED Serum potassium level 3.9 on 06/25 Will repeat CMP in the morning to trend serum potassium level 3. GERD: Prilosec 4. Left sided tension pneumothorax: Dr. Frank replaced a chest tube on 06/18 Repeat CXR this morning, results pending Need to touch base with Dr. Aguilar regarding surgical options and potential to transfer to higher level of care with CT surgeon consultation. 5. HCAP: Supplemental oxygen therapy titrate to achieve spo2>=92%, currently on high flow oxygen plus nonrebreather MRSA screen negative Zosyn Tylenol PRN fever Robitussin AC PRN cough DuoNEB NEB PRN wheezing or SOB cbc w/ auto diff in the morning to trend WBC Repeat blood and sputum culture, no growth to date Repeat CXR this morning, results pending 6. Elevated BNP level: 2D echocardiogram to assess cardiac function Supplemental oxygen therapy, see above GI ppx: Prilosec DVT ppx: SCDs Code status: Full Prognosis: Extremely guarded Disposition: inpatient PCU telemetry Time Spent With Patient Time: Total time spent is greater than 50% in coordination of care (as documented) at patient's floor/unit and/or counseling patient: Total time spent with greater than 50% in coordination of care (as documented) at patient's floor/unit and/or counseling patient:: Greater than 35 minutes QUALITY Stroke Symptom Onset Unknown: No
[2021-06-25] MEDS: MULTIVIT,THER IRON,CA,FA & MIN 1 TABLET PO SCH ×2 (09:48→10:35)
[2021-06-25] MEDS: OMEPRAZOLE 20 MG CAPSULE PO SCH ×2 (09:51→10:33)
[2021-06-25] MEDS: METOPROLOL TARTRATE 25 MG TABLET PO SCH ×2 (09:51→21:00)
[2021-06-25] MEDS: POLYETHYLENE GLYCOL 3350 17 GM PACKET PO SCH (09:51)
[2021-06-25] MEDS: DOCUSATE SODIUM 100 MG CAPSULE PO SCH ×2 (09:51→19:17)
--- NOTE | 2021-06-25 10:07 | XRay Report ---
CLINICAL INFORMATION: Follow-up infiltrates COMPARISON: None. TECHNIQUE: PA and Lateral views FINDINGS: Mild cardiomegaly is unchanged. Mediastinum and pulmonary vessels are normal. Moderate, predominantly interstitial, diffuse infiltrates have progressed from yesterday. Left chest tube remains in stable position. Left pneumothorax has resolved. IMPRESSION: Moderate infiltrates throughout both lungs-modest progression Limited resolution left pneumothorax. Interpreted and Authenticated by: Jakub Roberson 06/25/21
--- NOTE | 2021-06-25 15:59 | General Surgery Progress Note ---
SUBJECTIVE Subjective Patient information: Note initiated : 06/25/21 at 3:53 pm Service Date, if different from initiated Date: [] Patient: Abiel Rae 75 y/o M admitted on 05/30/21 for Covid, sob. Chief Complaint: [] Principal diagnosis: CoVID pneumonia Interval history: Patient: Abiel Rae 75 y/o M admitted on 05/30/21 for Covid, sob. Chief Complaint: [Refractory Spontaneous Pneumothorax COVID related] spontaneous pneumothorax, s/p pigtail with residual pneumothorax, changed to 20f chest tube on 06/17, residual pneumothorax, CT replaced with 28f chest tube. Lung fully up today, large airleak with each breath. Constitutional Vitals: Vital Signs Temp Pulse Resp BP Pulse Ox 98.1 F 87 24 H 118/83 97 06/25/21 14:00 06/25/21 14:03 06/25/21 14:03 06/25/21 14:00 06/25/21 14:03 Period Temp Pulse Resp BP Sys/Guan Pulse Ox Last 24 Hr 96.7 F-98.1 F 78-100 15-37 92-139/61-112 62-100 Intake and Output 06/25/21 06/25/21 06/25/21 05:59 13:59 21:59 Intake Total 150 50 Output Total 230 285 Balance -80 -235 Weight 163 lb 11.2 oz Patient Weight 06/26/21 05:59 Weight 163 lb 11.2 oz Intake & Output: Intake & Output 06/25/21 06/25/21 06/25/21 05:59 13:59 21:59 Intake Total 150 50 Output Total 230 285 Balance -80 -235 Weight 163 lb 11.2 oz Intake: IV 50 50 Zosyn 3.375 gm In Dextrose 5% 50 50 in Water 50 ml @ 100 mls/hr IV Q6H [facility] Rx#:[id number] Oral 100 Output: Chest Tube Drainage 110 10 Left Lateral Chest 110 10 Urine Catheter Amount 120 275 Other: Meal Mildly sedated Percent of Meal Consumed 0% Urine Appearance Cloudy Clear Urine Color Light Andressa Dark Andressa # Bowel Movements 0 General appearance: cooperative and mild distress Respiratory Respiratory exam: Present accessory muscle use and decreased breath sounds Additional comments: large air leak A/P Narrative A/P Narrative: CXR without pneumo today, large air leak, bilateral infiltrates. s/p covid and pneumothorax. likely will not heal airleak secondary to covid lung, will likely need CT surgery for further treatment. continue on suction, daily CXR Time Spent With Patient Time: Total time spent is greater than 50% in coordination of care (as documented) at patient's floor/unit and/or counseling patient:
[2021-06-25] MEDS: 0.9 % SODIUM CHLORIDE 1,000 ML IV SCH (16:58)
[2021-06-25] MEDS: SENNOSIDES/DOCUSATE SODIUM 1 TAB TABLET PO SCH (19:17)
[2021-06-26] MEDS: morphine 4 MG/ML VIAL IV PRN ×3 (00:55→07:23)
[2021-06-26] MEDS: LORazepam 2 MG/ML VIAL IV PRN ×4 (03:06→20:07)
[2021-06-26] MEDS: 0.9 % SODIUM CHLORIDE 1,000 ML IV SCH ×3 (03:39→22:51)
[2021-06-26] MEDS: PIPERACILLIN SODIUM/TAZOBACTAM 3.375 GM in DEXTROSE 5% IN WATER 50 ML IV SCH ×3 (05:05→17:44)
[2021-06-26] MEDS: 0.9 % SODIUM CHLORIDE 10 ML SYRINGE IV SCH ×3 (05:23→22:51)
[2021-06-26 07:27] LABS: Basophils # (Auto) 0.15 K/mcL (0.00-0.30); Basophils % (Auto) 1.1 % (0.0-2.0); Eosinophils # (Auto) 0.79 K/mcL (0.00-0.70); Eosinophils % (Auto) 5.5 % (0.0-7.0); Hematocrit 42.8 % (40.1-51.0); Hemoglobin 13.4 g/dL (13.7-17.5); Lymphocytes # (Auto) 1.12 K/mcL (1.50-4.80); Lymphocytes % (Auto) 7.9 % (15.5-49.0); Mean Cell Volume 98.4 fL (80.0-100.0); Mean Corpuscular HGB Conc 31.3 g/dL (31.0-36.0); Mean Platelet Volume 11.1 fL (7.4-10.4); Monocytes # (Auto) 1.04 K/mcL (0.10-0.90); Monocytes % (Auto) 7.3 % (1.0-12.0); Neutrophils % (Auto) 78.2 % (38.0-78.0); Platelet Count 137 K/mcL (140-440); RBC 4.35 M/mcL (4.63-6.08); Red Cell Distribution Width 13.8 % (11.5-14.5); WBC 14.2 K/mcL (4.5-11.0)
--- NOTE | 2021-06-26 07:55 | Internal Med Progress Note ---
SUBJECTIVE Subjective Patient information: Note initiated : 06/26/21 at 7:48 am Service Date, if different from initiated Date: [] Patient: Abiel Rae a 75 y/o M admitted on 05/30/21 for Covid, sob. Chief Complaint: [] Principal diagnosis: CoVID pneumonia Interval history: Mr. Rae is a 75 year old M with no prior significant medical history who presents to the ER with worsening shortness of breath over the last few weeks. Patient was diagnosed with Covid on the and was discharged home on oxygen however he was discovered by his neighbor very short of breath and subsequently EMS was summoned. Patient was found to be desaturating in mid 80s. He was brought into the ER. Initial work-up was consistent with bilateral Covid pneumonia. Patient was found dexamethasone and subsequently hospitalist service was consulted. At the time of my evaluation patient is alert and able to answer most the ques tions. He was able to endorse history as above. He denies hemoptysis, diarrhea, abdominal pain, headache lightheadedness but endorses to weakness fatigue loss of appetite along with malaise. 05/31-patient clinically deteriorating. Now requiring 65% FiO2 at 35 L high flow oxygen. Worsening Covid pneumonia with possible element of ARDS. Status post Actemra. Continuing remdesivir/dexamethasone day two. Remains very high risk mortality. No overnight fever chills. Continue diurese/thrombosis prophylaxis. Maintain COVID-19 precaution. Check x-ray/ABGs 06/01 worsening interval chest imaging, however clinically feels better. On high flow oxygen 30 L. White count 8.6, platelets 133, continuing remdesivir/dexamethasone/azithromycin. No overnight events including fever chills. Alert and respond to commands, no anxiety or concerns per staff 06/02-patient this morning experienced syncopal episode while sitting in a chair. Was found in a near unresponsive state with blood pressure in the 80s. Placed on bed. Continue examination unremarkable. Patient returned to normal sensorium shortly. Denies chest pain, shortness of breath. Sidon back at baseline within minutes. Was incontinent of stool on chair. White count 5.6, potassium 3.2 on replacement, creatinine 0.9. Lower diuretic dose to 20 mg daily, continue remdesivir/dexamethasone. On 30 L high flow 65% FiO2. Remains critically ill 06/03-patient critically ill. Worsening hypoxia now on 70 L oxygen high flow. Patient seen in room. Grieving from loss of his . No telemetry events. No fever chills. Systolics mid 80s. Diuretics discontinued. On remdesivir/dexamethasone day 5. 06/04-patient clinically deteriorating. Seen in room. Desats on minimal activity. Now on 80% FiO2. High risk mortality. On day 6 remdesivir/dexamethasone. Potassium 4.1, LFTs downtrending, interval chest imaging evidence of subcutaneous emphysema. Repeat interval chest imaging at 1 PM rule out spontaneous pneumothorax Continue close monitoring in ICU. Avoid noninvasive ventilation due to risk of pneumothorax 06/05-patient seen in room, clinically deteriorating. Remarkably short of breath now on 35% FiO2. Desats to mid 80s on minimal exertion. Continuing dexamethasone/remdesivir. No telemetry events. Stable labs and hemodynamics. No overnight fever chills or concerns per staff. Remains a high risk mortality based on [place] 2 score. Interval chest imaging worsening bilateral infiltrates, No evidence of pneumothorax, decreased subcutaneous emphysema. 06/06 Patient not vaccinated. Patient states he feels like he is breathing better. Has a dry cough. Oxygen at 35 L/min 75% FiO2. 06/07 Patient is cough is improving. Shortness of breath seems amenable to him. He was taken to CT on a nonrebreather and he feels like he can breathe much easier on the nonrebreather than the Vapotherm and his oxygen saturations are quite good on the nonrebreather. We will also try Ventimask. 06/08 Patient states he is feeling better and breathing better but still requiring a lot of oxygen. We are able to get him down to 6 L oxygen mask yesterday for short period but is essentially been on 12-15 through the afternoon and evening. Currently on 12 L. And sats well at rest but with any movement desats quickly. 06/09 Patient on oxygen mask at 12 L and not on high flow tubing. Patient replaced on high flow tubing and liters nasal cannula. Sound little bit wheezy will have a breathing treatment ordered. Patient has a mild cough, he does have some shortness of breath with exertion feels about the same. 06/10 Continues to feel well. He is on 6 L oxygen mask at rest but desats with activity and is on 9L at that point. He is making progress but slowly. 06/11: Afebrile overnight. Still on 6L/min oxygen at rest and up to 9L/min when ambulate. c/o improving degree of SOB. c/o nonproductive cough. Denies wheezing or chest pain. Denies fever, chills, or sweating. Good energy level, good appetite. 06/12: Afebrile overnight. Still on 9L/min oxygen at the moment. c/o improving degree of SOB. c/o nonproductive cough. Denies wheezing or chest pain. Denies fever, chills, or sweating. Good energy level, good appetite. 06/13: Afebrile overnight. Still on 9L/min oxygen at the moment. c/o improving degree of SOB. c/o nonproductive cough. Denies wheezing or chest pain. Denies fever, chills, or sweating. Good energy level, good appetite. 06/14: Afebrile overnight. Was on 6L/min oxygen overnight, now on 10L/min. c/o improving degree of SOB. c/o nonproductive cough. Denies wheezing or chest pain. Denies fever, chills, or sweating. Good energy level, good appetite. 06/15: Developed left sided tension pneumothorax yesterday afternoon, s/p left sided chest tube placement by radiologist. On 4L/min overnight and currently. Have 5cc blood output from the chest tube overnight. Denies any SOB. Denies any cough or wheezing. Denies any chest pain. Denies any anxiety. Denies any fever, chills, or sweating. 06/16 Patient states he is feeling better today. Mild cough and improving shortness of breath. Chest x-ray with moderate recurrent pneumothorax, will consult surgery, patient placed on Pleur-evac. About 10 cc of blood about the chest tube overnight. 06/17 No change per patient today feeling same. Pneumothorax has not improved today in fact slightly worse, suspect blockage of the chest tube. Will defer further recommendations to surgery. Otherwise oxygen requirement still remains low 4-5L. 06/18 No changes. Pneumothorax continues to enlarge, defer to surgery for likely ch est tube replacement. Once the pneumothorax is resolved patient will go to [facility]. 06/19 Large bore chest tube placed yesterday for enlarging pneumothorax, bloody drainage about 180 overnight. Patient feels like he is breathing better since the chest tube was placed however he is on a nonrebreather although of note his sats are 100%. No new complaints. 06/20 Patient has significant desaturation last night when to when he was moving around. Placed on nonrebreather and supplemental high flow O2. Stat chest x-ray showed a left pneumothorax to be improving. There is severe bilateral alveolar infiltrates that are unchanged from previous chest x-ray.. 06/21: Afebrile overnight. Still lying on his side. On high flow oxygen 30L/min FiO2 65% with nonrebreather 13L/min on top. All cultures no growth to date. CXR today showing stable pneumothorax with severe bilateral infiltrates, no change from previous study. c/o moderate SOB. c/o nonproductive cough and wheezing. Denies chest pain. Denies anxiety. Denies fever, chills, or sweating. 06/22: Afebrile overnight. On high flow oxygen 30L/min FiO2 100% with nonrebreather 15L/min on top. Repeat CXR this morning showing stable left sided pneumothorax, and worsening pneumonia. All cultures no growth to date. Denies SOB. Denies cough or wheezing. Denies anxiety. Spoke with Dr. Frank, no need to replace with a larger bore chest tube at this point. If air leaks or pneumothorax worsening, will transfer to bigger center with CT surgeon for consultation for procedures such as pleurodesis. 06/23: Afebrile overnight. On high flow oxygen 30L/min FiO2 100% with nonrebreather 15L/min on top. CXR pending. Patient is c/o mild to moderate SOB. c/o nonproductive cough. Denies wheezing. Denies chest pain. Denies fever, chills, or sweating. Denies anxiety. Continue to touch base with Dr. Frank regarding surgical management. Continue Zosyn. 06/24: At 0530 patient expressed his wishes to nurse at the bedside regarding wanting to be on comfort care only, and refusing any treatment including antibiotics. I assessed patient at the bedside at 0600, and patient became mentally confused. I then spoked with daughter Radha [phone] regarding the situations and telling her the fact that patient would like to be switched to comfort care only. She stated that she would be on her way to come see her father. CXR this morning showing stable left sided pneumothorax, and improving bilateral pulmonary infiltrates. 06/25: Afebrile overnight. Was on CPAP overnight, now back to high flow oxygen plus non-rebreather oxygen. Sputum culture no growth; blood cultures no growth to date. Chest tube still in. Need to touch base with Dr. Aguilar regarding surgical options and potential to transfer to higher level of care with CT surgeon consultation. Still on Zosyn. 06/26: Afebrile overnight. Patient oxygen desaturated into the 50s-60s for around 7min at around 0700. He was transiently being placed on CPAP, but it leaded to more air leak through the chest tube, so he was being switched back to high flow oxygen 70L/min FiO2 100% plus non-rebreather 15L/min. Blood and sputum no growth, final. He has been placed on waiting lists for multiple hospital for transfer. He remained to be lethargic and confused and only responsive to pain. Hold Xanax, Ativan, Morphine. Continue Zosyn. Constitutional Vitals: Vital Signs Temp Pulse Resp BP Pulse Ox 37.0 C 79 46 H 123/84 84 L 06/26/21 00:01 06/26/21 07:05 06/26/21 07:05 06/26/21 07:00 06/26/21 07:05 Period Temp Pulse Resp BP Sys/Guan Pulse Ox Last 24 Hr 36.1 C-37.0 C 78-99 15-46 90-132/61-93 84-100 Intake and Output 06/25/21 06/26/21 06/26/21 21:59 05:59 13:59 Intake Total 50 1050 50 Output Total 360 100 Balance -310 950 50 Weight 72.348 kg Intake & Output: Intake & Output 06/25/21 06/26/21 06/26/21 21:59 05:59 13:59 Intake Total 50 1050 50 Output Total 360 100 Balance -310 950 50 Weight 72.348 kg Intake: IV 50 1050 50 Sodium Chloride 0.9% 1,000 ml @ 1000 100 mls/hr IV .Q10H CARL Rx#: [id number] Zosyn 3.375 gm In Dextrose 5% 50 50 50 in Water 50 ml @ 100 mls/hr IV Q6H CARL Rx#:[id number] Output: Chest Tube Drainage 85 50 Left Lateral Chest 85 50 Urine Catheter Amount 275 50 Other: Meal Dinner Percent of Meal Consumed 0% Urine Appearance Clear Clear Urine Color Dark Yellow Dark Yellow Urine Odor Normal Normal Exam: Altered Head Head exam: Present atraumatic and normal inspection Eye Eye exam: Present normal appearance ENT ENT exam: Present mucous membranes moist, normal exam and normal external ear exam Additional comments: High flow oxygen plus non-rebreather in place Neck Neck exam: Present normal inspection Respiratory Respiratory exam: Present decreased breath sounds Additional comments: left sided chest tube in place Cardiovascular Cardiovascular exam: Present irregular rhythm GI/Abdominal GI/Abdominal exam: Present normal bowel sounds Additional comments: Hunt catheter in place Back Exam Back exam: Present normal inspection Neurological Exam Neurological exam: Present altered Skin Skin exam: Present intact and warm OBJ DATA Labs CBC & Chem 7: 06/26/21 05:38 06/25/21 05:33 Labs: Abnormal Lab Results 06/26/21 06/25/21 06/25/21 05:38 05:33 05:33 WBC 14.2 H 15.2 H RBC 4.35 L 4.28 L Hgb 13.4 L 13.1 L Hct 39.4 L Plt Count 137 L MPV 11.1 H 10.9 H Neut % (Auto) 78.2 H 80.9 H Lymph % (Auto) 7.9 L 7.8 L Lymph # (Auto) 1.12 L 1.19 L [place] # (Auto) 1.04 H 1.05 H Eos # (Auto) 0.79 H Absolute Neutrophils 11.14 H 12.33 H Sodium Potassium Chloride 92 L BUN 28 H Glucose AST 48 H Alkaline Phosphatase 159 H Albumin 2.8 L Globulin Albumin/Globulin Ratio 0.8 L 06/24/21 06/24/21 13:42 07:09 WBC 14.2 H RBC 4.42 L Hgb 13.5 L Hct 39.3 L Plt Count MPV 10.7 H Neut % (Auto) 81.9 H Lymph % (Auto) 7.8 L Lymph # (Auto) 1.10 L [place] # (Auto) 0.96 H Eos # (Auto) Absolute Neutrophils 11.63 H Sodium 131 L Potassium 5.2 H Chloride 90 L BUN 28 H Glucose 122 H AST 44 H Alkaline Phosphatase 156 H Albumin 3.0 L Globulin 3.8 H Albumin/Globulin Ratio 0.8 L Meds: Medications Albuterol/Ipratropium (Ipratropium/Albuterol 3 Ml Ampul.Neb) 3 ml NEB Q4HP PRN PRN Reason: Shortness Of Breath Last Admin: 06/25/21 02:23 Dose: 3 ml Documented by: Benzonatate (Benzonatate 100 Mg Capsule) 100 mg PO TIDP PRN PRN Reason: Cough Last Admin: 06/23/21 19:55 Dose: 100 mg Documented by: Bisacodyl (Bisacodyl 10 Mg Supp.Rect) 10 mg [place] Q2-3DAYS PRN PRN Reason: Constipation Diphenhydramine HCl (Diphenhydramine 25 Mg Capsule) 25 mg PO HSP PRN PRN Reason: Insomnia Docusate Sodium (Docusate Sodium 100 Mg Capsule) 100 mg PO BID CARL Last Admin: 06/25/21 19:17 Dose: Not Given Documented by: Guaifenesin/Codeine Phosphate (Guaifenesin/Codeine 10 Ml Udc) 10 ml PO Q4HP PRN PRN Reason: Cough Last Admin: 06/23/21 02:31 Dose: 10 ml Documented by: Potassium Chloride 40 meq/ (Dextrose) 520 mls @ 130 mls/hr IV UD PRN PRN Reason: K+ = or < 3.5 Acetaminophen (Ofirmev) 650 mg in 65 mls @ 130 mls/hr IV Q6HP PRN; Protocol PRN Reason: Per Pain Protocol/Fever > 101 Magnesium Sulfate (Magnesium Sulfate) 2 gm in 50 mls @ 50 mls/hr IV UD PRN PRN Reason: MG = or < 1.7 Sodium Chloride (Sodium Chloride 0.9%) 1,000 mls @ 0 mls/hr IV .Q0M CARL Piperacillin Sod/Tazobactam (Sod 3.375 gm/ Dextrose) 50 mls @ 100 mls/hr IV Q6H CARL; Protocol Last Infusion: 06/26/21 06:10 Dose: Infused Documented by: Sodium Chloride (Sodium Chloride 0.9%) 1,000 mls @ 100 mls/hr IV .Q10H CARL Last Admin: 06/26/21 03:39 Dose: 100 mls/hr Documented by: Ibuprofen (Ibuprofen 600 Mg Tablet) 600 mg PO QIDP PRN; Protocol PRN Reason: PAIN/FEVER > 101 Last Admin: 06/22/21 00:22 Dose: 600 mg Documented by: Iron Carb/Multivit/[place]/Folic Acid (Multivit,Ther Iron,Ca,Fa & Min 1 Tablet) 1 tab PO DAILY COUNT INCLUDES THE [facility] Last Admin: 06/25/21 10:35 Dose: Not Given Documented by: Metoprolol Tartrate (Metoprolol Tartrate 25 Mg Tablet) 25 mg PO BID COUNT INCLUDES THE [facility] Last Admin: 06/25/21 21:00 Dose: Not Given Documented by: Nitroglycerin (Nitroglycerin 0.4 Mg Tab.Subl) 0.4 mg SL Q5M PRN PRN Reason: Chest Pain Last Admin: 06/14/21 10:02 Dose: 0.4 mg Documented by: Omeprazole (Omeprazole 20 Mg Capsule) 20 mg PO ACB COUNT INCLUDES THE [facility] Last Admin: 06/25/21 10:33 Dose: Not Given Documented by: Ondansetron HCl (Ondansetron 4 Mg Odt Tablet) 4 mg SL Q4-6HP PRN; Protocol PRN Reason: Nausea And Vomiting Ondansetron HCl (Ondansetron 4 Mg/2 Ml Vial) 4 mg IV Q4-6HP PRN; Protocol PRN Reason: Nausea And Vomiting Polyethylene Glycol (Polyethylene Glycol 3350 17 Gm Packet) 17 gm PO DAILYP PRN PRN Reason: Constipation Last Admin: 06/15/21 16:49 Dose: 17 gm Documented by: Polyethylene Glycol (Polyethylene Glycol 3350 17 Gm Packet) 17 gm PO DAILY COUNT INCLUDES THE [facility] Last Admin: 06/25/21 09:51 Dose: Not Given Documented by: Potassium/Phosphorus/Sodium (Neutra Phos 1 Packet) 2 packet PO ONCE PRN PRN Reason: For phosphorus less than 2.5 Senna/Docusate Sodium (Sennosides/Docusate Sodium 1 Tab Tablet) 1 tab PO HS COUNT INCLUDES THE [facility] Last Admin: 06/25/21 19:17 Dose: Not Given Documented by: Sodium Chloride (0.9 % Sodium Chloride 10 Ml Syringe) 10 ml IV Q8 COUNT INCLUDES THE [facility] Last Admin: 06/26/21 05:23 Dose: 10 ml Documented by: A/P Assessment and plan (1) COVID-19: Status: Acute (2) Acute hypoxemic respiratory failure: Status: Acute (3) Hyperkalemia: Status: Acute (4) GERD (gastroesophageal reflux disease): Status: Chronic Qualifiers: Esophagitis presence: with esophagitis Qualified Code(s): K21.0 - Gastro-esophageal reflux disease with esophagitis (5) Spontaneous tension pneumothorax: Status: Acute (6) HCAP (healthcare-associated pneumonia): Status: Acute (7) Elevated brain natriuretic peptide (BNP) level: Status: Acute Narrative A/P Narrative: Assessment and Plans: 1. CoVID pneumonia: Isolation: airborne and contract Inpatient PCU Supplemental oxygen therapy titrate to achieve spo2>=92%, currently on high flow oxygen 70L/min FiO2 100% plus nonrebreather oxygen 15L/min s/p Actemra Finished Remdesivir Finished Dexamethasone Avoid Lovenox/Heparin due to chest tube in place and recent bleeding into the chest tube DuoNEB NEB q4hr PRN wheezing or SOB No pulmonary embolism by CTA on 06/07 Tessalon Perles PRN cough Robitussin AC PRN cough 2. Hyperkalemia: RESOLVED Serum potassium level 3.9 on 06/25, today level pending Will repeat CMP in the morning to trend serum potassium level 3. GERD: Prilosec 4. Left sided tension pneumothorax: Dr. Frank replaced a chest tube on 06/18 Repeat CXR this morning, results pending Continue to have air leak via chest tube, pending transfer to higher level of care with consultation to CT surgeon for further surgical management. Currently on waiting lists of multiple hospitals. 5. HCAP: Supplemental oxygen therapy titrate to achieve spo2>=92%, currently on high flow oxygen 70L/min FiO2 100% plus nonrebreather oxygen 15L/min MRSA screen negative Zosyn Tylenol PRN fever Robitussin AC PRN cough DuoNEB NEB PRN wheezing or SOB cbc w/ auto diff in the morning to trend WBC Repeat blood and sputum culture, no growth, final Repeat CXR this morning, results pending 6. Elevated BNP level: 2D echocardiogram to assess cardiac function Supplemental oxygen therapy titrate to achieve spo2>=92%, currently on high flow oxygen 70L/min FiO2 100% plus nonrebreather oxygen 15L/min GI ppx: Prilosec DVT ppx: SCDs Code status: Full Prognosis: Extremely guarded Disposition: inpatient PCU telemetry Time Spent With Patient Time: Total time spent is greater than 50% in coordination of care (as documented) at patient's floor/unit and/or counseling patient: Total time spent with greater than 50% in coordination of care (as documented) at patient's floor/unit and/or counseling patient:: Greater than 35 minutes QUALITY Stroke Symptom Onset Unknown: No
[2021-06-26 08:07] LABS: ALT/SGPT 28 U/L (<40); AST/SGOT 51 U/L (<40); Albumin 2.6 gm/dL (3.2-5.2); Albumin/Globulin Ratio 0.6 (1.0-2.3); Alkaline Phosphatase 189 U/L (39-117); Blood Urea Nitrogen 20 mg/dL (8-23); Calcium 9.3 mg/dL (8.6-10.4); Carbon Dioxide 28 mmol/L (22-30); Chloride 98 mmol/L (96-108); Globulin 4.1 gm/dL (2.2-3.7); Glomerular Filtration Rate 88; Glucose 88 mg/dL (70-105)
[2021-06-26] MEDS: OMEPRAZOLE 20 MG CAPSULE PO SCH (09:36)
[2021-06-26] MEDS: POLYETHYLENE GLYCOL 3350 17 GM PACKET PO SCH (09:37)
[2021-06-26] MEDS: MULTIVIT,THER IRON,CA,FA & MIN 1 TABLET PO SCH (09:37)
[2021-06-26] MEDS: DOCUSATE SODIUM 100 MG CAPSULE PO SCH ×2 (09:37→20:18)
[2021-06-26] MEDS: METOPROLOL TARTRATE 25 MG TABLET PO SCH ×2 (09:37→20:18)
--- NOTE | 2021-06-26 09:37 | XRay Report ---
CLINICAL INFORMATION: Follow-up infiltrates COMPARISON: 06/25/2021. TECHNIQUE: Portable FINDINGS: Mild cardiomegaly is unchanged. Mediastinum and pulmonary vessels are normal. Moderate, predominantly interstitial, diffuse infiltrates have progressed from yesterday. Left chest tube remains in stable position. Left pneumothorax has resolved-no effusions. IMPRESSION: Moderate diffuse bilateral interstitial infiltrates-slight progression Complete resolution of left pneumothorax. Interpreted and Authenticated by: Jakub Roberson 06/26/21
[2021-06-26] MEDS ORDERED: morphine 2 MG/ML VIAL IV PRN (15:04)
--- NOTE | 2021-06-26 16:33 | General Surgery Progress Note ---
SUBJECTIVE Subjective Patient information: Note initiated : 06/26/21 at 4:31 pm Service Date, if different from initiated Date: [] Patient: Abiel Rae 75 y/o M admitted on 05/30/21 for Covid, sob. Chief Complaint: [] Principal diagnosis: CoVID pneumonia Interval history: Overnight events noted, desaturation this morning. Continued air leak on chest tube. CPAP increased air leak but high flow O2 does not maintain O2 saturations. Constitutional Vitals: Vital Signs Temp Pulse Resp BP Pulse Ox 97.7 F 104 H 35 H 122/87 88 L 06/26/21 16:00 06/26/21 16:00 06/26/21 16:00 06/26/21 16:00 06/26/21 16:00 Period Temp Pulse Resp BP Sys/Guan Pulse Ox Last 24 Hr 97.0 F-98.6 F 79-104 19-46 90-150/67-101 75-98 Intake and Output 06/26/21 06/26/21 06/26/21 05:59 13:59 21:59 Intake Total 1050 1008 Output Total 100 425 100 Balance 950 583 -100 Intake & Output: Intake & Output 06/26/21 06/26/21 06/26/21 05:59 13:59 21:59 Intake Total 1050 1008 Output Total 100 425 100 Balance 950 583 -100 Intake: IV 1050 1008 Sodium Chloride 0.9% 1,000 ml @ 1000 843 100 mls/hr IV .Q10H CARL Rx#: [id number] Zosyn 3.375 gm In Dextrose 5% 50 100 in Water 50 ml @ 100 mls/hr IV Q6H CARL Rx#:[id number] Output: Chest Tube Drainage 50 0 Left Lateral Chest 50 0 Urine Catheter Amount 50 425 100 Other: Urine Appearance Clear Clear Urine Color Dark Yellow Dark Andressa Urine Odor Normal General appearance: moderate distress Respiratory Respiratory exam: Present decreased breath sounds A/P Narrative A/P Narrative: Covid pneumonia, pneumothorax secondary to Covid. Multiple attempts to maintain long fully expanded resulted in 28 Serbian chest tube which is now fully extended long however extensive air leak which is worsened by positive pressure ventilation. Patient needs transfer to higher level of care and possible thoracic surgery due to excessive air leak. Time Spent With Patient Time: Total time spent is greater than 50% in coordination of care (as documented) at patient's floor/unit and/or counseling patient:
[2021-06-26] MEDS: morphine 2 MG/ML VIAL IV PRN ×7 (17:54→23:59)
[2021-06-26] MEDS: SENNOSIDES/DOCUSATE SODIUM 1 TAB TABLET PO SCH (20:18)
[2021-06-27] MEDS: LORazepam 2 MG/ML VIAL IV PRN
[2021-06-27] MEDS: PIPERACILLIN SODIUM/TAZOBACTAM 3.375 GM in DEXTROSE 5% IN WATER 50 ML IV SCH ×2 (00:07→06:31)
[2021-06-27] MEDS: morphine 2 MG/ML VIAL IV PRN (01:10)
--- NOTE | 2021-06-27 02:24 | Death Note ---
Discharge Sum: Prov Provider Patient information: Note initiated : 06/27/21 at 2:21 am Service Date, if different from initiated Date: [] Patient: Abiel Rae 75 y/o M admitted on 05/30/21 for Covid, sob. Chief Complaint: [] Primary care physician: oPlo Luz Attending physician on admission: Aravind Light Consults: 05/30/21 Consult to Physician [CONS] Stat Comment: Consulting Provider: Aravind Light Reason For Exam: Physician to Consult 06/16/21 10:16 Consult to Physician [CONS] Routine Comment: recurrent PTX Consulting Provider: Malik Aguilar Reason For Exam: Physician to Consult Pronouncing clinician: Pino Bagley Discharge Sum: Diag Contributing Factors (1) COVID-19: (2) Acute hypoxemic respiratory failure: (3) Hyperkalemia: (4) GERD (gastroesophageal reflux disease): (5) Spontaneous tension pneumothorax: (6) HCAP (healthcare-associated pneumonia): (7) Elevated brain natriuretic peptide (BNP) level: Discharge Sum: Summary Date and Time Date of admission: 05/30/21 15:46 Date of : 06/27/21 Time of : 02:18 Summary Details: Patient had no respiratory efforts and sinus bradycardia for 10 min, then turned into asystole. Patient was DNI DNR status, so no code was activated. I was at the bedside to pronounce the . Time of : 217. Additional Data Confirmation of as documented by pronouncing clinician: no pulse, no respirations and no heart sounds Family: contacted Additional persons at bedside: other (nurses X2) Attending/PCP notified?: Yes Attending physician: Pino Bagley Was code activated?: No Autopsy requested?: No motor vehicle licence examiner notified?: No Organ bank notified?: No Advance directives?: Yes Hospice patient?: No
[2021-06-27] MEDS: 0.9 % SODIUM CHLORIDE 10 ML SYRINGE IV SCH (06:31)
== END 2021-06-27 02:19 | disposition expired | DRG 177 ==
LOC: ED 10:17 → ICU 15:46
PROVIDERS: ADMIT Internal Medicine; ATTEND Internal Medicine